=== PATIENT | male | born 1960 | race African-American/Black ===

== ENCOUNTER 2016-05-02 09:21 | Inpatient (IN) | payer MEDICARE, OTHER ==
[~2016-05-02] VITALS: Ht 185.4 cm; Wt 106.6 kg
[~2016-05-02 09:21] MED LIST: ASPI81TA2 PO; ATOR20TA PO; CHLO25TA PO; CHOL2000 PO; DILT120C97 PO; DILT60TA3 PO; FURO40TA4 PO; GLIP10TA20 PO; GLIP5TAB10 PO; GLIP5TAB22 PO; HYDR-971 PO; LATA2.5D3 EACHEYE; LISI40TA PO; LOSA100T6 PO; METF10002 PO; SILD20TA2 PO; SPIR25TA3 PO
[2016-05-02 11:17] LABS: BASO % 1 % (0-3); EOS % 2 % (0-3); HEMATOCRIT 32.8 % (39.0-53.0); HEMOGLOBIN 9.9 g/dL (13.0-17.5); LYMPH # 1.3 x10^3/uL (1.0-4.8); LYMPH % 16 % (24-48); MEAN CORPUSCULAR HEMOGLOBIN 24 pg (25-35); MEAN CORPUSCULAR HGB CONC 30 g/dL (31-37); MEAN CORPUSCULAR VOLUME 81 fL (79-100); MONO % 9 % (0-9); NEUT % 72 % (31-73); PLATELET COUNT 168 x10^3/uL (140-400); RED BLOOD COUNT 4.07 x10^6/uL (4.30-5.70); RED CELL DISTRIBUTION WIDTH 17.5 % (11.5-14.5)
[2016-05-02 11:22] LABS: CALCIUM 8.5 mg/dL (8.5-10.1); GFR 7.4; POTASSIUM 4.1 mmol/L (3.5-5.1)
--- NOTE | 2016-05-02 11:59 | RAD ---
CT scan of the abdomen and pelvis without contrast 05/02/2016 Clinical history: Constipation and abdominal pain. Technique: Unenhanced, contiguous, 5 mm axial sections were obtained through the abdomen and pelvis. One or more of the following individualized dose reduction techniques were utilized for this study: 1. Automated exposure control. 2. Adjustment of the mA and/or kV according to patient size. 3. Use of iterative reconstruction technique. Findings: Comparison study is dated 01/16/2015. Images through the lung bases demonstrate minimal dependent subsegmental atelectasis bilaterally. The unenhanced CT appearance of the liver, spleen, pancreas and adrenal glands are within normal limits. Coils are seen within the mid/lower pole right kidney, unchanged. No acute focal abnormality of either kidney is noted. Atherosclerotic calcification of the abdominal aorta is seen. The abdominal aorta tapers normally. The gallbladder is contracted. A peritoneal dialysis catheter is seen within the left lower quadrant of the abdomen. A small amount of free fluid is seen within the abdomen which is presumably related to peritoneal dialysis. No free air is noted. There is no evidence of bowel obstruction. Surgical changes are seen consistent with an appendectomy. Scattered diverticula are seen involving the colon. No inflammatory changes are seen in the adjacent fat. Images through the pelvis demonstrate the urinary bladder distended with urine. The prostate gland is enlarged likely related to BPH. Calcifications are seen within the pelvis consistent with phleboliths. Multiple diverticula are seen along the sigmoid colon. No inflammatory changes are seen in the adjacent fat. Impression: No acute abnormality is seen.
[2016-05-02] MEDS ORDERED: INSULIN REGULAR 100 UNIT/ML 10ML VIAL. IV ONE (12:15)
--- NOTE | 2016-05-02 12:53 | PHYS DOC ---
Past Medical History Past Medical History: Diabetes-Type II, High Cholesterol, Hypertension Additional Past Medical Histor: ESRD, peritoneal dialysis Past Surgical History: Cholecystectomy, Tonsillectomy Additional Past Surgical Histo: peritoneal dialysis Additional Information: denies Alcohol Use: Occasionally Drug Use: None Adult General Chief Complaint Chief Complaint: LOWER EXTREMITY SWELLING HPI HPI Patient is a 55 year old male who presents with and daughter for abdominal pain, constipation, and abdominal swelling. States he also has some bilateral lower extremity edema and 5 pound weight gain over the past week. He performs nightly peritoneal dialysis and feels he has appropriate fluid output. He denies fever or chills, nausea or vomiting, dyspnea, cough, chest pain, bloody stools, hematuria, back pain. Review of Systems Review of Systems Constitutional: Denies fever or chills [] Eyes: Denies change in visual acuity, redness, or eye pain [] HENT: Denies nasal congestion or sore throat [] Respiratory: Denies cough or shortness of breath [] Cardiovascular: No additional information not addressed in HPI [] GI: Denies nausea, vomiting, bloody stools or diarrhea [] : Denies dysuria or hematuria [] Musculoskeletal: Denies back pain or joint pain [] Integument: Denies rash or skin lesions [] Neurologic: Denies headache, focal weakness or sensory changes [] Endocrine: Denies polyuria or polydipsia [] Current Medications Current Medications Current Medications Medications (Trade) Dose Ordered Sig/[facility] Start Time Stop Time Status Last Admin Dose Admin Insulin Human Regular (Novolin R Vial) 10 unit 1X ONCE 05/02/16 12:15 05/02/16 12:16 DC 05/02/16 12:43 10 UNIT Allergies Allergies Allergies Coded Allergies Type Severity Reaction Last Updated Verified ibuprofen Allergy Severe swelling 01/30/15 Yes Physical Exam Physical Exam Constitutional: Well developed, well nourished, no acute distress, non-toxic appearance. [] HENT: Normocephalic, atraumatic, bilateral external ears normal, oropharynx moist, nose normal. [] Eyes: PERRLA, EOMI. [] Neck: Normal range of motion, supple. [] Cardiovascular:Heart rate regular rhythm [] Lungs & Thorax: Bilateral breath sounds clear to auscultation [] Abdomen: Bowel sounds normal, soft, no tenderness, large palpable urinary bladder. [] Skin: Warm, dry, no erythema, no rash. [] Back: No tenderness, no CVA tenderness. [] Extremities: No tenderness, ROM intact, 1+ bilateral lower extremity edema. [] Neurologic: Alert and oriented X 3, normal motor function, normal sensory function, no focal deficits noted. [] Psychologic: Affect normal, judgement normal, mood normal. [] Current Patient Data Vital Signs Vital Signs Date Time Temp Pulse Resp B/P Pulse Ox O2 Delivery O2 Flow Rate FiO2 05/02/16 10:54 83 16 172/79 96 Room Air 05/02/16 09:35 99.1 99.1 Lab Values Laboratory Tests Test 05/02/16 11:00 White Blood Count 8.0x10^3/uL (4.0-11.0) Red Blood Count 4.07x10^6/uL (4.30-5.70) L Hemoglobin 9.9g/dL (13.0-17.5) L Hematocrit 32.8% (39.0-53.0) L Mean Corpuscular Volume 81fL (79-100) Mean Corpuscular Hemoglobin 24pg (25-35) L Mean Corpuscular Hemoglobin Concent 30g/dL (31-37) L Red Cell Distribution Width 17.5% (11.5-14.5) H Platelet Count 168x10^3/uL (140-400) Neutrophils (%) (Auto) 72% (31-73) Lymphocytes (%) (Auto) 16% (24-48) L Monocytes (%) (Auto) 9% (0-9) Eosinophils (%) (Auto) 2% (0-3) Basophils (%) (Auto) 1% (0-3) Neutrophils # (Auto) 5.7x10^3uL (1.8-7.7) Lymphocytes # (Auto) 1.3x10^3/uL (1.0-4.8) Monocytes # (Auto) 0.7x10^3/uL (0.0-1.1) Eosinophils # (Auto) 0.2x10^3/uL (0.0-0.7) Basophils # (Auto) 0.0x10^3/uL (0.0-0.2) Sodium Level 122mmol/L (136-145) L Potassium Level 4.1mmol/L (3.5-5.1) Chloride Level 87mmol/L (98-107) L Carbon Dioxide Level 27mmol/L (21-32) Anion Gap 8 (6-14) Blood Urea Nitrogen 58mg/dL (8-26) H Creatinine 9.0mg/dL (0.7-1.3) H Estimated GFR (Cockcroft-Gault) 7.4 Glucose Level 1153mg/dL (70-99) *H Calcium Level 8.5mg/dL (8.5-10.1) Laboratory Tests 05/02/16 11:00 Laboratory Tests 05/02/16 11:00 EKG EKG EKG as interpreted by me as normal sinus rhythm, rate 75, no ST-T changes, normal intervals, no ectopy Radiology/Procedures Radiology/Procedures CT abdomen and pelvis without contrast Impression: No acute abnormality is seen. DICTATED and SIGNED BY: BIBIANA MARTINEZ MD DATE: 05/02/16 1150 Course & Med Decision Making Course & Med Decision Making Pertinent Labs and Imaging studies reviewed. (See chart for details) He has severe asymptomatic hyperglycemia. He also has bladder distention concerning for urinary retention. He was given IV insulin, and Mary catheter was placed . He had large urine output with resolution of abdominal pain and swelling. His laboratory evaluation is otherwise unremarkable. He will be admitted for blood glucose control to start insulin therapy. Discussed case with Dr. Mccullough, who will admit and recommends starting insulin drip. Dragon Disclaimer Dragon Disclaimer This electronic medical record was generated, in whole or in part, using a voice recognition dictation system. Departure Departure Impression: Primary Impression: Hyperglycemia Additional Impressions: Urinary retention ESRD (end stage renal disease) Disposition: ADMITTED INPATIENT Condition: STABLE Referrals: CIELO COYNE DO (PCP) Problem Qualifiers [place] NICHOLAS MD May 02, 2016 12:53
[2016-05-02] MEDS ORDERED: ACETAMINOPHEN 325 MG TABLET. PO PRN ×2 (13:00→16:15)
[2016-05-02] MEDS ORDERED: ONDANSETRON PF 4 MG/2 ML VIAL. IV PRN ×2 (13:00→16:15)
[2016-05-02] MEDS ORDERED: INSULIN,REGULAR 150 UNIT DRIP 150 ML IV ONE (13:00)
[2016-05-02] MEDS: FENTANYL PF 100 MCG/2 ML VIAL. IV PRN ×2 (13:28→22:25)
[2016-05-02] MEDS ORDERED: TAMSULOSIN 0.4 MG CAP.ER.24H. PO SCH (13:30)
--- NOTE | 2016-05-02 14:21 | ACF ---
Admission Forms Criteria GENERAL ADMISSION CRITERIA (Place 'X' for any and all applicable criteria): Admission is indicated for ANY ONE of the following: [ ]I. Hemodynamic instability as indicated by ANY ONE of the following(1)(2) (3)(4)(5): [ ]a) Vital sign abnormality not readily corrected by appropriate treatment within 12 to 24 hours indicated by ANY ONE of the following: [ ]i) Hypotension [ ]ii) Symptomatic Tachycardia unresponsive to treatment (eg , analgesia, fluids, sedation as indicated) [ ]iii) Orthostatic vital sign changes unresponsive to treatment (eg, fluids) [ ]b) Vital sign abnormality that is severe indicated by ANY ONE of the following: [ ]i) Inadequate perfusion indicated by ANY ONE of the following: [ ]1) Lactic acidosis (greater than 2 mmol/L) [ ]2) New abnormal capillary refill (greater than 3 seconds) [ ]3) Other metabolic acidosis (arterial pH less than 7.35) not otherwise explained [ ]4) Reduced urine output [ ]5) Altered mental status [ ]6) Myocardial Ischemia [ ]v) Mean arterial pressure[A] less than 60 mm Hg [ ]vi) Mean arterial pressure[A] less than 70 mm Hg after 30 minutes of appropriate treatment (eg, fluid resuscitation) [ ]vii) IV inotropic or vasopressor medication required to maintain adequate blood pressure or perfusion [ ]viii) Sustained heart rate greater than 120 beats per minute in adult or child 6 years or older[B]] [ ]II. Hypertension requiring inpatient treatment as indicated by ANY ONE of the following(6)(7)(8): [ ]a) SBP greater than 220 mm Hg or DBP greater than 120 mm Hg despite treatment [ ]b) SBP greater than 140 mm Hg or DBP greater than 100 mm Hg with evidence of acute end organ damage as indicated by ANY ONE of the following: [ ]i) Encephalopathy [ ]ii) Acute renal failure as indicated by new onset of ANY ONE of the following(9)(10)(11)(12)(13): [ ]1) A 3-fold rise in serum creatinine from baseline [ ]2) Serum creatinine greater than 4 mg/dL ( 354 micromoles/L) with acute rise greater than 0.5 mg/dL (44.2 micromoles/L) [ ]3) Reduction of more than 75% in estimated glomerular filtration rate from baseline [ ]4) Estimated glomerular filtration rate less than 35 mL/min/1.73m2 (0.59 mL/sec/1.73m2) in child up to 18 years of age [ ]5) Cessation of urine output indicated by ALL of the following: [ ]A. Adequate volume status [ ]B. Inadequate urine output as indicated by ANY ONE of the following: [ ]a. Urine output less than 0.3 mL/kg/hr for 24 hours [ ]b. Anuria (urine output less than 0.1 mL/kg/hr) for 12 hours [ ]iii) Aortic dissection [ ]iv) Myocardial ischemia [ ]v) Left ventricular heart failure [ ]vi) Retinal hemorrhage [ ]vii) Other significant finding [ ]c) Hypertension in child requiring inpatient treatment as indicated by ALL of the following(14)(15)(16): [ ]i) Outpatient treatment not effective, not available, or not appropriate [ ]ii) SBP or DBP greater than 95th percentile for age [ ]iii) Evidence of acute end organ damage as indicated by ANY ONE of the following: [ ]1) Altered mental status [ ]2) Acute renal failure as indicated by new onset of ANY ONE of the following(9)(10)(11)(12)(13): [ ]A. A 3-fold rise in serum creatinine from baseline [ ]B. Serum creatinine greater than 4 mg/dL (354 micromoles/L) with acute rise greater than 0.5 mg/dL (44.2 micromoles/L) [ ]C. Reduction of more than 75% in estimated glomerular filtration rate from baseline [ ]D. Estimated glomerular filtration rate less than 35 mL/min/1.73m2 (0.59 mL/sec/1.73m2)in child up to 18 years of age [ ]E. Cessation of urine output indicated by ALL of the following: [ ]a. Adequate volume status [ ]b. Inadequate urine output as indicated by ANY ONE of the following: [ ]1) Urine output less than 0.3 mL/kg/hr for 24 hours [ ]2) Anuria (urine output less than 0.1 mL/kg/hr) for 12 hours [ ]3) Severe headache [ ]4) Visual disturbance [ ]5) Retinal hemorrhage [ ]6) Other significant finding [ ]III. Acute cardiac or peripheral ischemia as indicated by ANY ONE of the following: [ ]a) Acute coronary syndrome(17)(18) [ ]b) Acute peripheral ischemia (eg, pulseless, cool, mottled, or cyanotic extremity)(19) [ ]IV. Cardiac arrhythmias or findings of immediate concern indicated by ANY ONE of the following(20)(21): [ ]a) Heart rhythms that are inherently dangerous or unstable indicated by ANY ONE of the following(22)(23)(24): [ ]i) Resuscitated ventricular fibrillation or cardiac arrest [ ]ii) Ventricular escape rhythm [ ]iii) Sustained ventricular tachycardia (30 seconds or more of ventricular rhythm at greater than 100 beats per minute) [ ]iv) Nonsustained ventricular tachycardia and ANY ONE of the following: [ ]1) Suspected cardiac ischemia as cause or consequence of ventricular tachycardia [ ]2) In setting of acute myocarditis [ ]b) Unstable cardiac conduction defects indicated by ANY ONE of the following(24)(25)(26): [ ]i) Type II second-degree atrioventricular block [ ]ii) Third-degree atrioventricular block [ ]iii) New-onset left bundle branch block with suspected myocardial ischemia [ ]c) Any heart rhythm and ANY ONE of the following(22)(23)(27)(28)( 29): [ ] i) Continuous long-term ECG monitoring needed (eg, initiation of drug requiring monitoring for more than 24 hours) [ ] ii) Patient has automatic implanted cardioverter defibrillator that is repeatedly firing, malfunctioning, or in need of immediate adjustment of settings beyond the scope of ambulatory or observation care. [ ]d) Heart rhythms of concern due to ANY ONE of the following: [ ]i) Hypotension [ ]ii) Respiratory distress [ ]iii) Association with other significant symptoms (eg, bradycardia with syncope or ongoing dizziness, supraventricular tachycardia with chest pain) (27)(28) (30) [ ] V. Severe heart failure as indicated by ANY ONE of the following ( 31)(32): [ ]a) Respiratory distress [ ]b) Hypotension [ ]c) Anasarca (refractory to outpatient therapy) [ ]d) Cardiac arrhythmias of immediate concern [ ]e) Myocardial ischemia [ ]. Respiratory abnormalities, including ANY ONE of the following(33)(34) (35)(36): [ ]a) Respiratory rate greater than 30 breaths per minute unresponsive to treatment [A] [ ]b) New saturation of arterial oxygen less than 90% [ ]c) New partial pressure of carbon dioxide greater than 44 mm Hg ( 5.9 kPa) [ ]d) Supplemental oxygen or respiratory treatments needed that are new or not performable at other levels of care [ ]e) New-onset cyanosis [ ]f) Inability to protect airway [ ]g) Chronic lung disease with severe deterioration (not responsive to emergency and observation care treatment as appropriate) as indicated by ANY ONE of the following(34)(36 ): [ ]i) SaO2 5% below baseline in patient with chronic hypoxemia [ ]ii) New requirement for supplemental oxygen to keep SaO2 at baseline or acceptable level [ ]iii) Required supplemental oxygen performable only in acute inpatient setting [ ]iv) Severe airflow or ventilation abnormalities [ ]v) Previously mobile patient unable to walk between rooms [ ]vi Inability to eat or sleep due to dyspnea [ ]vii) Rapid rate of exacerbation onset [ ]viii) Altered mental status ]VII. Severe airflow or ventilation abnormalities (not responsive to emergency and observation care treatment as appropriate) as indicated by ANY ONE of the following(33)(34)(35)(37): [ ]a) PCO2 greater than 42 mm Hg (5.6 kPa) and pH less than 7.35 (new ) [ ]b) Documented PCO2 increased more than 5 mm Hg (0.7 kPa) from disease baseline [ ]c) Airflow measurements [B] less than 60% of previous best or predicted (eg, peak expiratory flow rate less than 300 L/minute) despite intensive emergent treatment [C] [ ]d) Required respiratory treatments that are performable only in acute inpatient setting [ ]VIII. Impending or actual respiratory arrest ( Also use Respiratory Failure GRG for severe respiratory disease and long-term mechanical ventilation patients) [ ]IX. Neurologic abnormalities, including ANY ONE of the following: [ ]a) New findings that suggest ANY ONE of the following: [ ]i) RATOPRINTER infection(38) [ ]ii) Cerebral bleeding, ischemia, or vasospasm(39)(40) [ ]iii) Increased intracranial pressure, hydrocephalus, or cerebral edema(41)(42)(43) [ ]iv) Spinal cord injury(44) [ ]b) Uncontrolled seizures(45) [ ]c) New-onset coma (eg, Hallie coma scale score less than 9) or unexplained abnormal mental status (eg, Hallie coma scale score less than 14) [D](41)(46)(47) [ ]X. New-onset severe neurologic findings requiring inpatient care; examples include(42)(48)(49): [ ]a) Papilledema [ ]b) Cerebral edema [ ]c) Mass effect on CT scan [ ]XI. Suspected acute intra-abdominal process with peritoneal signs, abdominal mass, or similar findings (50)(51)(52) [X]XII. Severe physiologic disorder remaining after emergency or observation level care (as appropriate) as indicated by ANY ONE of the following (53): [ ]a) Significant dehydration [ ]b) Diabetic ketoacidosis [X]c) Hyperglycemic hyperosmolar state (eg, osmolality greater than 320 mOsm/kg (mmol/kg) [ ]d) Hypoglycemia [ ]e) Other (new) acid-base disorder with pH less than 7.35 or greater than 7.5(54) [ ]f) Thyroid storm (55) [ ]g) Myxedema coma (55) [ ]XIII. Abdominal abnormalities with ANY ONE of the following(56)(57): [ ]a) Absent bowel sounds with complete ileus [ ]b) Signs of intestinal obstruction or peritonitis [E] [ ]c) Nausea and vomiting that cannot be controlled with outpatient or observation care [ ]XIV. Acute renal failure as indicated by new onset of ANY ONE of the following(9)(10)(11)(12)(13): [ ]a) A 3-fold rise in serum creatinine from baseline [ ]b) Serum creatinine greater than 4 mg/dL (354 micromoles/L) with acute rise greater than 0.5 mg/dL (44.2 micromoles/L) [ ]c) Reduction of more than 75% in estimated glomerular filtration rate from baseline [ ]d) Estimated glomerular filtration rate less than 35 mL/min/ 1.73m2 (0.59 mL/sec/1.73m2) in child up to 18 years of age [ ]e) Cessation of urine output indicated by ALL of the following: [ ]i) Adequate volume status [ ]ii) Inadequate urine output as indicated by ANY ONE of the following: [ ]1) Urine output less than 0.3 mL/kg/hr for 24 hours [ ]2) Anuria (urine output less than 0.1 mL/kg/hr) for 12 hours [ ]XV. Significant uremic complications as indicated by ANY ONE of the following(58)(59)(60): [ ]a) Outpatient therapy is ineffective or not feasible for ANY ONE of the following: [ ]i) Severe heart failure [ ]ii) Severehypertension [ ]iii) Pleural effusion [ ]iv) Pericarditis or pericardial effusion [ ]b) Cardiac arrhythmias of immediate concern [ ]c) Intractable nausea or vomiting [ ]d) Recurrent seizures [ ]e) Encephalopathy [ ]f) Bleeding abnormalities (eg, platelet dysfunction) with active (eg, gastrointestinal) bleeding [ ]g) Dialysis indicated before long-term access or ambulatory arrangements can be made [ ]h) Significant metabolic or electrolyte abnormalities (eg, severe acidosis or hyperkalemia) [ ]XVI. High fever or other high-risk infection situation as indicated by ANY ONE of the following(61)(62)(63)(64): [ ]a) Outpatient and observation care antimicrobial treatment unavailable, not effective, or not appropriate [ ]b) Documented bacteremia [ ]c) Temperature greater than 40.5 degrees C (104.9 degrees F) ( oral) [ ]d) Temperature greater than 39.5 degrees C (103.1 degrees F) ( oral) or less than 36 degrees C (96.8 degrees F) (rectal) that does not respond to e treatment and observation care [ ] XVII. Temperature less than 95 degrees F (35 degrees C)(rectal)(65) [ ] XVIII. Severe nutritional abnormalities as indicated by ALL of the following (66)(67): [ ]a) Inability to tolerate or establish sufficient oral or other enteral nutrition in outpatient setting [ ]b) Parenteral nutrition regimen need that must be implemented on inpatient basis [ ] XIX. Severe electrolyte abnormalities indicated by ALL of the following(68) (69)(70): [ ]a) Electrolytes and associated findings are not as expected for patient baseline or acceptable treatment effects. [ ]b) Severe abnormalities indicated by ANY ONE of the following: [ ]i) Sodium less than 130 mEq/L (mmol/L) (new) [ ]ii)Sodium less than 135 mEq/L (mmol/L) with ANY ONE of the following: [ ]1) Uncorrectable (to near normal or chronic baseline) after trial of outpatient and emergency treatment [ ]2) Altered mental status [ ]3) Seizures [ ]4) Severe medical etiology requiring inpatient management (eg, heart failure, hypovolemia) [ ]iii) Sodium greater than 155 mEq/L (mmol/L) [ ]iv) Sodium greater than 150 mEq/L (mmol/L) with ANY ONE of the following: [ ]1) Uncorrectable (to near normal or chronic baseline) with outpatient and emergency treatment [ ]2) Altered mental status [ ]3) Seizures [ ]4) Severe medical etiology (eg, hypovolemia, diabetes insipidus) [ ]v) Potassium less than 2.5 mEq/L (mmol/L) despite outpatient and emergency treatment [ ]vi) Potassium less than 3 mEq/L (mmol/L) with ANY ONE of the following: [ ]1) Weakness [ ]2) Cardiac abnormality (eg, arrhythmia, conduction disturbance) [ ]3) Cardiac ischemia [ ]4) Ileus [ ]5) Ongoing medical cause requiring inpatient management (eg, acute renal wasting or SIADH) [ ]6) Other severe symptoms [ ]vii) Potassium greater than 6.5 mEq/L (mmol/L) [ ]viii) Potassium greater than 5 mEq/L (mmol/L) with ANY ONE of the following: [ ]1) Uncorrectable (to near normal or chronic baseline) with outpatient and emergency treatment [ ]2) Severe ECG findings [F] [ ]3) Acute worsening of renal failure (creatinine greater than 2.5 mg/dL (221 micromoles/L) or significant elevation for age and size) [ ]4) Severe weakness [ ]5) Severe medical etiology (eg, hemolysis, infection, drug overdose) [ ]ix) Calcium less than 7 mg/dL (1.75 mmol/L) despite outpatient and emergency treatment (72) [ ]x) Calcium less than 8 mg/dL (2 mmol/L) with significant symptoms or findings; examples include(72): [ ]1) Altered mental status [ ]2) Muscle spasms [ ]3) Seizures [ ]4) Breathing difficulty [ ]5) Cardiac abnormality (eg, arrhythmia or conduction disturbance) [ ]xi) Calcium greater than 14 mg/dL (3.5 mmol/L)(72) [ ]xii) Calcium greater than 12 mg/dL (3 mmol/L) with ANY ONE of the following(72): [ ]1) Uncorrectable (to near normal or chronic baseline) with outpatient and emergency treatment [ ]2) Significant dehydration or hypovolemia as indicated by ALL of the following(70)(73)(74): [ ]A. Not resolved with initial treatments [ ]B. Clinically significant dehydration as indicated by ANY ONE of the following: [ ]a. Vomiting refractory to outpatient treatment (ie, precluding oral rehydration) [ ]b. Inability to drink [ ]c. Hypernatremia or other electrolyte abnormality unable to be corrected with outpatient and emergency treatment [ ]d. Failure to remain hydrated with outpatient therapy [ ]e. Reduced urine output [ ]f. Hypotension [ ]g. Serious cause for dehydration requiring acute hospitalization (eg, bowel obstruction, increased intracranial pressure, infectious cause) [ ]h. Child with ANY ONE of the following(75): [ ]1) Severe abdominal tenderness [ ]2) Adequate care not available at home [ ]3) Severe dehydration ( greater than 9% loss of body weight) [ ]4) Significant symptoms or findings; examples include: [ ]A. Altered mental status [ ]B. Cardiac abnormality (eg, arrhythmia, conduction disturbance) [ ]C. Malignant etiology requiring inpatient treatment [ ]xiii) Phosphorus less than 1 mg/dL (0.32 mmol/L) [ ]xiv) Phosphorus less than 1.5 mg/dL (0.48 mmol/L) with ANY ONE of the following: [ ]1) Patient unresponsive to outpatient and emergency treatment [ ]2) Significant symptoms or findings; examples include: [ ]A. Weakness [ ]B. Altered mental status [ ]C. Breathing difficulty [ ]D. Seizures [ ]E. Rhabdomyolysis [ ]xv) Phosphorus greater than 10 mg/dL (3.2 mmol/L) [ ]xvi) Phosphorus greater than 4.5 mg/dL (1.45 mmol/L) (new) with ANY ONE of the following: [ ]1) Severe medical etiology (eg, crush injury, acute renal failure) [ ]2) Associated hypocalcemia with significant findings; examples include: [ ]A. Neurologic symptoms [ ]B. Altered mental status [ ]C. Muscle spasms [ ]D. Seizures [ ]E. Breathing difficulty [ ]F. Cardiac abnormality (eg, arrhythmia, conduction disturbance) [ ]xvii) Magnesium less than 1 mg/dL (0.41 mmol/L) [ ]xviii) Magnesium less than 1.5 mg/dL (0.62 mmol/L) with ANY ONE of the following: [ ]1) Patient unresponsive to outpatient and emergency treatment [ ]2) Associated hypocalcemia with significant findings; examples include: [ ]A. Altered mental status [ ]B. Muscle spasms [ ]C. Seizures [ ]D. Breathing difficulty [ ]E. Cardiac abnormality (eg, arrhythmia , conduction disturbance) [ ]3) Associated hypokalemia (potassium less than 3 mEq/L (mmol/L)) with risk of arrhythmia [ ]xix) Magnesium greater than 4 mEq/L (2 mmol/L) [ ]xx) Magnesium greater than 2.5 mEq/L (1.25 mmol/L) with significant symptoms or findings; examples include: [ ]1) Weakness [ ]2) Altered mental status [ ]3) Cardiac abnormality (eg, arrhythmia, conduction disturbance) [ ]4) Breathing difficulty [ ]5) Severe medical etiology (eg, renal failure, hypovolemia) [ ]xxi) Uric acid greater than 20 mg/dL (1190 micromoles/L)(76) [ ]xxii) Uric acid greater than 8 mg/dL (476 micromoles/L) with significant symptoms or findings of tumor lysis syndrome; examples include(76): [ ]1) Creatinine greater than 1.5 times upper limit of normal [ ]2) Cardiac abnormality (eg, arrhythmia, conduction disturbance) [ ]3) Seizure [ ]XX. Acute blood loss causing significant abnormality as indicated by ANY ONE of the following(77)(78): [ ]a) Hemoglobin less than 10 g/dL (100 g/L) (not baseline) [ ]b) Hematocrit less than 30% (0.30) (not baseline) [ ]c) Repeat hematocrit decreased more than 2% (0.02) [ ]d) Uncontrolled bleeding [ ]XXI. Severe anemia indicated by ANY ONE of the following(78)(79): [ ]a) Altered mental status [ ]b) Chest pain [ ]c) Exertional dyspnea [ ]d) Syncope [ ]e) Other findings suggesting inadequate perfusion [ ]f) Treatment with transfusion or volume replacement is ineffective at resolving ANY ONE of the following [G]: [ ]i) Tachycardia for age [ ]ii) Orthostatic vital sign changes as indicated by ANY ONE of the following(80): [ ]1) Fall in SBP of 20 mm Hg or more 1 to 3 minutes after patient sits or stands from recumbent position [ ]2) Fall in DBP of 10 mm Hg or more 1 to 3 minutes after patient sits or stands from recumbent position [ ]XXII. High-risk low platelet count as indicated by ANY ONE of the following( 81)(82): [ ]a) Severe or life-threatening bleeding (eg, intracranial, major gastrointestinal, or extensive mucosal bleeding), with any reduced platelet count [ ]b) Platelet count less than 20,000/mm3 (20 x109/L) with any active bleeding [ ]c) Platelet count less than 10,000/mm3 (10 x109/L) with minor purpura or petechiae [ ]d) Platelet count less than 5000/mm3 (5 x109/L) [ ]e) Low platelet count with hemolytic anemia [ ]XXIII. Disseminated intravascular coagulation(77)(83) [ ]XXIV. Severe adverse drug or systemic toxin reaction requiring inpatient treatment; examples include(84)(85): [ ]a) Serotonin syndrome(86) [ ]b) Neuroleptic malignant syndrome(86) [ ]c) Cholinergic syndrome with severe symptoms (eg, bronchorrhea, weakness, mental status changes, seizures) [ ]d) Sympathetic syndrome with severe symptoms (eg, seizures, mental status changes, cardiac dysrhythmias) [ ]e) Anticholinergic syndrome [ ]XXV. Severe pain requiring acute inpatient management as indicated by ALL of the following (87)(88)(89): [ ]a) Continuous or frequent (eg, every 2 to 4 hours) parenteral analgesics required [H] [ ]b) Rapid improvement expected from treatment or acute intervention (eg, surgery, anesthesia procedure) [ ]XXVI.Severe behavioral health issues judged unmanageable at a lower level of care (eg, residential) in a patient who is ANY ONE of the following(91) [ ]a) Acutely suicidal [ ]b) A danger to self (eg, self-mutilating or suicidal behavior) [ ]c) A danger to others (eg, assaultive or homicidal behavior) [ ]d) Incapacitated because of grave disability (eg, inability to provide for self at lower level of care) (92) [ ]XXVII. Inpatient monitoring needed; examples include(1)(3)(87)(93)(94)(95)(96 ): [ ]a) Vital signs, neurologic signs, or vascular checks more frequently than every 4 hours [ ]b) Cardiac or respiratory monitoring beyond the scope (eg, over 24 hours) of observation care [ ]c) Pulmonary artery catheter monitoring [ ]d) Suspected compartment syndrome(97) (98) [ ]e) Cerebral bleeding, hydrocephalus, or vasospasm monitoring [ ]f) Increased intracranial pressure or cerebral edema monitoring [ ]g) monitoring [ ]XXVIII. Treatment requiring inpatient care; examples include: [ ]a) IV fluid to replace significant ongoing losses (greater than 3 L/m2 per day)(53) [ ]b) High concentration oxygen (greater than 40%)(33)(99)(100) [ ]c) Frequent respiratory therapy (more frequently than every 4 hours) to maintain airflow rates greater than 60% of baseline(33)(99)(100) [ ]d) Epidural analgesia(87) [ ]e) IV anticoagulation, vasoactive, or antiarrhythmic medication(19 )(23) [ ]f) Acute thrombolytics (generally require 24 hours of observation )(101)(102) [ ]XXIX. Emergency procedures needed; examples include: [ ]a) Emergency inpatient surgery [ ]b) Temporary pacemaker placement(103) [ ]c) Chest tube placement with active evacuation (eg, suction, drainage)(104) [ ]d) Emergent cardioversion(105) [ ]e) Emergent cardiac or vascular procedures (eg, cardiac catheterization, angioplasty) (17)(18) [ ]f) Emergent dialysis access placement and institution(10)(106) [ ]g) Emergent pericardiocentesis(107) [ ]h) Emergent plasmapheresis or leukapheresis(83) [ ]i) Emergent tracheostomy The original [employer] content created by [employer] has been revised. The portions of the content which have been revised are identified through the use of italic text or in bold, and [employer] [facility] [employer] has neither reviewed nor approved the modified material. All other unmodified content is copyright [employer]. Please see references footnoted in the original [employer] edition 2016 Admission Criteria Met?: Yes TAMMIE STYLES May 02, 2016 14:21
[2016-05-02 15:21] LABS: CALCIUM 8.8 mg/dL (8.5-10.1); CREATININE 9.3 mg/dL (0.7-1.3); GFR 7.1; POTASSIUM 3.6 mmol/L (3.5-5.1)
--- NOTE | 2016-05-02 16:06 | EKG ---
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
--- NOTE | 2016-05-02 16:13 | PDOC1 ---
History and Physical Date of Admission Date of Admission 05/02/16 Identification/Chief Complaint Chief Complaint abd pain Problems: Source Source: Caregiver, Chart review, Patient History of Present Illness History of Present Illness HPI Patient is a 55 year old male who presents with and daughter for abdominal pain, constipation, and abdominal swelling for 2 days. He has been doing PD for 18months, saying it works well. He noticed bl feet swelling for 2 days, with low urine output, also gained 5 pounds over the past week. HE Said low fluid output from PD for today. He has mild cough for a while, denies fever, chills, sob, chest pain. in ER, was found urinary retention, huddleston in, about 3L out as per ER nurse. abd pain better now, but uncomfortable with huddleston. was found glucose >1100 in ER, on pills for DM2, glucose in the morning usually >200, failed fu with PCP for last visit. Past Medical History Cardiovascular: HTN Renal/: Chronic renal insuff Endocrine: Diabetes Past Surgical History Past Surgical History: Appendectomy, Tonsillectomy Family History Family History: Diabetes, Other Social History Smoke: Quit (for 3 months) ALCOHOL: none Drugs: None Current Problem List Problem List Problems Medical Problems: (1) ESRD (end stage renal disease) Status: Acute (2) Hyperglycemia Status: Acute (3) Urinary retention Status: Acute Current Medications Current Medications Current Medications Medications (Trade) Dose Ordered Sig/Lee Start Time Stop Time Status Last Admin Dose Admin Acetaminophen (Tylenol) 650 mg PRN Q4HRS PRN 05/02/16 13:00 05/03/16 12:59 Fentanyl Citrate (Fentanyl 2ml Vial) 50 mcg PRN Q2HR PRN 05/02/16 13:00 05/03/16 12:59 05/02/16 13:28 50 MCG Insulin Human Regular (Novolin R Iv Drip) 150 ml @ 0 mls/hr 1X ONCE 05/02/16 13:00 05/02/16 13:01 DC 05/02/16 15:34 17.12 MLS/HR Insulin Human Regular 10 unit 10 unit 1X ONCE 05/02/16 12:15 05/02/16 12:16 DC 05/02/16 12:43 10 UNIT Ondansetron HCl (Zofran) 4 mg PRN Q8HRS PRN 05/02/16 13:00 05/03/16 12:59 Tamsulosin HCl (Flomax) 0.4 mg DAILY 05/02/16 13:30 Allergies Allergies Allergies Coded Allergies Type Severity Reaction Last Updated Verified ibuprofen Allergy Severe swelling 01/30/15 Yes ROS Review of System CONSTITUTIONAL: No fever or chills EYES: No recent changes SKIN: No rash or itching CARDIOVASCULAR: No chest pain, syncope, palpitations, or edema RESPIRATORY: No SOB or cough GASTROINTESTINAL: No nausea, vomiting or abdominal pain NEUROLOGICAL: No headaches or weakness ENDOCRINE: No cold or heat intolerance GENITOURINARY: No urgency or frequency of urination MUSCULOSKELETAL: No back pain or joint pain LYMPHATICS: No enlarged lymph nodes PSYCHIATRIC: No anxiety or depression Physical Exam Physical Exam GEN.: No apparent distress. Alert and oriented. has huddleston HEENT: Head is normocephalic, atraumatic NECK: Supple. LUNGS: Clear to auscultation. HEART: RRR, S1, S2 present. Peripheral pulses intact ABDOMEN: Soft, nontender. Positive bowel sounds. mild distended abd, PD cath in place. EXTREMITIES: Without any cyanosis. NEUROLOGIC: Normal speech, normal tone PSYCHIATRIC: Normal affect, normal mood. SKIN: No ulcerations Vitals Vitals Vital Signs Date Time Temp Pulse Resp B/P Pulse Ox O2 Delivery O2 Flow Rate FiO2 05/02/16 14:12 112 20 171/78 92 Room Air 05/02/16 09:35 99.1 99.1 Labs Labs Laboratory Tests Test 05/02/16 11:00 05/02/16 13:50 White Blood Count 8.0x10^3/uL (4.0-11.0) Red Blood Count 4.07x10^6/uL (4.30-5.70) Hemoglobin 9.9g/dL (13.0-17.5) Hematocrit 32.8% (39.0-53.0) Mean Corpuscular Volume 81fL (79-100) Mean Corpuscular Hemoglobin 24pg (25-35) Mean Corpuscular Hemoglobin Concent 30g/dL (31-37) Red Cell Distribution Width 17.5% (11.5-14.5) Platelet Count 168x10^3/uL (140-400) Neutrophils (%) (Auto) 72% (31-73) Lymphocytes (%) (Auto) 16% (24-48) Monocytes (%) (Auto) 9% (0-9) Eosinophils (%) (Auto) 2% (0-3) Basophils (%) (Auto) 1% (0-3) Neutrophils # (Auto) 5.7x10^3uL (1.8-7.7) Lymphocytes # (Auto) 1.3x10^3/uL (1.0-4.8) Monocytes # (Auto) 0.7x10^3/uL (0.0-1.1) Eosinophils # (Auto) 0.2x10^3/uL (0.0-0.7) Basophils # (Auto) 0.0x10^3/uL (0.0-0.2) Sodium Level 122mmol/L (136-145) 129mmol/L (136-145) Potassium Level 4.1mmol/L (3.5-5.1) 3.6mmol/L (3.5-5.1) Chloride Level 87mmol/L (98-107) 91mmol/L (98-107) Carbon Dioxide Level 27mmol/L (21-32) 26mmol/L (21-32) Anion Gap 8 (6-14) 12 (6-14) Blood Urea Nitrogen 58mg/dL (8-26) 57mg/dL (8-26) Creatinine 9.0mg/dL (0.7-1.3) 9.3mg/dL (0.7-1.3) Estimated GFR (Cockcroft-Gault) 7.4 7.1 Glucose Level 1153mg/dL (70-99) 923mg/dL (70-99) Calcium Level 8.5mg/dL (8.5-10.1) 8.8mg/dL (8.5-10.1) Laboratory Tests Test 05/02/16 11:00 05/02/16 13:50 White Blood Count 8.0x10^3/uL (4.0-11.0) Red Blood Count 4.07x10^6/uL (4.30-5.70) Hemoglobin 9.9g/dL (13.0-17.5) Hematocrit 32.8% (39.0-53.0) Mean Corpuscular Volume 81fL (79-100) Mean Corpuscular Hemoglobin 24pg (25-35) Mean Corpuscular Hemoglobin Concent 30g/dL (31-37) Red Cell Distribution Width 17.5% (11.5-14.5) Platelet Count 168x10^3/uL (140-400) Neutrophils (%) (Auto) 72% (31-73) Lymphocytes (%) (Auto) 16% (24-48) Monocytes (%) (Auto) 9% (0-9) Eosinophils (%) (Auto) 2% (0-3) Basophils (%) (Auto) 1% (0-3) Neutrophils # (Auto) 5.7x10^3uL (1.8-7.7) Lymphocytes # (Auto) 1.3x10^3/uL (1.0-4.8) Monocytes # (Auto) 0.7x10^3/uL (0.0-1.1) Eosinophils # (Auto) 0.2x10^3/uL (0.0-0.7) Basophils # (Auto) 0.0x10^3/uL (0.0-0.2) Sodium Level 122mmol/L (136-145) 129mmol/L (136-145) Potassium Level 4.1mmol/L (3.5-5.1) 3.6mmol/L (3.5-5.1) Chloride Level 87mmol/L (98-107) 91mmol/L (98-107) Carbon Dioxide Level 27mmol/L (21-32) 26mmol/L (21-32) Anion Gap 8 (6-14) 12 (6-14) Blood Urea Nitrogen 58mg/dL (8-26) 57mg/dL (8-26) Creatinine 9.0mg/dL (0.7-1.3) 9.3mg/dL (0.7-1.3) Estimated GFR (Cockcroft-Gault) 7.4 7.1 Glucose Level 1153mg/dL (70-99) 923mg/dL (70-99) Calcium Level 8.5mg/dL (8.5-10.1) 8.8mg/dL (8.5-10.1) VTE Prophylaxis Ordered VTE Prophylaxis Devices: Yes VTE Pharmacological Prophylaxi: Yes Assessment/Plan Assessment/Plan 1. abd pain with urinary retention 2. ESRD on PD daily 3. HHS 4. HTN URGEncy 5. obesity 6. hld 7. quit smoking for 3 months 8. constipation 9. anemia, with ESRD 10. hyponatremia with 3 plan: 1. renal, uro consult 2. keep huddleston for now, cont flomax, check UA 3. need to resume PD 4. add insulin drip now, BMP repeat at 2 and 8 and 11pm labs tmr IVF check hba1c. osmal, hold glimepizide 5. dvt ppx RICHY DIMAS MD May 02, 2016 16:13
[2016-05-02] MEDS ORDERED: hydrALAZINE 20 MG/ML VIAL. IVP PRN (16:15)
[2016-05-02] MEDS ORDERED: MAGNESIUM HYDROXIDE 2,400 MG/30 ML ORAL.SUSP. PO PRN (16:15)
[2016-05-02] MEDS ORDERED: HYDROCODONE/APAP 5/325MG TABLET. PO PRN (16:15)
[2016-05-02 16:30] VITALS: BP 166/78
--- NOTE | 2016-05-02 16:40 | PDOC2 ---
CONSULT Date of Consult Date of Consult DATE: 05/02/16 TIME: 16:22 Reason for Consult Reason for Consult: ESRD on PD Referring Physician Referring Physician: Dr Rivera Identification/Chief Complaint Chief Complaint ^ FSBS Problems: Source Source: Chart review, Patient History of Present Illness Reason for Visit: as dictated Past Medical History Cardiovascular: HTN Renal/: Chronic renal insuff (on PD) Endocrine: Diabetes Past Surgical History Past Surgical History: Appendectomy, Tonsillectomy Family History Family History: Diabetes, Other Social History Quit (for 3 months) ALCOHOL: none Drugs: None Lives: with Family Domestic Violence: Neg Current Problem List Problem List Problems Medical Problems: (1) ESRD (end stage renal disease) Status: Acute (2) Hyperglycemia Status: Acute (3) Urinary retention Status: Acute Current Medications Current Medications Current Medications Insulin Human Regular 10 unit 10 unit 1X ONCE IV Last administered on 12:43; Start 05/02/16 at 12:15; Stop 05/02/16 at 12:16; Status DC Insulin Human Regular (Novolin R Iv Drip) 150 ml @ 0 mls/hr 1X ONCE IV Last administered on 05/02/16 15:34; Start 05/02/16 at 13:00; Stop 05/02/16 at 13:01; Status DC Ondansetron HCl (Zofran) 4 mg PRN Q8HRS PRN IV NAUSEA/VOMITING; Start 05/02/16 at 13:00; Stop 05/03/16 at 12:59 Fentanyl Citrate (Fentanyl 2ml Vial) 50 mcg PRN Q2HR PRN IV PAIN Last administered on 05/02/16 13:28; Start 05/02/16 at 13:00; Stop 05/03/16 at 12:59 Acetaminophen (Tylenol) 650 mg PRN Q4HRS PRN PO FEVER; Start 05/02/16 at 13:00; Stop 05/03/16 at 12:59 Tamsulosin HCl (Flomax) 0.4 mg DAILY PO ; Start 05/02/16 at 13:30 Aspirin (Children'S Aspirin) 81 mg DAILY08 PO ; Start 05/02/16 at 17:00 Atorvastatin Calcium (Lipitor) 20 mg QHS PO ; Start 05/02/16 at 21:00 Chlorthalidone (Thalitone) 25 mg DAILY PO ; Start 05/02/16 at 17:00 Latanoprost (Xalatan) 1 drop QHS OU ; Start 05/02/16 at 21:00 Lisinopril (Prinivil) 40 mg DAILY PO ; Start 05/02/16 at 17:00 Spironolactone (Aldactone) 25 mg DAILY PO ; Start 05/02/16 at 17:00 Vitamin D (Vitamin D3) 1,000 unit DAILY PO ; Start 05/02/16 at 17:00 Acetaminophen (Tylenol) 650 mg PRN Q6HRS PRN PO MILD PAIN / TEMP; Start at 16:15 Ondansetron HCl (Zofran) 4 mg PRN Q6HRS PRN IV NAUSEA/VOMITING; Start 05/02/16 at 16:15 Acetaminophen/ Hydrocodone Bitart (Lortab 5/325) 1 tab PRN Q4HRS PRN PO PAIN; Start 05/02/16 at 16:15 Hydralazine HCl (Apresoline) 10 mg PRN Q4HRS PRN IVP ELEVATED BP, SEE COMMENTS ; Start 05/02/16 at 16:15 Heparin Sodium (Porcine) 5,000 unit Q8HRS SQ ; Start 05/02/16 at 16:15 Senna/Docusate Sodium (Senna Plus) 1 tab BID PO ; Start 05/02/16 at 21:00 Docusate Sodium (Colace) 100 mg BID PO ; Start 05/02/16 at 21:00 Magnesium Hydroxide (Milk Of Magnesia) 2,400 mg PRN Q12HR PRN PO CONSTIPATION; Start 05/02/16 at 16:15 Active Scripts Active [place] 5-325 Tablet (Acetaminophen/Hydrocodone Bitart) 1 Each Tablet 1-2 Tab PO Q4-6HRS Reported Vitamin D (Cholecalciferol (Vitamin D3)) 2,000 Unit Capsule 1 Cap PO DAILY Glipizide Er (Glipizide) 5 Mg Tab.er.24 1 Tab PO BID Lipitor (Atorvastatin Calcium) 20 Mg Tablet 20 Mg PO DAILY Chlorthalidone 25 Mg Tablet 1 Tab PO DAILY Aspirin 81 Mg Tab.chew 1 Tab PO DAILY Spironolactone 25 Mg Tablet 1 Tab PO DAILY Lisinopril 40 Mg Tablet 1 Tab PO DAILY Latanoprost 2.5 Ml Drops 1 Drop EACHEYE QHS Allergies Allergies: Coded Allergies: ibuprofen (Verified Allergy, Severe, swelling, 01/30/15) ROS Review of System GEN: no Fevers no Chills EYES: Occ Visual blurring ENT: no EN Drainage no Hearing deficiets CVS: no Orthopnea no CP RESP: no SOB no DEL ROSARIO GI: no Nausea no Vomiting : no Dysuria occ Urgency HEME: no easy bruising no Palp Ly Nodes NEURO no Focal Weakness no Sz PSYCH: no Suicidal Ideation no Depression SKIN: no Rashes ENDO: + Polyuria or Polydipsia no Hot/Cold Intolerance MU SK: occ Arthralgia no Myalgia Physical Exam Physical Exam General Appearance: Awake Alert Oriented x 3 In no Distress Eyes: VIsion Unchanged Conjunctiva Normal EN: No EN Drainage Mucous Memb. moist Neck: no JVD no JVP Supple no Thyromegaly CVS: S1 S2 no Murmur No Gallop No Rub +2 Edema Resp: no Rales no Rhonchi no Acc. Muscle use GI: BAS +ve NO Bruit Non Tender Non Distended : no CVA tenderness; no Suprapubic Tenderness SKIN: no Rashes Breast Exam deferred Mu.Sk: Adequate ROM no Muscle Atrophy Heme: Unable to palpate Obvious LAD no palp Splenomegaly NEURO: Good Strength and Tone Cranial Nerves II - XII grossly intact Psych: not Depressed no Active hallucination Vital Signs Vital Signs Date Time Temp Pulse Resp B/P Pulse Ox O2 Delivery O2 Flow Rate FiO2 05/02/16 14:12 112 20 171/78 92 Room Air 05/02/16 09:35 99.1 99.1 Assessment & Plan ESRD: Current FLuid and E-lyte status does not necessitate emergent need for Dialysis. Will re-evaluate for Peritoneal Dialysis in am HypoNatremia - Suspect this will correct once FSBS Corrects Edema - restart Lasix once FSBS corrects BP settle Anemia: May need Epogen restarted once sev HTN: Current BP meds reviewed. See orders for changes. watch once home BP meds are resumed ? [place] - ^ Flomax - ? URO eval Discussed Plan of Care and prognosis etc. at length with family. Labs Labs Laboratory Tests Test 05/02/16 11:00 05/02/16 13:50 White Blood Count 8.0x10^3/uL (4.0-11.0) Red Blood Count 4.07x10^6/uL (4.30-5.70) Hemoglobin 9.9g/dL (13.0-17.5) Hematocrit 32.8% (39.0-53.0) Mean Corpuscular Volume 81fL (79-100) Mean Corpuscular Hemoglobin 24pg (25-35) Mean Corpuscular Hemoglobin Concent 30g/dL (31-37) Red Cell Distribution Width 17.5% (11.5-14.5) Platelet Count 168x10^3/uL (140-400) Neutrophils (%) (Auto) 72% (31-73) Lymphocytes (%) (Auto) 16% (24-48) Monocytes (%) (Auto) 9% (0-9) Eosinophils (%) (Auto) 2% (0-3) Basophils (%) (Auto) 1% (0-3) Neutrophils # (Auto) 5.7x10^3uL (1.8-7.7) Lymphocytes # (Auto) 1.3x10^3/uL (1.0-4.8) Monocytes # (Auto) 0.7x10^3/uL (0.0-1.1) Eosinophils # (Auto) 0.2x10^3/uL (0.0-0.7) Basophils # (Auto) 0.0x10^3/uL (0.0-0.2) Sodium Level 122mmol/L (136-145) 129mmol/L (136-145) Potassium Level 4.1mmol/L (3.5-5.1) 3.6mmol/L (3.5-5.1) Chloride Level 87mmol/L (98-107) 91mmol/L (98-107) Carbon Dioxide Level 27mmol/L (21-32) 26mmol/L (21-32) Anion Gap 8 (6-14) 12 (6-14) Blood Urea Nitrogen 58mg/dL (8-26) 57mg/dL (8-26) Creatinine 9.0mg/dL (0.7-1.3) 9.3mg/dL (0.7-1.3) Estimated GFR (Cockcroft-Gault) 7.4 7.1 Glucose Level 1153mg/dL (70-99) 923mg/dL (70-99) Calcium Level 8.5mg/dL (8.5-10.1) 8.8mg/dL (8.5-10.1) Laboratory Tests Test 05/02/16 11:00 05/02/16 13:50 White Blood Count 8.0x10^3/uL (4.0-11.0) Red Blood Count 4.07x10^6/uL (4.30-5.70) Hemoglobin 9.9g/dL (13.0-17.5) Hematocrit 32.8% (39.0-53.0) Mean Corpuscular Volume 81fL (79-100) Mean Corpuscular Hemoglobin 24pg (25-35) Mean Corpuscular Hemoglobin Concent 30g/dL (31-37) Red Cell Distribution Width 17.5% (11.5-14.5) Platelet Count 168x10^3/uL (140-400) Neutrophils (%) (Auto) 72% (31-73) Lymphocytes (%) (Auto) 16% (24-48) Monocytes (%) (Auto) 9% (0-9) Eosinophils (%) (Auto) 2% (0-3) Basophils (%) (Auto) 1% (0-3) Neutrophils # (Auto) 5.7x10^3uL (1.8-7.7) Lymphocytes # (Auto) 1.3x10^3/uL (1.0-4.8) Monocytes # (Auto) 0.7x10^3/uL (0.0-1.1) Eosinophils # (Auto) 0.2x10^3/uL (0.0-0.7) Basophils # (Auto) 0.0x10^3/uL (0.0-0.2) Sodium Level 122mmol/L (136-145) 129mmol/L (136-145) Potassium Level 4.1mmol/L (3.5-5.1) 3.6mmol/L (3.5-5.1) Chloride Level 87mmol/L (98-107) 91mmol/L (98-107) Carbon Dioxide Level 27mmol/L (21-32) 26mmol/L (21-32) Anion Gap 8 (6-14) 12 (6-14) Blood Urea Nitrogen 58mg/dL (8-26) 57mg/dL (8-26) Creatinine 9.0mg/dL (0.7-1.3) 9.3mg/dL (0.7-1.3) Estimated GFR (Cockcroft-Gault) 7.4 7.1 Glucose Level 1153mg/dL (70-99) 923mg/dL (70-99) Calcium Level 8.5mg/dL (8.5-10.1) 8.8mg/dL (8.5-10.1) Images Images The unenhanced CT appearance of the liver, spleen, pancreas and adrenal glands are within normal limits. Coils are seen within the mid/lower pole right kidney, unchanged. No acute focal abnormality of either kidney is noted. Atherosclerotic calcification of the abdominal aorta is seen. The abdominal aorta tapers normally. The gallbladder is contracted. A peritoneal dialysis catheter is seen within the left lower quadrant of the abdomen. A small amount of free fluid is seen within the abdomen which is presumably related to peritoneal dialysis. No free air is noted. There is no evidence of bowel obstruction. Surgical changes are seen consistent with an appendectomy. Scattered diverticula are seen involving the colon. No inflammatory changes are seen in the adjacent fat. Images through the pelvis demonstrate the urinary bladder distended with urine. The prostate gland is enlarged likely related to BPH. Calcifications are seen within the pelvis consistent with phleboliths. Multiple diverticula are seen along the sigmoid colon. No inflammatory changes are seen in the adjacent fat. Impression: No acute abnormality is seen. STEVEN CRUMP MD May 02, 2016 16:40
[2016-05-02] MEDS ORDERED: MAGNESIUM SULFATE 2GM 50 ML IV PRN (16:45)
[2016-05-02] MEDS ORDERED: LISINOPRIL 40 MG TABLET. PO SCH ×2 (17:00→18:30)
[2016-05-02 17:15] VITALS: BP 166/78
[2016-05-02] MEDS ORDERED: IV NORMAL SALINE 1000ML BAG 1,000 ML IV ONE (17:45)
[2016-05-02 19:00] VITALS: BP 142/57
[2016-05-02] MEDS: SPIRONOLACTONE 25 MG TABLET PO SCH (19:27)
[2016-05-02] MEDS: PANTOPRAZOLE 40 MG TABLET. PO SCH (19:27)
[2016-05-02] MEDS: ASPIRIN 81 MG TAB.CHEW PO SCH (19:28)
[2016-05-02] MEDS: CHLORTHALIDONE 25 MG TABLET PO SCH (19:28)
[2016-05-02] MEDS: CHOLECALCIFEROL (VITAMIN D3) 1,000 UNIT TABLET PO SCH (19:28)
[2016-05-02] MEDS: HEPARIN PF for SUB-Q USE 5,000 UNIT/0.5 ML VIAL. SQ SCH ×2 (19:34→22:38)
[2016-05-02 20:20] LABS: CALCIUM 9.1 mg/dL (8.5-10.1); CREATININE 8.6 mg/dL (0.7-1.3); GFR 7.8
[2016-05-02] MEDS ORDERED: LISI40TA PO (20:26)
[2016-05-02] MEDS ORDERED: POTASSIUM CHLORIDE 20MEQ 50 ML IV SCH (20:45)
[2016-05-02] MEDS: LATANOPROST 0.005% OPHTH SOLUTION 2.5ML BOTTLE. OU SCH (21:00)
[2016-05-02] MEDS: HYDRALAZINE 50 MG TABLET PO SCH (22:20)
[2016-05-02] MEDS: SENNOSIDES/DOCUSATE 8.6/50MG TABLET. PO SCH (22:21)
[2016-05-02] MEDS: LOSARTAN POTASSIUM 50 MG TABLET. PO SCH (22:21)
[2016-05-02] MEDS: DOCUSATE SODIUM 100 MG CAPSULE PO SCH (22:21)
[2016-05-02] MEDS: ATORVASTATIN CALCIUM 20 MG TABLET PO SCH (22:22)
[2016-05-02] MEDS: METOPROLOL TART IMMED RELEASE 25 MG TABLET PO SCH (22:22)
[2016-05-02] MEDS: AMLODIPINE BESYLATE 10 MG TABLET PO SCH (22:23)
[2016-05-02] MEDS: POTASSIUM CHLORIDE 10MEQ 100 ML IV SCH (22:26)
[2016-05-02] MEDS: CLONIDINE HCL 0.3 MG TABLET PO SCH (22:26)
[2016-05-02 23:00] VITALS: BP 153/62
[2016-05-02] MEDS ORDERED: DEXTROSE 50% 25 GM / 50ML DISP.SYRIN. IV PRN (23:30)
[2016-05-03 00:10] LABS: CALCIUM 9.3 mg/dL (8.5-10.1); CREATININE 8.5 mg/dL (0.7-1.3); GFR 7.9
[2016-05-03] MEDS: INSULIN DETEMIR 300 UNITS/3 ML INSULN.PEN. SQ SCH ×2 (00:10→22:28)
[2016-05-03] MEDS: POTASSIUM CHLORIDE 10MEQ 100 ML IV SCH ×3 (00:11→05:29)
[2016-05-03 03:00] VITALS: BP 125/59
[2016-05-03 04:47] LABS: BASO # 0.1 x10^3/uL (0.0-0.2); BASO % 1 % (0-3); EOS % 3 % (0-3); HEMATOCRIT 31.3 % (39.0-53.0); HEMOGLOBIN 10.2 g/dL (13.0-17.5); LYMPH # 2.3 x10^3/uL (1.0-4.8); LYMPH % 25 % (24-48); MEAN CORPUSCULAR HEMOGLOBIN 24 pg (25-35); MEAN CORPUSCULAR HGB CONC 33 g/dL (31-37); MEAN CORPUSCULAR VOLUME 75 fL (79-100); MONO % 7 % (0-9); NEUT % 65 % (31-73); PLATELET COUNT 180 x10^3/uL (140-400); RED BLOOD COUNT 4.18 x10^6/uL (4.30-5.70); RED CELL DISTRIBUTION WIDTH 17.2 % (11.5-14.5); WHITE BLOOD COUNT 9.3 x10^3/uL (4.0-11.0)
[2016-05-03 05:11] LABS: % SAT IRON 68 % (15-34); IRON,SERUM 77 ug/dL (65-175)
[2016-05-03 05:12] LABS: CALCIUM 9.4 mg/dL (8.5-10.1); CREATININE 8.1 mg/dL (0.7-1.3); GFR 8.4; POTASSIUM 3.2 mmol/L (3.5-5.1)
[2016-05-03] MEDS: CLONIDINE HCL 0.3 MG TABLET PO SCH ×3 (06:03→20:52)
[2016-05-03] MEDS: FENTANYL PF 100 MCG/2 ML VIAL. IV PRN (06:07)
[2016-05-03] MEDS: HEPARIN PF for SUB-Q USE 5,000 UNIT/0.5 ML VIAL. SQ SCH ×3 (06:12→21:01)
[2016-05-03 07:00] VITALS: BP 126/57
[2016-05-03] MEDS: PANTOPRAZOLE 40 MG TABLET. PO SCH (08:06)
[2016-05-03] MEDS: CALCITRIOL 0.25 MCG CAPSULE PO SCH (08:06)
[2016-05-03] MEDS: CHOLECALCIFEROL (VITAMIN D3) 1,000 UNIT TABLET PO SCH (08:07)
[2016-05-03] MEDS: TAMSULOSIN 0.4 MG CAP.ER.24H. PO SCH (08:07)
[2016-05-03] MEDS: CHLORTHALIDONE 25 MG TABLET PO SCH (08:07)
[2016-05-03] MEDS: SENNOSIDES/DOCUSATE 8.6/50MG TABLET. PO SCH ×2 (08:08→20:49)
[2016-05-03] MEDS: FUROSEMIDE 40 MG TABLET PO SCH ×2 (08:08→14:32)
[2016-05-03] MEDS: DOCUSATE SODIUM 100 MG CAPSULE PO SCH ×2 (08:08→20:48)
[2016-05-03] MEDS: FOLIC/VIT B COMP W-C (RENAL) TABLET. PO SCH (08:08)
[2016-05-03] MEDS: SPIRONOLACTONE 25 MG TABLET PO SCH (08:08)
[2016-05-03] MEDS: ASPIRIN 81 MG TAB.CHEW PO SCH (08:08)
[2016-05-03] MEDS: HYDRALAZINE 50 MG TABLET PO SCH ×3 (08:09→20:49)
[2016-05-03] MEDS: METOPROLOL TART IMMED RELEASE 25 MG TABLET PO SCH ×2 (08:09→20:52)
[2016-05-03] MEDS: LISINOPRIL 40 MG TABLET. PO SCH (08:10)
[2016-05-03] MEDS: INSULIN ASPART 300 UNITS/3 ML INSULN.PEN SQ SCH ×6 (08:23→16:31)
--- NOTE | 2016-05-03 08:44 | PDOC ---
SUBJECTIVE Subjective Pt. with urinary retention OBJECTIVE Objective Pt. with ESRD-on peritoneal dialysis Vital Signs Vital Signs Date Time Temp Pulse Resp B/P Pulse Ox O2 Delivery O2 Flow Rate FiO2 05/03/16 08:10 60 126/57 05/03/16 08:09 60 126/57 05/03/16 08:09 60 126/57 05/03/16 07:00 97.9 60 18 126/57 98 Room Air 97.9 05/03/16 06:38 18 Room Air 05/03/16 06:07 18 Room Air 05/03/16 06:03 63 125/59 05/03/16 03:00 97.9 63 18 125/59 97 Room Air 97.9 05/02/16 23:00 99.3 72 18 153/62 94 Room Air 99.3 05/02/16 22:26 84 166/78 05/02/16 22:25 23 Room Air 05/02/16 22:23 84 166/78 05/02/16 22:22 84 166/78 05/02/16 22:21 84 166/78 05/02/16 22:20 84 166/78 05/02/16 20:00 Room Air 05/02/16 19:28 84 166/78 05/02/16 19:00 99.5 92 18 142/57 95 Room Air 99.5 05/02/16 17:15 97.6 84 18 166/78 95 Room Air 97.6 05/02/16 16:30 97.6 84 18 166/78 96 Room Air 97.6 05/02/16 15:15 112 16 130/65 93 Room Air 05/02/16 14:45 114 140/56 Room Air 05/02/16 14:12 112 20 171/78 92 Room Air 05/02/16 13:28 13 05/02/16 13:15 82 16 178/77 Room Air 05/02/16 12:45 80 18 198/84 98 Room Air 05/02/16 12:20 72 19 207/98 Room Air 05/02/16 11:00 74 16 196/68 94 Room Air 05/02/16 10:54 83 16 172/79 96 Room Air 05/02/16 09:35 99.1 89 20 205/92 95 Room Air 99.1 I & O Intake and Output 05/03/16 07:00 Intake Total 1440 ml Output Total 5950 ml Balance -4510 ml Intake Oral 290 ml Other 1150 ml Output Urine Total 5950 ml PHYSICAL EXAM Physical Exam huddleston to gravity 2,700 cc in bladder at time of huddleston placement ASSESSMENT/PLAN Assessment/Plan keep huddleston flomax f/u in 1-2 weeks with urology [employer] Amna Qureshi for voiding trial and possible I[employer] teaching Problems: COMMENT Lab Laboratory Tests Test 05/02/16 11:00 05/02/16 13:50 05/02/16 17:25 05/02/16 18:10 White Blood Count 8.0x10^3/uL (4.0-11.0) Red Blood Count 4.07x10^6/uL (4.30-5.70) Hemoglobin 9.9g/dL (13.0-17.5) Hematocrit 32.8% (39.0-53.0) Mean Corpuscular Volume 81fL (79-100) Mean Corpuscular Hemoglobin 24pg (25-35) Mean Corpuscular Hemoglobin Concent 30g/dL (31-37) Red Cell Distribution Width 17.5% (11.5-14.5) Platelet Count 168x10^3/uL (140-400) Neutrophils (%) (Auto) 72% (31-73) Lymphocytes (%) (Auto) 16% (24-48) Monocytes (%) (Auto) 9% (0-9) Eosinophils (%) (Auto) 2% (0-3) Basophils (%) (Auto) 1% (0-3) Neutrophils # (Auto) 5.7x10^3uL (1.8-7.7) Lymphocytes # (Auto) 1.3x10^3/uL (1.0-4.8) Monocytes # (Auto) 0.7x10^3/uL (0.0-1.1) Eosinophils # (Auto) 0.2x10^3/uL (0.0-0.7) Basophils # (Auto) 0.0x10^3/uL (0.0-0.2) Sodium Level 122mmol/L (136-145) 129mmol/L (136-145) Potassium Level 4.1mmol/L (3.5-5.1) 3.6mmol/L (3.5-5.1) Chloride Level 87mmol/L (98-107) 91mmol/L (98-107) Carbon Dioxide Level 27mmol/L (21-32) 26mmol/L (21-32) Anion Gap 8 (6-14) 12 (6-14) Blood Urea Nitrogen 58mg/dL (8-26) 57mg/dL (8-26) Creatinine 9.0mg/dL (0.7-1.3) 9.3mg/dL (0.7-1.3) Estimated GFR (Cockcroft-Gault) 7.4 7.1 Glucose Level 1153mg/dL (70-99) 923mg/dL (70-99) 547mg/dL (70-99) 499mg/dL (70-99) Serum Osmolality 335mOsm/Kg (279-304) Calcium Level 8.5mg/dL (8.5-10.1) 8.8mg/dL (8.5-10.1) Test 05/02/16 19:00 05/02/16 19:58 05/02/16 20:00 05/02/16 21:06 Glucose Level 470mg/dL (70-99) 446mg/dL (70-99) Glucose (Fingerstick) 424mg/dL (70-99) 347mg/dL (70-99) Sodium Level 136mmol/L (136-145) Potassium Level 3.0mmol/L (3.5-5.1) Chloride Level 99mmol/L (98-107) Carbon Dioxide Level 27mmol/L (21-32) Anion Gap 10 (6-14) Blood Urea Nitrogen 61mg/dL (8-26) Creatinine 8.6mg/dL (0.7-1.3) Estimated GFR (Cockcroft-Gault) 7.8 Calcium Level 9.1mg/dL (8.5-10.1) Test 05/02/16 21:56 05/02/16 22:55 05/02/16 23:40 05/03/16 00:04 Glucose (Fingerstick) 352mg/dL (70-99) 266mg/dL (70-99) 212mg/dL (70-99) Sodium Level 140mmol/L (136-145) Potassium Level 3.0mmol/L (3.5-5.1) Chloride Level 103mmol/L (98-107) Carbon Dioxide Level 29mmol/L (21-32) Anion Gap 8 (6-14) Blood Urea Nitrogen 59mg/dL (8-26) Creatinine 8.5mg/dL (0.7-1.3) Estimated GFR (Cockcroft-Gault) 7.9 Glucose Level 253mg/dL (70-99) Calcium Level 9.3mg/dL (8.5-10.1) Test 05/03/16 01:20 05/03/16 01:58 05/03/16 04:09 05/03/16 04:16 Glucose (Fingerstick) 150mg/dL (70-99) 147mg/dL (70-99) 200mg/dL (70-99) White Blood Count 9.3x10^3/uL (4.0-11.0) Red Blood Count 4.18x10^6/uL (4.30-5.70) Hemoglobin 10.2g/dL (13.0-17.5) Hematocrit 31.3% (39.0-53.0) Mean Corpuscular Volume 75fL (79-100) Mean Corpuscular Hemoglobin 24pg (25-35) Mean Corpuscular Hemoglobin Concent 33g/dL (31-37) Red Cell Distribution Width 17.2% (11.5-14.5) Platelet Count 180x10^3/uL (140-400) Neutrophils (%) (Auto) 65% (31-73) Lymphocytes (%) (Auto) 25% (24-48) Monocytes (%) (Auto) 7% (0-9) Eosinophils (%) (Auto) 3% (0-3) Basophils (%) (Auto) 1% (0-3) Neutrophils # (Auto) 6.0x10^3uL (1.8-7.7) Lymphocytes # (Auto) 2.3x10^3/uL (1.0-4.8) Monocytes # (Auto) 0.6x10^3/uL (0.0-1.1) Eosinophils # (Auto) 0.2x10^3/uL (0.0-0.7) Basophils # (Auto) 0.1x10^3/uL (0.0-0.2) Sodium Level 139mmol/L (136-145) Potassium Level 3.2mmol/L (3.5-5.1) Chloride Level 102mmol/L (98-107) Carbon Dioxide Level 28mmol/L (21-32) Anion Gap 9 (6-14) Blood Urea Nitrogen 61mg/dL (8-26) Creatinine 8.1mg/dL (0.7-1.3) Estimated GFR (Cockcroft-Gault) 8.4 Glucose Level 226mg/dL (70-99) Calcium Level 9.4mg/dL (8.5-10.1) Phosphorus Level 4.0mg/dL (2.6-4.7) Magnesium Level 2.4mg/dL (1.8-2.4) Iron Level 77ug/dL (65-175) Total Iron Binding Capacity 114ug/dL (250-450) Iron Saturation 68% (15-34) Ferritin 1252ng/mL (26-388) Albumin 2.0g/dL (3.4-5.0) Test 05/03/16 07:14 Glucose (Fingerstick) 207mg/dL (70-99) SOULEYMANE BRISCOE MD May 03, 2016 08:44
[2016-05-03] MEDS ORDERED: LISINOPRIL 40 MG TABLET. PO SCH (09:00)
[2016-05-03] MEDS: GLIPIZIDE ER 5 MG TAB.ER.24 PO SCH ×2 (09:14→20:49)
--- NOTE | 2016-05-03 11:07 | PDOC ---
PROGRESS NOTES History of Present Illness History of Present Illness BS better but still on high side INSulin naive BOBBIN DISKER Now needing 30 units qhs on PD CT scan abd is neg PLAN: Check hgba1c - ordered but not resulted Start glyburide 5 BID PD per renal IF BS better ember, home ember Keep [place] upon dc, 2 week ff up urology Will need Flomax Rx upon dc Vitals Vitals Vital Signs Date Time Temp Pulse Resp B/P Pulse Ox O2 Delivery O2 Flow Rate FiO2 05/03/16 08:10 60 126/57 05/03/16 08:00 Room Air 05/03/16 07:00 97.9 18 98 97.9 Physical Exam General: Alert, Cooperative Heart: Regular rate, Normal S1, Normal S2 Lungs: Clear Abdomen: Normal bowel sounds, Soft Extremities: No clubbing, No cyanosis Skin: No rashes, No breakdown Labs LABS Laboratory Tests Test 05/02/16 13:50 05/02/16 17:25 05/02/16 18:10 05/02/16 19:00 Sodium Level 129mmol/L (136-145) Potassium Level 3.6mmol/L (3.5-5.1) Chloride Level 91mmol/L (98-107) Carbon Dioxide Level 26mmol/L (21-32) Anion Gap 12 (6-14) Blood Urea Nitrogen 57mg/dL (8-26) Creatinine 9.3mg/dL (0.7-1.3) Estimated GFR (Cockcroft-Gault) 7.1 Glucose Level 923mg/dL (70-99) 547mg/dL (70-99) 499mg/dL (70-99) 470mg/dL (70-99) Calcium Level 8.8mg/dL (8.5-10.1) Test 05/02/16 19:58 05/02/16 20:00 05/02/16 21:06 05/02/16 21:56 Glucose (Fingerstick) 424mg/dL (70-99) 347mg/dL (70-99) 352mg/dL (70-99) Sodium Level 136mmol/L (136-145) Potassium Level 3.0mmol/L (3.5-5.1) Chloride Level 99mmol/L (98-107) Carbon Dioxide Level 27mmol/L (21-32) Anion Gap 10 (6-14) Blood Urea Nitrogen 61mg/dL (8-26) Creatinine 8.6mg/dL (0.7-1.3) Estimated GFR (Cockcroft-Gault) 7.8 Glucose Level 446mg/dL (70-99) Calcium Level 9.1mg/dL (8.5-10.1) Test 05/02/16 22:55 05/02/16 23:40 05/03/16 00:04 05/03/16 01:20 Glucose (Fingerstick) 266mg/dL (70-99) 212mg/dL (70-99) 150mg/dL (70-99) Sodium Level 140mmol/L (136-145) Potassium Level 3.0mmol/L (3.5-5.1) Chloride Level 103mmol/L (98-107) Carbon Dioxide Level 29mmol/L (21-32) Anion Gap 8 (6-14) Blood Urea Nitrogen 59mg/dL (8-26) Creatinine 8.5mg/dL (0.7-1.3) Estimated GFR (Cockcroft-Gault) 7.9 Glucose Level 253mg/dL (70-99) Calcium Level 9.3mg/dL (8.5-10.1) Test 05/03/16 01:58 05/03/16 04:09 05/03/16 04:16 05/03/16 07:14 Glucose (Fingerstick) 147mg/dL (70-99) 200mg/dL (70-99) 207mg/dL (70-99) White Blood Count 9.3x10^3/uL (4.0-11.0) Red Blood Count 4.18x10^6/uL (4.30-5.70) Hemoglobin 10.2g/dL (13.0-17.5) Hematocrit 31.3% (39.0-53.0) Mean Corpuscular Volume 75fL (79-100) Mean Corpuscular Hemoglobin 24pg (25-35) Mean Corpuscular Hemoglobin Concent 33g/dL (31-37) Red Cell Distribution Width 17.2% (11.5-14.5) Platelet Count 180x10^3/uL (140-400) Neutrophils (%) (Auto) 65% (31-73) Lymphocytes (%) (Auto) 25% (24-48) Monocytes (%) (Auto) 7% (0-9) Eosinophils (%) (Auto) 3% (0-3) Basophils (%) (Auto) 1% (0-3) Neutrophils # (Auto) 6.0x10^3uL (1.8-7.7) Lymphocytes # (Auto) 2.3x10^3/uL (1.0-4.8) Monocytes # (Auto) 0.6x10^3/uL (0.0-1.1) Eosinophils # (Auto) 0.2x10^3/uL (0.0-0.7) Basophils # (Auto) 0.1x10^3/uL (0.0-0.2) Sodium Level 139mmol/L (136-145) Potassium Level 3.2mmol/L (3.5-5.1) Chloride Level 102mmol/L (98-107) Carbon Dioxide Level 28mmol/L (21-32) Anion Gap 9 (6-14) Blood Urea Nitrogen 61mg/dL (8-26) Creatinine 8.1mg/dL (0.7-1.3) Estimated GFR (Cockcroft-Gault) 8.4 Glucose Level 226mg/dL (70-99) Calcium Level 9.4mg/dL (8.5-10.1) Phosphorus Level 4.0mg/dL (2.6-4.7) Magnesium Level 2.4mg/dL (1.8-2.4) Iron Level 77ug/dL (65-175) Total Iron Binding Capacity 114ug/dL (250-450) Iron Saturation 68% (15-34) Ferritin 1252ng/mL (26-388) Albumin 2.0g/dL (3.4-5.0) Test 05/03/16 10:26 Glucose (Fingerstick) 255mg/dL (70-99) Review of Systems Review of Systems sleepy, no abd pain, urinary retention Assessment and Plan Assessmemt and Plan Problems Medical Problems: (1) ESRD (end stage renal disease) Status: Acute (2) Hyperglycemia Status: Acute (3) Urinary retention Status: Acute Problems: Comment Review of Relevant I have reviewed the following items doreen (where applicable) has been applied. Labs Laboratory Tests Test 05/02/16 11:00 05/02/16 13:50 05/02/16 17:25 05/02/16 18:10 White Blood Count 8.0x10^3/uL (4.0-11.0) Red Blood Count 4.07x10^6/uL (4.30-5.70) Hemoglobin 9.9g/dL (13.0-17.5) Hematocrit 32.8% (39.0-53.0) Mean Corpuscular Volume 81fL (79-100) Mean Corpuscular Hemoglobin 24pg (25-35) Mean Corpuscular Hemoglobin Concent 30g/dL (31-37) Red Cell Distribution Width 17.5% (11.5-14.5) Platelet Count 168x10^3/uL (140-400) Neutrophils (%) (Auto) 72% (31-73) Lymphocytes (%) (Auto) 16% (24-48) Monocytes (%) (Auto) 9% (0-9) Eosinophils (%) (Auto) 2% (0-3) Basophils (%) (Auto) 1% (0-3) Neutrophils # (Auto) 5.7x10^3uL (1.8-7.7) Lymphocytes # (Auto) 1.3x10^3/uL (1.0-4.8) Monocytes # (Auto) 0.7x10^3/uL (0.0-1.1) Eosinophils # (Auto) 0.2x10^3/uL (0.0-0.7) Basophils # (Auto) 0.0x10^3/uL (0.0-0.2) Sodium Level 122mmol/L (136-145) 129mmol/L (136-145) Potassium Level 4.1mmol/L (3.5-5.1) 3.6mmol/L (3.5-5.1) Chloride Level 87mmol/L (98-107) 91mmol/L (98-107) Carbon Dioxide Level 27mmol/L (21-32) 26mmol/L (21-32) Anion Gap 8 (6-14) 12 (6-14) Blood Urea Nitrogen 58mg/dL (8-26) 57mg/dL (8-26) Creatinine 9.0mg/dL (0.7-1.3) 9.3mg/dL (0.7-1.3) Estimated GFR (Cockcroft-Gault) 7.4 7.1 Glucose Level 1153mg/dL (70-99) 923mg/dL (70-99) 547mg/dL (70-99) 499mg/dL (70-99) Serum Osmolality 335mOsm/Kg (279-304) Calcium Level 8.5mg/dL (8.5-10.1) 8.8mg/dL (8.5-10.1) Test 05/02/16 19:00 05/02/16 19:58 05/02/16 20:00 05/02/16 21:06 Glucose Level 470mg/dL (70-99) 446mg/dL (70-99) Glucose (Fingerstick) 424mg/dL (70-99) 347mg/dL (70-99) Sodium Level 136mmol/L (136-145) Potassium Level 3.0mmol/L (3.5-5.1) Chloride Level 99mmol/L (98-107) Carbon Dioxide Level 27mmol/L (21-32) Anion Gap 10 (6-14) Blood Urea Nitrogen 61mg/dL (8-26) Creatinine 8.6mg/dL (0.7-1.3) Estimated GFR (Cockcroft-Gault) 7.8 Calcium Level 9.1mg/dL (8.5-10.1) Test 05/02/16 21:56 05/02/16 22:55 05/02/16 23:40 05/03/16 00:04 Glucose (Fingerstick) 352mg/dL (70-99) 266mg/dL (70-99) 212mg/dL (70-99) Sodium Level 140mmol/L (136-145) Potassium Level 3.0mmol/L (3.5-5.1) Chloride Level 103mmol/L (98-107) Carbon Dioxide Level 29mmol/L (21-32) Anion Gap 8 (6-14) Blood Urea Nitrogen 59mg/dL (8-26) Creatinine 8.5mg/dL (0.7-1.3) Estimated GFR (Cockcroft-Gault) 7.9 Glucose Level 253mg/dL (70-99) Calcium Level 9.3mg/dL (8.5-10.1) Test 05/03/16 01:20 05/03/16 01:58 05/03/16 04:09 05/03/16 04:16 Glucose (Fingerstick) 150mg/dL (70-99) 147mg/dL (70-99) 200mg/dL (70-99) White Blood Count 9.3x10^3/uL (4.0-11.0) Red Blood Count 4.18x10^6/uL (4.30-5.70) Hemoglobin 10.2g/dL (13.0-17.5) Hematocrit 31.3% (39.0-53.0) Mean Corpuscular Volume 75fL (79-100) Mean Corpuscular Hemoglobin 24pg (25-35) Mean Corpuscular Hemoglobin Concent 33g/dL (31-37) Red Cell Distribution Width 17.2% (11.5-14.5) Platelet Count 180x10^3/uL (140-400) Neutrophils (%) (Auto) 65% (31-73) Lymphocytes (%) (Auto) 25% (24-48) Monocytes (%) (Auto) 7% (0-9) Eosinophils (%) (Auto) 3% (0-3) Basophils (%) (Auto) 1% (0-3) Neutrophils # (Auto) 6.0x10^3uL (1.8-7.7) Lymphocytes # (Auto) 2.3x10^3/uL (1.0-4.8) Monocytes # (Auto) 0.6x10^3/uL (0.0-1.1) Eosinophils # (Auto) 0.2x10^3/uL (0.0-0.7) Basophils # (Auto) 0.1x10^3/uL (0.0-0.2) Sodium Level 139mmol/L (136-145) Potassium Level 3.2mmol/L (3.5-5.1) Chloride Level 102mmol/L (98-107) Carbon Dioxide Level 28mmol/L (21-32) Anion Gap 9 (6-14) Blood Urea Nitrogen 61mg/dL (8-26) Creatinine 8.1mg/dL (0.7-1.3) Estimated GFR (Cockcroft-Gault) 8.4 Glucose Level 226mg/dL (70-99) Calcium Level 9.4mg/dL (8.5-10.1) Phosphorus Level 4.0mg/dL (2.6-4.7) Magnesium Level 2.4mg/dL (1.8-2.4) Iron Level 77ug/dL (65-175) Total Iron Binding Capacity 114ug/dL (250-450) Iron Saturation 68% (15-34) Ferritin 1252ng/mL (26-388) Albumin 2.0g/dL (3.4-5.0) Test 05/03/16 07:14 05/03/16 10:26 Glucose (Fingerstick) 207mg/dL (70-99) 255mg/dL (70-99) Laboratory Tests Test 05/02/16 13:50 05/02/16 17:25 05/02/16 18:10 05/02/16 19:00 Sodium Level 129mmol/L (136-145) Potassium Level 3.6mmol/L (3.5-5.1) Chloride Level 91mmol/L (98-107) Carbon Dioxide Level 26mmol/L (21-32) Anion Gap 12 (6-14) Blood Urea Nitrogen 57mg/dL (8-26) Creatinine 9.3mg/dL (0.7-1.3) Estimated GFR (Cockcroft-Gault) 7.1 Glucose Level 923mg/dL (70-99) 547mg/dL (70-99) 499mg/dL (70-99) 470mg/dL (70-99) Calcium Level 8.8mg/dL (8.5-10.1) Test 05/02/16 19:58 05/02/16 20:00 05/02/16 21:06 05/02/16 21:56 Glucose (Fingerstick) 424mg/dL (70-99) 347mg/dL (70-99) 352mg/dL (70-99) Sodium Level 136mmol/L (136-145) Potassium Level 3.0mmol/L (3.5-5.1) Chloride Level 99mmol/L (98-107) Carbon Dioxide Level 27mmol/L (21-32) Anion Gap 10 (6-14) Blood Urea Nitrogen 61mg/dL (8-26) Creatinine 8.6mg/dL (0.7-1.3) Estimated GFR (Cockcroft-Gault) 7.8 Glucose Level 446mg/dL (70-99) Calcium Level 9.1mg/dL (8.5-10.1) Test 05/02/16 22:55 05/02/16 23:40 05/03/16 00:04 05/03/16 01:20 Glucose (Fingerstick) 266mg/dL (70-99) 212mg/dL (70-99) 150mg/dL (70-99) Sodium Level 140mmol/L (136-145) Potassium Level 3.0mmol/L (3.5-5.1) Chloride Level 103mmol/L (98-107) Carbon Dioxide Level 29mmol/L (21-32) Anion Gap 8 (6-14) Blood Urea Nitrogen 59mg/dL (8-26) Creatinine 8.5mg/dL (0.7-1.3) Estimated GFR (Cockcroft-Gault) 7.9 Glucose Level 253mg/dL (70-99) Calcium Level 9.3mg/dL (8.5-10.1) Test 05/03/16 01:58 05/03/16 04:09 05/03/16 04:16 05/03/16 07:14 Glucose (Fingerstick) 147mg/dL (70-99) 200mg/dL (70-99) 207mg/dL (70-99) White Blood Count 9.3x10^3/uL (4.0-11.0) Red Blood Count 4.18x10^6/uL (4.30-5.70) Hemoglobin 10.2g/dL (13.0-17.5) Hematocrit 31.3% (39.0-53.0) Mean Corpuscular Volume 75fL (79-100) Mean Corpuscular Hemoglobin 24pg (25-35) Mean Corpuscular Hemoglobin Concent 33g/dL (31-37) Red Cell Distribution Width 17.2% (11.5-14.5) Platelet Count 180x10^3/uL (140-400) Neutrophils (%) (Auto) 65% (31-73) Lymphocytes (%) (Auto) 25% (24-48) Monocytes (%) (Auto) 7% (0-9) Eosinophils (%) (Auto) 3% (0-3) Basophils (%) (Auto) 1% (0-3) Neutrophils # (Auto) 6.0x10^3uL (1.8-7.7) Lymphocytes # (Auto) 2.3x10^3/uL (1.0-4.8) Monocytes # (Auto) 0.6x10^3/uL (0.0-1.1) Eosinophils # (Auto) 0.2x10^3/uL (0.0-0.7) Basophils # (Auto) 0.1x10^3/uL (0.0-0.2) Sodium Level 139mmol/L (136-145) Potassium Level 3.2mmol/L (3.5-5.1) Chloride Level 102mmol/L (98-107) Carbon Dioxide Level 28mmol/L (21-32) Anion Gap 9 (6-14) Blood Urea Nitrogen 61mg/dL (8-26) Creatinine 8.1mg/dL (0.7-1.3) Estimated GFR (Cockcroft-Gault) 8.4 Glucose Level 226mg/dL (70-99) Calcium Level 9.4mg/dL (8.5-10.1) Phosphorus Level 4.0mg/dL (2.6-4.7) Magnesium Level 2.4mg/dL (1.8-2.4) Iron Level 77ug/dL (65-175) Total Iron Binding Capacity 114ug/dL (250-450) Iron Saturation 68% (15-34) Ferritin 1252ng/mL (26-388) Albumin 2.0g/dL (3.4-5.0) Test 05/03/16 10:26 Glucose (Fingerstick) 255mg/dL (70-99) Medications Current Medications Insulin Human Regular 10 unit 10 unit 1X ONCE IV Last administered on 12:43; Start 05/02/16 at 12:15; Stop 05/02/16 at 12:16; Status DC Insulin Human Regular (Novolin R Iv Drip) 150 ml @ 0 mls/hr 1X ONCE IV Last administered on 05/02/16 15:34; Start 05/02/16 at 13:00; Stop 05/02/16 at 13:01; Status DC Ondansetron HCl (Zofran) 4 mg PRN Q8HRS PRN IV NAUSEA/VOMITING; Start 05/02/16 at 13:00; Stop 05/02/16 at 18:12; Status DC Fentanyl Citrate (Fentanyl 2ml Vial) 50 mcg PRN Q2HR PRN IV PAIN Last administered on 05/03/16 06:07; Start 05/02/16 at 13:00; Stop 05/03/16 at 12:59 Acetaminophen (Tylenol) 650 mg PRN Q4HRS PRN PO FEVER Last administered on 17:08; Start 05/02/16 at 13:00; Stop 05/02/16 at 18:12; Status DC Tamsulosin HCl (Flomax) 0.4 mg DAILY PO ; Start 05/02/16 at 13:30; Stop 05/02/16 at 16:40; Status DC Aspirin (Children'S Aspirin) 81 mg DAILY08 PO Last administered on 05/03/16 08: 08; Start 05/02/16 at 17:00 Atorvastatin Calcium (Lipitor) 20 mg QHS PO Last administered on 05/02/16 22:22 ; Start 05/02/16 at 21:00 Chlorthalidone (Thalitone) 25 mg DAILY PO Last administered on 05/03/16 08:07; Start 05/02/16 at 17:00 Latanoprost (Xalatan) 1 drop QHS OU Last administered on 05/02/16 21:00; Start 05/02/16 at 21:00 Lisinopril (Prinivil) 40 mg DAILY PO Last administered on 05/02/16 19:28; Start 05/02/16 at 17:00; Stop 05/02/16 at 20:32; Status DC Spironolactone (Aldactone) 25 mg DAILY PO Last administered on 05/03/16 08:08; Start 05/02/16 at 17:00 Vitamin D (Vitamin D3) 1,000 unit DAILY PO Last administered on 05/03/16 08:07 ; Start 05/02/16 at 17:00 Acetaminophen (Tylenol) 650 mg PRN Q6HRS PRN PO MILD PAIN / TEMP; Start at 16:15 Ondansetron HCl (Zofran) 4 mg PRN Q6HRS PRN IV NAUSEA/VOMITING; Start 05/02/16 at 16:15 Acetaminophen/ Hydrocodone Bitart (Lortab 5/325) 1 tab PRN Q4HRS PRN PO PAIN; Start 05/02/16 at 16:15 Hydralazine HCl (Apresoline) 10 mg PRN Q4HRS PRN IVP ELEVATED BP, SEE COMMENTS ; Start 05/02/16 at 16:15 Heparin Sodium (Porcine) 5,000 unit Q8HRS SQ Last administered on 05/03/16 06: 12; Start 05/02/16 at 16:15 Senna/Docusate Sodium (Senna Plus) 1 tab BID PO Last administered on 05/03/16 08:08; Start 05/02/16 at 21:00 Docusate Sodium (Colace) 100 mg BID PO Last administered on 05/03/16 08:08; Start 05/02/16 at 21:00 Magnesium Hydroxide (Milk Of Magnesia) 2,400 mg PRN Q12HR PRN PO CONSTIPATION; Start 05/02/16 at 16:15 Tamsulosin HCl 0.8 mg 0.8 mg DAILY PO Last administered on 05/03/16 08:07; Start 05/03/16 at 09:00 Magnesium Sulfate/ Dextrose 50 ml @ 25 mls/hr PRN DAILY PRN IV for Mag < 1.7 on am labs; Start 05/02/16 at 16:45 Sodium Chloride (Iv Sodium Chloride 0.9% 1000ml Bag) 1,000 ml @ 100 mls/hr 1X ONCE IV Last administered on 05/02/16 22:25; Start 05/02/16 at 17:45; Stop at 23:52; Status DC Losartan Potassium (Cozaar) 100 mg HS PO Last administered on 05/02/16 22:21; Start 05/02/16 at 21:00 Vitamin B Complex/ Vitamin C (Nephro-Sonja) 1 tab DAILY PO Last administered on 05/03/16 08:08; Start 05/03/16 at 09:00 Sevelamer Carbonate (Renvela) 800 mg TIDWMEALS PO ; Start 05/03/16 at 18:30 Lisinopril (Prinivil) 40 mg DAILY PO ; Start 05/02/16 at 18:30; Stop 05/02/16 at 19:29; Status DC Furosemide (Lasix) 40 mg [id number] PO Last administered on 05/03/16 08:08; Start at 09:00 Metoprolol Tartrate (Lopressor) 25 mg BID PO Last administered on 05/03/16 08: 09; Start 05/02/16 at 21:00 Pantoprazole Sodium (Protonix) 40 mg DAILYAC PO Last administered on 05/03/16 08:06; Start 05/02/16 at 18:30 Amlodipine Besylate (Norvasc) 10 mg HS PO Last administered on 05/02/16 22:23; Start 05/02/16 at 21:00 Hydralazine HCl (Apresoline) 100 mg TID PO Last administered on 05/03/16 08:09 ; Start 05/02/16 at 21:00 Calcitriol (Rocaltrol) 0.25 mcg SuTuWeFrSa@09 PO Last administered on 05/03/16 08:06; Start 05/03/16 at 09:00 Clonidine HCl (Catapres) 0.3 mg Q8HRS PO Last administered on 05/03/16 06:03; Start 05/02/16 at 18:30 Calcitriol (Rocaltrol) 0.5 mcg MoTh@09 PO ; Start 05/05/16 at 09:00 Lisinopril 80 mg 80 mg DAILY PO Last administered on 05/03/16 08:10; Start 05/03 at 09:00 Potassium Chloride 50 ml @ 50 mls/hr Q1H IV ; Start 05/02/16 at 20:45; Stop at 22:44; Status UNV Potassium Chloride (KCl Premix 10meq) 100 ml @ 100 mls/hr Q1H IV Last administered on 05/03/16 05:29; Start 05/02/16 at 21:00; Stop 05/03/16 at 00:59; Status DC Insulin Detemir (Levemir) 30 units QHS SQ Last administered on 05/03/16 00:10; Start 05/02/16 at 23:45 Insulin Aspart (Novolog) 10 units TIDAC SQ Last administered on 05/03/16 08:23 ; Start 05/03/16 at 07:30 Insulin Aspart (Novolog) 0-9 UNITS TIDWMEALS SQ Last administered on 05/03/16 08:24; Start 05/03/16 at 08:00 Dextrose 12.5 gm 12.5 gm PRN Q15MIN PRN IV SEE COMMENTS; Start 05/02/16 at 23:30 Potassium Chloride/Sodium Chloride (KCl 20 Meq-NS 1,000 ml Iv Soln) 1,000 ml @ 100 mls/hr Q10H IV Last administered on 05/03/16 04:13; Start 05/03/16 at 00:00 Glipizide (Glucotrol Er) 5 mg BID PO Last administered on 05/03/16 09:14; Start 05/03/16 at 09:30 Acetaminophen/ Hydrocodone Bitart (Lortab 5/325) 1 tab PRN QID PRN PO pain; Start 05/03/16 at 09:00 Lisinopril (Prinivil) 80 mg DAILY PO ; Start 05/03/16 at 09:00; Status UNV Active Scripts Active [place] 5-325 Tablet (Acetaminophen/Hydrocodone Bitart) 1 Each Tablet 1-2 Tab PO Q4-6HRS Reported Lisinopril 40 Mg Tablet 80 Mg PO DAILY Vitamin D (Cholecalciferol (Vitamin D3)) 2,000 Unit Capsule 1 Cap PO DAILY Glipizide Er (Glipizide) 5 Mg Tab.er.24 1 Tab PO BID Lipitor (Atorvastatin Calcium) 20 Mg Tablet 20 Mg PO DAILY Chlorthalidone 25 Mg Tablet 1 Tab PO DAILY Aspirin 81 Mg Tab.chew 1 Tab PO DAILY Spironolactone 25 Mg Tablet 1 Tab PO DAILY Latanoprost 2.5 Ml Drops 1 Drop EACHEYE QHS Vitals/I & O Vital Sign - Last 24 Hours 05/02/16 05/02/16 05/02/16 05/02/16 12:20 12:45 13:15 13:28 Pulse 72 80 82 Resp 19 18 16 13 B/P 207/98 198/84 178/77 Pulse Ox 98 O2 Delivery Room Air Room Air Room Air 05/02/16 05/02/16 05/02/16 05/02/16 14:12 14:45 15:15 16:30 Temp 97.6 97.6 Pulse 112 114 112 84 Resp 20 16 18 B/P 171/78 140/56 130/65 166/78 Pulse Ox 92 93 96 O2 Delivery Room Air Room Air Room Air Room Air 05/02/16 05/02/16 05/02/16 05/02/16 17:15 19:00 19:28 20:00 Temp 97.6 99.5 97.6 99.5 Pulse 84 92 84 Resp 18 18 B/P 166/78 142/57 166/78 Pulse Ox 95 95 O2 Delivery Room Air Room Air Room Air 05/02/16 05/02/16 05/02/16 05/02/16 22:20 22:21 22:22 22:23 Pulse 84 84 84 84 B/P 166/78 166/78 166/78 166/78 05/02/16 05/02/16 05/02/16 05/03/16 22:25 22:26 23:00 03:00 Temp 99.3 97.9 99.3 97.9 Pulse 84 72 63 Resp 23 18 18 B/P 166/78 153/62 125/59 Pulse Ox 94 97 O2 Delivery Room Air Room Air Room Air 05/03/16 05/03/16 05/03/16 05/03/16 06:03 06:07 06:38 07:00 Temp 97.9 97.9 Pulse 63 60 Resp 18 18 B/P 125/59 126/57 Pulse Ox 98 O2 Delivery Room Air Room Air Room Air 05/03/16 05/03/16 05/03/16 05/03/16 08:00 08:09 08:09 08:10 Pulse 60 60 60 B/P 126/57 126/57 126/57 O2 Delivery Room Air Intake and Output 05/02/16 05/02/16 05/03/16 15:00 23:00 07:00 Intake Total 290 ml 1150 ml Output Total 2700 ml 1500 ml 1750 ml Balance -2700 ml -1210 ml -600 ml KAYCEE AVILES MD May 03, 2016 11:07
[2016-05-03 11:11] VITALS: BP 121/48
[2016-05-03] MEDS: DEX IP SCH ×2 (12:15→20:28)
[2016-05-03] MEDS: PERITONEAL LOW CA IP SCH ×2 (12:15→20:28)
[2016-05-03 12:47] LABS: VITAMIN-B12 735 pg/mL (247-911)
[2016-05-03 13:28] LABS: FOLATE > 24.00 ng/ml (3.2-20.0)
[2016-05-03] MEDS: HYDROCODONE/APAP 5/325MG TABLET. PO PRN ×2 (14:31→21:04)
[2016-05-03 14:44] VITALS: BP 125/49
[2016-05-03] MEDS ORDERED: GLYBURIDE 5 MG TABLET PO SCH (17:00)
--- NOTE | 2016-05-03 17:48 | PDOC ---
Dialysis Progress Note Dialysis Note Dialysis Note Seen on Peritoneal Dialysis, tolerating treatment Well General Appearance: Awake: Alert Oriented x 3 Neck: No JVD or JVP Chest: CTA Sina Heart: S1 S2 Abdomen - Soft NTND Extremities - +2 Edema ESRD:CAPD with 2L bags and 2L fills, Q6hrs Vitals Vital Signs Vital Signs Date Time Temp Pulse Resp B/P Pulse Ox O2 Delivery O2 Flow Rate FiO2 05/03/16 15:31 96 Room Air 05/03/16 14:44 97.9 71 18 125/49 97.9 Labs Last Labs Laboratory Tests Test 05/02/16 11:00 05/02/16 13:50 05/02/16 17:25 05/02/16 18:10 White Blood Count 8.0x10^3/uL (4.0-11.0) Red Blood Count 4.07x10^6/uL (4.30-5.70) Hemoglobin 9.9g/dL (13.0-17.5) Hematocrit 32.8% (39.0-53.0) Mean Corpuscular Volume 81fL (79-100) Mean Corpuscular Hemoglobin 24pg (25-35) Mean Corpuscular Hemoglobin Concent 30g/dL (31-37) Red Cell Distribution Width 17.5% (11.5-14.5) Platelet Count 168x10^3/uL (140-400) Neutrophils (%) (Auto) 72% (31-73) Lymphocytes (%) (Auto) 16% (24-48) Monocytes (%) (Auto) 9% (0-9) Eosinophils (%) (Auto) 2% (0-3) Basophils (%) (Auto) 1% (0-3) Neutrophils # (Auto) 5.7x10^3uL (1.8-7.7) Lymphocytes # (Auto) 1.3x10^3/uL (1.0-4.8) Monocytes # (Auto) 0.7x10^3/uL (0.0-1.1) Eosinophils # (Auto) 0.2x10^3/uL (0.0-0.7) Basophils # (Auto) 0.0x10^3/uL (0.0-0.2) Sodium Level 122mmol/L (136-145) 129mmol/L (136-145) Potassium Level 4.1mmol/L (3.5-5.1) 3.6mmol/L (3.5-5.1) Chloride Level 87mmol/L (98-107) 91mmol/L (98-107) Carbon Dioxide Level 27mmol/L (21-32) 26mmol/L (21-32) Anion Gap 8 (6-14) 12 (6-14) Blood Urea Nitrogen 58mg/dL (8-26) 57mg/dL (8-26) Creatinine 9.0mg/dL (0.7-1.3) 9.3mg/dL (0.7-1.3) Estimated GFR (Cockcroft-Gault) 7.4 7.1 Glucose Level 1153mg/dL (70-99) 923mg/dL (70-99) 547mg/dL (70-99) 499mg/dL (70-99) Serum Osmolality 335mOsm/Kg (279-304) Calcium Level 8.5mg/dL (8.5-10.1) 8.8mg/dL (8.5-10.1) Test 05/02/16 19:00 05/02/16 19:58 05/02/16 20:00 05/02/16 21:06 Glucose Level 470mg/dL (70-99) 446mg/dL (70-99) Glucose (Fingerstick) 424mg/dL (70-99) 347mg/dL (70-99) Sodium Level 136mmol/L (136-145) Potassium Level 3.0mmol/L (3.5-5.1) Chloride Level 99mmol/L (98-107) Carbon Dioxide Level 27mmol/L (21-32) Anion Gap 10 (6-14) Blood Urea Nitrogen 61mg/dL (8-26) Creatinine 8.6mg/dL (0.7-1.3) Estimated GFR (Cockcroft-Gault) 7.8 Calcium Level 9.1mg/dL (8.5-10.1) Test 05/02/16 21:56 05/02/16 22:55 05/02/16 23:40 05/03/16 00:04 Glucose (Fingerstick) 352mg/dL (70-99) 266mg/dL (70-99) 212mg/dL (70-99) Sodium Level 140mmol/L (136-145) Potassium Level 3.0mmol/L (3.5-5.1) Chloride Level 103mmol/L (98-107) Carbon Dioxide Level 29mmol/L (21-32) Anion Gap 8 (6-14) Blood Urea Nitrogen 59mg/dL (8-26) Creatinine 8.5mg/dL (0.7-1.3) Estimated GFR (Cockcroft-Gault) 7.9 Glucose Level 253mg/dL (70-99) Calcium Level 9.3mg/dL (8.5-10.1) Test 05/03/16 01:20 05/03/16 01:58 05/03/16 04:09 05/03/16 04:16 Glucose (Fingerstick) 150mg/dL (70-99) 147mg/dL (70-99) 200mg/dL (70-99) White Blood Count 9.3x10^3/uL (4.0-11.0) Red Blood Count 4.18x10^6/uL (4.30-5.70) Hemoglobin 10.2g/dL (13.0-17.5) Hematocrit 31.3% (39.0-53.0) Mean Corpuscular Volume 75fL (79-100) Mean Corpuscular Hemoglobin 24pg (25-35) Mean Corpuscular Hemoglobin Concent 33g/dL (31-37) Red Cell Distribution Width 17.2% (11.5-14.5) Platelet Count 180x10^3/uL (140-400) Neutrophils (%) (Auto) 65% (31-73) Lymphocytes (%) (Auto) 25% (24-48) Monocytes (%) (Auto) 7% (0-9) Eosinophils (%) (Auto) 3% (0-3) Basophils (%) (Auto) 1% (0-3) Neutrophils # (Auto) 6.0x10^3uL (1.8-7.7) Lymphocytes # (Auto) 2.3x10^3/uL (1.0-4.8) Monocytes # (Auto) 0.6x10^3/uL (0.0-1.1) Eosinophils # (Auto) 0.2x10^3/uL (0.0-0.7) Basophils # (Auto) 0.1x10^3/uL (0.0-0.2) Sodium Level 139mmol/L (136-145) Potassium Level 3.2mmol/L (3.5-5.1) Chloride Level 102mmol/L (98-107) Carbon Dioxide Level 28mmol/L (21-32) Anion Gap 9 (6-14) Blood Urea Nitrogen 61mg/dL (8-26) Creatinine 8.1mg/dL (0.7-1.3) Estimated GFR (Cockcroft-Gault) 8.4 Glucose Level 226mg/dL (70-99) Calcium Level 9.4mg/dL (8.5-10.1) Phosphorus Level 4.0mg/dL (2.6-4.7) Magnesium Level 2.4mg/dL (1.8-2.4) Iron Level 77ug/dL (65-175) Total Iron Binding Capacity 114ug/dL (250-450) Iron Saturation 68% (15-34) Ferritin 1252ng/mL (26-388) Albumin 2.0g/dL (3.4-5.0) Vitamin B12 Level 735pg/mL (247-911) Serum Folate > 24.00ng/ml (3.2-20.0) Test 05/03/16 07:14 05/03/16 10:26 Glucose (Fingerstick) 207mg/dL (70-99) 255mg/dL (70-99) Laboratory Tests Test 05/02/16 18:10 05/02/16 19:00 05/02/16 19:58 05/02/16 20:00 Glucose Level 499mg/dL (70-99) 470mg/dL (70-99) 446mg/dL (70-99) Glucose (Fingerstick) 424mg/dL (70-99) Sodium Level 136mmol/L (136-145) Potassium Level 3.0mmol/L (3.5-5.1) Chloride Level 99mmol/L (98-107) Carbon Dioxide Level 27mmol/L (21-32) Anion Gap 10 (6-14) Blood Urea Nitrogen 61mg/dL (8-26) Creatinine 8.6mg/dL (0.7-1.3) Estimated GFR (Cockcroft-Gault) 7.8 Calcium Level 9.1mg/dL (8.5-10.1) Test 05/02/16 21:06 05/02/16 21:56 05/02/16 22:55 05/02/16 23:40 Glucose (Fingerstick) 347mg/dL (70-99) 352mg/dL (70-99) 266mg/dL (70-99) Sodium Level 140mmol/L (136-145) Potassium Level 3.0mmol/L (3.5-5.1) Chloride Level 103mmol/L (98-107) Carbon Dioxide Level 29mmol/L (21-32) Anion Gap 8 (6-14) Blood Urea Nitrogen 59mg/dL (8-26) Creatinine 8.5mg/dL (0.7-1.3) Estimated GFR (Cockcroft-Gault) 7.9 Glucose Level 253mg/dL (70-99) Calcium Level 9.3mg/dL (8.5-10.1) Test 05/03/16 00:04 05/03/16 01:20 05/03/16 01:58 05/03/16 04:09 Glucose (Fingerstick) 212mg/dL (70-99) 150mg/dL (70-99) 147mg/dL (70-99) 200mg/dL (70-99) Test 05/03/16 04:16 05/03/16 07:14 05/03/16 10:26 White Blood Count 9.3x10^3/uL (4.0-11.0) Red Blood Count 4.18x10^6/uL (4.30-5.70) Hemoglobin 10.2g/dL (13.0-17.5) Hematocrit 31.3% (39.0-53.0) Mean Corpuscular Volume 75fL (79-100) Mean Corpuscular Hemoglobin 24pg (25-35) Mean Corpuscular Hemoglobin Concent 33g/dL (31-37) Red Cell Distribution Width 17.2% (11.5-14.5) Platelet Count 180x10^3/uL (140-400) Neutrophils (%) (Auto) 65% (31-73) Lymphocytes (%) (Auto) 25% (24-48) Monocytes (%) (Auto) 7% (0-9) Eosinophils (%) (Auto) 3% (0-3) Basophils (%) (Auto) 1% (0-3) Neutrophils # (Auto) 6.0x10^3uL (1.8-7.7) Lymphocytes # (Auto) 2.3x10^3/uL (1.0-4.8) Monocytes # (Auto) 0.6x10^3/uL (0.0-1.1) Eosinophils # (Auto) 0.2x10^3/uL (0.0-0.7) Basophils # (Auto) 0.1x10^3/uL (0.0-0.2) Sodium Level 139mmol/L (136-145) Potassium Level 3.2mmol/L (3.5-5.1) Chloride Level 102mmol/L (98-107) Carbon Dioxide Level 28mmol/L (21-32) Anion Gap 9 (6-14) Blood Urea Nitrogen 61mg/dL (8-26) Creatinine 8.1mg/dL (0.7-1.3) Estimated GFR (Cockcroft-Gault) 8.4 Glucose Level 226mg/dL (70-99) Calcium Level 9.4mg/dL (8.5-10.1) Phosphorus Level 4.0mg/dL (2.6-4.7) Magnesium Level 2.4mg/dL (1.8-2.4) Iron Level 77ug/dL (65-175) Total Iron Binding Capacity 114ug/dL (250-450) Iron Saturation 68% (15-34) Ferritin 1252ng/mL (26-388) Albumin 2.0g/dL (3.4-5.0) Vitamin B12 Level 735pg/mL (247-911) Serum Folate > 24.00ng/ml (3.2-20.0) Glucose (Fingerstick) 207mg/dL (70-99) 255mg/dL (70-99) Assessment Assessment Problems Medical Problems: (1) ESRD (end stage renal disease) Status: Acute (2) Hyperglycemia Status: Acute (3) Urinary retention Status: Acute Problems: Plan Plan of Care Problems Medical Problems: (1) ESRD (end stage renal disease) Status: Acute (2) Hyperglycemia Status: Acute (3) Urinary retention Status: Acute STEVEN CRUMP MD May 03, 2016 17:48
[2016-05-03 19:00] VITALS: BP 123/57
[2016-05-03] MEDS: SEVELAMER CARBONATE 800 MG TABLET. PO SCH (19:34)
[2016-05-03] MEDS: LATANOPROST 0.005% OPHTH SOLUTION 2.5ML BOTTLE. OU SCH (20:41)
[2016-05-03] MEDS: LOSARTAN POTASSIUM 50 MG TABLET. PO SCH (20:50)
[2016-05-03] MEDS: ATORVASTATIN CALCIUM 20 MG TABLET PO SCH (20:51)
[2016-05-03] MEDS: AMLODIPINE BESYLATE 10 MG TABLET PO SCH (20:51)
[2016-05-03 23:00] VITALS: BP 130/65
--- NOTE | 2016-05-04 01:14 | CONS ---
DATE OF CONSULTATION: 05/03/2016 PATIENT'S ROOM: 569. HISTORY OF PRESENT ILLNESS: The patient is a very pleasant 55-year-old male with history of renal failure who is on peritoneal dialysis for the past 18 months. The patient came in the hospital with abdominal distention and found to be in urinary retention. Mary catheter was placed. The patient had 2700 mL in his bladder at the time of Mary catheter placement. In looking back on patient's prior scans, the patient looks to have had chronic urinary retention with enlarged prostate. He has been on Flomax in the past. He has never had any urologic operations. He is on peritoneal dialysis. The patient states his problems with the lower urinary tract symptoms worsened over the last several days, which brought him in the hospital. PHYSICAL EXAMINATION: Testes are descended bilaterally. Phallus is within normal. The patient has a Mary catheter to gravity drainage, urine is grossly clear, yellow, secured to the right thigh with a StatLock. On rectal examination, he has good sphincter tone. Prostate smooth, nontender, without nodules, overall size 30 grams. IMPRESSION AND PLAN: There is no family history of any prostate cancer. The patient is already on Flomax at 0.8 mg a day. Would recommend keeping the Mary catheter in place to allow bladder regain some tone. UA and culture if indicated has already been ordered. Would keep the patient on the Flomax and then will have patient follow up with Urology nurse practitioner Amna Qureshi in 1-2 weeks for voiding trial and possibly to teach the patient intermittent self-catheterization if necessary and then proceed accordingly. I certainly appreciate being allowed to participate in this patient's care. SOULEYMANE BRISCOE MD DR: JALEN/santino JOB#: [id number] / [id number]
[2016-05-04] MEDS: PERITONEAL LOW CA IP SCH ×2 (02:50→09:00)
[2016-05-04] MEDS: DEX IP SCH ×2 (02:50→09:00)
[2016-05-04 03:00] VITALS: BP 115/57
[2016-05-04] MEDS: HYDROCODONE/APAP 5/325MG TABLET. PO PRN ×2 (03:06→11:38)
--- NOTE | 2016-05-04 04:20 | CONS ---
DATE OF CONSULTATION: PRIMARY PHYSICIAN: Dr. Mccullough. REASON FOR CONSULTATION: ESRD, on peritoneal dialysis. HISTORY OF PRESENT ILLNESS: The patient is a pleasant 55-year-old -[place] gentleman who I care for at [facility]. He has ESRD and is on peritoneal dialysis at home on a cycler. He is known to have diabetes, longstanding. He has been having some increased frequency and urgency of urination as well as some polyuria and polydipsia. In the setting, he was not feeling well. He had abdominal distention and some difficulty urinating, presented to the ER for further evaluation. Mary catheter was placed and he was found to have significant postvoid residual. He is also noted to have sugars of 153. At presentation, he is now on an insulin drip and his sugars are trending downwards. His sodium was 122, which is also generally trending upward. He does have some edema in his lower extremities. We were asked to see him for all the above-mentioned problems. STEVEN CRUMP MD DR: MICHAEL/santino JOB#: [id number] / [id number]
[2016-05-04] MEDS: HEPARIN PF for SUB-Q USE 5,000 UNIT/0.5 ML VIAL. SQ SCH (06:13)
[2016-05-04] MEDS: CLONIDINE HCL 0.3 MG TABLET PO SCH (06:16)
[2016-05-04 06:33] LABS: CREATININE 7.4 mg/dL (0.7-1.3); GFR 9.3; POTASSIUM 3.2 mmol/L (3.5-5.1)
[2016-05-04 07:15] VITALS: BP 131/68
[2016-05-04] MEDS ORDERED: INSU100I17 SQ (08:59)
[2016-05-04] MEDS ORDERED: INSU100V13 SQ (08:59)
[2016-05-04] MEDS: CALCITRIOL 0.25 MCG CAPSULE PO SCH (09:17)
[2016-05-04] MEDS: TAMSULOSIN 0.4 MG CAP.ER.24H. PO SCH (09:18)
[2016-05-04] MEDS: SPIRONOLACTONE 25 MG TABLET PO SCH (09:18)
[2016-05-04] MEDS: FUROSEMIDE 40 MG TABLET PO SCH (09:18)
[2016-05-04] MEDS: ASPIRIN 81 MG TAB.CHEW PO SCH (09:19)
[2016-05-04] MEDS: FOLIC/VIT B COMP W-C (RENAL) TABLET. PO SCH (09:19)
[2016-05-04] MEDS: CHLORTHALIDONE 25 MG TABLET PO SCH (09:19)
[2016-05-04] MEDS: SENNOSIDES/DOCUSATE 8.6/50MG TABLET. PO SCH (09:19)
[2016-05-04] MEDS: CHOLECALCIFEROL (VITAMIN D3) 1,000 UNIT TABLET PO SCH (09:19)
[2016-05-04] MEDS: GLIPIZIDE ER 5 MG TAB.ER.24 PO SCH (09:19)
[2016-05-04] MEDS: PANTOPRAZOLE 40 MG TABLET. PO SCH (09:19)
[2016-05-04] MEDS: SEVELAMER CARBONATE 800 MG TABLET. PO SCH ×2 (09:19→11:38)
[2016-05-04] MEDS: DOCUSATE SODIUM 100 MG CAPSULE PO SCH (09:19)
[2016-05-04] MEDS: HYDRALAZINE 50 MG TABLET PO SCH (09:20)
[2016-05-04] MEDS: LISINOPRIL 40 MG TABLET. PO SCH (09:21)
[2016-05-04] MEDS: METOPROLOL TART IMMED RELEASE 25 MG TABLET PO SCH (09:21)
[2016-05-04] MEDS: INSULIN ASPART 300 UNITS/3 ML INSULN.PEN SQ SCH ×4 (09:38→11:44)
[2016-05-04] MEDS ORDERED: GABA-585 PO (10:17)
--- NOTE | 2016-05-04 10:20 | PDOC3 ---
Discharge Summary Visit Information Date of Admission: May 02, 2016 Date of Discharge: May 04, 2016 Admitting Diagnosis Comment: 1. abd pain with urinary retention 2. ESRD on PD daily 3. HHS 4. HTN URGEncy 5. obesity 6. hld 7. quit smoking for 3 months 8. constipation 9. anemia, with ESRD 10. hyponatremia with 3 Final Diagnosis Problems Medical Problems: (1) ESRD (end stage renal disease) Status: Acute (2) Hyperglycemia Status: Acute (3) Urinary retention Status: Acute Brief Hospital Course Allergies Allergies Coded Allergies Type Severity Reaction Last Updated Verified ibuprofen Allergy Severe swelling 01/30/15 Yes Vital Signs Vital Signs Date Time Temp Pulse Resp B/P Pulse Ox O2 Delivery O2 Flow Rate FiO2 05/04/16 09:21 58 131/68 05/04/16 07:15 97.6 20 96 Room Air 97.6 Lab Results Laboratory Tests Test 05/02/16 11:00 05/02/16 13:50 05/02/16 17:25 05/02/16 18:10 White Blood Count 8.0x10^3/uL (4.0-11.0) Red Blood Count 4.07x10^6/uL (4.30-5.70) Hemoglobin 9.9g/dL (13.0-17.5) Hematocrit 32.8% (39.0-53.0) Mean Corpuscular Volume 81fL (79-100) Mean Corpuscular Hemoglobin 24pg (25-35) Mean Corpuscular Hemoglobin Concent 30g/dL (31-37) Red Cell Distribution Width 17.5% (11.5-14.5) Platelet Count 168x10^3/uL (140-400) Neutrophils (%) (Auto) 72% (31-73) Lymphocytes (%) (Auto) 16% (24-48) Monocytes (%) (Auto) 9% (0-9) Eosinophils (%) (Auto) 2% (0-3) Basophils (%) (Auto) 1% (0-3) Neutrophils # (Auto) 5.7x10^3uL (1.8-7.7) Lymphocytes # (Auto) 1.3x10^3/uL (1.0-4.8) Monocytes # (Auto) 0.7x10^3/uL (0.0-1.1) Eosinophils # (Auto) 0.2x10^3/uL (0.0-0.7) Basophils # (Auto) 0.0x10^3/uL (0.0-0.2) Sodium Level 122mmol/L (136-145) 129mmol/L (136-145) Potassium Level 4.1mmol/L (3.5-5.1) 3.6mmol/L (3.5-5.1) Chloride Level 87mmol/L (98-107) 91mmol/L (98-107) Carbon Dioxide Level 27mmol/L (21-32) 26mmol/L (21-32) Anion Gap 8 (6-14) 12 (6-14) Blood Urea Nitrogen 58mg/dL (8-26) 57mg/dL (8-26) Creatinine 9.0mg/dL (0.7-1.3) 9.3mg/dL (0.7-1.3) Estimated GFR (Cockcroft-Gault) 7.4 7.1 Glucose Level 1153mg/dL (70-99) 923mg/dL (70-99) 547mg/dL (70-99) 499mg/dL (70-99) Serum Osmolality 335mOsm/Kg (279-304) Calcium Level 8.5mg/dL (8.5-10.1) 8.8mg/dL (8.5-10.1) Test 05/02/16 19:00 05/02/16 19:58 05/02/16 20:00 05/02/16 21:06 Glucose Level 470mg/dL (70-99) 446mg/dL (70-99) Glucose (Fingerstick) 424mg/dL (70-99) 347mg/dL (70-99) Sodium Level 136mmol/L (136-145) Potassium Level 3.0mmol/L (3.5-5.1) Chloride Level 99mmol/L (98-107) Carbon Dioxide Level 27mmol/L (21-32) Anion Gap 10 (6-14) Blood Urea Nitrogen 61mg/dL (8-26) Creatinine 8.6mg/dL (0.7-1.3) Estimated GFR (Cockcroft-Gault) 7.8 Calcium Level 9.1mg/dL (8.5-10.1) Test 05/02/16 21:56 05/02/16 22:55 05/02/16 23:40 05/03/16 00:04 Glucose (Fingerstick) 352mg/dL (70-99) 266mg/dL (70-99) 212mg/dL (70-99) Sodium Level 140mmol/L (136-145) Potassium Level 3.0mmol/L (3.5-5.1) Chloride Level 103mmol/L (98-107) Carbon Dioxide Level 29mmol/L (21-32) Anion Gap 8 (6-14) Blood Urea Nitrogen 59mg/dL (8-26) Creatinine 8.5mg/dL (0.7-1.3) Estimated GFR (Cockcroft-Gault) 7.9 Glucose Level 253mg/dL (70-99) Calcium Level 9.3mg/dL (8.5-10.1) Test 05/03/16 01:20 05/03/16 01:58 05/03/16 04:09 05/03/16 04:16 Glucose (Fingerstick) 150mg/dL (70-99) 147mg/dL (70-99) 200mg/dL (70-99) White Blood Count 9.3x10^3/uL (4.0-11.0) Red Blood Count 4.18x10^6/uL (4.30-5.70) Hemoglobin 10.2g/dL (13.0-17.5) Hematocrit 31.3% (39.0-53.0) Mean Corpuscular Volume 75fL (79-100) Mean Corpuscular Hemoglobin 24pg (25-35) Mean Corpuscular Hemoglobin Concent 33g/dL (31-37) Red Cell Distribution Width 17.2% (11.5-14.5) Platelet Count 180x10^3/uL (140-400) Neutrophils (%) (Auto) 65% (31-73) Lymphocytes (%) (Auto) 25% (24-48) Monocytes (%) (Auto) 7% (0-9) Eosinophils (%) (Auto) 3% (0-3) Basophils (%) (Auto) 1% (0-3) Neutrophils # (Auto) 6.0x10^3uL (1.8-7.7) Lymphocytes # (Auto) 2.3x10^3/uL (1.0-4.8) Monocytes # (Auto) 0.6x10^3/uL (0.0-1.1) Eosinophils # (Auto) 0.2x10^3/uL (0.0-0.7) Basophils # (Auto) 0.1x10^3/uL (0.0-0.2) Sodium Level 139mmol/L (136-145) Potassium Level 3.2mmol/L (3.5-5.1) Chloride Level 102mmol/L (98-107) Carbon Dioxide Level 28mmol/L (21-32) Anion Gap 9 (6-14) Blood Urea Nitrogen 61mg/dL (8-26) Creatinine 8.1mg/dL (0.7-1.3) Estimated GFR (Cockcroft-Gault) 8.4 Glucose Level 226mg/dL (70-99) Calcium Level 9.4mg/dL (8.5-10.1) Phosphorus Level 4.0mg/dL (2.6-4.7) Magnesium Level 2.4mg/dL (1.8-2.4) Iron Level 77ug/dL (65-175) Total Iron Binding Capacity 114ug/dL (250-450) Iron Saturation 68% (15-34) Ferritin 1252ng/mL (26-388) Albumin 2.0g/dL (3.4-5.0) Vitamin B12 Level 735pg/mL (247-911) Serum Folate > 24.00ng/ml (3.2-20.0) Test 05/03/16 07:14 05/03/16 10:26 05/03/16 16:21 05/03/16 21:32 Glucose (Fingerstick) 207mg/dL (70-99) 255mg/dL (70-99) 246mg/dL (70-99) 345mg/dL (70-99) Test 05/04/16 05:40 05/04/16 07:24 Sodium Level 137mmol/L (136-145) Potassium Level 3.2mmol/L (3.5-5.1) Chloride Level 102mmol/L (98-107) Carbon Dioxide Level 28mmol/L (21-32) Anion Gap 7 (6-14) Blood Urea Nitrogen 63mg/dL (8-26) Creatinine 7.4mg/dL (0.7-1.3) Estimated GFR (Cockcroft-Gault) 9.3 Glucose Level 317mg/dL (70-99) Calcium Level 9.0mg/dL (8.5-10.1) Phosphorus Level 4.0mg/dL (2.6-4.7) Magnesium Level 2.4mg/dL (1.8-2.4) Albumin 2.0g/dL (3.4-5.0) Glucose (Fingerstick) 242mg/dL (70-99) Laboratory Tests Test 05/03/16 10:26 05/03/16 16:21 05/03/16 21:32 05/04/16 05:40 Glucose (Fingerstick) 255mg/dL (70-99) 246mg/dL (70-99) 345mg/dL (70-99) Sodium Level 137mmol/L (136-145) Potassium Level 3.2mmol/L (3.5-5.1) Chloride Level 102mmol/L (98-107) Carbon Dioxide Level 28mmol/L (21-32) Anion Gap 7 (6-14) Blood Urea Nitrogen 63mg/dL (8-26) Creatinine 7.4mg/dL (0.7-1.3) Estimated GFR (Cockcroft-Gault) 9.3 Glucose Level 317mg/dL (70-99) Calcium Level 9.0mg/dL (8.5-10.1) Phosphorus Level 4.0mg/dL (2.6-4.7) Magnesium Level 2.4mg/dL (1.8-2.4) Albumin 2.0g/dL (3.4-5.0) Test 05/04/16 07:24 Glucose (Fingerstick) 242mg/dL (70-99) Brief Hospital Course Mr. Alvares is a 55 old AA male with DM on OHA and ESRD on PD admitted for abd pain, no SBP, fluid physically ok and no white ct, but was found to have urinary retention hence urology cionsulted and huddleston placed and that relieved his abd pain, BS high, needing to start levemir 40 qhs and novolog 15 TID. On GLymepiride at home ER<> Dialysate is dextrose - likely causing my probs. Needs to ff up PCP re DM needing insulin Insulin naive, education provided.Also some neuropathy, tingling both feet and hands, started on gabapentin in house PT seen and examined Education > 50% dc time 34 mins Discharge Information Condition at Discharge: Improved, Stable Follow Up: Weeks (2 weeks urology for voiding trial) Disposition/Orders: D/C to Home Scheduled Aspirin (Aspirin) 1 TAB PO DAILY (Reported) Atorvastatin Calcium (Lipitor) 20 MG PO DAILY (Reported) Chlorthalidone (Chlorthalidone) 1 TAB PO DAILY (Reported) Cholecalciferol (Vitamin D3) (Vitamin D) 1 CAP PO DAILY (Reported) Glipizide (Glipizide Er) 1 TAB PO BID (Reported) Hydrocodone/Apap 5-325 (Amonate 5-325 Tablet) 1-2 TAB PO Q4-6HRS Insulin Detemir (Levemir) 40 UNIT SQ QHS Latanoprost (Latanoprost) 1 DROP EACHEYE QHS (Reported) Lisinopril (Lisinopril) 80 MG PO DAILY (Reported) Spironolactone (Spironolactone) 1 TAB PO DAILY (Reported) KAYCEE AVILES MD May 04, 2016 10:20
--- NOTE | 2016-05-04 10:30 | PDOC ---
SUBJECTIVE Subjective Pt. feeling well OBJECTIVE Objective huddleston in place Vital Signs Vital Signs Date Time Temp Pulse Resp B/P Pulse Ox O2 Delivery O2 Flow Rate FiO2 05/04/16 09:21 58 131/68 05/04/16 09:21 58 131/68 05/04/16 09:20 58 131/68 05/04/16 07:15 97.6 58 20 131/68 96 Room Air 97.6 05/04/16 06:16 54 123/63 05/04/16 03:06 Room Air 05/04/16 03:00 98.2 53 115/57 94 98.2 05/03/16 23:00 98.0 60 18 130/65 95 98.0 05/03/16 21:04 Room Air 05/03/16 20:52 65 134/56 05/03/16 20:52 65 134/56 05/03/16 20:51 65 134/56 05/03/16 20:50 65 134/56 05/03/16 20:49 65 134/56 05/03/16 20:00 Room Air 05/03/16 19:00 98.5 62 16 123/57 95 98.5 05/03/16 15:31 96 Room Air 05/03/16 14:44 97.9 71 18 125/49 96 Room Air 97.9 05/03/16 14:32 55 121/48 05/03/16 14:32 55 121/48 05/03/16 14:31 94 Room Air 05/03/16 11:11 97.9 55 18 121/48 94 Room Air 97.9 I & O Intake and Output 05/04/16 07:00 Intake Total 2380 ml Output Total 1102 ml Balance 1278 ml Intake Oral 2380 ml Output Urine Total 1101 ml Stool Total 1 ml # Voids 2 # Bowel Movements 1 PHYSICAL EXAM Physical Exam urine clear good uo ASSESSMENT/PLAN Assessment/Plan keep huddleston to allow bladder to regain tone home with huddleston flomax f/u with urology [employer] Amna Qureshi in 1-2 weeks for voiding trial Problems: COMMENT Lab Laboratory Tests Test 05/03/16 16:21 05/03/16 21:32 05/04/16 05:40 05/04/16 07:24 Glucose (Fingerstick) 246mg/dL (70-99) 345mg/dL (70-99) 242mg/dL (70-99) Sodium Level 137mmol/L (136-145) Potassium Level 3.2mmol/L (3.5-5.1) Chloride Level 102mmol/L (98-107) Carbon Dioxide Level 28mmol/L (21-32) Anion Gap 7 (6-14) Blood Urea Nitrogen 63mg/dL (8-26) Creatinine 7.4mg/dL (0.7-1.3) Estimated GFR (Cockcroft-Gault) 9.3 Glucose Level 317mg/dL (70-99) Calcium Level 9.0mg/dL (8.5-10.1) Phosphorus Level 4.0mg/dL (2.6-4.7) Magnesium Level 2.4mg/dL (1.8-2.4) Albumin 2.0g/dL (3.4-5.0) SOULEYMANE BRISCOE MD May 04, 2016 10:30
[2016-05-04 11:06] VITALS: BP 119/53
--- NOTE | 2016-05-04 11:25 | PDOC ---
Dialysis Progress Note Dialysis Note Dialysis Note Seen on Peritoneal Dialysis, tolerating treatment Well General Appearance: Awake: Alert Oriented x 3 Neck: No JVD or JVP Chest: CTA Sina Heart: S1 S2 Abdomen - Soft NTND Extremities - +1 Edema ESRD:CAPD with 2L bags and 2L fills, Q6hrs return to home regimen once D/yemi Vitals Vital Signs Vital Signs Date Time Temp Pulse Resp B/P Pulse Ox O2 Delivery O2 Flow Rate FiO2 05/04/16 11:06 97.8 51 18 119/53 97 Room Air 97.8 Labs Last Labs Laboratory Tests Test 05/02/16 13:50 05/02/16 17:25 05/02/16 18:10 05/02/16 19:00 Sodium Level 129mmol/L (136-145) Potassium Level 3.6mmol/L (3.5-5.1) Chloride Level 91mmol/L (98-107) Carbon Dioxide Level 26mmol/L (21-32) Anion Gap 12 (6-14) Blood Urea Nitrogen 57mg/dL (8-26) Creatinine 9.3mg/dL (0.7-1.3) Estimated GFR (Cockcroft-Gault) 7.1 Glucose Level 923mg/dL (70-99) 547mg/dL (70-99) 499mg/dL (70-99) 470mg/dL (70-99) Calcium Level 8.8mg/dL (8.5-10.1) Test 05/02/16 19:58 05/02/16 20:00 05/02/16 21:06 05/02/16 21:56 Glucose (Fingerstick) 424mg/dL (70-99) 347mg/dL (70-99) 352mg/dL (70-99) Sodium Level 136mmol/L (136-145) Potassium Level 3.0mmol/L (3.5-5.1) Chloride Level 99mmol/L (98-107) Carbon Dioxide Level 27mmol/L (21-32) Anion Gap 10 (6-14) Blood Urea Nitrogen 61mg/dL (8-26) Creatinine 8.6mg/dL (0.7-1.3) Estimated GFR (Cockcroft-Gault) 7.8 Glucose Level 446mg/dL (70-99) Calcium Level 9.1mg/dL (8.5-10.1) Test 05/02/16 22:55 05/02/16 23:40 05/03/16 00:04 05/03/16 01:20 Glucose (Fingerstick) 266mg/dL (70-99) 212mg/dL (70-99) 150mg/dL (70-99) Sodium Level 140mmol/L (136-145) Potassium Level 3.0mmol/L (3.5-5.1) Chloride Level 103mmol/L (98-107) Carbon Dioxide Level 29mmol/L (21-32) Anion Gap 8 (6-14) Blood Urea Nitrogen 59mg/dL (8-26) Creatinine 8.5mg/dL (0.7-1.3) Estimated GFR (Cockcroft-Gault) 7.9 Glucose Level 253mg/dL (70-99) Calcium Level 9.3mg/dL (8.5-10.1) Test 05/03/16 01:58 05/03/16 04:09 05/03/16 04:16 05/03/16 07:14 Glucose (Fingerstick) 147mg/dL (70-99) 200mg/dL (70-99) 207mg/dL (70-99) White Blood Count 9.3x10^3/uL (4.0-11.0) Red Blood Count 4.18x10^6/uL (4.30-5.70) Hemoglobin 10.2g/dL (13.0-17.5) Hematocrit 31.3% (39.0-53.0) Mean Corpuscular Volume 75fL (79-100) Mean Corpuscular Hemoglobin 24pg (25-35) Mean Corpuscular Hemoglobin Concent 33g/dL (31-37) Red Cell Distribution Width 17.2% (11.5-14.5) Platelet Count 180x10^3/uL (140-400) Neutrophils (%) (Auto) 65% (31-73) Lymphocytes (%) (Auto) 25% (24-48) Monocytes (%) (Auto) 7% (0-9) Eosinophils (%) (Auto) 3% (0-3) Basophils (%) (Auto) 1% (0-3) Neutrophils # (Auto) 6.0x10^3uL (1.8-7.7) Lymphocytes # (Auto) 2.3x10^3/uL (1.0-4.8) Monocytes # (Auto) 0.6x10^3/uL (0.0-1.1) Eosinophils # (Auto) 0.2x10^3/uL (0.0-0.7) Basophils # (Auto) 0.1x10^3/uL (0.0-0.2) Sodium Level 139mmol/L (136-145) Potassium Level 3.2mmol/L (3.5-5.1) Chloride Level 102mmol/L (98-107) Carbon Dioxide Level 28mmol/L (21-32) Anion Gap 9 (6-14) Blood Urea Nitrogen 61mg/dL (8-26) Creatinine 8.1mg/dL (0.7-1.3) Estimated GFR (Cockcroft-Gault) 8.4 Glucose Level 226mg/dL (70-99) Calcium Level 9.4mg/dL (8.5-10.1) Phosphorus Level 4.0mg/dL (2.6-4.7) Magnesium Level 2.4mg/dL (1.8-2.4) Iron Level 77ug/dL (65-175) Total Iron Binding Capacity 114ug/dL (250-450) Iron Saturation 68% (15-34) Ferritin 1252ng/mL (26-388) Albumin 2.0g/dL (3.4-5.0) Vitamin B12 Level 735pg/mL (247-911) Serum Folate > 24.00ng/ml (3.2-20.0) Test 05/03/16 10:26 05/03/16 16:21 05/03/16 21:32 05/04/16 05:40 Glucose (Fingerstick) 255mg/dL (70-99) 246mg/dL (70-99) 345mg/dL (70-99) Sodium Level 137mmol/L (136-145) Potassium Level 3.2mmol/L (3.5-5.1) Chloride Level 102mmol/L (98-107) Carbon Dioxide Level 28mmol/L (21-32) Anion Gap 7 (6-14) Blood Urea Nitrogen 63mg/dL (8-26) Creatinine 7.4mg/dL (0.7-1.3) Estimated GFR (Cockcroft-Gault) 9.3 Glucose Level 317mg/dL (70-99) Calcium Level 9.0mg/dL (8.5-10.1) Phosphorus Level 4.0mg/dL (2.6-4.7) Magnesium Level 2.4mg/dL (1.8-2.4) Albumin 2.0g/dL (3.4-5.0) Test 05/04/16 07:24 05/04/16 10:49 Glucose (Fingerstick) 242mg/dL (70-99) 249mg/dL (70-99) Laboratory Tests Test 05/03/16 16:21 05/03/16 21:32 05/04/16 05:40 05/04/16 07:24 Glucose (Fingerstick) 246mg/dL (70-99) 345mg/dL (70-99) 242mg/dL (70-99) Sodium Level 137mmol/L (136-145) Potassium Level 3.2mmol/L (3.5-5.1) Chloride Level 102mmol/L (98-107) Carbon Dioxide Level 28mmol/L (21-32) Anion Gap 7 (6-14) Blood Urea Nitrogen 63mg/dL (8-26) Creatinine 7.4mg/dL (0.7-1.3) Estimated GFR (Cockcroft-Gault) 9.3 Glucose Level 317mg/dL (70-99) Calcium Level 9.0mg/dL (8.5-10.1) Phosphorus Level 4.0mg/dL (2.6-4.7) Magnesium Level 2.4mg/dL (1.8-2.4) Albumin 2.0g/dL (3.4-5.0) Test 05/04/16 10:49 Glucose (Fingerstick) 249mg/dL (70-99) Assessment Assessment Problems Medical Problems: (1) ESRD (end stage renal disease) Status: Acute (2) Hyperglycemia Status: Acute (3) Urinary retention Status: Acute Problems: Plan Plan of Care Problems Medical Problems: (1) ESRD (end stage renal disease) Status: Acute (2) Hyperglycemia Status: Acute (3) Urinary retention Status: Acute STEVEN CRUMP MD May 04, 2016 11:25
[2016-05-04] MEDS ORDERED: POTASSIUM CHLORIDE 20 MEQ TABLET.ER. PO SCH (12:00)
[2016-05-04 16:41] VITALS: BP 119/53
[2016-05-05] MEDS ORDERED: CALCITRIOL 0.25 MCG CAPSULE PO SCH (09:00)
[2016-05-05] MEDS ORDERED: FLUT9.9S NS (23:16)
[2016-05-05] MEDS ORDERED: CALC0.25 PO (23:16)
[2016-05-05] MEDS ORDERED: METO25TA4 PO (23:16)
[2016-05-05] MEDS ORDERED: SEVE800T9 PO (23:16)
[2016-05-05] MEDS ORDERED: OMEP20CA9 PO (23:16)
[2016-05-05] MEDS ORDERED: LOSA100T6 PO (23:16)
[2016-05-05] MEDS ORDERED: FERR210T PO (23:16)
[2016-05-05] MEDS ORDERED: CLON0.1T PO (23:16)
[2016-05-05] MEDS ORDERED: FURO40TA4 PO (23:16)
[2016-05-05] MEDS ORDERED: AMLO10TA2 PO (23:16)
[2016-05-05] MEDS ORDERED: SUCR500T PO (23:16)
[2016-05-05] MEDS ORDERED: HYDR100T24 PO (23:16)
[2016-05-05] MEDS ORDERED: FOLI0.8T3 PO (23:16)
[2016-05-05] MEDS ORDERED: POTA20TA4 PO (23:16)
== END 2016-05-04 15:30 | disposition home or self-care (01) | DRG 637 ==
LOC: ER 09:21 → 1 WEST ICU 12:40 → 5 SOUTH 15:45
PROVIDERS: ADMIT Internal Medicine; ATTEND Internal Medicine
PROC: 0T9B70Z Drainage of Bladder with Drainage Device, Via Natural or Artificial Opening (ICD-10-PCS; principal; 2016-05-02)
PROC: 3E1M39Z Irrigation of Peritoneal Cavity using Dialysate, Percutaneous Approach (ICD-10-PCS; 2016-05-04)
DX: E11.00 Type 2 diabetes mellitus with hyperosmolarity without nonketotic hyperglycemic-hyperosmolar coma (NKHHC) (principal); N18.6 End stage renal disease; I12.0 Hypertensive chronic kidney disease with stage 5 chronic kidney disease or end stage renal disease; E87.1 Hypo-osmolality and hyponatremia; R33.9 Retention of urine, unspecified; E11.22 Type 2 diabetes mellitus with diabetic chronic kidney disease; E11.65 Type 2 diabetes mellitus with hyperglycemia; D63.1 Anemia in chronic kidney disease; E66.9 Obesity, unspecified; E78.00 Pure hypercholesterolemia, unspecified; E78.5 Hyperlipidemia, unspecified; G62.9 Polyneuropathy, unspecified; I16.0 Hypertensive urgency; K59.00 Constipation, unspecified; N40.1 Benign prostatic hyperplasia with lower urinary tract symptoms; R63.1 Polydipsia; Z83.3 Family history of diabetes mellitus; Z90.49 Acquired absence of other specified parts of digestive tract; Z99.2 Dependence on renal dialysis; Z88.8 Allergy status to other drugs, medicaments and biological substances; Z79.899 Other long term (current) drug therapy; Z79.82 Long term (current) use of aspirin; Z87.891 Personal history of nicotine dependence; Z88.6 Allergy status to analgesic agent
CPT/HCPCS: 36415; 51702; 74176; 80048; 80069; 82607; 82728; 82746; 82947; 83540; 83550; 83735; 83930; 85027; 93005; 96374; 96376; J1815; J3010; J3480; J7030; J7120; 99285-25

== ENCOUNTER 2016-05-05 21:13 | Emergency (ER) | payer MEDICARE, OTHER ==
[~2016-05-05] VITALS: Ht 185.4 cm; Wt 101.6 kg
[~2016-05-05 21:13] MED LIST changes: +GABA-585 PO; +INSU100I17 SQ; +INSU100V13 SQ
--- NOTE | 2016-05-05 22:12 | PHYS DOC ---
Past Medical History Past Medical History: Diabetes-Type II, High Cholesterol, Hypertension Additional Past Medical Histor: ESRD, peritoneal dialysis Past Surgical History: Cholecystectomy, Tonsillectomy Additional Past Surgical Histo: peritoneal dialysis Alcohol Use: Occasionally Drug Use: None Adult General Chief Complaint Chief Complaint: BLOODY STOOL [facility] Patient is a 55 year old male who presents with for bloody water with BM this evening. He had a normal BM with formed stool but had bright red blood in the toilet also. No pain or straining with BM. No abdominal pain. Also notes some darkening of urine in leg bag. Had huddleston catheter placed recently for urinary retention. He denies penile pain but has slight bloody discharge from penis as well. He denies f/c, n/v, back pain, abdominal pain. Review of Systems Review of Systems Constitutional: Denies fever or chills [] Eyes: Denies change in visual acuity, redness, or eye pain [] HENT: Denies nasal congestion or sore throat [] Respiratory: Denies cough or shortness of breath [] Cardiovascular: No additional information not addressed in HPI [] GI: Denies abdominal pain, nausea, vomiting, or diarrhea [] : Denies dysuria [] Musculoskeletal: Denies back pain or joint pain [] Integument: Denies rash or skin lesions [] Neurologic: Denies headache, focal weakness or sensory changes [] Endocrine: Denies polyuria or polydipsia [] Allergies Allergies Allergies Coded Allergies Type Severity Reaction Last Updated Verified ibuprofen Allergy Severe swelling 01/30/15 Yes Physical Exam Physical Exam Constitutional: Well developed, well nourished, no acute distress, non-toxic appearance. [] HENT: Normocephalic, atraumatic, bilateral external ears normal, oropharynx moist, nose normal. [] Eyes: PERRLA, EOMI. [] Neck: Normal range of motion, supple. [] Cardiovascular:Heart rate regular rhythm [] Lungs & Thorax: Bilateral breath sounds clear to auscultation [] Abdomen: Bowel sounds normal, soft, no tenderness. Rectal exam nontender, no fissure or hemorrhoid, small amount of soft brown stool on glove, no obvious blood [] Genitourinary: Huddleston catheter in place, small amount of bloody discharge from penis around catheter, orange urine in leg bag, adherent dressing to right leg, no penile lesions or ulceration, nontender penis Skin: Warm, dry, no erythema, no rash. [] Back: No tenderness, no CVA tenderness. [] Extremities: ROM intact, no edema. [] Neurologic: Alert and oriented X 3, normal motor function, normal sensory function, no focal deficits noted. [] Psychologic: Affect normal, judgement normal, mood normal. [] Current Patient Data Vital Signs Vital Signs Date Time Temp Pulse Resp B/P Pulse Ox O2 Delivery O2 Flow Rate FiO2 05/05/16 21:25 98.8 72 12 150/66 95 Room Air 98.8 Course & Med Decision Making Course & Med Decision Making Pertinent Labs and Imaging studies reviewed. (See chart for details) Discussed blood is likely from huddleston catheter trauma and huddleston needs to stay in place at this time. Diverticulosis noted on recent CT abd/pelvis but low suspicion of diverticular bleed with normal rectal exam. Encouraged him to follow up closely with Urology and PCP. Return precautions given. He and understand and agree with plan. Dragon Disclaimer Dragon Disclaimer This electronic medical record was generated, in whole or in part, using a voice recognition dictation system. Departure Departure Impression: Primary Impression: Huddleston catheter problem Disposition: HOME, SELF-CARE Condition: STABLE Referrals: CIELO COYNE DO (PCP) Patient Instructions: Huddleston Catheter Care, Adult Additional Instructions: Follow up with urology clinic. Return for concerns. Problem Qualifiers Primary Impression: Huddleston catheter problem Encounter type: initial encounter Qualified Code: T83.9XXA - Unspecified complication of genitourinary prosthetic device, implant and graft, initial encounter Denton NICHOLAS MD May 05, 2016 22:12
[2016-05-05 22:20] VITALS: BP 136/61
[2016-05-05] MEDS ORDERED: HYDR100T24 PO (23:16)
[2016-05-05] MEDS ORDERED: AMLO10TA2 PO (23:16)
[2016-05-05] MEDS ORDERED: CLON0.1T PO (23:16)
[2016-05-05] MEDS ORDERED: CALC0.25 PO (23:16)
[2016-05-05] MEDS ORDERED: POTA20TA4 PO (23:16)
[2016-05-05] MEDS ORDERED: SEVE800T9 PO (23:16)
[2016-05-05] MEDS ORDERED: SUCR500T PO (23:16)
[2016-05-05] MEDS ORDERED: OMEP20CA9 PO (23:16)
[2016-05-05] MEDS ORDERED: FLUT9.9S NS (23:16)
[2016-05-05] MEDS ORDERED: METO25TA4 PO (23:16)
[2016-05-05] MEDS ORDERED: LOSA100T6 PO (23:16)
[2016-05-05] MEDS ORDERED: FOLI0.8T3 PO (23:16)
[2016-05-05] MEDS ORDERED: FERR210T PO (23:16)
[2016-05-05] MEDS ORDERED: FURO40TA4 PO (23:16)
== END 2016-05-05 22:24 | disposition home or self-care (01) ==
LOC: ER 21:13
DX: T83.098A Other mechanical complication of other urinary catheter, initial encounter (principal); E11.22 Type 2 diabetes mellitus with diabetic chronic kidney disease; I12.0 Hypertensive chronic kidney disease with stage 5 chronic kidney disease or end stage renal disease; N18.6 End stage renal disease; E78.00 Pure hypercholesterolemia, unspecified; Z99.2 Dependence on renal dialysis; Z90.49 Acquired absence of other specified parts of digestive tract; Z88.6 Allergy status to analgesic agent; Y84.6 Urinary catheterization as the cause of abnormal reaction of the patient, or of later complication, without mention of misadventure at the time of the procedure; Y92.89 Other specified places as the place of occurrence of the external cause
CPT/HCPCS: 99283

== ENCOUNTER 2016-11-26 17:13 | Inpatient (IN) | payer MEDICARE, OTHER ==
[~2016-11-26] VITALS: Ht 182.9 cm; Wt 113.0 kg
[~2016-11-26 17:13] MED LIST changes: +AMLO10TA2 PO; +AMOX1TAB10 PO; +ASPI-630 PO; -ASPI81TA2 PO; +CALC0.25 PO; +CLON0.1T PO; +DILT120C80 PO; -DILT120C97 PO; +FERR210T PO; +FLUC100T PO; +FLUT9.9S NS; +FOLI0.8T3 PO; +FURO80TA72 PO; +GABA300C8 PO; +GLIP-112 PO; -GLIP10TA20 PO; +HYDR100T24 PO; +LIDO30CR TP; +METF-620 PO; -METF10002 PO; +METO2.5T PO; +METO25TA4 PO; +NYST5000 PO; +OMEP20CA9 PO; +POTA20TA4 PO; +SEVE800T9 PO; +SILD100T PO; +SUCR500T PO; +TAMS0.4C2 PO
[2016-11-26] MEDS ORDERED: methylPREDNISolone SOD SUCC PF 125 MG/2 ML VIAL. IV ONE (18:00)
[2016-11-26] MEDS ORDERED: ACETAMINOPHEN 325 MG TABLET. PO ONE (18:00)
[2016-11-26] MEDS ORDERED: COLCHICINE 0.6 MG TABLET PO ONE (18:00)
[2016-11-26] MEDS ORDERED: HYDROmorphone 2 MG/ML VIAL IV ONE ×3 (18:00→21:15)
[2016-11-26] MEDS ORDERED: ONDANSETRON PF 4 MG/2 ML VIAL. IV ONE (18:00)
[2016-11-26] MEDS ORDERED: IV NORMAL SALINE 1000ML BAG 1,000 ML IV ONE (18:00)
[2016-11-26 18:05] LABS: BASO # 0.1 x10^3/uL (0.0-0.2); BASO % 1 % (0-3); EOS % 3 % (0-3); HEMATOCRIT 32.6 % (39.0-53.0); HEMOGLOBIN 10.2 g/dL (13.0-17.5); LYMPH # 1.2 x10^3/uL (1.0-4.8); LYMPH % 17 % (24-48); MEAN CORPUSCULAR HEMOGLOBIN 26 pg (25-35); MEAN CORPUSCULAR HGB CONC 31 g/dL (31-37); MEAN CORPUSCULAR VOLUME 81 fL (79-100); MONO % 10 % (0-9); NEUT % 68 % (31-73); PLATELET COUNT 323 x10^3/uL (140-400); RED BLOOD COUNT 4.02 x10^6/uL (4.30-5.70); RED CELL DISTRIBUTION WIDTH 18.5 % (11.5-14.5); WHITE BLOOD COUNT 6.7 x10^3/uL (4.0-11.0)
[2016-11-26 18:11] LABS: CALCIUM 9.2 mg/dL (8.5-10.1); CREATININE 6.8 mg/dL (0.7-1.3); GFR 10.2; POTASSIUM 4.1 mmol/L (3.5-5.1)
[2016-11-26 18:17] LABS: ALBUMIN 3.4 g/dL (3.4-5.0); ALBUMIN/GLOBULIN RATIO 0.8 (1.0-1.7); TOTAL BILIRUBIN 0.2 mg/dL (0.2-1.0); TOTAL PROTEIN 7.5 g/dL (6.4-8.2); URIC ACID 1.9 mg/dL (3.5-7.2)
[2016-11-26] MEDS ORDERED: METOPROLOL SUCC 24HR ER 25 MG TAB.ER.24H. PO ONE (21:15)
[2016-11-26] MEDS ORDERED: ACETAMINOPHEN 325 MG TABLET. PO PRN (21:45)
[2016-11-26] MEDS ORDERED: ONDANSETRON PF 4 MG/2 ML VIAL. IV PRN (21:45)
[2016-11-26] MEDS: fentaNYL PF VIAL 100 MCG/2 ML VIAL IV PRN (22:18)
--- NOTE | 2016-11-26 22:18 | PHYS DOC ---
Past Medical History Past Medical History: Diabetes-Type II, High Cholesterol, Hypertension Additional Past Medical Histor: ESRD, peritoneal dialysis, HEMODIALYSIS Past Surgical History: Cholecystectomy, Tonsillectomy Additional Past Surgical Histo: peritoneal dialysis, kidney/bladder stent w "clip", DIALYSIS PORT TO [facility] Alcohol Use: Occasionally Drug Use: None Adult General Chief Complaint Chief Complaint: Palpitations HPI HPI Patient is a 56 year old gentleman with a history significant for end-stage renal disease, hypertension, diabetes who presents here today from the dialysis facility secondary to a rapid heart rate. Patient reports that he's had severe pain to his left big toe and left foot for approximately 3 weeks now. Patient reports the pain has been severe and is been having a hard time sleeping. Patient reports that he was recently discharged from the hospital here secondary to infection. Patient reports she's had a hard time managing the pain at home and is been taking Lortab with minimal discomfort relief. Patient denies any liver or lung problems. Patient has any coronary disease. Patient has a DVT or PE. Patient has any history of atrial flutter atrial fibrillation. Patient reports that he's never been told he had a rapid heart rate in the past. Patient does not smoke or drink and denies any drugs. Patient reports he is supposed to be taking metoprolol but did not take his dose as of yet tonight. Patient reports he is no longer on clonidine. Patient reports she has not been on clonidine for quite a while now. Patient denies knowledge of any thyroid problems. Patient denies any chest pain or shortness of breath. Review of systems Constitutional: Denies fever or chills Eyes: Denies change in visual acuity, redness, or eye pain All other review systems are negative except as documented in the history of present illness portion. Physical exam Constitutional: Well developed, well nourished, no acute distress, non-toxic appearance. HENT: Normocephalic, atraumatic, bilateral external ears normal, oropharynx moist, no oral exudates, nose normal. Eyes: conjunctiva normal, no discharge. Neck: Normal range of motion, no tenderness, supple, no stridor. Cardiovascular:Heart rate regular rhythm, tachycardic. Lungs & Thorax: Bilateral breath sounds clear to auscultation Abdomen: Bowel sounds normal, soft, no tenderness, no masses, no pulsatile masses. Skin: Warm, dry, Back: No tenderness, Extremities: No tenderness, no cyanosis, Neurologic: Alert and oriented X 3, normal motor function, normal sensory function, no focal deficits noted. Psychologic: Affect normal, judgement normal, mood normal. Patient was significant tenderness to palpation to his left big toe. left big Toe slightly erythematous and edematous. Assessment and plan This is a 56-year-old gentleman who presents to the ER today for further evaluation of his resting tachycardia of 120-140 [facility] dialysis. Patient reports he has complete dialysis today and then came to the hospital for further evaluation of his severe pain to his left toe. Patient reports that he has never had an elevated heart rate in the past however in reviewing the patient's records he was admitted here last month and his heart rate was elevated in the 110 to 1:30 range. However, when reviewing his records prior to that admission his heart rate is always been normal. Patient is on metoprolol and he did not take his dyspnea tonight however he reports he usually only takes at nighttime and he has not missed it as of yet. Patient denies any fevers shakes chills or infectious source for his tachycardia. Patient reports he believes he is tachycardic secondary to his severe pain in his left toe however patient has been given adequate analgesia and will fall asleep at times and even while he is sleeping his heart rate is still significantly elevated to 120 to 1:30 range. Given the patient's intractable pain to his toe which is most likely secondary to gout, his persistent tachycardia decision was made to admit the patient for further evaluation. Patient was given his nighttime dose of metoprolol here in the ED. Patient will be admitted to the cardiology unit and will have consultation with the cardiology department. While in the ER the patient was given Dilaudid 1 mg IV 2. Patient has an allergy to ibuprofen and NSAIDs reports he gets swelling. Patient was given Solu -Medrol to assist him for possible gout since he is not able take nonsteroidals. Patient was also given colchicine 1.2 mg by mouth. Patient's labs were all unremarkable. Patient's WBC count, lactic acid was within normal limits. Patient's pain does not appear to be secondary to cellulitis/abscess. Current Medications Current Medications Current Medications Medications (Trade) Dose Ordered Sig/Lee Start Time Stop Time Status Last Admin Dose Admin Acetaminophen (Tylenol) 650 mg 1X ONCE 11/26/16 18:00 11/26/16 18:01 DC 11/26/16 18:19 650 MG Colchicine (Colcrys) 1.2 mg 1X ONCE 11/26/16 18:00 11/26/16 18:01 DC 11/26/16 18:20 1.2 MG Hydromorphone HCl (Dilaudid) 1 mg 1X ONCE 11/26/16 21:15 11/26/16 21:16 DC 11/26/16 21:14 1 MG Methylprednisolone Sodium Succinate (SOLU-Medrol 125MG VIAL) 125 mg 1X ONCE 11/26/16 18:00 11/26/16 18:01 DC 11/26/16 18:15 125 MG Metoprolol Succinate (Toprol Xl) 50 mg 1X ONCE 11/26/16 21:15 11/26/16 21:16 DC Ondansetron HCl (Zofran) 4 mg 1X ONCE 11/26/16 18:00 11/26/16 18:01 DC 11/26/16 18:15 4 MG Sodium Chloride 1,000 ml @ 1,000 mls/hr 1X ONCE 11/26/16 18:00 11/26/16 18:59 DC 11/26/16 18:10 1,000 MLS/HR Allergies Allergies Allergies Coded Allergies Type Severity Reaction Last Updated Verified ibuprofen Allergy Severe swelling 01/30/15 Yes Current Patient Data Vital Signs Vital Signs Date Time Temp Pulse Resp B/P (MAP) Pulse Ox O2 Delivery O2 Flow Rate FiO2 11/26/16 21:14 16 95 11/26/16 20:00 116 147/68 (94) Nasal Cannula 2.0 11/26/16 17:40 98.9 98.9 Lab Values Laboratory Tests Test 11/26/16 17:57 11/26/16 18:20 White Blood Count 6.7 x10^3/uL (4.0-11.0) Red Blood Count 4.02 x10^6/uL (4.30-5.70) L Hemoglobin 10.2 g/dL (13.0-17.5) L Hematocrit 32.6 % (39.0-53.0) L Mean Corpuscular Volume 81 fL (79-100) Mean Corpuscular Hemoglobin 26 pg (25-35) Mean Corpuscular Hemoglobin Concent 31 g/dL (31-37) Red Cell Distribution Width 18.5 % (11.5-14.5) H Platelet Count 323 x10^3/uL (140-400) Neutrophils (%) (Auto) 68 % (31-73) Lymphocytes (%) (Auto) 17 % (24-48) L Monocytes (%) (Auto) 10 % (0-9) H Eosinophils (%) (Auto) 3 % (0-3) Basophils (%) (Auto) 1 % (0-3) Neutrophils # (Auto) 4.6 x10^3uL (1.8-7.7) Lymphocytes # (Auto) 1.2 x10^3/uL (1.0-4.8) Monocytes # (Auto) 0.7 x10^3/uL (0.0-1.1) Eosinophils # (Auto) 0.2 x10^3/uL (0.0-0.7) Basophils # (Auto) 0.1 x10^3/uL (0.0-0.2) Erythrocyte Sedimentation Rate 28 (0-15) H Sodium Level 137 mmol/L (136-145) Potassium Level 4.1 mmol/L (3.5-5.1) Chloride Level 99 mmol/L (98-107) Carbon Dioxide Level 31 mmol/L (21-32) Anion Gap 7 (6-14) Blood Urea Nitrogen 30 mg/dL (8-26) H Creatinine 6.8 mg/dL (0.7-1.3) H Estimated GFR (Cockcroft-Gault) 10.2 BUN/Creatinine Ratio 4 (6-20) L Glucose Level 177 mg/dL (70-99) H Uric Acid 1.9 mg/dL (3.5-7.2) L Calcium Level 9.2 mg/dL (8.5-10.1) Total Bilirubin 0.2 mg/dL (0.2-1.0) Aspartate Amino Transferase (AST) 20 U/L (15-37) Alanine Aminotransferase (ALT) 32 U/L (16-63) Alkaline Phosphatase 88 U/L (46-116) Total Protein 7.5 g/dL (6.4-8.2) Albumin 3.4 g/dL (3.4-5.0) Albumin/Globulin Ratio 0.8 (1.0-1.7) L Lactic Acid Level 1.4 mmol/L (0.4-2.0) Laboratory Tests 11/26/16 17:57 Laboratory Tests 11/26/16 17:57 EKG EKG [] Radiology/Procedures Radiology/Procedures [] Course & Med Decision Making Course & Med Decision Making Pertinent Labs and Imaging studies reviewed. (See chart for details) [] Dragon Disclaimer Dragon Disclaimer This electronic medical record was generated, in whole or in part, using a voice recognition dictation system. Departure Departure Impression: Primary Impression: Gouty arthritis Additional Impressions: Intractable pain Tachycardia Disposition: 09 ADMITTED INPATIENT Admitting Physician: Torsten Chowdhury Condition: GUARDED Referrals: CIELO COYNE DO (PCP) Problem Qualifiers DOMINIC WILKINSON MD Nov 26, 2016 22:18
[2016-11-26 23:00] VITALS: BP 141/67
[2016-11-26] MEDS ORDERED: GABA-585 PO (23:15)
[2016-11-27] MEDS ORDERED: INSULIN DETEMIR 300 UNITS/3 ML INSULN.PEN. SQ SCH
[2016-11-27] MEDS: fentaNYL PF VIAL 100 MCG/2 ML VIAL IV PRN ×5 (00:08→10:15)
[2016-11-27] MEDS: HYDROcodone/APAP 7.5/325MG 1 TAB TABLET PO PRN ×4 (00:09→12:42)
[2016-11-27] MEDS: GABAPENTIN 100 MG CAPSULE. PO SCH ×2 (00:09→08:50)
[2016-11-27 03:58] VITALS: BP 157/72
[2016-11-27 07:00] VITALS: BP 159/90
--- NOTE | 2016-11-27 08:29 | RAD ---
Left foot 2 views. History: Pain 2 views were taken of the left foot. There is not evidence of an acute fracture or osseous abnormality. There is mild soft tissue swelling. Impression: 1. No acute osseous abnormality noted in the left foot.
--- NOTE | 2016-11-27 08:57 | CONS ---
DATE OF CONSULTATION: 11/27/2016 REASON FOR CONSULTATION: Tachycardia. HISTORY OF PRESENT ILLNESS: The patient is a pleasant 56-year-old gentleman who comes into the hospital in the setting of worsening left toe pain. He reports that over the course of the last 4 weeks or so, he has had intermittent episodes of toe pain and this was excruciating in nature after his dialysis session yesterday and this prompted arrival to the ER. In the ER, he was noted to be tachycardiac and therefore Cardiology was asked to provide insight into his issues. The patient reports that he has had some tachycardia issues over the last several months at various hospitalizations, mostly related to secondary issues such as sepsis and/or pain. He denies any current chest pain, orthopnea, PND or lower extremity edema. He does not have any significant dyspnea. He reports compliance with his medications. In the ER, initial evaluation revealed sinus tachycardia and there was suspicion for gout and therefore he was given multiple medications for treatment of this presumed gout. PAST MEDICAL HISTORY: 1. End-stage renal disease. 2. Hypertension. 3. Dyslipidemia. 4. Diastolic heart disease. 5. Prior peritoneal infection secondary to dialysis catheter, status post removal recently. SOCIAL HISTORY: The patient is . He denies any alcohol, tobacco or illicit drug use. ALLERGIES: NOTABLE FOR IBUPROFEN. MEDICATIONS: Home cardiovascular medications are as follows: 1. Amlodipine 10 mg daily. 2. Aspirin 81 mg daily. 3. Atorvastatin 20 mg daily. 4. Lasix 80 mg b.i.d. 5. Hydralazine 100 mg t.i.d. 6. Lisinopril 40 mg daily. 7. Losartan 100 mg daily. 8. Metolazone 2.5 mg b.i.d. 9. Metoprolol 25 mg b.i.d. FAMILY HISTORY: Notable for diabetes. REVIEW OF SYSTEMS: Negative for 10 out of 14 systems reviewed, unless otherwise mentioned above in HPI. PHYSICAL EXAMINATION: GENERAL: He is alert and oriented, in no acute distress. HEAD AND NECK: Unremarkable. LUNGS: Clear to auscultation bilaterally. HEART: Regular rate and rhythm without any significant murmurs, rubs or gallops. ABDOMEN: Soft, nontender, nondistended. EXTREMITIES: No edema. Normal pulses in the left and right pedal and radial areas. His left great toe, where the site of pain is, does not appear to show any purulent discharge nor is there any decreased range of function. He has decreased sensation to that area. SKIN: No breakdown. NEUROLOGIC: No focal deficits. PSYCHIATRIC: The patient appears mildly frustrated due to pain, but denies any suicidal or depression thoughts. MUSCULOSKELETAL: No trauma. DIAGNOSTIC STUDIES: Hemoglobin 10.2, stable; platelets 323; white blood cell count 6.7. Troponin 0.326, minimally elevated and in similar range compared to prior admission. Foot x-ray is currently pending. EKG by telemetry reveals tachycardia at a heart rate of 120 beats per minute. ER EKG reveals sinus tachycardia. IMPRESSION: 1. Sinus tachycardia. 2. Chronic troponin elevation secondary to end-stage renal disease. 3. Hypertensive heart disease. 4. Dyslipidemia. 5. End-stage renal disease. RECOMMENDATIONS: 1. At this present time, the patient's left toe pain does not appear to be vascular in nature. He has good distal pulses. Suspect this is neuropathic and/or arthritic pain. Treatment for primary care team. 2. With regards to the patient's tachycardia, this again appears to be secondary to the patient's pain. He may be slightly volume depleted as well. Would encourage fluid intake and restart home medications with limitations of diuretics and monitor blood pressure. 3. His recent echocardiogram demonstrates normal LV function. We will repeat an EKG as necessary if there is suspicion for any arrhythmias. At this present time, no further cardiovascular testing is necessary and would encourage treatment of his primary pain issues and then reassess his tachycardia. Thank you for this consultation. SHALA ORR MD DR: EZRA/santino JOB#: [id number] / [id number]
[2016-11-27] MEDS ORDERED: DEXTROSE 50% 25 GM / 50ML DISP.SYRIN. IV PRN (10:15)
[2016-11-27] MEDS ORDERED: ONDANSETRON PF 4 MG/2 ML VIAL. IV PRN (10:15)
--- NOTE | 2016-11-27 10:15 | EKG ---
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 RI6.01 Unconfirmed report Compared to ECG 11/10/2016 20:59:46 T-wave abnormality now present Electronically Signed On 12-14-2016 13:22:54 CDT by Charlie العراقي
[2016-11-27] MEDS ORDERED: METOPROLOL TART IMMED RELEASE 25 MG TABLET. PO ONE (10:30)
[2016-11-27] MEDS ORDERED: LISINOPRIL 10 MG TABLET PO ONE (10:30)
[2016-11-27] MEDS ORDERED: LISINOPRIL 40 MG TABLET. PO SCH (10:30)
[2016-11-27] MEDS ORDERED: LOSARTAN POTASSIUM 50 MG TABLET. PO SCH (10:30)
[2016-11-27] MEDS ORDERED: METOPROLOL TART IMMED RELEASE 25 MG TABLET. PO SCH (10:30)
[2016-11-27] MEDS ORDERED: INSULIN ASPART 300 UNITS/3 ML INSULN.PEN SQ ONE (10:45)
[2016-11-27 11:00] VITALS: BP 139/60
[2016-11-27] MEDS ORDERED: FUROSEMIDE 80 MG TABLET. PO SCH (11:00)
[2016-11-27] MEDS ORDERED: ASPIRIN CHEWABLE 81 MG TABLET. PO SCH (11:00)
[2016-11-27] MEDS ORDERED: TAMSULOSIN 0.4 MG CAP.ER.24H. PO SCH (11:00)
[2016-11-27] MEDS ORDERED: FOLIC/VIT B COMP W-C (RENAL) TABLET. PO SCH (11:00)
[2016-11-27] MEDS ORDERED: amLODIPine BESYLATE 10 MG TABLET PO SCH (11:00)
[2016-11-27] MEDS ORDERED: metOLazone 2.5 MG TABLET PO SCH (11:00)
[2016-11-27] MEDS ORDERED: GABA600T2 PO (11:51)
[2016-11-27] MEDS ORDERED: COLC0.6T34 PO (11:51)
[2016-11-27] MEDS ORDERED: NON FORMULARY ITEM (Ferric Citrate 210 MG) PO SCH (12:00)
[2016-11-27] MEDS ORDERED: INSULIN ASPART 300 UNITS/3 ML INSULN.PEN SQ SCH ×2 (12:00)
--- NOTE | 2016-11-27 12:06 | PDOC1 ---
History and Physical Date of Admission Date of Admission DATE: 11/27/16 TIME: 11:58 Identification/Chief Complaint Chief Complaint toe pain, CP Problems: Source Source: Caregiver, Chart review, Patient History of Present Illness History of Present Illness 56 y.o Caucaisan male with the ff past medical: PAST MEDICAL HISTORY: 1. End-stage renal disease. 2. Hypertension. 3. Dyslipidemia. 4. Diastolic heart disease. 5. Prior peritoneal infection secondary to dialysis catheter, status post removal recently. Admitted for some CP and toe pain. The CP labs show non active ACS, Toe pain likely neuropathy from Dm > 10 yrs. HE did get colcrys with resolution of sxs. ESR normal, Uric acid ordered but pt will be leaving before results. CLeared from cards to go home After > 45 mins in room discussing his condition, we agreed to inc his gabapentin dose form his 300 TID started (increased a month ago by PCP ) to 600 TID, COunselling on drowsiness etc Ambulates with a cane NO addlt PT needs Stayed OBS only overnight Past Medical History Cardiovascular: AFIB, CHF, HTN, Hyperlipidemia Pulmonary: Other CENTRAL NERVOUS SYSTEM: Periperal neuropathy GI: No pertinent hx Heme/Onc: No pertinent hx, Other Hepatobiliary: No pertinent hx Psych: Anxiety Rheumatologic: No pertinent hx Infectious disease: No pertinent hx Renal/: Chronic renal failure Endocrine: Diabetes Past Surgical History Past Surgical History: Appendectomy, Cholecystectomy, Tonsillectomy Family History Family History: Diabetes Social History Smoke: No ALCOHOL: none Drugs: None Current Problem List Problem List Problems Medical Problems: (1) Gouty arthritis Status: Acute (2) Intractable pain Status: Acute Problems: Current Medications Current Medications Current Medications Hydromorphone HCl (Dilaudid) 1 mg 1X ONCE IV Last administered on 11/26/16 18 :12; Start 11/26/16 at 18:00; Stop 11/26/16 at 18:01; Status DC Ondansetron HCl (Zofran) 4 mg 1X ONCE IV Last administered on 11/26/16 18:15 ; Start 11/26/16 at 18:00; Stop 11/26/16 at 18:01; Status DC Sodium Chloride 1,000 ml @ 1,000 mls/hr 1X ONCE IV Last administered on 18:10; Start 11/26/16 at 18:00; Stop 11/26/16 at 18:59; Status DC Methylprednisolone Sodium Succinate (SOLU-Medrol 125MG VIAL) 125 mg 1X ONCE IV Last administered on 11/26/16 18:15; Start 11/26/16 at 18:00; Stop 11/26/16 at 18:01; Status DC Colchicine (Colcrys) 1.2 mg 1X ONCE PO Last administered on 11/26/16 18:20; Start 11/26/16 at 18:00; Stop 11/26/16 at 18:01; Status DC Acetaminophen (Tylenol) 650 mg 1X ONCE PO Last administered on 11/26/16 18:19 ; Start 11/26/16 at 18:00; Stop 11/26/16 at 18:01; Status DC Hydromorphone HCl (Dilaudid) 1 mg 1X ONCE IV Last administered on 11/26/16 18 :36; Start 11/26/16 at 18:45; Stop 11/26/16 at 18:46; Status DC Metoprolol Succinate (Toprol Xl) 50 mg 1X ONCE PO Last administered on 21:24; Start 11/26/16 at 21:15; Stop 11/26/16 at 21:16; Status DC Hydromorphone HCl (Dilaudid) 1 mg 1X ONCE IV Last administered on 11/26/16 21 :14; Start 11/26/16 at 21:15; Stop 11/26/16 at 21:16; Status DC Ondansetron HCl (Zofran) 4 mg PRN Q8HRS PRN IV NAUSEA/VOMITING; Start 11/26/16 at 21:45; Stop 11/27/16 at 10:05; Status DC Fentanyl Citrate (Fentanyl 2ml Vial) 50 mcg PRN Q2HR PRN IV SEVERE PAIN Last administered on 11/27/16 10:15; Start 11/26/16 at 21:45; Stop 11/27/16 at 21:44 Acetaminophen (Tylenol) 650 mg PRN Q4HRS PRN PO FEVER; Start 11/26/16 at 21:45 ; Stop 11/27/16 at 21:44 Acetaminophen/ Hydrocodone Bitart (Lortab 7.5/325) 1 tab PRN Q4HRS PRN PO SEVERE PAIN Last administered on 11/27/16 08:50; Start 11/26/16 at 23:45 Gabapentin (Neurontin) 100 mg TID PO Last administered on 11/27/16 08:50; Start 11/27/16 at 00:00 Insulin Detemir (Levemir) 60 units QHS SQ Last administered on 11/27/16 00:30 ; Start 11/27/16 at 00:00 Atorvastatin Calcium (Lipitor) 20 mg QHS PO ; Start 11/27/16 at 21:00 Lisinopril (Prinivil) 40 mg DAILY PO Last administered on 11/27/16 10:14; Start 11/27/16 at 10:30 Metoprolol Tartrate (Lopressor) 25 mg BID PO Last administered on 11/27/16 10: 14; Start 11/27/16 at 10:30 Losartan Potassium (Cozaar) 100 mg DAILY PO ; Start 11/27/16 at 10:30 Metoprolol Tartrate (Lopressor) 25 mg 1X ONCE PO ; Start 11/27/16 at 10:30; Stop 11/27/16 at 10:31; Status Cancel Lisinopril (Prinivil) 40 mg 1X ONCE PO ; Start 11/27/16 at 10:30; Stop at 10:31; Status Cancel Ondansetron HCl (Zofran) 4 mg PRN Q6HRS PRN IV NAUSEA/VOMITING; Start 11/27/16 at 10:15; Stop 11/28/16 at 10:14 Insulin Aspart (NovoLOG) 0-9 UNITS TIDWMEALS SQ ; Start 11/27/16 at 12:00 Dextrose (Dextrose 50%-Water Syringe) 12.5 gm PRN Q15MIN PRN IV SEE COMMENTS; Start 11/27/16 at 10:15 Amlodipine Besylate (Norvasc) 10 mg DAILY PO ; Start 11/27/16 at 11:00 Aspirin (Children'S Aspirin) 81 mg DAILY PO ; Start 11/27/16 at 11:00 Fluconazole (Diflucan) 200 mg DAILY PO ; Start 11/28/16 at 09:00; Status UNV Vitamin B Complex/ Vitamin C (April-Sonja) 1 tab DAILY PO ; Start 11/27/16 at 11: 00 Furosemide (Lasix) 80 mg BID94 PO ; Start 11/27/16 at 11:00 Insulin Aspart (NovoLOG) 15 units TIDWMEALS SQ ; Start 11/27/16 at 12:00 Metolazone (Zaroxolyn) 2.5 mg BID PO ; Start 11/27/16 at 11:00 Tamsulosin HCl (Flomax) 0.4 mg DAILY PO ; Start 11/27/16 at 11:00 Non-Formulary Medication 210 mg TIDWMEALS PO ; Start 11/27/16 at 12:00; Status UNV Hydralazine HCl (Apresoline) 100 mg TID PO ; Start 11/27/16 at 14:00 Non-Formulary Medication 1 tab TID PO ; Start 11/27/16 at 14:00; Status UNV Insulin Aspart (NovoLOG) 15 units 1X ONCE SQ ; Start 11/27/16 at 10:45; Stop 11/27/16 at 10:46; Status DC Active Scripts Active Diflucan (Fluconazole) 100 Mg Tablet 200 Mg PO DAILY 10 Days Amox Tr-K Clv 500-125 Mg Tab (Amoxicillin/Potassium Clav) 1 Each Tablet 1 Tab PO BID Novolog Flexpen (Insulin Aspart) 100 Unit/1 Ml Insuln.pen 15 Unit SQ TIDWMEALS Reported Gabapentin 100 Mg Capsule 100 Mg PO TID Levemir (Insulin Detemir) 100 Unit/1 Ml Vial 60 Unit SQ QHS Lasix (Furosemide) 80 Mg Tablet 1 Tab PO BID Ferric Citrate 210 Mg Tablet 210 Mg PO TIDWMEALS Viagra (Sildenafil Citrate) 100 Mg Tablet 1 Tab PO PRN Tamsulosin Hcl 0.4 Mg Cap.er.24h 1 Cap PO DAILY Lisinopril 40 Mg Tablet 1 Tab PO DAILY Metolazone 2.5 Mg Tablet 2.5 Mg PO BID Nystatin 500,000 Unit Tablet 1 Tab PO TID Amlodipine Besylate 10 Mg Tablet 10 Mg PO DAILY Losartan Potassium 100 Mg Tablet 100 Mg PO DAILY Metoprolol Tartrate 25 Mg Tablet 25 Mg PO BID Hydralazine Hcl 100 Mg Tablet 1 Tab PO TID Nephro-Sonja Tablet (Folic Acid/Vitamin B Comp W-C) 0.8 Mg Tablet 1 Tab PO DAILY Lipitor (Atorvastatin Calcium) 20 Mg Tablet 20 Mg PO DAILY Aspirin 81 Mg Tab.chew 1 Tab PO DAILY Allergies Allergies: Coded Allergies: ibuprofen (Verified Allergy, Severe, swelling, 01/30/15) ROS Review of System toe pain, left big toe Physical Exam General: Alert, Oriented X3, Cooperative, No acute distress HEENT: Atraumatic, PERRLA, EOMI Lungs: Clear to auscultation, Normal air movement Heart: S1S2, RRR, no thrills, no rubs, no gallops, no murmurs Cardiovascular: S1, S2 Abdomen: Normal bowel sounds, Soft, No tenderness, No hepatosplenomegaly, No masses Male Genitals Exam: normal genitalia, normal prostate Extremities: Other (left big toe, swollen but no redness, good flexion, allowing me to touch it) Skin: No rashes, No breakdown, No significant lesion Neuro: Normal gait, Normal speech, Strength at 5/5 X4 ext, Normal tone, Sensation intact, Cranial nerves 3-12 NL, Reflexes 2+ Psych/Mental Status: Mental status NL, Mood NL Vitals Vitals Vital Signs Date Time Temp Pulse Resp B/P (MAP) Pulse Ox O2 Delivery O2 Flow Rate FiO2 11/27/16 11:00 98.5 114 22 139/60 (86) 97 Room Air 98.5 11/27/16 10:15 2.0 Labs Labs Laboratory Tests Test 11/26/16 17:57 11/26/16 18:20 11/27/16 00:11 11/27/16 03:50 White Blood Count 6.7 x10^3/uL (4.0-11.0) Red Blood Count 4.02 x10^6/uL (4.30-5.70) Hemoglobin 10.2 g/dL (13.0-17.5) Hematocrit 32.6 % (39.0-53.0) Mean Corpuscular Volume 81 fL (79-100) Mean Corpuscular Hemoglobin 26 pg (25-35) Mean Corpuscular Hemoglobin Concent 31 g/dL (31-37) Red Cell Distribution Width 18.5 % (11.5-14.5) Platelet Count 323 x10^3/uL (140-400) Neutrophils (%) (Auto) 68 % (31-73) Lymphocytes (%) (Auto) 17 % (24-48) Monocytes (%) (Auto) 10 % (0-9) Eosinophils (%) (Auto) 3 % (0-3) Basophils (%) (Auto) 1 % (0-3) Neutrophils # (Auto) 4.6 x10^3uL (1.8-7.7) Lymphocytes # (Auto) 1.2 x10^3/uL (1.0-4.8) Monocytes # (Auto) 0.7 x10^3/uL (0.0-1.1) Eosinophils # (Auto) 0.2 x10^3/uL (0.0-0.7) Basophils # (Auto) 0.1 x10^3/uL (0.0-0.2) Erythrocyte Sedimentation Rate 28 (0-15) Sodium Level 137 mmol/L (136-145) Potassium Level 4.1 mmol/L (3.5-5.1) Chloride Level 99 mmol/L (98-107) Carbon Dioxide Level 31 mmol/L (21-32) Anion Gap 7 (6-14) Blood Urea Nitrogen 30 mg/dL (8-26) Creatinine 6.8 mg/dL (0.7-1.3) Estimated GFR (Cockcroft-Gault) 10.2 BUN/Creatinine Ratio 4 (6-20) Glucose Level 177 mg/dL (70-99) Uric Acid 1.9 mg/dL (3.5-7.2) Calcium Level 9.2 mg/dL (8.5-10.1) Total Bilirubin 0.2 mg/dL (0.2-1.0) Aspartate Amino Transf (AST/SGOT) 20 U/L (15-37) Alanine Aminotransferase (ALT/SGPT) 32 U/L (16-63) Alkaline Phosphatase 88 U/L (46-116) Total Protein 7.5 g/dL (6.4-8.2) Albumin 3.4 g/dL (3.4-5.0) Albumin/Globulin Ratio 0.8 (1.0-1.7) Thyroid Stimulating Hormone (TSH) 1.237 uIU/mL (0.358-3.74) Lactic Acid Level 1.4 mmol/L (0.4-2.0) Glucose (Fingerstick) 327 mg/dL (70-99) Troponin I Quantitative 0.326 ng/mL (0.000-0.055) Test 11/27/16 07:51 11/27/16 09:40 11/27/16 10:40 Glucose (Fingerstick) 158 mg/dL (70-99) 213 mg/dL (70-99) Uric Acid 2.8 mg/dL (3.5-7.2) Troponin I Quantitative 0.295 ng/mL (0.000-0.055) Laboratory Tests Test 11/26/16 17:57 11/26/16 18:20 11/27/16 00:11 11/27/16 03:50 White Blood Count 6.7 x10^3/uL (4.0-11.0) Red Blood Count 4.02 x10^6/uL (4.30-5.70) Hemoglobin 10.2 g/dL (13.0-17.5) Hematocrit 32.6 % (39.0-53.0) Mean Corpuscular Volume 81 fL (79-100) Mean Corpuscular Hemoglobin 26 pg (25-35) Mean Corpuscular Hemoglobin Concent 31 g/dL (31-37) Red Cell Distribution Width 18.5 % (11.5-14.5) Platelet Count 323 x10^3/uL (140-400) Neutrophils (%) (Auto) 68 % (31-73) Lymphocytes (%) (Auto) 17 % (24-48) Monocytes (%) (Auto) 10 % (0-9) Eosinophils (%) (Auto) 3 % (0-3) Basophils (%) (Auto) 1 % (0-3) Neutrophils # (Auto) 4.6 x10^3uL (1.8-7.7) Lymphocytes # (Auto) 1.2 x10^3/uL (1.0-4.8) Monocytes # (Auto) 0.7 x10^3/uL (0.0-1.1) Eosinophils # (Auto) 0.2 x10^3/uL (0.0-0.7) Basophils # (Auto) 0.1 x10^3/uL (0.0-0.2) Erythrocyte Sedimentation Rate 28 (0-15) Sodium Level 137 mmol/L (136-145) Potassium Level 4.1 mmol/L (3.5-5.1) Chloride Level 99 mmol/L (98-107) Carbon Dioxide Level 31 mmol/L (21-32) Anion Gap 7 (6-14) Blood Urea Nitrogen 30 mg/dL (8-26) Creatinine 6.8 mg/dL (0.7-1.3) Estimated GFR (Cockcroft-Gault) 10.2 BUN/Creatinine Ratio 4 (6-20) Glucose Level 177 mg/dL (70-99) Uric Acid 1.9 mg/dL (3.5-7.2) Calcium Level 9.2 mg/dL (8.5-10.1) Total Bilirubin 0.2 mg/dL (0.2-1.0) Aspartate Amino Transf (AST/SGOT) 20 U/L (15-37) Alanine Aminotransferase (ALT/SGPT) 32 U/L (16-63) Alkaline Phosphatase 88 U/L (46-116) Total Protein 7.5 g/dL (6.4-8.2) Albumin 3.4 g/dL (3.4-5.0) Albumin/Globulin Ratio 0.8 (1.0-1.7) Thyroid Stimulating Hormone (TSH) 1.237 uIU/mL (0.358-3.74) Lactic Acid Level 1.4 mmol/L (0.4-2.0) Glucose (Fingerstick) 327 mg/dL (70-99) Troponin I Quantitative 0.326 ng/mL (0.000-0.055) Test 11/27/16 07:51 11/27/16 09:40 11/27/16 10:40 Glucose (Fingerstick) 158 mg/dL (70-99) 213 mg/dL (70-99) Uric Acid 2.8 mg/dL (3.5-7.2) Troponin I Quantitative 0.295 ng/mL (0.000-0.055) VTE Prophylaxis Ordered VTE Prophylaxis Devices: Yes VTE Pharmacological Prophylaxi: Yes Assessment/Plan Assessment/Plan 1. Peripheral neuropathy 2. DM 2 > 10 yrs 3. ESRD on HD 4 , CAD, HTN, cardiac hx 5, Possible gout PLAn: Admitted oBS cleared to go hoem Rx for colcrys and inc gabapentin dose given Time signif > 60% cousnelling KAYCEE AVILES MD Nov 27, 2016 12:06
--- NOTE | 2016-11-27 12:06 | PDOC3 ---
Discharge Summary Visit Information Date of Admission: Nov 26, 2016 Date of Discharge: Nov 27, 2016 Admitting Diagnosis Comment: 1. Peripheral neuropathy 2. DM 2 > 10 yrs 3. ESRD on HD 4 , CAD, HTN, cardiac hx 5, Possible gout PLAn: Admitted oBS cleared to go hoem Rx for colcrys and inc gabapentin dose given Time signif > 60% cousnelling Final Diagnosis Problems Medical Problems: (1) Gouty arthritis Status: Acute (2) Intractable pain Status: Acute Brief Hospital Course Allergies Allergies Coded Allergies Type Severity Reaction Last Updated Verified ibuprofen Allergy Severe swelling 01/30/15 Yes Vital Signs Vital Signs Date Time Temp Pulse Resp B/P (MAP) Pulse Ox O2 Delivery O2 Flow Rate FiO2 11/27/16 11:00 98.5 114 22 139/60 (86) 97 Room Air 98.5 11/27/16 10:15 2.0 Lab Results Laboratory Tests Test 11/26/16 17:57 11/26/16 18:20 11/27/16 00:11 11/27/16 03:50 White Blood Count 6.7 x10^3/uL (4.0-11.0) Red Blood Count 4.02 x10^6/uL (4.30-5.70) Hemoglobin 10.2 g/dL (13.0-17.5) Hematocrit 32.6 % (39.0-53.0) Mean Corpuscular Volume 81 fL (79-100) Mean Corpuscular Hemoglobin 26 pg (25-35) Mean Corpuscular Hemoglobin Concent 31 g/dL (31-37) Red Cell Distribution Width 18.5 % (11.5-14.5) Platelet Count 323 x10^3/uL (140-400) Neutrophils (%) (Auto) 68 % (31-73) Lymphocytes (%) (Auto) 17 % (24-48) Monocytes (%) (Auto) 10 % (0-9) Eosinophils (%) (Auto) 3 % (0-3) Basophils (%) (Auto) 1 % (0-3) Neutrophils # (Auto) 4.6 x10^3uL (1.8-7.7) Lymphocytes # (Auto) 1.2 x10^3/uL (1.0-4.8) Monocytes # (Auto) 0.7 x10^3/uL (0.0-1.1) Eosinophils # (Auto) 0.2 x10^3/uL (0.0-0.7) Basophils # (Auto) 0.1 x10^3/uL (0.0-0.2) Erythrocyte Sedimentation Rate 28 (0-15) Sodium Level 137 mmol/L (136-145) Potassium Level 4.1 mmol/L (3.5-5.1) Chloride Level 99 mmol/L (98-107) Carbon Dioxide Level 31 mmol/L (21-32) Anion Gap 7 (6-14) Blood Urea Nitrogen 30 mg/dL (8-26) Creatinine 6.8 mg/dL (0.7-1.3) Estimated GFR (Cockcroft-Gault) 10.2 BUN/Creatinine Ratio 4 (6-20) Glucose Level 177 mg/dL (70-99) Uric Acid 1.9 mg/dL (3.5-7.2) Calcium Level 9.2 mg/dL (8.5-10.1) Total Bilirubin 0.2 mg/dL (0.2-1.0) Aspartate Amino Transf (AST/SGOT) 20 U/L (15-37) Alanine Aminotransferase (ALT/SGPT) 32 U/L (16-63) Alkaline Phosphatase 88 U/L (46-116) Total Protein 7.5 g/dL (6.4-8.2) Albumin 3.4 g/dL (3.4-5.0) Albumin/Globulin Ratio 0.8 (1.0-1.7) Thyroid Stimulating Hormone (TSH) 1.237 uIU/mL (0.358-3.74) Lactic Acid Level 1.4 mmol/L (0.4-2.0) Glucose (Fingerstick) 327 mg/dL (70-99) Troponin I Quantitative 0.326 ng/mL (0.000-0.055) Test 11/27/16 07:51 11/27/16 09:40 11/27/16 10:40 Glucose (Fingerstick) 158 mg/dL (70-99) 213 mg/dL (70-99) Uric Acid 2.8 mg/dL (3.5-7.2) Troponin I Quantitative 0.295 ng/mL (0.000-0.055) Laboratory Tests Test 11/26/16 17:57 11/26/16 18:20 11/27/16 00:11 11/27/16 03:50 White Blood Count 6.7 x10^3/uL (4.0-11.0) Red Blood Count 4.02 x10^6/uL (4.30-5.70) Hemoglobin 10.2 g/dL (13.0-17.5) Hematocrit 32.6 % (39.0-53.0) Mean Corpuscular Volume 81 fL (79-100) Mean Corpuscular Hemoglobin 26 pg (25-35) Mean Corpuscular Hemoglobin Concent 31 g/dL (31-37) Red Cell Distribution Width 18.5 % (11.5-14.5) Platelet Count 323 x10^3/uL (140-400) Neutrophils (%) (Auto) 68 % (31-73) Lymphocytes (%) (Auto) 17 % (24-48) Monocytes (%) (Auto) 10 % (0-9) Eosinophils (%) (Auto) 3 % (0-3) Basophils (%) (Auto) 1 % (0-3) Neutrophils # (Auto) 4.6 x10^3uL (1.8-7.7) Lymphocytes # (Auto) 1.2 x10^3/uL (1.0-4.8) Monocytes # (Auto) 0.7 x10^3/uL (0.0-1.1) Eosinophils # (Auto) 0.2 x10^3/uL (0.0-0.7) Basophils # (Auto) 0.1 x10^3/uL (0.0-0.2) Erythrocyte Sedimentation Rate 28 (0-15) Sodium Level 137 mmol/L (136-145) Potassium Level 4.1 mmol/L (3.5-5.1) Chloride Level 99 mmol/L (98-107) Carbon Dioxide Level 31 mmol/L (21-32) Anion Gap 7 (6-14) Blood Urea Nitrogen 30 mg/dL (8-26) Creatinine 6.8 mg/dL (0.7-1.3) Estimated GFR (Cockcroft-Gault) 10.2 BUN/Creatinine Ratio 4 (6-20) Glucose Level 177 mg/dL (70-99) Uric Acid 1.9 mg/dL (3.5-7.2) Calcium Level 9.2 mg/dL (8.5-10.1) Total Bilirubin 0.2 mg/dL (0.2-1.0) Aspartate Amino Transf (AST/SGOT) 20 U/L (15-37) Alanine Aminotransferase (ALT/SGPT) 32 U/L (16-63) Alkaline Phosphatase 88 U/L (46-116) Total Protein 7.5 g/dL (6.4-8.2) Albumin 3.4 g/dL (3.4-5.0) Albumin/Globulin Ratio 0.8 (1.0-1.7) Thyroid Stimulating Hormone (TSH) 1.237 uIU/mL (0.358-3.74) Lactic Acid Level 1.4 mmol/L (0.4-2.0) Glucose (Fingerstick) 327 mg/dL (70-99) Troponin I Quantitative 0.326 ng/mL (0.000-0.055) Test 11/27/16 07:51 11/27/16 09:40 11/27/16 10:40 Glucose (Fingerstick) 158 mg/dL (70-99) 213 mg/dL (70-99) Uric Acid 2.8 mg/dL (3.5-7.2) Troponin I Quantitative 0.295 ng/mL (0.000-0.055) Brief Hospital Course Mr. Alvares is a 56 old [sex] who [facility] with [ ] 56 [facility] past medical: PAST MEDICAL HISTORY: 1. End-stage renal disease. 2. Hypertension. 3. Dyslipidemia. 4. Diastolic heart disease. 5. Prior peritoneal infection secondary to dialysis catheter, status post removal recently. Admitted for some CP and toe pain. The CP labs show non active ACS, Toe pain likely neuropathy from Dm > 10 yrs. HE did get colcrys with resolution of sxs. ESR normal, Uric acid ordered but pt will be leaving before results. CLeared from cards to go home After > 45 mins in room discussing his condition, we agreed to inc his gabapentin dose form his 300 TID started (increased a month ago by PCP ) to 600 TID, COunselling on drowsiness etc Ambulates with a cane NO addlt PT needs Stayed OBS only overnight Discharge Information Condition at Discharge: Improved, Stable Disposition/Orders: D/C to Home Scheduled Amlodipine Besylate (Amlodipine Besylate), 10 MG PO DAILY, (Reported) Amoxicillin/Potassium Clav (Amox Tr-K Clv 500-125 Mg Tab), 1 TAB PO BID Aspirin (Aspirin), 1 TAB PO DAILY, (Reported) Atorvastatin Calcium (Lipitor), 20 MG PO DAILY, (Reported) Ferric Citrate (Ferric Citrate), 210 MG PO TIDWMEALS, (Reported) Fluconazole (Diflucan), 200 MG PO DAILY Folic Acid/Vitamin B Comp W-C (Nephro-Sonja Tablet), 1 TAB PO DAILY, (Reported) Furosemide (Lasix), 1 TAB PO BID, (Reported) Gabapentin (Gabapentin), 100 MG PO TID, (Reported) Hydralazine Hcl (Hydralazine Hcl), 1 TAB PO TID, (Reported) Insulin Aspart (Novolog Flexpen), 15 UNIT SQ TIDWMEALS Insulin Detemir (Levemir), 60 UNIT SQ QHS, (Reported) Lisinopril (Lisinopril), 1 TAB PO DAILY, (Reported) Losartan Potassium (Losartan Potassium), 100 MG PO DAILY, (Reported) Metolazone (Metolazone), 2.5 MG PO BID, (Reported) Metoprolol Tartrate (Metoprolol Tartrate), 25 MG PO BID, (Reported) Nystatin (Nystatin), 1 TAB PO TID, (Reported) Sildenafil Citrate (Viagra), 1 TAB PO PRN, (Reported) Tamsulosin Hcl (Tamsulosin Hcl), 1 CAP PO DAILY, (Reported) Discontinued Medications Clonidine Hcl (Clonidine Hcl), 0.1 MG PO TID, (Reported) Lidocaine/Prilocaine (Lidocaine-Prilocaine Cream), 1 ANTONIO TP UD PRN for PAIN, ( Reported) KAYCEE AVILES MD Nov 27, 2016 12:06
[2016-11-27] MEDS ORDERED: NYSTATIN PO SCH (14:00)
[2016-11-27] MEDS ORDERED: ATORVASTATIN CALCIUM 20 MG TABLET PO SCH (21:00)
[2016-11-28] MEDS ORDERED: FLUCONAZOLE 100 MG TABLET. PO SCH (09:00)
[2016-12-20] MEDS ORDERED: METO2.5T PO (10:06)
[2016-12-20] MEDS ORDERED: INSU100I17 SQ (10:06)
[2016-12-20] MEDS ORDERED: OXYC1TAB7 PO (10:06)
[2016-12-20] MEDS ORDERED: INSU100I27 SQ (10:06)
== END 2016-11-27 13:00 | disposition home or self-care (01) | DRG 73 ==
LOC: ER 17:13 → 2 NORTH 21:31
PROVIDERS: ADMIT Internal Medicine; ATTEND Internal Medicine
DX: E11.42 Type 2 diabetes mellitus with diabetic polyneuropathy (principal); N18.6 End stage renal disease; I13.2 Hypertensive heart and chronic kidney disease with heart failure and with stage 5 chronic kidney disease, or end stage renal disease; E11.22 Type 2 diabetes mellitus with diabetic chronic kidney disease; I82.409 Acute embolism and thrombosis of unspecified deep veins of unspecified lower extremity; I48.91 Unspecified atrial fibrillation; I50.30 Unspecified diastolic (congestive) heart failure; M10.9 Gout, unspecified; R00.0 Tachycardia, unspecified; F41.9 Anxiety disorder, unspecified; E78.5 Hyperlipidemia, unspecified; E78.00 Pure hypercholesterolemia, unspecified; I25.10 Atherosclerotic heart disease of native coronary artery without angina pectoris; Z79.4 Long term (current) use of insulin; Z79.82 Long term (current) use of aspirin; Z83.3 Family history of diabetes mellitus; Z90.49 Acquired absence of other specified parts of digestive tract; Z99.2 Dependence on renal dialysis; Z88.1 Allergy status to other antibiotic agents; Z90.89 Acquired absence of other organs
CPT/HCPCS: 36415; 73620; 80053; 82962; 83605; 84443; 84484; 84550; 85025; 85651; 93005; 96361; 96374; 96375; 96376; J1170; J1815; J2405; J2930; J3010; J7030; 99285-25

== ENCOUNTER 2016-12-15 18:29 | Inpatient (IN) | payer MEDICARE, OTHER ==
[~2016-12-15] VITALS: Ht 182.9 cm; Wt 107.6 kg
[~2016-12-15 18:29] MED LIST changes: +COLC0.6T34 PO; +GABA600T2 PO
[2016-12-15] MEDS ORDERED: DEXTROSE 50% 25 GM / 50ML DISP.SYRIN. IV PRN (21:45)
[2016-12-15] MEDS ORDERED: MORPHINE SULFATE 2 MG/ML DISP.SYRIN. IV PRN (21:45)
[2016-12-15] MEDS ORDERED: hydrALAZINE 10 MG TABLET PO PRN (21:45)
[2016-12-15] MEDS ORDERED: IV NORMAL SALINE 1000ML BAG 1,000 ML IV ONE (22:00)
[2016-12-15] MEDS ORDERED: INSULIN DETEMIR 300 UNITS/3 ML INSULN.PEN. SQ SCH (22:00)
[2016-12-15] MEDS: MORPHINE SULFATE 4 MG/ML DISP.SYRIN. IV PRN (22:34)
[2016-12-15] MEDS: diphenhydrAMINE HCL 25 MG CAPSULE PO PRN (22:34)
[2016-12-15 23:10] VITALS: BP 130/55
[2016-12-15] MEDS: GABAPENTIN 300 MG CAPSULE. PO SCH (23:25)
[2016-12-16] VITALS (7 sets, daily range): BP systolic 88–120; BP diastolic 25–66
[2016-12-16] MEDS: oxyCODONE/APAP 5/325 1 TAB TABLET PO PRN ×2 (00:12→08:21)
[2016-12-16] MEDS ORDERED: HYDROmorphone 2 MG/ML VIAL IV PRN ×2 (00:15→06:15)
[2016-12-16 04:45] LABS: ALBUMIN 3.6 g/dL (3.4-5.0); ALBUMIN/GLOBULIN RATIO 0.9 (1.0-1.7); CREATININE 8.7 mg/dL (0.7-1.3); GFR 7.7; POTASSIUM 4.7 mmol/L (3.5-5.1); TOTAL BILIRUBIN 0.3 mg/dL (0.2-1.0); TOTAL PROTEIN 7.4 g/dL (6.4-8.2)
[2016-12-16] MEDS: MORPHINE SULFATE 4 MG/ML DISP.SYRIN. IV PRN ×2 (05:14→13:52)
[2016-12-16] MEDS: INSULIN ASPART 300 UNITS/3 ML INSULN.PEN SQ SCH ×5 (08:00→17:53)
[2016-12-16] MEDS: GABAPENTIN 300 MG CAPSULE. PO SCH ×3 (08:21→21:33)
[2016-12-16] MEDS: METOPROLOL TART IMMED RELEASE 25 MG TABLET. PO SCH ×2 (10:00→21:00)
[2016-12-16] MEDS: LISINOPRIL 40 MG TABLET. PO SCH (10:00)
[2016-12-16] MEDS: metOLazone 2.5 MG TABLET PO SCH ×2 (10:00→21:33)
[2016-12-16] MEDS: FUROSEMIDE 80 MG TABLET. PO SCH ×2 (10:00→13:55)
[2016-12-16] MEDS: TAMSULOSIN 0.4 MG CAP.ER.24H. PO SCH ×2 (10:00→10:17)
[2016-12-16] MEDS ORDERED: amLODIPine BESYLATE 10 MG TABLET PO SCH (10:00)
[2016-12-16] MEDS: COLCHICINE 0.6 MG TABLET PO SCH (10:17)
--- NOTE | 2016-12-16 11:23 | PDOC1 ---
History and Physical Date of Admission Date of Admission 12/15/16 Identification/Chief Complaint Chief Complaint fall with ankle fx Problems: Source Source: Chart review, Patient History of Present Illness History of Present Illness 56yo M, with HTN, DM2 ON insulin, ESRD on HD TTSat, was sent from [facility] for ankle fx. Pt is a poor historian, not sure about his baseline tho. It took him a long time but still hard to describe what really happened. He said he finished his HD yesterday, ( had PD before, catheter removed 2/2 infection and on HD with right upper chest HD cath [id number], no AVF). He was at home,walking out of bathroom, then fell on both knees than backwards, denies hurt ankle but said "too much pressure on knees to breake the ankle". didnot lose consicousness or hit head. still could walk, went to [facility], who did XR showed bl fibular fx and talked to dr. Pollard's PA and transferred here. severe pain overnight, agitated with dilaudid iv. on levemir 60u qhs, but got glucose was 57 with 25u last night Past Medical History Cardiovascular: HTN, Hyperlipidemia Pulmonary: Other CENTRAL NERVOUS SYSTEM: Periperal neuropathy GI: No pertinent hx Heme/Onc: No pertinent hx, Other Hepatobiliary: No pertinent hx Psych: Anxiety Rheumatologic: No pertinent hx Infectious disease: No pertinent hx Renal/: Chronic renal failure Endocrine: Diabetes Past Surgical History Past Surgical History: Appendectomy, Cholecystectomy, Tonsillectomy Family History Family History: Diabetes Social History Smoke: No ALCOHOL: none Drugs: None Current Medications Current Medications Current Medications Medications (Trade) Dose Ordered Sig/Lee Start Time Stop Time Status Last Admin Dose Admin Acetaminophen (Tylenol) 650 mg PRN Q6HRS PRN 12/15/16 21:45 Amlodipine Besylate (Norvasc) 10 mg DAILY 12/16/16 10:00 12/16/16 10:48 DC Atorvastatin Calcium (Lipitor) 20 mg QHS 12/16/16 21:00 Colchicine (Colcrys) 0.6 mg DAILY 12/16/16 10:00 12/16/16 10:17 0.6 MG Dextrose (Dextrose 50%-Water Syringe) 12.5 gm PRN Q15MIN PRN 12/15/16 21:45 12/16/16 06:12 12.5 GM Diphenhydramine HCl (Benadryl) 25 mg PRN Q6HRS PRN 12/15/16 21:45 12/15/16 22:34 25 MG Furosemide (Lasix) 80 mg BID92 12/16/16 10:00 Gabapentin (Neurontin) 600 mg TID 12/15/16 22:45 12/16/16 08:21 600 MG Heparin Sodium (Porcine) (Heparin Sq) 5,000 unit Q8HRS 12/16/16 14:00 Hydralazine HCl (Apresoline) 100 mg TID 12/16/16 10:00 Hydromorphone HCl (Dilaudid) 1 mg 1X PRN PRN 12/16/16 06:15 12/16/16 07:00 DC Insulin Aspart (NovoLOG) 7 units TIDWMEALS 12/16/16 12:00 Insulin Detemir (Levemir) 20 units QHS 12/16/16 21:00 Lisinopril (Prinivil) 40 mg DAILY 12/16/16 10:00 Metolazone (Zaroxolyn) 2.5 mg BID 12/16/16 10:00 12/16/16 10:00 2.5 MG Metoprolol Tartrate (Lopressor) 25 mg BID 12/16/16 10:00 Morphine Sulfate 4 mg PRN Q4HRS PRN 12/15/16 21:45 12/16/16 05:14 4 MG Non-Formulary Medication 1 tab TID 12/16/16 14:00 UNV Ondansetron HCl (Zofran) 4 mg PRN Q6HRS PRN 12/15/16 21:45 Oxycodone/ Acetaminophen (Percocet 10/325) 1 tab PRN Q4HRS PRN 12/16/16 09:45 Oxycodone/ Acetaminophen (Percocet 5/325) 1 tab PRN Q6HRS PRN 12/15/16 21:45 12/16/16 08:21 1 TAB Sodium Chloride 1,000 ml @ 1,000 mls/hr 1X ONCE 12/15/16 22:00 12/15/16 22:59 DC 12/15/16 22:00 1,000 MLS/HR Tamsulosin HCl (Flomax) 0.4 mg DAILY 12/16/16 10:00 Allergies Allergies Allergies Coded Allergies Type Severity Reaction Last Updated Verified ibuprofen Allergy Severe swelling 01/30/15 Yes ROS Review of System CONSTITUTIONAL: No fever or chills EYES: No recent changes SKIN: No rash or itching CARDIOVASCULAR: No chest pain, syncope, palpitations, or edema RESPIRATORY: No SOB or cough GASTROINTESTINAL: No nausea, vomiting or abdominal pain NEUROLOGICAL: No headaches or weakness ENDOCRINE: No cold or heat intolerance GENITOURINARY: No urgency or frequency of urination MUSCULOSKELETAL: No back pain or joint pain LYMPHATICS: No enlarged lymph nodes PSYCHIATRIC: No anxiety or depression Physical Exam Physical Exam GEN.: No apparent distress. Alert and oriented. HEENT: Head is normocephalic, atraumatic NECK: Supple. LUNGS: Clear to auscultation. HEART: RRR, S1, S2 present. Peripheral pulses intact ABDOMEN: Soft, nontender. Positive bowel sounds. EXTREMITIES: Without any cyanosis. bl legs are stablized with splint. NEUROLOGIC: Normal speech, normal tone PSYCHIATRIC: Normal affect, normal mood. SKIN: No ulcerations Vitals Vitals Vital Signs Date Time Temp Pulse Resp B/P (MAP) Pulse Ox O2 Delivery O2 Flow Rate FiO2 12/16/16 10:35 98.1 135 16 88/25 (46) 95 Room Air 98.1 12/16/16 07:55 2.5 Labs Labs Laboratory Tests Test 12/15/16 23:24 12/16/16 03:49 12/16/16 06:10 12/16/16 06:37 Glucose (Fingerstick) 134 mg/dL (70-99) 57 mg/dL (70-99) 84 mg/dL (70-99) Sodium Level 142 mmol/L (136-145) Potassium Level 4.7 mmol/L (3.5-5.1) Chloride Level 102 mmol/L (98-107) Carbon Dioxide Level 32 mmol/L (21-32) Anion Gap 8 (6-14) Blood Urea Nitrogen 34 mg/dL (8-26) Creatinine 8.7 mg/dL (0.7-1.3) Estimated GFR (Cockcroft-Gault) 7.7 BUN/Creatinine Ratio 4 (6-20) Glucose Level 73 mg/dL (70-99) Calcium Level 9.0 mg/dL (8.5-10.1) Total Bilirubin 0.3 mg/dL (0.2-1.0) Aspartate Amino Transf (AST/SGOT) 16 U/L (15-37) Alanine Aminotransferase (ALT/SGPT) 28 U/L (16-63) Alkaline Phosphatase 81 U/L (46-116) Total Protein 7.4 g/dL (6.4-8.2) Albumin 3.6 g/dL (3.4-5.0) Albumin/Globulin Ratio 0.9 (1.0-1.7) Laboratory Tests Test 12/15/16 23:24 12/16/16 03:49 12/16/16 06:10 12/16/16 06:37 Glucose (Fingerstick) 134 mg/dL (70-99) 57 mg/dL (70-99) 84 mg/dL (70-99) Sodium Level 142 mmol/L (136-145) Potassium Level 4.7 mmol/L (3.5-5.1) Chloride Level 102 mmol/L (98-107) Carbon Dioxide Level 32 mmol/L (21-32) Anion Gap 8 (6-14) Blood Urea Nitrogen 34 mg/dL (8-26) Creatinine 8.7 mg/dL (0.7-1.3) Estimated GFR (Cockcroft-Gault) 7.7 BUN/Creatinine Ratio 4 (6-20) Glucose Level 73 mg/dL (70-99) Calcium Level 9.0 mg/dL (8.5-10.1) Total Bilirubin 0.3 mg/dL (0.2-1.0) Aspartate Amino Transf (AST/SGOT) 16 U/L (15-37) Alanine Aminotransferase (ALT/SGPT) 28 U/L (16-63) Alkaline Phosphatase 81 U/L (46-116) Total Protein 7.4 g/dL (6.4-8.2) Albumin 3.6 g/dL (3.4-5.0) Albumin/Globulin Ratio 0.9 (1.0-1.7) VTE Prophylaxis Ordered VTE Prophylaxis Devices: No VTE Pharmacological Prophylaxi: Yes Assessment/Plan Assessment/Plan traumatic bl fibular fx post fall ESRD on HD TTSat dm2 on insulin htn hld SIRS wo infection plan: cont home meds, need to verify, on multiple HTN meds, but low BP TODAY, hold if BP<90 dc amlodipine, losartan, still on hydralazine and metoprolol and michael on lasix, metolazone decrease insulin to levemir 20u qhs, aspart 7u tid, SSI dr. Pollard consult pending renal consult for HD PTOT post if sx, has moderate risk for sx complication given multiple commobidities dvt ppx pain control RICHY DIMAS MD Dec 16, 2016 11:22
[2016-12-16] MEDS: NON FORMULARY ITEM (Ferric Citrate 210 MG) PO SCH ×2 (12:00→16:37)
[2016-12-16] MEDS: ASPIRIN CHEWABLE 81 MG TABLET. PO SCH (12:29)
[2016-12-16] MEDS: oxyCODONE/APAP 10/325 1 TAB TABLET PO PRN ×2 (12:31→17:51)
[2016-12-16] MEDS ORDERED: DIALYSIS PATIENT. MC PRN (13:00)
--- NOTE | 2016-12-16 13:06 | PDOC2 ---
CONSULT Date of Consult Date of Consult DATE: 12/16/16 TIME: 13:03 Reason for Consult Reason for Consult: ESRD Referring Physician Referring Physician: Dr Mccullough Identification/Chief Complaint Chief Complaint Feet pain with Fibular #s Problems: Source Source: Chart review, Patient History of Present Illness Reason for Visit: as dictated Past Medical History Cardiovascular: HTN, Hyperlipidemia Pulmonary: Other CENTRAL NERVOUS SYSTEM: Periperal neuropathy GI: No pertinent hx Heme/Onc: No pertinent hx, Other Hepatobiliary: No pertinent hx Psych: Anxiety Rheumatologic: No pertinent hx Infectious disease: No pertinent hx Renal/: Chronic renal failure Endocrine: Diabetes Past Surgical History Past Surgical History: Appendectomy, Cholecystectomy, Tonsillectomy Family History Family History: Diabetes Social History No ALCOHOL: none Drugs: None Lives: with Family Domestic Violence: Neg Current Medications Current Medications Current Medications Ondansetron HCl (Zofran) 4 mg PRN Q6HRS PRN IV NAUSEA/VOMITING; Start at 21:45 Hydralazine HCl (Apresoline) 10 mg PRN Q4HRS PRN PO ELEVATED BP, SEE COMMENTS; Start 12/15/16 at 21:45 Diphenhydramine HCl (Benadryl) 25 mg PRN Q6HRS PRN PO ITCHING Last administered on 12/15/16 22:34; Start 12/15/16 at 21:45 Insulin Detemir (Levemir) 25 units QHS SQ Last administered on 12/15/16 23:28 ; Start 12/15/16 at 22:00; Stop 12/16/16 at 09:30; Status DC Insulin Aspart (NovoLOG) 0-9 UNITS TIDWMEALS SQ ; Start 12/16/16 at 08:00 Dextrose (Dextrose 50%-Water Syringe) 12.5 gm PRN Q15MIN PRN IV SEE COMMENTS Last administered on 12/16/16 06:12; Start 12/15/16 at 21:45 Acetaminophen (Tylenol) 650 mg PRN Q6HRS PRN PO FEVER; Start 12/15/16 at 21:45 Morphine Sulfate 2 mg PRN Q4HRS PRN IV PAIN; Start 12/15/16 at 21:45 Morphine Sulfate 4 mg PRN Q4HRS PRN IV PAIN Last administered on 12/16/16 05: 14; Start 12/15/16 at 21:45 Oxycodone/ Acetaminophen (Percocet 5/325) 1 tab PRN Q6HRS PRN PO PAIN Last administered on 12/16/16 08:21; Start 12/15/16 at 21:45 Sodium Chloride 1,000 ml @ 1,000 mls/hr 1X ONCE IV Last administered on 12/15 22:00; Start 12/15/16 at 22:00; Stop 12/15/16 at 22:59; Status DC Gabapentin (Neurontin) 600 mg TID PO Last administered on 12/16/16 08:21; Start 12/15/16 at 22:45 Hydromorphone HCl (Dilaudid) 1 mg 1X PRN PRN IV PAIN Last administered on 12/16 00:59; Start 12/16/16 at 00:15; Stop 12/16/16 at 01:00; Status DC Hydromorphone HCl (Dilaudid) 1 mg 1X PRN PRN IV PAIN; Start 12/16/16 at 06:15 ; Stop 12/16/16 at 07:00; Status DC Insulin Detemir (Levemir) 20 units QHS SQ ; Start 12/16/16 at 21:00 Amlodipine Besylate (Norvasc) 10 mg DAILY PO ; Start 12/16/16 at 10:00; Stop 12/16/16 at 10:48; Status DC Atorvastatin Calcium (Lipitor) 20 mg QHS PO ; Start 12/16/16 at 21:00 Colchicine (Colcrys) 0.6 mg DAILY PO Last administered on 12/16/16 10:17; Start 12/16/16 at 10:00 Furosemide (Lasix) 80 mg BID92 PO ; Start 12/16/16 at 10:00 Insulin Aspart (NovoLOG) 7 units TIDWMEALS SQ Last administered on 12/16/16 12:35; Start 12/16/16 at 12:00 Lisinopril (Prinivil) 40 mg DAILY PO ; Start 12/16/16 at 10:00 Metolazone (Zaroxolyn) 2.5 mg BID PO Last administered on 12/16/16 10:00; Start 12/16/16 at 10:00 Metoprolol Tartrate (Lopressor) 25 mg BID PO ; Start 12/16/16 at 10:00 Tamsulosin HCl (Flomax) 0.4 mg DAILY PO ; Start 12/16/16 at 10:00 Non-Formulary Medication 210 mg TIDWMEALS PO ; Start 12/16/16 at 12:00; Status UNV Non-Formulary Medication 600 mg TID PO ; Start 12/16/16 at 14:00; Stop at 14:00; Status DC Hydralazine HCl (Apresoline) 100 mg TID PO ; Start 12/16/16 at 10:00 Non-Formulary Medication 60 unit QHS SQ ; Start 12/16/16 at 21:00; Stop at 21:00; Status DC Non-Formulary Medication 100 mg DAILY PO ; Start 12/17/16 at 09:00; Stop 12/17 at 09:00; Status DC Non-Formulary Medication 1 tab TID PO ; Start 12/16/16 at 14:00; Status UNV Heparin Sodium (Porcine) (Heparin Sq) 5,000 unit Q8HRS SQ ; Start 12/16/16 at 14:00 Oxycodone/ Acetaminophen (Percocet 10/325) 1 tab PRN Q4HRS PRN PO PAIN SEVERE Last administered on 12/16/16 12:31; Start 12/16/16 at 09:45 Aspirin (Children'S Aspirin) 81 mg DAILY PO Last administered on 12/16/16 12: 29; Start 12/16/16 at 11:30 Info (PHARMACY MONITORING -- do not chart) 1 each PRN DAILY PRN MC SEE COMMENTS ; Start 12/16/16 at 13:00 Active Scripts Active Gabapentin 600 Mg Tablet 600 Mg PO TID 30 Days Colcrys (Colchicine) 0.6 Mg Tablet 0.6 Tab PO DAILY Diflucan (Fluconazole) 100 Mg Tablet 200 Mg PO DAILY 10 Days Amox Tr-K Clv 500-125 Mg Tab (Amoxicillin/Potassium Clav) 1 Each Tablet 1 Tab PO BID Novolog Flexpen (Insulin Aspart) 100 Unit/1 Ml Insuln.pen 15 Unit SQ TIDWMEALS Reported Levemir (Insulin Detemir) 100 Unit/1 Ml Vial 60 Unit SQ QHS Lasix (Furosemide) 80 Mg Tablet 1 Tab PO BID Ferric Citrate 210 Mg Tablet 210 Mg PO TIDWMEALS Viagra (Sildenafil Citrate) 100 Mg Tablet 1 Tab PO PRN Tamsulosin Hcl 0.4 Mg Cap.er.24h 1 Cap PO DAILY Lisinopril 40 Mg Tablet 1 Tab PO DAILY Metolazone 2.5 Mg Tablet 2.5 Mg PO BID Nystatin 500,000 Unit Tablet 1 Tab PO TID Amlodipine Besylate 10 Mg Tablet 10 Mg PO DAILY Losartan Potassium 100 Mg Tablet 100 Mg PO DAILY Metoprolol Tartrate 25 Mg Tablet 25 Mg PO BID Hydralazine Hcl 100 Mg Tablet 1 Tab PO TID Nephro-Sonja Tablet (Folic Acid/Vitamin B Comp W-C) 0.8 Mg Tablet 1 Tab PO DAILY Lipitor (Atorvastatin Calcium) 20 Mg Tablet 20 Mg PO DAILY Aspirin 81 Mg Tab.chew 1 Tab PO DAILY Allergies Allergies: Coded Allergies: ibuprofen (Verified Allergy, Severe, swelling, 01/30/15) ROS Review of System GEN: no Fevers no Chills EYES: no Visual Complaints ENT: no EN Drainage no Hearing deficiets CVS: no Orthopnea no CP RESP: no SOB no DEL ROSARIO GI: no Nausea no Vomiting : no Dysuria no Urgency HEME: no easy bruising no Palp Ly Nodes NEURO no Focal Weakness no Sz ? Fall at home - no syncope PSYCH: no Suicidal Ideation no Depression SKIN: no Rashes ENDO: no Polyuria or Polydipsia no Hot/Cold Intolerance MU SK: + Arthraigia no Myalgia Physical Exam Physical Exam General Appearance: Awake Alert Oriented x 3 In no Distress Eyes: VIsion Unchanged Conjunctiva Normal EN: No EN Drainage Mucous Memb. moist Neck: no JVD no JVP Supple no Thyromegaly CVS: S1 S2 no Murmur No Gallop No Rub +1 to tr Edema Resp: no Rales no Rhonchi no Acc. Muscle use GI: BS +ve NO Bruit Non Tender Non Distended : no CVA tenderness; no Suprapubic Tenderness SKIN: no Rashes Breast Exam deferred Mu.Sk: Adequate ROM x sean ankles no Muscle Atrophy Heme: Unable to palpate Obvious LAD no palp Splenomegaly NEURO: Good Strength and Tone Cranial Nerves II - XII grossly intact Psych: not Depressed no Active hallucination Vital Signs Vital Signs Date Time Temp Pulse Resp B/P (MAP) Pulse Ox O2 Delivery O2 Flow Rate FiO2 12/16/16 12:31 Nasal Cannula 2.0 12/16/16 11:46 83 12 88/34 (52) 91 12/16/16 10:35 98.1 98.1 Assessment & Plan ESRD: Current FLuid and E-lyte status does not necessitate emergent need for Dialysis. Will re-evaluate for Dialysis in am and continue on TTSat schedule. Anemia: Epogen Transfuse with next HD as needed. HTN: Current BP meds reviewed. See orders for changes. Bone & Mineral: follow phos and alter binder regimen as needed Fall with occ Tachycardia - ? due to pAfib - consider cardiology consult Discussed Plan of Care and prognosis etc. at length with family. Labs Labs Laboratory Tests Test 12/15/16 23:24 12/16/16 03:49 12/16/16 06:10 12/16/16 06:37 Glucose (Fingerstick) 134 mg/dL (70-99) 57 mg/dL (70-99) 84 mg/dL (70-99) Sodium Level 142 mmol/L (136-145) Potassium Level 4.7 mmol/L (3.5-5.1) Chloride Level 102 mmol/L (98-107) Carbon Dioxide Level 32 mmol/L (21-32) Anion Gap 8 (6-14) Blood Urea Nitrogen 34 mg/dL (8-26) Creatinine 8.7 mg/dL (0.7-1.3) Estimated GFR (Cockcroft-Gault) 7.7 BUN/Creatinine Ratio 4 (6-20) Glucose Level 73 mg/dL (70-99) Calcium Level 9.0 mg/dL (8.5-10.1) Total Bilirubin 0.3 mg/dL (0.2-1.0) Aspartate Amino Transf (AST/SGOT) 16 U/L (15-37) Alanine Aminotransferase (ALT/SGPT) 28 U/L (16-63) Alkaline Phosphatase 81 U/L (46-116) Total Protein 7.4 g/dL (6.4-8.2) Albumin 3.6 g/dL (3.4-5.0) Albumin/Globulin Ratio 0.9 (1.0-1.7) Test 12/16/16 11:53 Glucose (Fingerstick) 106 mg/dL (70-99) Laboratory Tests Test 12/15/16 23:24 12/16/16 03:49 12/16/16 06:10 12/16/16 06:37 Glucose (Fingerstick) 134 mg/dL (70-99) 57 mg/dL (70-99) 84 mg/dL (70-99) Sodium Level 142 mmol/L (136-145) Potassium Level 4.7 mmol/L (3.5-5.1) Chloride Level 102 mmol/L (98-107) Carbon Dioxide Level 32 mmol/L (21-32) Anion Gap 8 (6-14) Blood Urea Nitrogen 34 mg/dL (8-26) Creatinine 8.7 mg/dL (0.7-1.3) Estimated GFR (Cockcroft-Gault) 7.7 BUN/Creatinine Ratio 4 (6-20) Glucose Level 73 mg/dL (70-99) Calcium Level 9.0 mg/dL (8.5-10.1) Total Bilirubin 0.3 mg/dL (0.2-1.0) Aspartate Amino Transf (AST/SGOT) 16 U/L (15-37) Alanine Aminotransferase (ALT/SGPT) 28 U/L (16-63) Alkaline Phosphatase 81 U/L (46-116) Total Protein 7.4 g/dL (6.4-8.2) Albumin 3.6 g/dL (3.4-5.0) Albumin/Globulin Ratio 0.9 (1.0-1.7) Test 12/16/16 11:53 Glucose (Fingerstick) 106 mg/dL (70-99) STEVEN CRUMP MD Dec 16, 2016 13:06
[2016-12-16] MEDS: NYSTATIN PO SCH ×2 (13:54→21:00)
[2016-12-16] MEDS ORDERED: NON FORMULARY ITEM (Gabapentin 600 MG) PO SCH (14:00)
[2016-12-16] MEDS: HEPARIN PF for SUB-Q USE 5,000 UNIT/0.5 ML VIAL. SQ SCH ×2 (14:04→21:54)
[2016-12-16] MEDS: fentaNYL PF VIAL 100 MCG/2 ML VIAL IV PRN (15:32)
--- NOTE | 2016-12-16 16:12 | CONS ---
DATE OF CONSULTATION: PRIMARY PHYSICIAN: Dr. Maradiaga. REASON FOR CONSULTATION: ESRD dialysis. HISTORY OF PRESENT ILLNESS: The patient is a 56-year-old gentleman who I follow for his ESRD needs. He dialyzes Monday, , Monday in [facility]. He was at dialysis yesterday and everything went well. He was at home and went to use the restroom. He claims when he got out, he fell to his knees. He does not know what his sugars were, but he is known to have hypoglycemia last night based on HPI. It is unclear to us if he had hypoglycemia or hypotension at home. Blood pressures have being well controlled until recently. He did have some tachycardia with heart rates up to 135, he denies any orthostasis per se. He was transferred here for orthopedic care. He was noted to have bilateral fractures of his fibula. For rest of details, see electronic records. STEVEN CRUMP MD DR: MICHAEL/santino JOB#: [id number] / [id number]
--- NOTE | 2016-12-16 16:49 | PDOC2 ---
CONSULT Date of Consult Date of Consult DATE: 12/16/16 TIME: 16:44 Reason for Consult Reason for Consult: bilateral ankle fractures Identification/Chief Complaint Chief Complaint bilateral ankle pain Problems: History of Present Illness Reason for Visit: This 56 year old man fell forward onto both knees then backward twisting both ankles. He was able to walk a flight of stairs after the injury, and came to the ER by POV. X-rays showed bilateral nondisplaced ankle fractures and he was admitted for pain control. Past Medical History Past Medical History denies prior DVT. Takes ASA daily Cardiovascular: HTN, Hyperlipidemia Pulmonary: Other CENTRAL NERVOUS SYSTEM: Periperal neuropathy GI: No pertinent hx Heme/Onc: No pertinent hx, Other Hepatobiliary: No pertinent hx Psych: Anxiety Rheumatologic: No pertinent hx Infectious disease: No pertinent hx Renal/: Chronic renal failure Endocrine: Diabetes Past Surgical History Past Surgical History: Appendectomy, Cholecystectomy, Tonsillectomy Family History Family History: Diabetes Social History No ALCOHOL: none Drugs: None Lives: with Family Domestic Violence: Neg Current Medications Current Medications Current Medications Ondansetron HCl (Zofran) 4 mg PRN Q6HRS PRN IV NAUSEA/VOMITING; Start at 21:45 Hydralazine HCl (Apresoline) 10 mg PRN Q4HRS PRN PO ELEVATED BP, SEE COMMENTS; Start 12/15/16 at 21:45 Diphenhydramine HCl (Benadryl) 25 mg PRN Q6HRS PRN PO ITCHING Last administered on 12/15/16 22:34; Start 12/15/16 at 21:45 Insulin Detemir (Levemir) 25 units QHS SQ Last administered on 12/15/16 23:28 ; Start 12/15/16 at 22:00; Stop 12/16/16 at 09:30; Status DC Insulin Aspart (NovoLOG) 0-9 UNITS TIDWMEALS SQ ; Start 12/16/16 at 08:00 Dextrose (Dextrose 50%-Water Syringe) 12.5 gm PRN Q15MIN PRN IV SEE COMMENTS Last administered on 12/16/16 06:12; Start 12/15/16 at 21:45 Acetaminophen (Tylenol) 650 mg PRN Q6HRS PRN PO FEVER; Start 12/15/16 at 21:45 Morphine Sulfate 2 mg PRN Q4HRS PRN IV PAIN; Start 12/15/16 at 21:45 Morphine Sulfate 4 mg PRN Q4HRS PRN IV PAIN Last administered on 12/16/16 13: 52; Start 12/15/16 at 21:45 Oxycodone/ Acetaminophen (Percocet 5/325) 1 tab PRN Q6HRS PRN PO PAIN Last administered on 12/16/16 08:21; Start 12/15/16 at 21:45 Sodium Chloride 1,000 ml @ 1,000 mls/hr 1X ONCE IV Last administered on 12/15 22:00; Start 12/15/16 at 22:00; Stop 12/15/16 at 22:59; Status DC Gabapentin (Neurontin) 600 mg TID PO Last administered on 12/16/16 14:01; Start 12/15/16 at 22:45 Hydromorphone HCl (Dilaudid) 1 mg 1X PRN PRN IV PAIN Last administered on 12/16 00:59; Start 12/16/16 at 00:15; Stop 12/16/16 at 01:00; Status DC Hydromorphone HCl (Dilaudid) 1 mg 1X PRN PRN IV PAIN; Start 12/16/16 at 06:15 ; Stop 12/16/16 at 07:00; Status DC Insulin Detemir (Levemir) 20 units QHS SQ ; Start 12/16/16 at 21:00 Amlodipine Besylate (Norvasc) 10 mg DAILY PO ; Start 12/16/16 at 10:00; Stop 12/16/16 at 10:48; Status DC Atorvastatin Calcium (Lipitor) 20 mg QHS PO ; Start 12/16/16 at 21:00 Colchicine (Colcrys) 0.6 mg DAILY PO Last administered on 12/16/16 10:17; Start 12/16/16 at 10:00 Furosemide (Lasix) 80 mg BID92 PO ; Start 12/16/16 at 10:00 Insulin Aspart (NovoLOG) 7 units TIDWMEALS SQ Last administered on 12/16/16 12:35; Start 12/16/16 at 12:00 Lisinopril (Prinivil) 40 mg DAILY PO ; Start 12/16/16 at 10:00 Metolazone (Zaroxolyn) 2.5 mg BID PO Last administered on 12/16/16 10:00; Start 12/16/16 at 10:00 Metoprolol Tartrate (Lopressor) 25 mg BID PO ; Start 12/16/16 at 10:00 Tamsulosin HCl (Flomax) 0.4 mg DAILY PO ; Start 12/16/16 at 10:00 Non-Formulary Medication 210 mg TIDWMEALS PO ; Start 12/16/16 at 12:00; Status UNV Non-Formulary Medication 600 mg TID PO ; Start 12/16/16 at 14:00; Stop at 14:00; Status DC Hydralazine HCl (Apresoline) 100 mg TID PO ; Start 12/16/16 at 10:00 Non-Formulary Medication 60 unit QHS SQ ; Start 12/16/16 at 21:00; Stop at 21:00; Status DC Non-Formulary Medication 100 mg DAILY PO ; Start 12/17/16 at 09:00; Stop 12/17 at 09:00; Status DC Non-Formulary Medication 1 tab TID PO ; Start 12/16/16 at 14:00; Status UNV Heparin Sodium (Porcine) (Heparin Sq) 5,000 unit Q8HRS SQ Last administered on 12/16/16 14:04; Start 12/16/16 at 14:00 Oxycodone/ Acetaminophen (Percocet 10/325) 1 tab PRN Q4HRS PRN PO PAIN SEVERE Last administered on 12/16/16 12:31; Start 12/16/16 at 09:45 Aspirin (Children'S Aspirin) 81 mg DAILY PO Last administered on 12/16/16 12: 29; Start 12/16/16 at 11:30 Info (PHARMACY MONITORING -- do not chart) 1 each PRN DAILY PRN MC SEE COMMENTS ; Start 12/16/16 at 13:00 Fentanyl Citrate (Fentanyl 2ml Vial) 50 mcg PRN Q2HR PRN IV PAIN Last administered on 12/16/16 15:32; Start 12/16/16 at 15:15 Active Scripts Active Gabapentin 600 Mg Tablet 600 Mg PO TID 30 Days Colcrys (Colchicine) 0.6 Mg Tablet 0.6 Tab PO DAILY Diflucan (Fluconazole) 100 Mg Tablet 200 Mg PO DAILY 10 Days Amox Tr-K Clv 500-125 Mg Tab (Amoxicillin/Potassium Clav) 1 Each Tablet 1 Tab PO BID Novolog Flexpen (Insulin Aspart) 100 Unit/1 Ml Insuln.pen 15 Unit SQ TIDWMEALS Reported Levemir (Insulin Detemir) 100 Unit/1 Ml Vial 60 Unit SQ QHS Lasix (Furosemide) 80 Mg Tablet 1 Tab PO BID Ferric Citrate 210 Mg Tablet 210 Mg PO TIDWMEALS Viagra (Sildenafil Citrate) 100 Mg Tablet 1 Tab PO PRN Tamsulosin Hcl 0.4 Mg Cap.er.24h 1 Cap PO DAILY Lisinopril 40 Mg Tablet 1 Tab PO DAILY Metolazone 2.5 Mg Tablet 2.5 Mg PO BID Nystatin 500,000 Unit Tablet 1 Tab PO TID Amlodipine Besylate 10 Mg Tablet 10 Mg PO DAILY Losartan Potassium 100 Mg Tablet 100 Mg PO DAILY Metoprolol Tartrate 25 Mg Tablet 25 Mg PO BID Hydralazine Hcl 100 Mg Tablet 1 Tab PO TID Nephro-Sonja Tablet (Folic Acid/Vitamin B Comp W-C) 0.8 Mg Tablet 1 Tab PO DAILY Lipitor (Atorvastatin Calcium) 20 Mg Tablet 20 Mg PO DAILY Aspirin 81 Mg Tab.chew 1 Tab PO DAILY Allergies Allergies: Coded Allergies: ibuprofen (Verified Allergy, Severe, swelling, 01/30/15) Physical Exam General: Alert, Oriented X3 HEENT: Atraumatic Lungs: Normal air movement Heart: Regular rate Abdomen: Soft Extremities: Other (tenderness to bilateral ankle lateral malleoli. Nontender bilateral medial malleoli. Toes NVI. Bilat post splints. ) Vitals VITALS Vital Signs Date Time Temp Pulse Resp B/P (MAP) Pulse Ox O2 Delivery O2 Flow Rate FiO2 12/16/16 16:10 Room Air 12/16/16 14:45 2.0 12/16/16 13:55 89 97/44 12/16/16 11:46 12 91 12/16/16 10:35 98.1 98.1 Labs Labs Laboratory Tests Test 12/15/16 23:24 12/16/16 03:49 12/16/16 04:00 12/16/16 06:10 Glucose (Fingerstick) 134 mg/dL (70-99) 57 mg/dL (70-99) Sodium Level 142 mmol/L (136-145) Potassium Level 4.7 mmol/L (3.5-5.1) Chloride Level 102 mmol/L (98-107) Carbon Dioxide Level 32 mmol/L (21-32) Anion Gap 8 (6-14) Blood Urea Nitrogen 34 mg/dL (8-26) Creatinine 8.7 mg/dL (0.7-1.3) Estimated GFR (Cockcroft-Gault) 7.7 BUN/Creatinine Ratio 4 (6-20) Glucose Level 73 mg/dL (70-99) Calcium Level 9.0 mg/dL (8.5-10.1) Total Bilirubin 0.3 mg/dL (0.2-1.0) Aspartate Amino Transf (AST/SGOT) 16 U/L (15-37) Alanine Aminotransferase (ALT/SGPT) 28 U/L (16-63) Alkaline Phosphatase 81 U/L (46-116) Total Protein 7.4 g/dL (6.4-8.2) Albumin 3.6 g/dL (3.4-5.0) Albumin/Globulin Ratio 0.9 (1.0-1.7) Nasal Screen MRSA (PCR) Negative (Negative) Test 12/16/16 06:37 12/16/16 11:53 12/16/16 16:39 Glucose (Fingerstick) 84 mg/dL (70-99) 106 mg/dL (70-99) 85 mg/dL (70-99) Laboratory Tests Test 12/15/16 23:24 12/16/16 03:49 12/16/16 04:00 12/16/16 06:10 Glucose (Fingerstick) 134 mg/dL (70-99) 57 mg/dL (70-99) Sodium Level 142 mmol/L (136-145) Potassium Level 4.7 mmol/L (3.5-5.1) Chloride Level 102 mmol/L (98-107) Carbon Dioxide Level 32 mmol/L (21-32) Anion Gap 8 (6-14) Blood Urea Nitrogen 34 mg/dL (8-26) Creatinine 8.7 mg/dL (0.7-1.3) Estimated GFR (Cockcroft-Gault) 7.7 BUN/Creatinine Ratio 4 (6-20) Glucose Level 73 mg/dL (70-99) Calcium Level 9.0 mg/dL (8.5-10.1) Total Bilirubin 0.3 mg/dL (0.2-1.0) Aspartate Amino Transf (AST/SGOT) 16 U/L (15-37) Alanine Aminotransferase (ALT/SGPT) 28 U/L (16-63) Alkaline Phosphatase 81 U/L (46-116) Total Protein 7.4 g/dL (6.4-8.2) Albumin 3.6 g/dL (3.4-5.0) Albumin/Globulin Ratio 0.9 (1.0-1.7) Nasal Screen MRSA (PCR) Negative (Negative) Test 12/16/16 06:37 12/16/16 11:53 12/16/16 16:39 Glucose (Fingerstick) 84 mg/dL (70-99) 106 mg/dL (70-99) 85 mg/dL (70-99) Images Images nondisplaced bilateral lateral malleoli fractures. Images and reports reviewed. No displacement or medial clear space widening Assessment/Plan Assessment/Plan bilat nondisplaced lateral malleolus fractures, closed. I recommend bilateral CAM walkers and WBAT in CAM walkers with a walker. Continue ASA daily for DVT prophylaxis. He walked on these prior to admission, and they should be stable. Office follow up in 10-14 days for further x-rays and eval for any displacement. ZAHRAA HERNANDEZ MD Dec 16, 2016 16:49
[2016-12-16] MEDS: ACETAMINOPHEN 325 MG TABLET. PO PRN (19:35)
[2016-12-16 20:48] LABS: BASO % 0 % (0-3); EOS % 6 % (0-3); HEMATOCRIT 31.1 % (39.0-53.0); HEMOGLOBIN 9.6 g/dL (13.0-17.5); LYMPH # 1.2 x10^3/uL (1.0-4.8); LYMPH % 17 % (24-48); MEAN CORPUSCULAR HEMOGLOBIN 26 pg (25-35); MEAN CORPUSCULAR HGB CONC 31 g/dL (31-37); MEAN CORPUSCULAR VOLUME 85 fL (79-100); MONO % 13 % (0-9); NEUT % 65 % (31-73); PLATELET COUNT 243 x10^3/uL (140-400); RED BLOOD COUNT 3.68 x10^6/uL (4.30-5.70); RED CELL DISTRIBUTION WIDTH 20.3 % (11.5-14.5); WHITE BLOOD COUNT 6.9 x10^3/uL (4.0-11.0)
[2016-12-16] MEDS ORDERED: INSULIN DETEMIR 60 UNIT SQ SCH (21:00)
[2016-12-16] MEDS: INSULIN DETEMIR 300 UNITS/3 ML INSULN.PEN. SQ SCH (21:00)
[2016-12-16] MEDS: ATORVASTATIN CALCIUM 20 MG TABLET PO SCH (21:33)
[2016-12-16 21:43] LABS: ANISOCYTOSIS MOD; PLT ESTIMATE ADEQUATE (ADEQUATE); POLYCHROMASIA SLIGHT
[2016-12-17 03:15] VITALS: BP 156/68
[2016-12-17] MEDS: fentaNYL PF VIAL 100 MCG/2 ML VIAL IV PRN (03:46)
[2016-12-17] MEDS ORDERED: HALOPERIDOL LACTATE 5 MG/ML VIAL. IVP ONE (05:45)
[2016-12-17 07:00] VITALS: BP 120/80
[2016-12-17] MEDS: HEPARIN PF for SUB-Q USE 5,000 UNIT/0.5 ML VIAL. SQ SCH ×3 (07:38→21:20)
[2016-12-17] MEDS: INSULIN ASPART 300 UNITS/3 ML INSULN.PEN SQ SCH ×6 (08:00→18:06)
[2016-12-17] MEDS: NON FORMULARY ITEM (Ferric Citrate 210 MG) PO SCH ×2 (08:00→12:00)
[2016-12-17] MEDS ORDERED: IV NORMAL SALINE 1000ML BAG 1,000 ML IV PRN (08:25)
[2016-12-17] MEDS ORDERED: 0.9 % SODIUM CHLORIDE 10 ML DISP.SYRIN. IV PRN (08:30)
[2016-12-17] MEDS ORDERED: ACETAMINOPHEN 500 MG TABLET PO PRN (08:30)
[2016-12-17] MEDS ORDERED: LABETALOL 20 MG/4 ML DISP.SYRIN. IVP PRN (08:30)
[2016-12-17] MEDS ORDERED: ALBUMIN HUMAN 25% 200 ML IV PRN (08:30)
[2016-12-17] MEDS ORDERED: diphenhydrAMINE 50 MG/ML VIAL IV PRN ×2 (08:30)
[2016-12-17] MEDS ORDERED: DIALYSIS PATIENT. MC PRN ×2 (08:30)
[2016-12-17] MEDS ORDERED: cloNIDine HCL 0.1 MG TABLET PO PRN (08:30)
[2016-12-17] MEDS ORDERED: MIDODRINE 5 MG TABLET PO ONE (08:30)
[2016-12-17] MEDS ORDERED: NON FORMULARY ITEM (Losartan Potassium 100 MG) PO SCH (09:00)
[2016-12-17] MEDS: GABAPENTIN 300 MG CAPSULE. PO SCH ×3 (09:00→21:00)
[2016-12-17] MEDS: NYSTATIN PO SCH ×2 (09:00→14:00)
[2016-12-17] MEDS: FUROSEMIDE 80 MG TABLET. PO SCH ×2 (09:00→14:54)
--- NOTE | 2016-12-17 09:58 | PDOC ---
Provider Note Provider Note Patient at dialysis. Ordered bilateral CAM walkers. D/w RN, Ketty, who will order from [facility]. May WBAT in CAM walkers with walker. LEEROY MARSH Dec 17, 2016 9:58 am
[2016-12-17 10:18] LABS: HEMATOCRIT 31.9 % (39.0-53.0); HEMOGLOBIN 9.8 g/dL (13.0-17.5); RED BLOOD COUNT 3.77 x10^6/uL (4.30-5.70); RED CELL DISTRIBUTION WIDTH 19.9 % (11.5-14.5); WHITE BLOOD COUNT 7.9 x10^3/uL (4.0-11.0)
[2016-12-17 10:37] LABS: ALBUMIN 3.6 g/dL (3.4-5.0); CALCIUM 9.5 mg/dL (8.5-10.1); CREATININE 11.3 mg/dL (0.7-1.3); GFR 5.7; POTASSIUM 5.3 mmol/L (3.5-5.1)
[2016-12-17 10:39] LABS: PHOSPHORUS 10.2 mg/dL (2.6-4.7)
--- NOTE | 2016-12-17 10:58 | RAD ---
AP portable chest radiograph 12/16/2016 Clinical History: Fever. Diabetes. An AP portable erect digital radiograph of the chest was obtained. Comparison study is dated 11/10/2016. A large-bore right internal jugular central venous catheter has been placed. The tip of this catheter extends to overlie the superior vena cava. The cardiac silhouette is mildly enlarged. Atherosclerotic calcification of the thoracic aorta is seen. The thoracic aorta is mildly tortuous. No acute pulmonary infiltrate is noted. No pneumothorax or pleural effusion is seen. Degenerative changes are seen involving the thoracic spine and both shoulders. Impression: No acute pulmonary infiltrate is seen.
--- NOTE | 2016-12-17 12:27 | PDOC ---
Renal-Progress Notes Subjective Notes Notes SLEEPY History of Present Illness Hx of present illness STABLE Vitals Vitals Vital Signs Date Time Temp Pulse Resp B/P (MAP) Pulse Ox O2 Delivery O2 Flow Rate FiO2 12/17/16 07:00 97.0 80 120/80 (93) 97 Nasal Cannula 97.0 12/17/16 04:16 16 2.0 Weight Weight [ ] I.O. Intake and Output Intake and Output 12/18/16 07:00 Intake Total 240 ml Balance 240 ml Intake Oral 240 ml Labs Labs Laboratory Tests Test 12/16/16 16:39 12/16/16 20:30 12/16/16 20:44 12/17/16 06:30 Glucose (Fingerstick) 85 mg/dL (70-99) 86 mg/dL (70-99) White Blood Count 6.9 x10^3/uL (4.0-11.0) 7.9 x10^3/uL (4.0-11.0) Red Blood Count 3.68 x10^6/uL (4.30-5.70) 3.77 x10^6/uL (4.30-5.70) Hemoglobin 9.6 g/dL (13.0-17.5) 9.8 g/dL (13.0-17.5) Hematocrit 31.1 % (39.0-53.0) 31.9 % (39.0-53.0) Mean Corpuscular Volume 85 fL (79-100) 85 fL (79-100) Mean Corpuscular Hemoglobin 26 pg (25-35) 26 pg (25-35) Mean Corpuscular Hemoglobin Concent 31 g/dL (31-37) 31 g/dL (31-37) Red Cell Distribution Width 20.3 % (11.5-14.5) 19.9 % (11.5-14.5) Platelet Count 243 x10^3/uL (140-400) 250 x10^3/uL (140-400) Neutrophils (%) (Auto) 65 % (31-73) Lymphocytes (%) (Auto) 17 % (24-48) Monocytes (%) (Auto) 13 % (0-9) Eosinophils (%) (Auto) 6 % (0-3) Basophils (%) (Auto) 0 % (0-3) Neutrophils # (Auto) 4.5 x10^3uL (1.8-7.7) Lymphocytes # (Auto) 1.2 x10^3/uL (1.0-4.8) Monocytes # (Auto) 0.9 x10^3/uL (0.0-1.1) Eosinophils # (Auto) 0.4 x10^3/uL (0.0-0.7) Basophils # (Auto) 0.0 x10^3/uL (0.0-0.2) Platelet Estimate Adequate (ADEQUATE) Giant Platelets Occ Polychromasia Slight Anisocytosis Mod Sodium Level 139 mmol/L (136-145) Potassium Level 5.3 mmol/L (3.5-5.1) Chloride Level 98 mmol/L (98-107) Carbon Dioxide Level 28 mmol/L (21-32) Anion Gap 13 (6-14) Blood Urea Nitrogen 53 mg/dL (8-26) Creatinine 11.3 mg/dL (0.7-1.3) Estimated GFR (Cockcroft-Gault) 5.7 Glucose Level 85 mg/dL (70-99) Lactic Acid Level 0.8 mmol/L (0.4-2.0) Calcium Level 9.5 mg/dL (8.5-10.1) Phosphorus Level 10.2 mg/dL (2.6-4.7) Albumin 3.6 g/dL (3.4-5.0) Review of Systems Constitutional: yes: weakness, alert, oriented Ears/Nose/Throat: Yes: no symptom reported Eyes: Yes: no symptom reported Pulmonary: Yes no symptom reported Cardiovascular: Yes no symptom reported Gastrointestional: Yes: no symptom reported Genitourinary: Yes: no symptom reported Musculoskeletal: Yes: joint pain Skin: Yes no symptom reported Psychiatric/Neurological: Yes: no symptom reported Endocrine: Yes: no symptom reported Physical Exam General Appearance: no apparent distress Skin: warm Respiratory: bilateral CTA Heart: S1S2, RRR Abdomen: soft, bowel sounds present Genitourinary: bladder flat Extremities: pulses present Neurology: alert, oriented, follow commands Assessment Assessment IMP ESRD ANEMIA DM II HTN BILATERAL ANKLE FX PLAN HD TODAY UF TO DW ARANESP STARTED AVOID RESUMING PD TILL HIS AMBULATION IMPROVES NAEEM JAQUEZ MD Dec 17, 2016 12:27
[2016-12-17] MEDS ORDERED: HALOPERIDOL 5 MG TABLET. PO PRN (13:15)
[2016-12-17] MEDS: ASPIRIN CHEWABLE 81 MG TABLET. PO SCH (14:52)
[2016-12-17] MEDS: LISINOPRIL 40 MG TABLET. PO SCH (14:54)
[2016-12-17] MEDS: TAMSULOSIN 0.4 MG CAP.ER.24H. PO SCH (14:55)
[2016-12-17] MEDS: COLCHICINE 0.6 MG TABLET PO SCH (14:55)
[2016-12-17] MEDS: METOPROLOL TART IMMED RELEASE 25 MG TABLET. PO SCH ×2 (14:55→21:11)
[2016-12-17] MEDS: metOLazone 2.5 MG TABLET PO SCH ×2 (14:56→21:11)
[2016-12-17 15:00] VITALS: BP 110/60
--- NOTE | 2016-12-17 17:13 | PDOC ---
PROGRESS NOTES Chief Complaint Chief Complaint B ankle fx ASSESSMENT AND PLAN: 1. Traumatic bilat nondisplaced lateral malleolus fractures, closed: seen by Dr Pollard. CAM boots ordered, june WBAT in CAM walkers with walker. 2. SIRS wo infection: resolved 3. Pain control: adequate 4. ESRD on HD TTSat 5. DM2: well controlled on sl decreased dose of insulin, ISS 6. HTN/HLD: cont home meds 7. Prophylaxis: heparin SQ 8. Dispo: prob will need rehab History of Present Illness History of Present Illness stes pain is 8/10 (appears comfortable) but does not want pain meds Vitals Vitals Vital Signs Date Time Temp Pulse Resp B/P (MAP) Pulse Ox O2 Delivery O2 Flow Rate FiO2 12/17/16 14:55 151 169/87 12/17/16 08:00 Nasal Cannula 2.0 12/17/16 07:00 97.0 97 97.0 12/17/16 04:16 16 Physical Exam General: Alert, Oriented X3 Heart: Regular rate Lungs: Clear Abdomen: Soft Extremities: Other ( Bilat post splints. ) Labs LABS Laboratory Tests Test 12/16/16 20:30 12/16/16 20:44 12/17/16 06:30 12/17/16 14:03 White Blood Count 6.9 x10^3/uL (4.0-11.0) 7.9 x10^3/uL (4.0-11.0) Red Blood Count 3.68 x10^6/uL (4.30-5.70) 3.77 x10^6/uL (4.30-5.70) Hemoglobin 9.6 g/dL (13.0-17.5) 9.8 g/dL (13.0-17.5) Hematocrit 31.1 % (39.0-53.0) 31.9 % (39.0-53.0) Mean Corpuscular Volume 85 fL (79-100) 85 fL (79-100) Mean Corpuscular Hemoglobin 26 pg (25-35) 26 pg (25-35) Mean Corpuscular Hemoglobin Concent 31 g/dL (31-37) 31 g/dL (31-37) Red Cell Distribution Width 20.3 % (11.5-14.5) 19.9 % (11.5-14.5) Platelet Count 243 x10^3/uL (140-400) 250 x10^3/uL (140-400) Neutrophils (%) (Auto) 65 % (31-73) Lymphocytes (%) (Auto) 17 % (24-48) Monocytes (%) (Auto) 13 % (0-9) Eosinophils (%) (Auto) 6 % (0-3) Basophils (%) (Auto) 0 % (0-3) Neutrophils # (Auto) 4.5 x10^3uL (1.8-7.7) Lymphocytes # (Auto) 1.2 x10^3/uL (1.0-4.8) Monocytes # (Auto) 0.9 x10^3/uL (0.0-1.1) Eosinophils # (Auto) 0.4 x10^3/uL (0.0-0.7) Basophils # (Auto) 0.0 x10^3/uL (0.0-0.2) Platelet Estimate Adequate (ADEQUATE) Giant Platelets Occ Polychromasia Slight Anisocytosis Mod Glucose (Fingerstick) 86 mg/dL (70-99) 80 mg/dL (70-99) Sodium Level 139 mmol/L (136-145) Potassium Level 5.3 mmol/L (3.5-5.1) Chloride Level 98 mmol/L (98-107) Carbon Dioxide Level 28 mmol/L (21-32) Anion Gap 13 (6-14) Blood Urea Nitrogen 53 mg/dL (8-26) Creatinine 11.3 mg/dL (0.7-1.3) Estimated GFR (Cockcroft-Gault) 5.7 Glucose Level 85 mg/dL (70-99) Lactic Acid Level 0.8 mmol/L (0.4-2.0) Calcium Level 9.5 mg/dL (8.5-10.1) Phosphorus Level 10.2 mg/dL (2.6-4.7) Albumin 3.6 g/dL (3.4-5.0) Test 12/17/16 16:57 Glucose (Fingerstick) 158 mg/dL (70-99) SARA HAWKINS MD Dec 17, 2016 17:13
[2016-12-17] MEDS: SEVELAMER CARBONATE 800 MG TABLET. PO SCH (17:59)
[2016-12-17 19:00] VITALS: BP 126/78
[2016-12-17] MEDS ORDERED: FINA5TAB4 PO (20:17)
[2016-12-17] MEDS ORDERED: DOCU100C28 PO (20:17)
[2016-12-17] MEDS ORDERED: GABA-586 PO (20:17)
[2016-12-17] MEDS ORDERED: FLUT16SP NS (20:17)
[2016-12-17] MEDS ORDERED: HYOS0.1265 SL (20:17)
[2016-12-17] MEDS ORDERED: HYDR-2758 PO (20:17)
[2016-12-17] MEDS ORDERED: OMEP20CA9 PO (20:17)
[2016-12-17] MEDS ORDERED: SPIR50TA2 PO (20:17)
[2016-12-17] MEDS ORDERED: POLY255P PO (20:17)
[2016-12-17] MEDS ORDERED: LIDO700A39 TP (20:17)
[2016-12-17] MEDS ORDERED: CALC0.25 PO (20:17)
[2016-12-17] MEDS ORDERED: CLON0.3T PO (20:17)
[2016-12-17] MEDS ORDERED: DARBEPOETIN ALFA 60 MCG/0.3 ML DISP.SYRIN. SQ SCH (21:00)
[2016-12-17] MEDS: ATORVASTATIN CALCIUM 20 MG TABLET PO SCH (21:11)
[2016-12-17] MEDS: NYSTATIN 100,000 UNITS/ML 5 ML ORAL.SUSP. SWSW SCH (21:12)
[2016-12-17] MEDS: oxyCODONE/APAP 10/325 1 TAB TABLET PO PRN (21:12)
[2016-12-17] MEDS: INSULIN DETEMIR 300 UNITS/3 ML INSULN.PEN. SQ SCH (21:21)
[2016-12-17 23:00] VITALS: BP 148/51
[2016-12-18] MEDS: MORPHINE SULFATE 4 MG/ML DISP.SYRIN. IV PRN ×4 (01:17→17:06)
[2016-12-18 03:04] VITALS: BP 156/67
[2016-12-18] MEDS: oxyCODONE/APAP 10/325 1 TAB TABLET PO PRN ×4 (05:40→21:41)
[2016-12-18] MEDS: SEVELAMER CARBONATE 800 MG TABLET. PO SCH ×3 (05:40→17:06)
[2016-12-18] MEDS: ONDANSETRON PF 4 MG/2 ML VIAL. IV PRN (05:41)
[2016-12-18] MEDS: HEPARIN PF for SUB-Q USE 5,000 UNIT/0.5 ML VIAL. SQ SCH ×3 (05:48→21:49)
[2016-12-18 07:00] VITALS: BP 92/45
[2016-12-18] MEDS: INSULIN ASPART 300 UNITS/3 ML INSULN.PEN SQ SCH ×6 (08:00→17:15)
[2016-12-18] MEDS: LISINOPRIL 40 MG TABLET. PO SCH ×2 (09:00→21:43)
[2016-12-18] MEDS: FUROSEMIDE 80 MG TABLET. PO SCH ×2 (09:00→13:39)
[2016-12-18] MEDS: metOLazone 2.5 MG TABLET PO SCH ×2 (09:00→21:41)
[2016-12-18] MEDS: METOPROLOL TART IMMED RELEASE 25 MG TABLET. PO SCH ×2 (09:00→21:42)
[2016-12-18] MEDS: TAMSULOSIN 0.4 MG CAP.ER.24H. PO SCH (09:14)
[2016-12-18] MEDS: NYSTATIN 100,000 UNITS/ML 5 ML ORAL.SUSP. SWSW SCH ×3 (09:14→21:41)
[2016-12-18] MEDS: COLCHICINE 0.6 MG TABLET PO SCH (09:14)
[2016-12-18] MEDS: ASPIRIN CHEWABLE 81 MG TABLET. PO SCH (09:14)
[2016-12-18] MEDS: GABAPENTIN 300 MG CAPSULE. PO SCH ×3 (09:14→21:41)
[2016-12-18] MEDS: fentaNYL PF VIAL 100 MCG/2 ML VIAL IV PRN (09:18)
[2016-12-18 11:00] VITALS: BP 82/46
--- NOTE | 2016-12-18 11:51 | PDOC ---
Renal-Progress Notes Subjective Notes Notes NONE History of Present Illness Hx of present illness STABLE Vitals Vitals Vital Signs Date Time Temp Pulse Resp B/P (MAP) Pulse Ox O2 Delivery O2 Flow Rate FiO2 12/18/16 11:21 Room Air 12/18/16 09:00 92/45 12/18/16 06:40 20 93 12/18/16 03:04 98.1 92 98.1 12/18/16 01:17 2.0 Weight Weight [ ] I.O. Intake and Output Intake and Output 12/19/16 06:59 Intake Total 120 ml Balance 120 ml Intake Oral 120 ml Labs Labs Laboratory Tests Test 12/17/16 14:03 12/17/16 16:57 12/17/16 20:37 12/17/16 21:14 Glucose (Fingerstick) 80 mg/dL (70-99) 158 mg/dL (70-99) 83 mg/dL (70-99) 107 mg/dL (70-99) Test 12/18/16 05:38 12/18/16 06:05 12/18/16 08:20 12/18/16 11:18 Glucose (Fingerstick) 79 mg/dL (70-99) 94 mg/dL (70-99) 150 mg/dL (70-99) 141 mg/dL (70-99) Micro Micro Microbiology 12/16/16 Blood Culture - Preliminary, Resulted NO GROWTH AFTER 1 DAY Review of Systems Constitutional: yes: weakness, alert, oriented Ears/Nose/Throat: Yes: no symptom reported Eyes: Yes: no symptom reported Pulmonary: Yes no symptom reported Cardiovascular: Yes no symptom reported Gastrointestional: Yes: no symptom reported Genitourinary: Yes: no symptom reported Musculoskeletal: Yes: joint pain Skin: Yes no symptom reported Psychiatric/Neurological: Yes: no symptom reported Endocrine: Yes: no symptom reported Physical Exam General Appearance: no apparent distress Skin: warm Respiratory: bilateral CTA Heart: S1S2, RRR Abdomen: soft, bowel sounds present Genitourinary: bladder flat Extremities: pulses present Neurology: alert, oriented, follow commands Assessment Assessment IMP FALL ESRD ANEMIA DM II HTN-LOW NOW BILATERAL ANKLE FX PLAN HD MONDAY CONT ARANESP AVOID RESUMING PD TILL HIS AMBULATION IMPROVES MAY BE HAVING SOME ORTHOSTASIS DUE TO HIGH DOSE OF APRESOLINE WILL ADD NORVASC AND STOP APRESOLINE WILL INCREASE VIVI-I AND BETABLOCKER THEREAFTER IF NEEDED FOR HTN CONTROL NAEEM JAQUEZ MD Dec 18, 2016 11:50
[2016-12-18] MEDS: amLODIPine BESYLATE 5 MG TABLET PO SCH (12:00)
--- NOTE | 2016-12-18 12:53 | PDOC ---
PROGRESS NOTES Chief Complaint Chief Complaint B ankle fx ASSESSMENT AND PLAN: 1. Traumatic bilat nondisplaced lateral malleolus fractures, closed: seen by Dr Pollard. CAM boots ordered, june WBAT in CAM walkers with walker. 2. SIRS wo infection: resolved 3. Pain control: adequate 4. ESRD on HD TTSat 5. DM2: well controlled on sl decreased dose of insulin, ISS 6. HTN/HLD: cont home meds 7. Prophylaxis: heparin SQ 8. Dispo: prob will need rehab; OT/PT eval when boots available History of Present Illness History of Present Illness pain controlled on current regimen. no new c/o Vitals Vitals Vital Signs Date Time Temp Pulse Resp B/P (MAP) Pulse Ox O2 Delivery O2 Flow Rate FiO2 12/18/16 12:05 Room Air 12/18/16 12:00 90 82/46 12/18/16 11:00 98.3 18 93 3.0 98.3 Physical Exam General: Alert, Oriented X3 Heart: Regular rate Lungs: Clear Abdomen: Soft Extremities: Other ( Bilat post splints. ) Labs LABS Laboratory Tests Test 12/17/16 14:03 12/17/16 16:57 12/17/16 20:37 12/17/16 21:14 Glucose (Fingerstick) 80 mg/dL (70-99) 158 mg/dL (70-99) 83 mg/dL (70-99) 107 mg/dL (70-99) Test 12/18/16 05:38 12/18/16 06:05 12/18/16 08:20 12/18/16 11:18 Glucose (Fingerstick) 79 mg/dL (70-99) 94 mg/dL (70-99) 150 mg/dL (70-99) 141 mg/dL (70-99) SARA HAWKINS MD Dec 18, 2016 12:53
--- NOTE | 2016-12-18 13:52 | PDOC ---
PROGRESS NOTES Subjective Subjective Lying in bed with BLE elevated on pillows. Objective Vital Signs Vital Signs Date Time Temp Pulse Resp B/P (MAP) Pulse Ox O2 Delivery O2 Flow Rate FiO2 12/18/16 12:05 Room Air 12/18/16 12:00 90 82/46 12/18/16 11:00 98.3 18 93 3.0 98.3 Physical Exam Sleeping but able to be aroused. Posterior splints to BLE. +df/pf at toes. Light touch sensation diminished due to chronic neuropathy. Labs Laboratory Tests Test 12/16/16 16:39 12/16/16 20:30 12/16/16 20:44 12/17/16 06:30 Glucose (Fingerstick) 85 mg/dL (70-99) 86 mg/dL (70-99) White Blood Count 6.9 x10^3/uL (4.0-11.0) 7.9 x10^3/uL (4.0-11.0) Red Blood Count 3.68 x10^6/uL (4.30-5.70) 3.77 x10^6/uL (4.30-5.70) Hemoglobin 9.6 g/dL (13.0-17.5) 9.8 g/dL (13.0-17.5) Hematocrit 31.1 % (39.0-53.0) 31.9 % (39.0-53.0) Mean Corpuscular Volume 85 fL (79-100) 85 fL (79-100) Mean Corpuscular Hemoglobin 26 pg (25-35) 26 pg (25-35) Mean Corpuscular Hemoglobin Concent 31 g/dL (31-37) 31 g/dL (31-37) Red Cell Distribution Width 20.3 % (11.5-14.5) 19.9 % (11.5-14.5) Platelet Count 243 x10^3/uL (140-400) 250 x10^3/uL (140-400) Neutrophils (%) (Auto) 65 % (31-73) Lymphocytes (%) (Auto) 17 % (24-48) Monocytes (%) (Auto) 13 % (0-9) Eosinophils (%) (Auto) 6 % (0-3) Basophils (%) (Auto) 0 % (0-3) Neutrophils # (Auto) 4.5 x10^3uL (1.8-7.7) Lymphocytes # (Auto) 1.2 x10^3/uL (1.0-4.8) Monocytes # (Auto) 0.9 x10^3/uL (0.0-1.1) Eosinophils # (Auto) 0.4 x10^3/uL (0.0-0.7) Basophils # (Auto) 0.0 x10^3/uL (0.0-0.2) Platelet Estimate Adequate (ADEQUATE) Giant Platelets Occ Polychromasia Slight Anisocytosis Mod Sodium Level 139 mmol/L (136-145) Potassium Level 5.3 mmol/L (3.5-5.1) Chloride Level 98 mmol/L (98-107) Carbon Dioxide Level 28 mmol/L (21-32) Anion Gap 13 (6-14) Blood Urea Nitrogen 53 mg/dL (8-26) Creatinine 11.3 mg/dL (0.7-1.3) Estimated GFR (Cockcroft-Gault) 5.7 Glucose Level 85 mg/dL (70-99) Lactic Acid Level 0.8 mmol/L (0.4-2.0) Calcium Level 9.5 mg/dL (8.5-10.1) Phosphorus Level 10.2 mg/dL (2.6-4.7) Albumin 3.6 g/dL (3.4-5.0) Test 12/17/16 14:03 12/17/16 16:57 12/17/16 20:37 12/17/16 21:14 Glucose (Fingerstick) 80 mg/dL (70-99) 158 mg/dL (70-99) 83 mg/dL (70-99) 107 mg/dL (70-99) Test 12/18/16 05:38 12/18/16 06:05 12/18/16 08:20 12/18/16 11:18 Glucose (Fingerstick) 79 mg/dL (70-99) 94 mg/dL (70-99) 150 mg/dL (70-99) 141 mg/dL (70-99) Laboratory Tests Test 12/17/16 14:03 12/17/16 16:57 12/17/16 20:37 12/17/16 21:14 Glucose (Fingerstick) 80 mg/dL (70-99) 158 mg/dL (70-99) 83 mg/dL (70-99) 107 mg/dL (70-99) Test 12/18/16 05:38 12/18/16 06:05 12/18/16 08:20 12/18/16 11:18 Glucose (Fingerstick) 79 mg/dL (70-99) 94 mg/dL (70-99) 150 mg/dL (70-99) 141 mg/dL (70-99) Assessment Assessment Bilateral lateral malleoli fractures Problems: Plan Plan of Care CAM walkers ordered from Etymology Professor yesterday. When he gets CAM walkers, he may WBAT with walker. Followup with [facility] in 10-14 days. LEEROY MARSH Dec 18, 2016 13:52
[2016-12-18 15:00] VITALS: BP 107/51
[2016-12-18 19:00] VITALS: BP 130/64
[2016-12-18] MEDS: ATORVASTATIN CALCIUM 20 MG TABLET PO SCH (21:41)
[2016-12-18] MEDS: INSULIN DETEMIR 300 UNITS/3 ML INSULN.PEN. SQ SCH (21:49)
[2016-12-18 23:02] VITALS: BP 161/65
[2016-12-19] MEDS: oxyCODONE/APAP 10/325 1 TAB TABLET PO PRN ×2 (01:42→14:42)
[2016-12-19] MEDS: MORPHINE SULFATE 4 MG/ML DISP.SYRIN. IV PRN ×3 (01:45→18:16)
[2016-12-19 03:00] VITALS: BP 109/59
[2016-12-19] MEDS: ONDANSETRON PF 4 MG/2 ML VIAL. IV PRN (03:46)
[2016-12-19 04:55] LABS: BASO % 1 % (0-3); EOS % 5 % (0-3); HEMATOCRIT 30.9 % (39.0-53.0); HEMOGLOBIN 9.6 g/dL (13.0-17.5); LYMPH # 1.6 x10^3/uL (1.0-4.8); LYMPH % 23 % (24-48); MEAN CORPUSCULAR HEMOGLOBIN 26 pg (25-35); MEAN CORPUSCULAR HGB CONC 31 g/dL (31-37); MEAN CORPUSCULAR VOLUME 84 fL (79-100); MONO % 14 % (0-9); NEUT % 57 % (31-73); PLATELET COUNT 269 x10^3/uL (140-400); RED BLOOD COUNT 3.67 x10^6/uL (4.30-5.70); RED CELL DISTRIBUTION WIDTH 19.6 % (11.5-14.5); WHITE BLOOD COUNT 6.7 x10^3/uL (4.0-11.0)
[2016-12-19] MEDS: HEPARIN PF for SUB-Q USE 5,000 UNIT/0.5 ML VIAL. SQ SCH ×3 (05:03→22:06)
[2016-12-19 05:51] LABS: CALCIUM 9.6 mg/dL (8.5-10.1); CREATININE 11.8 mg/dL (0.7-1.3); GFR 5.4; POTASSIUM 5.4 mmol/L (3.5-5.1)
[2016-12-19 07:00] VITALS: BP 109/51
[2016-12-19] MEDS: SEVELAMER CARBONATE 800 MG TABLET. PO SCH ×3 (08:00→17:47)
[2016-12-19] MEDS: INSULIN ASPART 300 UNITS/3 ML INSULN.PEN SQ SCH ×6 (08:00→17:50)
[2016-12-19] MEDS: amLODIPine BESYLATE 5 MG TABLET PO SCH (09:00)
[2016-12-19] MEDS: COLCHICINE 0.6 MG TABLET PO SCH (09:00)
[2016-12-19] MEDS: LISINOPRIL 40 MG TABLET. PO SCH (09:00)
[2016-12-19] MEDS: GABAPENTIN 300 MG CAPSULE. PO SCH ×3 (09:10→22:00)
[2016-12-19] MEDS: ASPIRIN CHEWABLE 81 MG TABLET. PO SCH (09:10)
[2016-12-19] MEDS: NYSTATIN 100,000 UNITS/ML 5 ML ORAL.SUSP. SWSW SCH ×3 (09:11→21:00)
[2016-12-19] MEDS: METOPROLOL TART IMMED RELEASE 25 MG TABLET. PO SCH ×2 (09:11→22:02)
[2016-12-19] MEDS: TAMSULOSIN 0.4 MG CAP.ER.24H. PO SCH (09:11)
[2016-12-19] MEDS: FUROSEMIDE 80 MG TABLET. PO SCH ×2 (09:11→14:36)
[2016-12-19] MEDS: metOLazone 2.5 MG TABLET PO SCH ×2 (09:16→22:00)
[2016-12-19 11:00] VITALS: BP 112/44
--- NOTE | 2016-12-19 11:48 | PDOC ---
Renal-Progress Notes Subjective Notes Notes NONE History of Present Illness Hx of present illness STABLE Vitals Vitals Vital Signs Date Time Temp Pulse Resp B/P (MAP) Pulse Ox O2 Delivery O2 Flow Rate FiO2 12/19/16 11:00 98.9 66 18 112/44 (66) 95 Nasal Cannula 3.0 98.9 Weight Weight [ ] Labs Labs Laboratory Tests Test 12/18/16 16:15 12/18/16 20:56 12/19/16 01:44 12/19/16 03:40 Glucose (Fingerstick) 126 mg/dL (70-99) 106 mg/dL (70-99) 124 mg/dL (70-99) White Blood Count 6.7 x10^3/uL (4.0-11.0) Red Blood Count 3.67 x10^6/uL (4.30-5.70) Hemoglobin 9.6 g/dL (13.0-17.5) Hematocrit 30.9 % (39.0-53.0) Mean Corpuscular Volume 84 fL (79-100) Mean Corpuscular Hemoglobin 26 pg (25-35) Mean Corpuscular Hemoglobin Concent 31 g/dL (31-37) Red Cell Distribution Width 19.6 % (11.5-14.5) Platelet Count 269 x10^3/uL (140-400) Neutrophils (%) (Auto) 57 % (31-73) Lymphocytes (%) (Auto) 23 % (24-48) Monocytes (%) (Auto) 14 % (0-9) Eosinophils (%) (Auto) 5 % (0-3) Basophils (%) (Auto) 1 % (0-3) Neutrophils # (Auto) 3.8 x10^3uL (1.8-7.7) Lymphocytes # (Auto) 1.6 x10^3/uL (1.0-4.8) Monocytes # (Auto) 0.9 x10^3/uL (0.0-1.1) Eosinophils # (Auto) 0.3 x10^3/uL (0.0-0.7) Basophils # (Auto) 0.0 x10^3/uL (0.0-0.2) Sodium Level 138 mmol/L (136-145) Potassium Level 5.4 mmol/L (3.5-5.1) Chloride Level 95 mmol/L (98-107) Carbon Dioxide Level 30 mmol/L (21-32) Anion Gap 13 (6-14) Blood Urea Nitrogen 65 mg/dL (8-26) Creatinine 11.8 mg/dL (0.7-1.3) Estimated GFR (Cockcroft-Gault) 5.4 Glucose Level 113 mg/dL (70-99) Calcium Level 9.6 mg/dL (8.5-10.1) Test 12/19/16 08:06 12/19/16 10:29 Glucose (Fingerstick) 106 mg/dL (70-99) 106 mg/dL (70-99) Micro Micro Microbiology 12/16/16 Blood Culture - Preliminary, Resulted NO GROWTH AFTER 2 DAYS Review of Systems Constitutional: yes: weakness, alert, oriented Ears/Nose/Throat: Yes: no symptom reported Eyes: Yes: no symptom reported Pulmonary: Yes no symptom reported Cardiovascular: Yes no symptom reported Gastrointestional: Yes: no symptom reported Genitourinary: Yes: no symptom reported Musculoskeletal: Yes: joint pain Skin: Yes no symptom reported Psychiatric/Neurological: Yes: no symptom reported Endocrine: Yes: no symptom reported Physical Exam General Appearance: no apparent distress Skin: warm Respiratory: bilateral CTA Heart: S1S2, RRR Abdomen: soft, bowel sounds present Genitourinary: bladder flat Extremities: pulses present Neurology: alert, oriented, follow commands Assessment Assessment IMP FALL ESRD ANEMIA DM II HTN-CONTROLLED BILATERAL ANKLE FX PLAN HD TOMORROW CONT ARANESP AVOID RESUMING PD TILL HIS AMBULATION IMPROVES THERAPY NAEEM JAQUEZ MD Dec 19, 2016 11:48
--- NOTE | 2016-12-19 12:05 | PDOC ---
PROGRESS NOTES Chief Complaint Chief Complaint traumatic bl fibular fx post fall, no sx ESRD on HD TTSat dm2 on insulin htn hld SIRS wo infection plan: dc amlodipine, losartan, hydralazine, decrease lisinopril to 40mg daily, also on metoprolol 25mg bid, metolazone decrease insulin to levemir 15u qhs, aspart 5u tid, SSI dr. Pollard consulted, CAM boot pending, then can do WBAT ptot renal consult for HD TTSat dvt ppx pain control waiting for PTOT, SW involve for possible rehab History of Present Illness History of Present Illness ROS: no fever, chills, sob or chest pain bp ok with HTN meds held on HD no sx waiting for CAM boot Vitals Vitals Vital Signs Date Time Temp Pulse Resp B/P (MAP) Pulse Ox O2 Delivery O2 Flow Rate FiO2 12/19/16 11:00 98.9 66 18 112/44 (66) 95 Nasal Cannula 3.0 98.9 Physical Exam General: Alert, Oriented X3 Heart: Regular rate, Normal S1, Normal S2 Lungs: Clear Abdomen: Soft Extremities: Other ( Bilat post splints. ) Labs LABS Laboratory Tests Test 12/18/16 16:15 12/18/16 20:56 12/19/16 01:44 12/19/16 03:40 Glucose (Fingerstick) 126 mg/dL (70-99) 106 mg/dL (70-99) 124 mg/dL (70-99) White Blood Count 6.7 x10^3/uL (4.0-11.0) Red Blood Count 3.67 x10^6/uL (4.30-5.70) Hemoglobin 9.6 g/dL (13.0-17.5) Hematocrit 30.9 % (39.0-53.0) Mean Corpuscular Volume 84 fL (79-100) Mean Corpuscular Hemoglobin 26 pg (25-35) Mean Corpuscular Hemoglobin Concent 31 g/dL (31-37) Red Cell Distribution Width 19.6 % (11.5-14.5) Platelet Count 269 x10^3/uL (140-400) Neutrophils (%) (Auto) 57 % (31-73) Lymphocytes (%) (Auto) 23 % (24-48) Monocytes (%) (Auto) 14 % (0-9) Eosinophils (%) (Auto) 5 % (0-3) Basophils (%) (Auto) 1 % (0-3) Neutrophils # (Auto) 3.8 x10^3uL (1.8-7.7) Lymphocytes # (Auto) 1.6 x10^3/uL (1.0-4.8) Monocytes # (Auto) 0.9 x10^3/uL (0.0-1.1) Eosinophils # (Auto) 0.3 x10^3/uL (0.0-0.7) Basophils # (Auto) 0.0 x10^3/uL (0.0-0.2) Sodium Level 138 mmol/L (136-145) Potassium Level 5.4 mmol/L (3.5-5.1) Chloride Level 95 mmol/L (98-107) Carbon Dioxide Level 30 mmol/L (21-32) Anion Gap 13 (6-14) Blood Urea Nitrogen 65 mg/dL (8-26) Creatinine 11.8 mg/dL (0.7-1.3) Estimated GFR (Cockcroft-Gault) 5.4 Glucose Level 113 mg/dL (70-99) Calcium Level 9.6 mg/dL (8.5-10.1) Test 12/19/16 08:06 12/19/16 10:29 Glucose (Fingerstick) 106 mg/dL (70-99) 106 mg/dL (70-99) Comment Review of Relevant I have reviewed the following items doreen (where applicable) has been applied. Labs Laboratory Tests Test 12/17/16 14:03 12/17/16 16:57 12/17/16 20:37 12/17/16 21:14 Glucose (Fingerstick) 80 mg/dL (70-99) 158 mg/dL (70-99) 83 mg/dL (70-99) 107 mg/dL (70-99) Test 12/18/16 05:38 12/18/16 06:05 12/18/16 08:20 12/18/16 11:18 Glucose (Fingerstick) 79 mg/dL (70-99) 94 mg/dL (70-99) 150 mg/dL (70-99) 141 mg/dL (70-99) Test 12/18/16 16:15 12/18/16 20:56 12/19/16 01:44 12/19/16 03:40 Glucose (Fingerstick) 126 mg/dL (70-99) 106 mg/dL (70-99) 124 mg/dL (70-99) White Blood Count 6.7 x10^3/uL (4.0-11.0) Red Blood Count 3.67 x10^6/uL (4.30-5.70) Hemoglobin 9.6 g/dL (13.0-17.5) Hematocrit 30.9 % (39.0-53.0) Mean Corpuscular Volume 84 fL (79-100) Mean Corpuscular Hemoglobin 26 pg (25-35) Mean Corpuscular Hemoglobin Concent 31 g/dL (31-37) Red Cell Distribution Width 19.6 % (11.5-14.5) Platelet Count 269 x10^3/uL (140-400) Neutrophils (%) (Auto) 57 % (31-73) Lymphocytes (%) (Auto) 23 % (24-48) Monocytes (%) (Auto) 14 % (0-9) Eosinophils (%) (Auto) 5 % (0-3) Basophils (%) (Auto) 1 % (0-3) Neutrophils # (Auto) 3.8 x10^3uL (1.8-7.7) Lymphocytes # (Auto) 1.6 x10^3/uL (1.0-4.8) Monocytes # (Auto) 0.9 x10^3/uL (0.0-1.1) Eosinophils # (Auto) 0.3 x10^3/uL (0.0-0.7) Basophils # (Auto) 0.0 x10^3/uL (0.0-0.2) Sodium Level 138 mmol/L (136-145) Potassium Level 5.4 mmol/L (3.5-5.1) Chloride Level 95 mmol/L (98-107) Carbon Dioxide Level 30 mmol/L (21-32) Anion Gap 13 (6-14) Blood Urea Nitrogen 65 mg/dL (8-26) Creatinine 11.8 mg/dL (0.7-1.3) Estimated GFR (Cockcroft-Gault) 5.4 Glucose Level 113 mg/dL (70-99) Calcium Level 9.6 mg/dL (8.5-10.1) Test 12/19/16 08:06 12/19/16 10:29 Glucose (Fingerstick) 106 mg/dL (70-99) 106 mg/dL (70-99) Laboratory Tests Test 12/18/16 16:15 12/18/16 20:56 12/19/16 01:44 12/19/16 03:40 Glucose (Fingerstick) 126 mg/dL (70-99) 106 mg/dL (70-99) 124 mg/dL (70-99) White Blood Count 6.7 x10^3/uL (4.0-11.0) Red Blood Count 3.67 x10^6/uL (4.30-5.70) Hemoglobin 9.6 g/dL (13.0-17.5) Hematocrit 30.9 % (39.0-53.0) Mean Corpuscular Volume 84 fL (79-100) Mean Corpuscular Hemoglobin 26 pg (25-35) Mean Corpuscular Hemoglobin Concent 31 g/dL (31-37) Red Cell Distribution Width 19.6 % (11.5-14.5) Platelet Count 269 x10^3/uL (140-400) Neutrophils (%) (Auto) 57 % (31-73) Lymphocytes (%) (Auto) 23 % (24-48) Monocytes (%) (Auto) 14 % (0-9) Eosinophils (%) (Auto) 5 % (0-3) Basophils (%) (Auto) 1 % (0-3) Neutrophils # (Auto) 3.8 x10^3uL (1.8-7.7) Lymphocytes # (Auto) 1.6 x10^3/uL (1.0-4.8) Monocytes # (Auto) 0.9 x10^3/uL (0.0-1.1) Eosinophils # (Auto) 0.3 x10^3/uL (0.0-0.7) Basophils # (Auto) 0.0 x10^3/uL (0.0-0.2) Sodium Level 138 mmol/L (136-145) Potassium Level 5.4 mmol/L (3.5-5.1) Chloride Level 95 mmol/L (98-107) Carbon Dioxide Level 30 mmol/L (21-32) Anion Gap 13 (6-14) Blood Urea Nitrogen 65 mg/dL (8-26) Creatinine 11.8 mg/dL (0.7-1.3) Estimated GFR (Cockcroft-Gault) 5.4 Glucose Level 113 mg/dL (70-99) Calcium Level 9.6 mg/dL (8.5-10.1) Test 12/19/16 08:06 12/19/16 10:29 Glucose (Fingerstick) 106 mg/dL (70-99) 106 mg/dL (70-99) Microbiology 12/16/16 Blood Culture - Preliminary, Resulted NO GROWTH AFTER 2 DAYS Medications Current Medications Ondansetron HCl (Zofran) 4 mg PRN Q6HRS PRN IV NAUSEA/VOMITING Last administered on 12/19/16 03:46; Start 12/15/16 at 21:45 Hydralazine HCl (Apresoline) 10 mg PRN Q4HRS PRN PO ELEVATED BP, SEE COMMENTS Last administered on 12/17/16 14:53; Start 12/15/16 at 21:45 Diphenhydramine HCl (Benadryl) 25 mg PRN Q6HRS PRN PO ITCHING Last administered on 12/15/16 22:34; Start 12/15/16 at 21:45 Insulin Detemir (Levemir) 25 units QHS SQ Last administered on 12/15/16 23:28 ; Start 12/15/16 at 22:00; Stop 12/16/16 at 09:30; Status DC Insulin Aspart (NovoLOG) 0-9 UNITS TIDWMEALS SQ Last administered on 18:06; Start 12/16/16 at 08:00 Dextrose (Dextrose 50%-Water Syringe) 12.5 gm PRN Q15MIN PRN IV SEE COMMENTS Last administered on 12/16/16 06:12; Start 12/15/16 at 21:45 Acetaminophen (Tylenol) 650 mg PRN Q6HRS PRN PO FEVER Last administered on 19:35; Start 12/15/16 at 21:45 Morphine Sulfate 2 mg PRN Q4HRS PRN IV MODERATE PAIN; Start 12/15/16 at 21:45 Morphine Sulfate 4 mg PRN Q4HRS PRN IV SEVERE PAIN Last administered on 03:46; Start 12/15/16 at 21:45 Oxycodone/ Acetaminophen (Percocet 5/325) 1 tab PRN Q6HRS PRN PO MODERATE PAIN Last administered on 12/16/16 08:21; Start 12/15/16 at 21:45 Sodium Chloride 1,000 ml @ 1,000 mls/hr 1X ONCE IV Last administered on 12/15 22:00; Start 12/15/16 at 22:00; Stop 12/15/16 at 22:59; Status DC Gabapentin (Neurontin) 600 mg TID PO Last administered on 12/19/16 09:10; Start 12/15/16 at 22:45 Hydromorphone HCl (Dilaudid) 1 mg 1X PRN PRN IV PAIN Last administered on 12/16 00:59; Start 12/16/16 at 00:15; Stop 12/16/16 at 01:00; Status DC Hydromorphone HCl (Dilaudid) 1 mg 1X PRN PRN IV PAIN; Start 12/16/16 at 06:15 ; Stop 12/16/16 at 07:00; Status DC Insulin Detemir (Levemir) 20 units QHS SQ Last administered on 12/18/16 21:49 ; Start 12/16/16 at 21:00; Stop 12/19/16 at 09:27; Status DC Amlodipine Besylate (Norvasc) 10 mg DAILY PO ; Start 12/16/16 at 10:00; Stop 12/16/16 at 10:48; Status DC Atorvastatin Calcium (Lipitor) 20 mg QHS PO Last administered on 12/18/16 21: 41; Start 12/16/16 at 21:00 Colchicine (Colcrys) 0.6 mg DAILY PO Last administered on 12/18/16 09:14; Start 12/16/16 at 10:00 Furosemide (Lasix) 80 mg BID92 PO Last administered on 12/19/16 09:11; Start 12/16/16 at 10:00 Insulin Aspart (NovoLOG) 7 units TIDWMEALS SQ Last administered on 12/18/16 17:15; Start 12/16/16 at 12:00; Stop 12/19/16 at 09:27; Status DC Lisinopril (Prinivil) 40 mg DAILY PO Last administered on 12/17/16 14:54; Start 12/16/16 at 10:00; Stop 12/18/16 at 11:52; Status DC Metolazone (Zaroxolyn) 2.5 mg BID PO Last administered on 12/19/16 09:16; Start 12/16/16 at 10:00 Metoprolol Tartrate (Lopressor) 25 mg BID PO Last administered on 12/19/16 09 :11; Start 12/16/16 at 10:00 Tamsulosin HCl (Flomax) 0.4 mg DAILY PO Last administered on 12/19/16 09:11; Start 12/16/16 at 10:00 Non-Formulary Medication 210 mg TIDWMEALS PO ; Start 12/16/16 at 12:00; Stop 12/17/16 at 16:14; Status DC Non-Formulary Medication 600 mg TID PO ; Start 12/16/16 at 14:00; Stop at 14:00; Status DC Hydralazine HCl (Apresoline) 100 mg TID PO Last administered on 12/17/16 21: 11; Start 12/16/16 at 10:00; Stop 12/18/16 at 11:52; Status DC Non-Formulary Medication 60 unit QHS SQ ; Start 12/16/16 at 21:00; Stop at 21:00; Status DC Non-Formulary Medication 100 mg DAILY PO ; Start 12/17/16 at 09:00; Stop 12/17 at 09:00; Status DC Non-Formulary Medication 1 tab TID PO ; Start 12/16/16 at 14:00; Stop at 15:46; Status DC Heparin Sodium (Porcine) (Heparin Sq) 5,000 unit Q8HRS SQ Last administered on 12/19/16 05:03; Start 12/16/16 at 14:00 Oxycodone/ Acetaminophen (Percocet 10/325) 1 tab PRN Q4HRS PRN PO PAIN SEVERE Last administered on 12/19/16 01:42; Start 12/16/16 at 09:45 Aspirin (Children'S Aspirin) 81 mg DAILY PO Last administered on 12/19/16 09: 10; Start 12/16/16 at 11:30 Info (PHARMACY MONITORING -- do not chart) 1 each PRN DAILY PRN MC SEE COMMENTS ; Start 12/16/16 at 13:00; Status Cancel Fentanyl Citrate (Fentanyl 2ml Vial) 50 mcg PRN Q2HR PRN IV PAIN Last administered on 12/18/16 09:18; Start 12/16/16 at 15:15 Lorazepam (Ativan) 1 mg PRN Q8HRS PRN IV ANXIETY / AGITATION Last administered on 12/19/16 03:46; Start 12/16/16 at 22:15 Haloperidol Lactate (Haldol) 5 mg 1X ONCE IVP Last administered on 12/17/16 05:54; Start 12/17/16 at 05:45; Stop 12/17/16 at 05:46; Status DC Sodium Chloride 1,000 ml @ 1,000 mls/hr Q1H PRN IV hypotension; Start at 08:25; Stop 12/17/16 at 14:24; Status DC Albumin Human 200 ml @ 200 mls/hr 1X PRN PRN IV Hypotension; Start 12/17/16 at 08:30; Stop 12/17/16 at 14:29; Status DC Midodrine (Proamatine) 5 mg 1X ONCE PO ; Start 12/17/16 at 08:30; Stop at 09:33; Status DC Acetaminophen (Tylenol) 500 mg 1X PRN PRN PO MILD PAIN / TEMP; Start 12/17/16 at 08:30; Stop 12/18/16 at 08:29; Status DC Diphenhydramine HCl (Benadryl) 25 mg 1X PRN PRN IV ITCHING Last administered on 12/18/16 01:17; Start 12/17/16 at 08:30; Stop 12/18/16 at 08:29; Status DC Diphenhydramine HCl (Benadryl) 25 mg 1X PRN PRN IV ITCHING; Start 12/17/16 at 08:30; Stop 12/18/16 at 08:29; Status DC Sodium Chloride (Normal Saline Flush) 10 ml 1X PRN PRN IV 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 [employer]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; Start 12/17/16 at 08:30; Stop 12/18/16 at 08:29; Status DC Labetalol HCl (Normodyne) 10 mg PRN Q1HR PRN IVP SBP > 180; Start 12/17/16 at 08:30; Stop 12/18/16 at 08:29; Status DC Clonidine HCl (Catapres) 0.1 mg 1X PRN PRN PO SBP > 180; Start 12/17/16 at 08: 30; Stop 12/18/16 at 08:29; Status DC Info (PHARMACY MONITORING -- do not chart) 1 each PRN DAILY PRN MC SEE COMMENTS ; Start 12/17/16 at 08:30; Status Cancel Info (PHARMACY MONITORING -- do not chart) 1 each PRN DAILY PRN MC SEE COMMENTS ; Start 12/17/16 at 08:30 Darbepoetin [place] (Aranesp) 60 mcg WEEKLYHS SQ ; Start 12/17/16 at 21:00 Haloperidol (Haldol) 5 mg PRN Q6HRS PRN PO AGITATION; Start 12/17/16 at 13:15 Nystatin 5 ml TID SWSW Last administered on 12/19/16 09:11; Start 12/17/16 at 15:00 Sevelamer Carbonate (Renvela) 1,600 mg TIDWMEALS PO Last administered on 17:06; Start 12/17/16 at 17:00 Lisinopril (Prinivil) 40 mg BID PO Last administered on 12/18/16 21:43; Start 12/18/16 at 21:00; Stop 12/19/16 at 09:27; Status DC Amlodipine Besylate (Norvasc) 5 mg DAILY PO ; Start 12/18/16 at 12:00; Stop at 09:27; Status DC Insulin Aspart (NovoLOG) 5 units TIDWMEALS SQ ; Start 12/19/16 at 12:00 Insulin Detemir (Levemir) 15 units QHS SQ ; Start 12/19/16 at 21:00 Lisinopril (Prinivil) 40 mg DAILY PO ; Start 12/20/16 at 09:00 Active Scripts Active Diflucan (Fluconazole) 100 Mg Tablet 200 Mg PO DAILY 10 Days Amox Tr-K Clv 500-125 Mg Tab (Amoxicillin/Potassium Clav) 1 Each Tablet 1 Tab PO BID Novolog Flexpen (Insulin Aspart) 100 Unit/1 Ml Insuln.pen 15 Unit SQ TIDWMEALS Reported Gabapentin 300 Mg Capsule 300 Mg PO TID Spironolactone 50 Mg Tablet 1 Tab PO DAILY Polyethylene Glycol 3350 255 Gm Powder 17 Gm PO DAILY Omeprazole 20 Mg Capsule.dr 1 Cap PO BID Lidocaine 1 Each Adh..patch 1 Each TP Levsin-Sl (Hyoscyamine Sulfate) 0.125 Mg Tab.subl 1 Tab SL PRN Q4HRS Hydrocodone-Apap 5-325 (Hydrocodone Bit/Acetaminophen) 1 Each Tablet 1 Tab PO PRN Q6HRS PRN Fluticasone Propionate Nasal [place] (Fluticasone Propionate) 16 Gm [place].susp 2 [place] NS DAILY Finasteride 5 Mg Tablet 1 Tab PO DAILY Docusate Sodium 100 Mg Capsule 1 Cap PO BID Clonidine Hcl 0.3 Mg Tablet 1 Tab PO TID Calcitriol 0.25 Mcg Capsule 1 Cap PO DAILY Levemir (Insulin Detemir) 100 Unit/1 Ml Vial 60 Unit SQ QHS Lasix (Furosemide) 80 Mg Tablet 1 Tab PO BID Ferric Citrate 210 Mg Tablet 210 Mg PO TIDWMEALS Viagra (Sildenafil Citrate) 100 Mg Tablet 1 Tab PO PRN Tamsulosin Hcl 0.4 Mg Cap.er.24h 1 Cap PO DAILY Lisinopril 40 Mg Tablet 2 Tab PO HS Metoprolol Tartrate 25 Mg Tablet 25 Mg PO BID Hydralazine Hcl 100 Mg Tablet 1 Tab PO TID Nephro-Sonja Tablet (Folic Acid/Vitamin B Comp W-C) 0.8 Mg Tablet 1 Tab PO DAILY Lipitor (Atorvastatin Calcium) 20 Mg Tablet 20 Mg PO DAILY Aspirin 81 Mg Tab.chew 1 Tab PO DAILY Vitals/I & O Vital Sign - Last 24 Hours 12/18/16 12/18/16 12/18/16 12/18/16 14:18 15:00 17:06 19:00 Temp 98.8 99.2 98.8 99.2 Pulse 86 131 Resp 16 24 B/P (MAP) 107/51 (69) 130/64 (86) Pulse Ox 90 90 O2 Delivery Room Air Nasal Cannula Room Air Nasal Cannula O2 Flow Rate 3.0 3.0 12/18/16 12/18/16 12/18/16 12/18/16 20:00 21:41 21:42 21:43 Pulse 131 131 Resp 20 B/P (MAP) 130/64 130/64 Pulse Ox 90 O2 Delivery Nasal Cannula Nasal Cannula O2 Flow Rate 2.0 2.0 12/18/16 12/18/16 12/19/16 12/19/16 22:39 23:02 01:42 01:45 Temp 97.9 97.9 Pulse 115 Resp 18 20 20 B/P (MAP) 161/65 (97) Pulse Ox 90 18 O2 Delivery Nasal Cannula Nasal Cannula Nasal Cannula O2 Flow Rate 3.0 2.0 3.0 12/19/16 12/19/16 12/19/16 12/19/16 02:42 03:00 03:46 04:16 Temp 98.3 98.3 Pulse 123 Resp 20 18 20 20 B/P (MAP) 109/59 (76) Pulse Ox 90 90 O2 Delivery Nasal Cannula Nasal Cannula Nasal Cannula Nasal Cannula O2 Flow Rate 2.0 3.0 2.0 2.0 12/19/16 12/19/16 12/19/16 12/19/16 07:00 07:30 09:11 11:00 Temp 98.6 98.9 98.6 98.9 Pulse 73 75 66 Resp 18 18 B/P (MAP) 109/51 (70) 121/55 112/44 (66) Pulse Ox 96 95 O2 Delivery Nasal Cannula Nasal Cannula Nasal Cannula O2 Flow Rate 3.0 2.0 3.0 RICHY DIMAS MD Dec 19, 2016 12:05
[2016-12-19 15:00] VITALS: BP 118/57
[2016-12-19] MEDS: ATORVASTATIN CALCIUM 20 MG TABLET PO SCH (22:00)
[2016-12-19 22:04] VITALS: BP 114/76
[2016-12-19] MEDS: INSULIN DETEMIR 300 UNITS/3 ML INSULN.PEN. SQ SCH (22:05)
[2016-12-19 23:00] VITALS: BP 125/65
[2016-12-20] MEDS: oxyCODONE/APAP 5/325 1 TAB TABLET PO PRN (00:33)
[2016-12-20] MEDS: MORPHINE SULFATE 4 MG/ML DISP.SYRIN. IV PRN ×2 (00:33→08:48)
[2016-12-20 03:00] VITALS: BP 136/70
[2016-12-20] MEDS: HEPARIN PF for SUB-Q USE 5,000 UNIT/0.5 ML VIAL. SQ SCH ×3 (05:57→22:00)
[2016-12-20 07:00] VITALS: BP 137/53
[2016-12-20] MEDS ORDERED: IV NORMAL SALINE 1000ML BAG 1,000 ML IV PRN ×2 (07:58)
[2016-12-20] MEDS: SEVELAMER CARBONATE 800 MG TABLET. PO SCH ×3 (08:00→16:39)
[2016-12-20] MEDS ORDERED: DIALYSIS PATIENT. MC PRN ×2 (08:00)
[2016-12-20] MEDS ORDERED: 0.9 % SODIUM CHLORIDE 10 ML DISP.SYRIN. IV PRN ×2 (08:00)
[2016-12-20] MEDS: INSULIN ASPART 300 UNITS/3 ML INSULN.PEN SQ SCH ×6 (08:00→17:25)
[2016-12-20] MEDS: NYSTATIN 100,000 UNITS/ML 5 ML ORAL.SUSP. SWSW SCH ×3 (09:00→19:59)
[2016-12-20] MEDS: FUROSEMIDE 80 MG TABLET. PO SCH ×2 (09:00→14:33)
[2016-12-20] MEDS: GABAPENTIN 300 MG CAPSULE. PO SCH ×3 (09:00→19:58)
[2016-12-20] MEDS ORDERED: INSU100I27 SQ (10:06)
[2016-12-20] MEDS ORDERED: OXYC1TAB7 PO (10:06)
[2016-12-20] MEDS ORDERED: INSU100I17 SQ (10:06)
[2016-12-20] MEDS ORDERED: METO2.5T PO (10:06)
[2016-12-20] MEDS ORDERED: diphenhydrAMINE 50 MG/ML VIAL IVP ONE (10:15)
--- NOTE | 2016-12-20 12:03 | PDOC ---
Renal-Progress Notes Subjective Notes Notes NONE History of Present Illness Hx of present illness STABLE Vitals Vitals Vital Signs Date Time Temp Pulse Resp B/P (MAP) Pulse Ox O2 Delivery O2 Flow Rate FiO2 12/20/16 08:48 18 Nasal Cannula 4.0 12/20/16 07:00 98.7 80 137/53 (81) 87 98.7 Weight Weight [ ] Labs Labs Laboratory Tests Test 12/19/16 16:27 12/19/16 21:27 12/20/16 07:42 12/20/16 11:24 Glucose (Fingerstick) 109 mg/dL (70-99) 116 mg/dL (70-99) 113 mg/dL (70-99) 116 mg/dL (70-99) Micro Micro Microbiology 12/16/16 Blood Culture - Preliminary, Resulted NO GROWTH AFTER 3 DAYS Review of Systems Constitutional: yes: weakness, alert, oriented Ears/Nose/Throat: Yes: no symptom reported Eyes: Yes: no symptom reported Pulmonary: Yes no symptom reported Cardiovascular: Yes no symptom reported Gastrointestional: Yes: no symptom reported Genitourinary: Yes: no symptom reported Musculoskeletal: Yes: joint pain Skin: Yes no symptom reported Psychiatric/Neurological: Yes: no symptom reported Endocrine: Yes: no symptom reported Physical Exam General Appearance: no apparent distress Skin: warm Respiratory: bilateral CTA Heart: S1S2, RRR Abdomen: soft, bowel sounds present Genitourinary: bladder flat Extremities: pulses present Neurology: alert, oriented, follow commands Assessment Assessment IMP FALL ESRD ANEMIA DM II HTN-CONTROLLED BILATERAL ANKLE FX PLAN HD TODAY UF TO DW CONT ARANESP AVOID RESUMING PD TILL HIS AMBULATION IMPROVES THERAPY NAEEM JAQUEZ MD Dec 20, 2016 12:03
--- NOTE | 2016-12-20 12:54 | PDOC3 ---
Discharge Summary [facility] Date of Admission: Dec 15, 2016 Discharge Date: Dec 20, 2016 Admitting Diagnosis traumatic bl fibular fx post fall, no sx ESRD on HD TTSat dm2 on insulin htn hld SIRS wo infection Problems: CONSULTS dr. Pollard Brief Hospital Course 56yo M, with HTN, DM2 ON insulin, ESRD on HD TTSat, was sent from [facility] for ankle fx. Pt is a poor historian, not sure about his baseline tho. It took him a long time but still hard to describe what really happened. He said he finished his HD yesterday, ( had PD before, catheter removed 2/2 infection and on HD with right upper chest HD cath [id number], no AVF). He was at home,walking out of bathroom, then fell on both knees than backwards, denies hurt ankle but said "too much pressure on knees to breake the ankle". didnot lose consicousness or hit head. still could walk, went to [facility], who did XR showed bl fibular fx and talked to dr. Pollard's PA and transferred here. severe pain overnight, agitated with dilaudid iv. XR in [facility] showed bl fibular fx, dr. Pollard consulted, no sx needed. Pt got his CAM walker, then can do PTOT. recommend dc to rehab. cont HD, PD already dced before admission. also decreased insulin and HTN meds. dc time 35min General: Alert, Oriented X3 Heart: Regular rate, Normal S1, Normal S2 Lungs: Clear Abdomen: Soft Extremities: Other ( Bilat post splints. ) Problems: Disposition rehab CONDITION AT DISCHARGE: Improved, Stable Diet renal Scheduled Aspirin (Aspirin), 1 TAB PO DAILY, (Reported) Atorvastatin Calcium (Lipitor), 20 MG PO DAILY, (Reported) Calcitriol (Calcitriol), 1 CAP PO DAILY, (Reported) Docusate Sodium (Docusate Sodium), 1 CAP PO BID, (Reported) Ferric Citrate (Ferric Citrate), 210 MG PO TIDWMEALS, (Reported) Finasteride (Finasteride), 1 TAB PO DAILY, (Reported) Fluticasone Propionate (Fluticasone Propionate Nasal [place]), 2 SPRAY NS DAILY, ( Reported) Folic Acid/Vitamin B Comp W-C (Nephro-Sonja Tablet), 1 TAB PO DAILY, (Reported) Furosemide (Lasix), 1 TAB PO BID, (Reported) Gabapentin (Gabapentin), 300 MG PO TID, (Reported) Hyoscyamine Sulfate (Levsin-Sl), 1 TAB SL PRN Q4HRS, (Reported) Insulin Aspart (Novolog Flexpen), 5 UNITS SQ TIDWMEALS Insulin Detemir (Levemir Flextouch), 15 UNITS SQ QHS Metolazone (Metolazone), 2.5 MG PO BID Metoprolol Tartrate (Metoprolol Tartrate), 25 MG PO BID, (Reported) Omeprazole (Omeprazole), 1 CAP PO BID, (Reported) Polyethylene Glycol 3350 (Polyethylene Glycol 3350), 17 GM PO DAILY, (Reported) Tamsulosin Hcl (Tamsulosin Hcl), 1 CAP PO DAILY, (Reported) Scheduled PRN Hydrocodone Bit/Acetaminophen (Hydrocodone-Apap 5-325 ), 1 TAB PO PRN Q6HRS PRN for PAIN, (Reported) Oxycodone Hcl/Acetaminophen (Oxycodone-Acetaminophen 5-325), 1 TAB PO PRN Q6HRS PRN for MODERATE PAIN Miscellaneous Medications Lidocaine (Lidocaine), 1 EACH TP, (Reported) Discontinued Medications Amlodipine Besylate (Amlodipine Besylate), 10 MG PO DAILY, (Reported) Amoxicillin/Potassium Clav (Amox Tr-K Clv 500-125 Mg Tab), 1 TAB PO BID Clonidine Hcl (Clonidine Hcl), 1 TAB PO TID, (Reported) Fluconazole (Diflucan), 200 MG PO DAILY Hydralazine Hcl (Hydralazine Hcl), 1 TAB PO TID, (Reported) Insulin Aspart (Novolog Flexpen), 15 UNIT SQ TIDWMEALS Insulin Detemir (Levemir), 60 UNIT SQ QHS, (Reported) Lisinopril (Lisinopril), 2 TAB PO HS, (Reported) Losartan Potassium (Losartan Potassium), 100 MG PO DAILY, (Reported) Metolazone (Metolazone), 2.5 MG PO BID, (Reported) Nystatin (Nystatin), 1 TAB PO TID, (Reported) Sildenafil Citrate (Viagra), 1 TAB PO PRN, (Reported) Spironolactone (Spironolactone), 1 TAB PO DAILY, (Reported) Follow Up dr. Pollard in 2 weeks RICHY DIMAS MD Dec 20, 2016 12:54
[2016-12-20 13:50] LABS: CALCIUM 9.2 mg/dL (8.5-10.1); CREATININE 5.8 mg/dL (0.7-1.3); GFR 12.3; POTASSIUM 3.8 mmol/L (3.5-5.1)
[2016-12-20] MEDS: metOLazone 2.5 MG TABLET PO SCH ×2 (14:33→19:59)
[2016-12-20] MEDS: TAMSULOSIN 0.4 MG CAP.ER.24H. PO SCH (14:33)
[2016-12-20] MEDS: LISINOPRIL 40 MG TABLET. PO SCH (14:33)
[2016-12-20] MEDS: COLCHICINE 0.6 MG TABLET PO SCH (14:34)
[2016-12-20] MEDS: ASPIRIN CHEWABLE 81 MG TABLET. PO SCH (14:34)
[2016-12-20] MEDS: METOPROLOL TART IMMED RELEASE 25 MG TABLET. PO SCH ×2 (14:44→19:59)
[2016-12-20 15:00] VITALS: BP 180/88
[2016-12-20] MEDS: oxyCODONE/APAP 10/325 1 TAB TABLET PO PRN ×3 (16:36→23:35)
[2016-12-20 19:00] VITALS: BP 162/84
[2016-12-20] MEDS: ATORVASTATIN CALCIUM 20 MG TABLET PO SCH (19:59)
[2016-12-20] MEDS: INSULIN DETEMIR 300 UNITS/3 ML INSULN.PEN. SQ SCH (22:05)
[2016-12-20 23:00] VITALS: BP 130/57
[2016-12-21] MEDS: MORPHINE SULFATE 4 MG/ML DISP.SYRIN. IV PRN (01:46)
[2016-12-21 03:00] VITALS: BP 130/63
[2016-12-21] MEDS: oxyCODONE/APAP 10/325 1 TAB TABLET PO PRN ×5 (04:48→22:00)
[2016-12-21] MEDS: HEPARIN PF for SUB-Q USE 5,000 UNIT/0.5 ML VIAL. SQ SCH ×3 (04:49→21:58)
[2016-12-21 07:18] VITALS: BP 185/84
[2016-12-21] MEDS: INSULIN ASPART 300 UNITS/3 ML INSULN.PEN SQ SCH ×6 (08:00→17:54)
[2016-12-21] MEDS: SEVELAMER CARBONATE 800 MG TABLET. PO SCH ×3 (08:00→17:50)
[2016-12-21] MEDS: NYSTATIN 100,000 UNITS/ML 5 ML ORAL.SUSP. SWSW SCH ×3 (08:00→21:58)
[2016-12-21] MEDS: METOPROLOL TART IMMED RELEASE 25 MG TABLET. PO SCH ×2 (08:01→21:59)
[2016-12-21] MEDS: GABAPENTIN 300 MG CAPSULE. PO SCH ×3 (08:01→22:00)
[2016-12-21] MEDS: TAMSULOSIN 0.4 MG CAP.ER.24H. PO SCH (08:01)
[2016-12-21] MEDS: FUROSEMIDE 80 MG TABLET. PO SCH ×2 (08:01→14:44)
[2016-12-21] MEDS: LISINOPRIL 40 MG TABLET. PO SCH (08:01)
[2016-12-21] MEDS: metOLazone 2.5 MG TABLET PO SCH ×2 (08:02→21:58)
[2016-12-21] MEDS: COLCHICINE 0.6 MG TABLET PO SCH (08:02)
[2016-12-21] MEDS: ASPIRIN CHEWABLE 81 MG TABLET. PO SCH (08:02)
[2016-12-21 10:45] VITALS: BP 151/56
--- NOTE | 2016-12-21 13:31 | PDOC ---
PROGRESS NOTES Chief Complaint Chief Complaint B ankle fx ASSESSMENT AND PLAN: 1. Traumatic bilat nondisplaced lateral malleolus fractures, closed: seen by Dr Pollard: nonsurgical. may WBAT in CAM walkers with walker. 2. SIRS w/o infection: resolved 3. Pain control: adequate. avoid IV narcotics 4. ESRD on HD TTSat 5. DM2: well controlled on sl decreased dose of insulin, ISS 6. HTN/HLD: meds adjusted 7. Prophylaxis: heparin SQ 8. Confusion: unclear etiology. required sitter 9. Dispo: to rehab; has 2 different sizes of CAM boots, which needs to be clarified. also, increasing psychosis: obtain labs, incl NH3, as well as CT head. neurology consult History of Present Illness History of Present Illness currently appropriate behavior, but per RN, had inappropriate, OCD/psychotic behavior earlier. per , had noted that months ago, although never to this degree Vitals Vitals Vital Signs Date Time Temp Pulse Resp B/P (MAP) Pulse Ox O2 Delivery O2 Flow Rate FiO2 12/21/16 13:12 Room Air 12/21/16 10:45 99.1 68 20 151/56 (87) 94 99.1 12/20/16 08:48 4.0 Physical Exam General: Alert, Oriented X3, Cooperative, No acute distress Heart: Regular rate Lungs: Clear Abdomen: Soft Extremities: No edema Skin: No rashes Labs LABS Laboratory Tests Test 12/20/16 13:36 12/20/16 16:58 12/20/16 21:08 12/21/16 07:40 Glucose (Fingerstick) 94 mg/dL (70-99) 151 mg/dL (70-99) 115 mg/dL (70-99) 84 mg/dL (70-99) Test 12/21/16 11:54 Glucose (Fingerstick) 123 mg/dL (70-99) SARA HAWKINS MD Dec 21, 2016 13:31
[2016-12-21 14:41] VITALS: BP 158/79
--- NOTE | 2016-12-21 14:57 | RAD ---
CT head without contrast History: Confusion. Comparison: None. Procedure: Axial images are obtained of the head from the skull base through the vertex without IV contrast. Findings: The ventricles and sulci are normal for the patient's age. No mass-effect, intracranial mass, midline shift, hemorrhage or obvious acute infarction is identified. Basilar cisterns are patent. Bone windows demonstrate no significant calvarial abnormality. The visualized paranasal sinuses appear clear. Impression: 1. No acute intracranial process. PQRS Compliance Statement: One or more of the following individualized dose reduction techniques were utilized for this examination: 1. Automated exposure control 2. Adjustment of the mA and/or kV according to patient size 3. Use of iterative reconstruction technique
--- NOTE | 2016-12-21 17:15 | PDOC ---
Renal-Progress Notes Subjective Notes Notes NONE History of Present Illness Hx of present illness NO CHANGE Vitals Vitals Vital Signs Date Time Temp Pulse Resp B/P (MAP) Pulse Ox O2 Delivery O2 Flow Rate FiO2 12/21/16 14:41 99.3 69 16 158/79 (105) 95 Room Air 99.3 12/20/16 08:48 4.0 Weight Weight [ ] I.O. Intake and Output Intake and Output 12/22/16 07:00 Intake Total 440 ml Balance 440 ml Intake Oral 440 ml # Voids 2 # Bowel Movements 3 Labs Labs Laboratory Tests Test 12/20/16 21:08 12/21/16 07:40 12/21/16 11:54 12/21/16 13:40 Glucose (Fingerstick) 115 mg/dL (70-99) 84 mg/dL (70-99) 123 mg/dL (70-99) Ammonia < 10 mcmol/L (11-34) Micro Micro Microbiology 12/16/16 Blood Culture - Preliminary, Resulted NO GROWTH AFTER 4 DAYS Review of Systems Constitutional: yes: weakness, alert, oriented Ears/Nose/Throat: Yes: no symptom reported Eyes: Yes: no symptom reported Pulmonary: Yes no symptom reported Cardiovascular: Yes no symptom reported Gastrointestional: Yes: no symptom reported Genitourinary: Yes: no symptom reported Musculoskeletal: Yes: joint pain Skin: Yes no symptom reported Psychiatric/Neurological: Yes: no symptom reported Endocrine: Yes: no symptom reported Physical Exam General Appearance: no apparent distress Skin: warm Respiratory: bilateral CTA Heart: S1S2, RRR Abdomen: soft, bowel sounds present Genitourinary: bladder flat Extremities: pulses present Neurology: alert, oriented, follow commands Assessment Assessment IMP FALL ESRD ANEMIA DM II HTN-CONTROLLED BILATERAL ANKLE FX PLAN HD TOMORROW CONT ARANESP AVOID RESUMING PD TILL HIS AMBULATION IMPROVES THERAPY NAEEM JAQUEZ MD Dec 21, 2016 17:15
--- NOTE | 2016-12-21 18:20 | PDOC2 ---
NEUROLOGY CONSULT Date of Admission Date of Admission DATE: 12/21/16 TIME: 18:08 Reason for Consult Reason for Consult: IMPRESSION: Confusional episodes. Agitation. Psychosis. Ankle fracture, bilateral HTN HLD DM Renal failure on dialysis. Diabetic peripheral neuropathy? RECOMMENDATIONS/PLAN: EEG Lab: see orders. Continue medical and surgical treatment. OT/PT. Discussed with his at bedside on 12/21/16. HCT on 12/21/16: negative. HISTORY OF THE PRESENT ILLNESS: 56-y-old AA male patient with above medical diseases had a fall on or about which resulted in his bilateral ankle fracture. he has been taken Narcotics for pain. he developed symptoms of intermittent confusional episode, agitation, restless, and psychosis per his nurse in the the recent past 2 days. No focalized motor or sensory deficits besides fractures in his ankle. Past Medical History Cardiovascular: HTN, Hyperlipidemia Pulmonary: Other CENTRAL NERVOUS SYSTEM: Periperal neuropathy GI: No pertinent hx Heme/Onc: No pertinent hx, Other Hepatobiliary: No pertinent hx Psych: Anxiety Rheumatologic: No pertinent hx Infectious disease: No pertinent hx Renal/: Chronic renal failure Endocrine: Diabetes Past Surgical History Appendectomy, Cholecystectomy, Tonsillectomy Family History Diabetes Social History ALCOHOL: none Drugs: None Lives: with Family Domestic Violence: Neg ALLERGY: Reviewed. MEDICATIONS: Refer to MAR REVIEW OF SYSTEMS: Constitutional: No malnutrition, weight loss, cachexia. Head: No recent traumatic brain or head injury. Skin: No edema, or rash. Ear: No infection, tinnitus. Eyes: No vision loss or color blindness. Nose: No bleeding or purulent discharges. Hearing: No hearing decrease. Neck: No recent traumatic injury. Cardiac: HTN, HLD. Pulmonary: No COPD. GI: No GI ulcer, GI bleeding. Urinary/genital: No dysuria, incontinence, urinary retention. Endocrinologic: Diabetes Mellitus. Skeletomuscular: No muscular atrophy, deformity. Neurological: see HP. Psychiatric: Denies drug use/abuse. Otherwise, not [id number] review of systems. PHYSICAL EXAMINATION: General appearance is in subacute distress. HEENT: Normocephalic and nontraumatic. Eyes, nose, ears, and throat are unremarkable. Neck is supple. No lymphadenopathy. No bruits are heard over the carotid artery. No crepitus. Cardiovascular: S1, S2, regular rate and rhythm. Pulmonary: Clear to auscultation bilaterally. Abdomen: Bowel sounds are positive. Abdomen is soft, nontender, and nondistended. Extremities: No rash, lesions, or edema. No restriction of range of motion NEUROLOGICAL EXAMINATION: Awake. Oriented to time, place and person, reaction was slow. PERRL. EOMI. CN: no focal findings. Muscle tone: within normal. Muscle strength: 5 UE, 4+ LE DTR: 2- Plantar reflex: Unable to exam. Boots in LE. Gait: not examined in bed. Sensory exam: no abnormal findings. No cerebellar signs elicited. F-T-N test fine. Current Medications Current Medications Current Medications Ondansetron HCl (Zofran) 4 mg PRN Q6HRS PRN IV NAUSEA/VOMITING Last administered on 12/19/16 03:46; Start 12/15/16 at 21:45 Hydralazine HCl (Apresoline) 10 mg PRN Q4HRS PRN PO ELEVATED BP, SEE COMMENTS Last administered on 12/17/16 14:53; Start 12/15/16 at 21:45 Diphenhydramine HCl (Benadryl) 25 mg PRN Q6HRS PRN PO ITCHING Last administered on 12/15/16 22:34; Start 12/15/16 at 21:45 Insulin Detemir (Levemir) 25 units QHS SQ Last administered on 12/15/16 23:28 ; Start 12/15/16 at 22:00; Stop 12/16/16 at 09:30; Status DC Insulin Aspart (NovoLOG) 0-9 UNITS TIDWMEALS SQ Last administered on 18:06; Start 12/16/16 at 08:00 Dextrose (Dextrose 50%-Water Syringe) 12.5 gm PRN Q15MIN PRN IV SEE COMMENTS Last administered on 12/16/16 06:12; Start 12/15/16 at 21:45 Acetaminophen (Tylenol) 650 mg PRN Q6HRS PRN PO FEVER Last administered on 19:35; Start 12/15/16 at 21:45 Morphine Sulfate 2 mg PRN Q4HRS PRN IV MODERATE PAIN; Start 12/15/16 at 21:45 ; Stop 12/21/16 at 13:29; Status DC Morphine Sulfate 4 mg PRN Q4HRS PRN IV SEVERE PAIN Last administered on 01:46; Start 12/15/16 at 21:45; Stop 12/21/16 at 13:29; Status DC Oxycodone/ Acetaminophen (Percocet 5/325) 1 tab PRN Q6HRS PRN PO MODERATE PAIN Last administered on 12/20/16 00:33; Start 12/15/16 at 21:45 Sodium Chloride 1,000 ml @ 1,000 mls/hr 1X ONCE IV Last administered on 12/15 22:00; Start 12/15/16 at 22:00; Stop 12/15/16 at 22:59; Status DC Gabapentin (Neurontin) 600 mg TID PO Last administered on 12/21/16 14:44; Start 12/15/16 at 22:45 Hydromorphone HCl (Dilaudid) 1 mg 1X PRN PRN IV PAIN Last administered on 12/16 00:59; Start 12/16/16 at 00:15; Stop 12/16/16 at 01:00; Status DC Hydromorphone HCl (Dilaudid) 1 mg 1X PRN PRN IV PAIN; Start 12/16/16 at 06:15 ; Stop 12/16/16 at 07:00; Status DC Insulin Detemir (Levemir) 20 units QHS SQ Last administered on 12/18/16 21:49 ; Start 12/16/16 at 21:00; Stop 12/19/16 at 09:27; Status DC Amlodipine Besylate (Norvasc) 10 mg DAILY PO ; Start 12/16/16 at 10:00; Stop 12/16/16 at 10:48; Status DC Atorvastatin Calcium (Lipitor) 20 mg QHS PO Last administered on 12/20/16 19: 59; Start 12/16/16 at 21:00 Colchicine (Colcrys) 0.6 mg DAILY PO Last administered on 12/21/16 08:02; Start 12/16/16 at 10:00 Furosemide (Lasix) 80 mg BID92 PO Last administered on 12/21/16 14:44; Start 12/16/16 at 10:00 Insulin Aspart (NovoLOG) 7 units TIDWMEALS SQ Last administered on 12/18/16 17:15; Start 12/16/16 at 12:00; Stop 12/19/16 at 09:27; Status DC Lisinopril (Prinivil) 40 mg DAILY PO Last administered on 12/17/16 14:54; Start 12/16/16 at 10:00; Stop 12/18/16 at 11:52; Status DC Metolazone (Zaroxolyn) 2.5 mg BID PO Last administered on 12/21/16 08:02; Start 12/16/16 at 10:00 Metoprolol Tartrate (Lopressor) 25 mg BID PO Last administered on 12/21/16 08 :01; Start 12/16/16 at 10:00 Tamsulosin HCl (Flomax) 0.4 mg DAILY PO Last administered on 12/21/16 08:01; Start 12/16/16 at 10:00 Non-Formulary Medication 210 mg TIDWMEALS PO ; Start 12/16/16 at 12:00; Stop 12/17/16 at 16:14; Status DC Non-Formulary Medication 600 mg TID PO ; Start 12/16/16 at 14:00; Stop at 14:00; Status DC Hydralazine HCl (Apresoline) 100 mg TID PO Last administered on 12/17/16 21: 11; Start 12/16/16 at 10:00; Stop 12/18/16 at 11:52; Status DC Non-Formulary Medication 60 unit QHS SQ ; Start 12/16/16 at 21:00; Stop at 21:00; Status DC Non-Formulary Medication 100 mg DAILY PO ; Start 12/17/16 at 09:00; Stop 12/17 at 09:00; Status DC Non-Formulary Medication 1 tab TID PO ; Start 12/16/16 at 14:00; Stop at 15:46; Status DC Heparin Sodium (Porcine) (Heparin Sq) 5,000 unit Q8HRS SQ Last administered on 12/21/16 14:44; Start 12/16/16 at 14:00 Oxycodone/ Acetaminophen (Percocet 10/325) 1 tab PRN Q4HRS PRN PO PAIN SEVERE Last administered on 12/21/16 13:12; Start 12/16/16 at 09:45 Aspirin (Children'S Aspirin) 81 mg DAILY PO Last administered on 12/21/16 08: 02; Start 12/16/16 at 11:30 Info (PHARMACY MONITORING -- do not chart) 1 each PRN DAILY PRN MC SEE COMMENTS ; Start 12/16/16 at 13:00; Status Cancel Fentanyl Citrate (Fentanyl 2ml Vial) 50 mcg PRN Q2HR PRN IV PAIN Last administered on 12/18/16 09:18; Start 12/16/16 at 15:15; Stop 12/21/16 at 13 :29; Status DC Lorazepam (Ativan) 1 mg PRN Q8HRS PRN IV ANXIETY / AGITATION Last administered on 12/19/16 03:46; Start 12/16/16 at 22:15 Haloperidol Lactate (Haldol) 5 mg 1X ONCE IVP Last administered on 12/17/16 05:54; Start 12/17/16 at 05:45; Stop 12/17/16 at 05:46; Status DC Sodium Chloride 1,000 ml @ 1,000 mls/hr Q1H PRN IV hypotension; Start at 08:25; Stop 12/17/16 at 14:24; Status DC Albumin Human 200 ml @ 200 mls/hr 1X PRN PRN IV Hypotension; Start 12/17/16 at 08:30; Stop 12/17/16 at 14:29; Status DC Midodrine (Proamatine) 5 mg 1X ONCE PO ; Start 12/17/16 at 08:30; Stop at 09:33; Status DC Acetaminophen (Tylenol) 500 mg 1X PRN PRN PO MILD PAIN / TEMP; Start 12/17/16 at 08:30; Stop 12/18/16 at 08:29; Status DC Diphenhydramine HCl (Benadryl) 25 mg 1X PRN PRN IV ITCHING Last administered on 12/18/16 01:17; Start 12/17/16 at 08:30; Stop 12/18/16 at 08:29; Status DC Diphenhydramine HCl (Benadryl) 25 mg 1X PRN PRN IV ITCHING; Start 12/17/16 at 08:30; Stop 12/18/16 at 08:29; Status DC Sodium Chloride (Normal Saline Flush) 10 ml 1X PRN PRN IV CASING COOKER catheter pack; Start 12/17/16 at 08:30; Stop 12/18/16 at 08:29; Status DC Labetalol HCl (Normodyne) 10 mg PRN Q1HR PRN IVP SBP > 180; Start 12/17/16 at 08:30; Stop 12/18/16 at 08:29; Status DC Clonidine HCl (Catapres) 0.1 mg 1X PRN PRN PO SBP > 180; Start 12/17/16 at 08: 30; Stop 12/18/16 at 08:29; Status DC Info (PHARMACY MONITORING -- do not chart) 1 each PRN DAILY PRN MC SEE COMMENTS ; Start 12/17/16 at 08:30; Status Cancel Info (PHARMACY MONITORING -- do not chart) 1 each PRN DAILY PRN MC SEE COMMENTS ; Start 12/17/16 at 08:30; Status Cancel Darbepoetin [place] (Aranesp) 60 mcg WEEKLYHS SQ ; Start 12/17/16 at 21:00 Haloperidol (Haldol) 5 mg PRN Q6HRS PRN PO AGITATION Last administered on 12/20 14:34; Start 12/17/16 at 13:15 Nystatin 5 ml TID SWSW Last administered on 12/21/16 14:44; Start 12/17/16 at 15:00 Sevelamer Carbonate (Renvela) 1,600 mg TIDWMEALS PO Last administered on 17:50; Start 12/17/16 at 17:00 Lisinopril (Prinivil) 40 mg BID PO Last administered on 12/18/16 21:43; Start 12/18/16 at 21:00; Stop 12/19/16 at 09:27; Status DC Amlodipine Besylate (Norvasc) 5 mg DAILY PO ; Start 12/18/16 at 12:00; Stop at 09:27; Status DC Insulin Aspart (NovoLOG) 5 units TIDWMEALS SQ Last administered on 12/21/16 17:54; Start 12/19/16 at 12:00 Insulin Detemir (Levemir) 15 units QHS SQ Last administered on 12/20/16 22:05 ; Start 12/19/16 at 21:00 Lisinopril (Prinivil) 40 mg DAILY PO Last administered on 12/21/16 08:01; Start 12/20/16 at 09:00 Sodium Chloride 1,000 ml @ 1,000 mls/hr Q1H PRN IV hypotension; Start at 07:58; Stop 12/20/16 at 13:57; Status DC Sodium Chloride (Normal Saline Flush) 10 ml 1X PRN PRN IV AP catheter pack Last administered on 12/20/16 13:04; Start 12/20/16 at 08:00; Stop 12/21/16 at 07:59; Status DC Sodium Chloride (Normal Saline Flush) 10 ml 1X PRN PRN IV CASING COOKER catheter pack Last administered on 12/20/16 13:04; Start 12/20/16 at 08:00; Stop 12/21/16 at 07:59; Status DC Sodium Chloride 1,000 ml @ 400 mls/hr Q2H30M PRN IV PATENCY; Start 12/20/16 at 07:58; Stop 12/20/16 at 19:57; Status DC Info (PHARMACY MONITORING -- do not chart) 1 each PRN DAILY PRN MC SEE COMMENTS ; Start 12/20/16 at 08:00; Stop 12/20/16 at 08:07; Status DC Info (PHARMACY MONITORING -- do not chart) 1 each PRN DAILY PRN MC SEE COMMENTS ; Start 12/20/16 at 08:00 Diphenhydramine HCl (Benadryl) 25 mg 1X ONCE IVP Last administered on 10:26; Start 12/20/16 at 10:15; Stop 12/20/16 at 10:16; Status DC Active Scripts Active Oxycodone-Acetaminophen 5-325 (Oxycodone Hcl/Acetaminophen) 1 Each Tablet 1 Tab PO PRN Q6HRS PRN Reported Gabapentin 300 Mg Capsule 300 Mg PO TID Polyethylene Glycol 3350 255 Gm Powder 17 Gm PO DAILY Omeprazole 20 Mg Capsule.dr 1 Cap PO BID Lidocaine 1 Each Adh..patch 1 Each TP Levsin-Sl (Hyoscyamine Sulfate) 0.125 Mg Tab.subl 1 Tab SL PRN Q4HRS Hydrocodone-Apap 5-325 (Hydrocodone Bit/Acetaminophen) 1 Each Tablet 1 Tab PO PRN Q6HRS PRN Fluticasone Propionate Nasal [place] (Fluticasone Propionate) 16 Gm [place].susp 2 [place] NS DAILY Finasteride 5 Mg Tablet 1 Tab PO DAILY Docusate Sodium 100 Mg Capsule 1 Cap PO BID Calcitriol 0.25 Mcg Capsule 1 Cap PO DAILY Lasix (Furosemide) 80 Mg Tablet 1 Tab PO BID Ferric Citrate 210 Mg Tablet 210 Mg PO TIDWMEALS Tamsulosin Hcl 0.4 Mg Cap.er.24h 1 Cap PO DAILY Metoprolol Tartrate 25 Mg Tablet 25 Mg PO BID Nephro-Sonja Tablet (Folic Acid/Vitamin B Comp W-C) 0.8 Mg Tablet 1 Tab PO DAILY Lipitor (Atorvastatin Calcium) 20 Mg Tablet 20 Mg PO DAILY Aspirin 81 Mg Tab.chew 1 Tab PO DAILY Allergies Allergies: Coded Allergies: ibuprofen (Verified Allergy, Severe, swelling, 01/30/15) Vitals VITALS Vital Signs Date Time Temp Pulse Resp B/P (MAP) Pulse Ox O2 Delivery O2 Flow Rate FiO2 12/21/16 14:41 99.3 69 16 158/79 (105) 95 Room Air 99.3 12/20/16 08:48 4.0 Labs Labs Laboratory Tests Test 12/19/16 21:27 12/20/16 07:42 12/20/16 11:24 12/20/16 13:00 Glucose (Fingerstick) 116 mg/dL (70-99) 113 mg/dL (70-99) 116 mg/dL (70-99) Sodium Level 137 mmol/L (136-145) Potassium Level 3.8 mmol/L (3.5-5.1) Chloride Level 97 mmol/L (98-107) Carbon Dioxide Level 32 mmol/L (21-32) Anion Gap 8 (6-14) Blood Urea Nitrogen 31 mg/dL (8-26) Creatinine 5.8 mg/dL (0.7-1.3) Estimated GFR (Cockcroft-Gault) 12.3 Glucose Level 100 mg/dL (70-99) Calcium Level 9.2 mg/dL (8.5-10.1) Test 12/20/16 13:36 12/20/16 16:58 12/20/16 21:08 12/21/16 07:40 Glucose (Fingerstick) 94 mg/dL (70-99) 151 mg/dL (70-99) 115 mg/dL (70-99) 84 mg/dL (70-99) Test 12/21/16 11:54 12/21/16 13:40 12/21/16 17:52 Glucose (Fingerstick) 123 mg/dL (70-99) 112 mg/dL (70-99) Ammonia < 10 mcmol/L (11-34) Laboratory Tests Test 12/20/16 21:08 12/21/16 07:40 12/21/16 11:54 12/21/16 13:40 Glucose (Fingerstick) 115 mg/dL (70-99) 84 mg/dL (70-99) 123 mg/dL (70-99) Ammonia < 10 mcmol/L (11-34) Test 12/21/16 17:52 Glucose (Fingerstick) 112 mg/dL (70-99) CIELO GIRON MD Dec 21, 2016 18:20
[2016-12-21 19:00] VITALS: BP 168/82
[2016-12-21] MEDS: INSULIN DETEMIR 300 UNITS/3 ML INSULN.PEN. SQ SCH (21:00)
[2016-12-21] MEDS: ATORVASTATIN CALCIUM 20 MG TABLET PO SCH (21:58)
[2016-12-21 22:36] VITALS: BP 156/72
[2016-12-21 23:50] LABS: BILIRUBIN,URINE NEGATIVE (NEG); GLUCOSE,URINE NEGATIVE (NEG); NITRITE,URINE NEGATIVE (NEG); PROTEIN,URINE 100 mg/dL (NEG-TRACE); UROBILINOGEN,URINE 0.2 mg/dL (0.2 mg/dL)
[2016-12-21 23:56] LABS: BACTERIA,URINE 0 /HPF (0-FEW); RBC,URINE OCC /HPF (0-2); SQUAMOUS EPITHELIAL CELL,UR OCC /LPF
[2016-12-21 23:57] LABS: BARBITURATES NEG (NEG); BENZODIAZEPINES NEG (NEG); CANNABINOIDS NEG (NEG); COCAINE NEG (NEG); METHADONE NEG (NEG); OPIATES POS (NEG); PHENCYCLIDINE NEG (NEG)
[2016-12-22 03:09] VITALS: BP 170/80
[2016-12-22] MEDS: oxyCODONE/APAP 10/325 1 TAB TABLET PO PRN ×5 (05:12→23:45)
[2016-12-22] MEDS: HEPARIN PF for SUB-Q USE 5,000 UNIT/0.5 ML VIAL. SQ SCH ×3 (06:00→23:47)
[2016-12-22 07:17] VITALS: BP 143/63
[2016-12-22] MEDS: INSULIN ASPART 300 UNITS/3 ML INSULN.PEN SQ SCH ×6 (08:26→17:08)
[2016-12-22] MEDS: NYSTATIN 100,000 UNITS/ML 5 ML ORAL.SUSP. SWSW SCH ×3 (08:46→21:00)
[2016-12-22] MEDS: SEVELAMER CARBONATE 800 MG TABLET. PO SCH ×3 (08:47→17:04)
[2016-12-22] MEDS: GABAPENTIN 300 MG CAPSULE. PO SCH ×4 (09:00→19:32)
[2016-12-22] MEDS ORDERED: IV NORMAL SALINE 1000ML BAG 1,000 ML IV PRN ×2 (09:01)
[2016-12-22] MEDS ORDERED: 0.9 % SODIUM CHLORIDE 10 ML DISP.SYRIN. IV PRN ×2 (09:15)
[2016-12-22] MEDS ORDERED: DIALYSIS PATIENT. MC PRN ×2 (09:15)
[2016-12-22 10:30] LABS: CREATININE 11.8 mg/dL (0.7-1.3); GFR 5.4; POTASSIUM 4.2 mmol/L (3.5-5.1)
[2016-12-22 11:00] VITALS: BP 189/98
--- NOTE | 2016-12-22 12:24 | PDOC ---
Renal-Progress Notes Subjective Notes Notes STABLE History of Present Illness Hx of present illness NO CHANGE Vitals Vitals Vital Signs Date Time Temp Pulse Resp B/P (MAP) Pulse Ox O2 Delivery O2 Flow Rate FiO2 12/22/16 11:00 114 18 189/98 (128) 93 Room Air 12/22/16 07:17 98.1 98.1 Weight Weight [ ] Labs Labs Laboratory Tests Test 12/21/16 13:40 12/21/16 13:45 12/21/16 17:52 12/21/16 21:56 Ammonia < 10 mcmol/L (11-34) Vitamin B12 Level 683 pg/mL (247-911) Thyroid Stimulating Hormone (TSH) 1.475 uIU/mL (0.358-3.74) Glucose (Fingerstick) 112 mg/dL (70-99) 82 mg/dL (70-99) Test 12/21/16 23:00 12/22/16 07:11 12/22/16 10:00 Urine Collection Type Unknown Urine Color Yellow Urine Clarity Clear Urine pH 7.0 Urine Specific Natalia 1.010 Urine Protein 100 mg/dL (NEG-TRACE) Urine Glucose (UA) Negative mg/dL (NEG) Urine Ketones (Stick) Negative mg/dL (NEG) Urine Blood Small (NEG) Urine Nitrite Negative (NEG) Urine Bilirubin Negative (NEG) Urine Urobilinogen Dipstick 0.2 mg/dL (0.2 mg/dL) Urine Leukocyte Esterase Trace (NEG) Urine RBC Occ /HPF (0-2) Urine WBC 5-10 /HPF (0-4) Urine Squamous Epithelial Cells Occ /LPF Urine Amorphous Sediment Present /HPF Urine Bacteria 0 /HPF (0-FEW) Urine Mucus Slight /LPF Urine Opiates Screen Pos (NEG) Urine Methadone Screen Neg (NEG) Urine Barbiturates Neg (NEG) Urine Phencyclidine Screen Neg (NEG) Urine Amphetamine/Methamphetamine Neg (NEG) Urine Benzodiazepines Screen Neg (NEG) Urine Cocaine Screen Neg (NEG) Urine Cannabinoids Screen Neg (NEG) Urine Ethyl Alcohol Neg (NEG) Glucose (Fingerstick) 93 mg/dL (70-99) Sodium Level 135 mmol/L (136-145) Potassium Level 4.2 mmol/L (3.5-5.1) Chloride Level 95 mmol/L (98-107) Carbon Dioxide Level 31 mmol/L (21-32) Anion Gap 9 (6-14) Blood Urea Nitrogen 72 mg/dL (8-26) Creatinine 11.8 mg/dL (0.7-1.3) Estimated GFR (Cockcroft-Gault) 5.4 Glucose Level 125 mg/dL (70-99) Calcium Level 10.0 mg/dL (8.5-10.1) Micro Micro Microbiology 12/16/16 Blood Culture - Final, Complete NO GROWTH AFTER 5 DAYS Review of Systems Constitutional: yes: weakness, alert, oriented Ears/Nose/Throat: Yes: no symptom reported Eyes: Yes: no symptom reported Pulmonary: Yes no symptom reported Cardiovascular: Yes no symptom reported Gastrointestional: Yes: no symptom reported Genitourinary: Yes: no symptom reported Musculoskeletal: Yes: joint pain Skin: Yes no symptom reported Psychiatric/Neurological: Yes: no symptom reported Endocrine: Yes: no symptom reported Physical Exam General Appearance: no apparent distress Skin: warm Respiratory: bilateral CTA Heart: S1S2, RRR Abdomen: soft, bowel sounds present Genitourinary: bladder flat Extremities: pulses present Neurology: alert, oriented, follow commands Assessment Assessment IMP FALL ESRD ANEMIA DM II HTN-CONTROLLED BUT LABILE BILATERAL ANKLE FX PLAN HD TODAY UF TO DW CONT ARANESP THERAPY NAEEM JAQUEZ MD Dec 22, 2016 12:24
[2016-12-22] MEDS: FUROSEMIDE 80 MG TABLET. PO SCH ×2 (14:00→14:46)
--- NOTE | 2016-12-22 14:03 | PDOC ---
Provider Note Provider Note [facility] DISCHARGE SUMMARY IPC Patient Name: Juli Alvares Unit Number: [id number] Date of : 1960 Patient Status: Admitted Inpatient Attending Doctor: Richy Dimas MD Discharge Summary IPC Discharge Summary IPC Date of Admission: Dec 15, 2016 Discharge Date: Dec 22, 2016 Admitting Diagnosis traumatic bl fibular fx post fall, no sx ESRD on HD TTSat dm2 on insulin htn hld SIRS wo infection Problems: CONSULTS dr. Pollard Brief Hospital Course 56yo M, with HTN, DM2 ON insulin, ESRD on HD TTSat, was sent from [facility] for ankle fx. Pt is a poor historian, not sure about his baseline tho. It took him a long time but still hard to describe what really happened. He said he finished his HD yesterday, ( had PD before, catheter removed 2/2 infection and on HD with right upper chest HD cath [id number], no AVF). He was at home,walking out of bathroom, then fell on both knees than backwards, denies hurt ankle but said "too much pressure on knees to breake the ankle". didnot lose consicousness or hit head. still could walk, went to [facility], who did XR showed bl fibular fx and talked to dr. Pollard's PA and transferred here. severe pain overnight, agitated with dilaudid iv. XR in [facility] showed bl fibular fx, dr. Pollard consulted, no sx needed. Pt got his CAM walker, then can do PTOT. recommend dc to rehab. cont HD, PD already dced before admission. also decreased insulin and HTN meds. dc time 35min ADDENDUM: DID NOT DC ON 12/20 BEC OF CONFUSION, CONSULTS THOUGHT LIKELY MED RELATED, I SEE HIM IN HD TODAY, WIDE AWAKE, IN HD. MAD BEC DOESNT WANT TO GO TO [facility], CLAIMS NO BETTER THERE, WILL TRY TO ARRANGE HH DW SE AND PT - SIGNIF TIME, EXPLAINED HH VS SNU SEEN AND EXAMINED General: Alert, Oriented X3 Heart: Regular rate, Normal S1, Normal S2 Lungs: Clear Abdomen: Soft Extremities: Other ( Bilat post splints. ) Problems: Disposition rehab CONDITION AT DISCHARGE: Improved, Stable Diet renal Scheduled Aspirin (Aspirin), 1 TAB PO DAILY, (Reported) Atorvastatin Calcium (Lipitor), 20 MG PO DAILY, (Reported) Calcitriol (Calcitriol), 1 CAP PO DAILY, (Reported) Docusate Sodium (Docusate Sodium), 1 CAP PO BID, (Reported) Ferric Citrate (Ferric Citrate), 210 MG PO TIDWMEALS, (Reported) Finasteride (Finasteride), 1 TAB PO DAILY, (Reported) Fluticasone Propionate (Fluticasone Propionate Nasal [place]), 2 SPRAY NS DAILY, ( Reported) Folic Acid/Vitamin B Comp W-C (Nephro-Sonja Tablet), 1 TAB PO DAILY, (Reported) Furosemide (Lasix), 1 TAB PO BID, (Reported) Gabapentin (Gabapentin), 300 MG PO TID, (Reported) Hyoscyamine Sulfate (Levsin-Sl), 1 TAB SL PRN Q4HRS, (Reported) Insulin Aspart (Novolog Flexpen), 5 UNITS SQ TIDWMEALS Insulin Detemir (Levemir Flextouch), 15 UNITS SQ QHS Metolazone (Metolazone), 2.5 MG PO BID Metoprolol Tartrate (Metoprolol Tartrate), 25 MG PO BID, (Reported) Omeprazole (Omeprazole), 1 CAP PO BID, (Reported) Polyethylene Glycol 3350 (Polyethylene Glycol 3350), 17 GM PO DAILY, (Reported) Tamsulosin Hcl (Tamsulosin Hcl), 1 CAP PO DAILY, (Reported) Scheduled PRN Hydrocodone Bit/Acetaminophen (Hydrocodone-Apap 5-325 ), 1 TAB PO PRN Q6HRS PRN for PAIN, (Reported) Oxycodone Hcl/Acetaminophen (Oxycodone-Acetaminophen 5-325), 1 TAB PO PRN Q6HRS PRN for MODERATE PAIN Miscellaneous Medications Lidocaine (Lidocaine), 1 EACH TP, (Reported) Discontinued Medications Amlodipine Besylate (Amlodipine Besylate), 10 MG PO DAILY, (Reported) Amoxicillin/Potassium Clav (Amox Tr-K Clv 500-125 Mg Tab), 1 TAB PO BID Clonidine Hcl (Clonidine Hcl), 1 TAB PO TID, (Reported) Fluconazole (Diflucan), 200 MG PO DAILY Hydralazine Hcl (Hydralazine Hcl), 1 TAB PO TID, (Reported) Insulin Aspart (Novolog Flexpen), 15 UNIT SQ TIDWMEALS Insulin Detemir (Levemir), 60 UNIT SQ QHS, (Reported) Lisinopril (Lisinopril), 2 TAB PO HS, (Reported) Losartan Potassium (Losartan Potassium), 100 MG PO DAILY, (Reported) Metolazone (Metolazone), 2.5 MG PO BID, (Reported) Nystatin (Nystatin), 1 TAB PO TID, (Reported) Sildenafil Citrate (Viagra), 1 TAB PO PRN, (Reported) Spironolactone (Spironolactone), 1 TAB PO DAILY, (Reported) Follow Up dr. Pollard in 2 weeks RICHY DIMAS MD Dec 20, 2016 12:54 KAYCEE AVILES MD Dec 22, 2016 14:02
[2016-12-22] MEDS: ASPIRIN CHEWABLE 81 MG TABLET. PO SCH (14:46)
[2016-12-22] MEDS: COLCHICINE 0.6 MG TABLET PO SCH (14:46)
[2016-12-22] MEDS: LISINOPRIL 40 MG TABLET. PO SCH (14:46)
[2016-12-22] MEDS: metOLazone 2.5 MG TABLET PO SCH ×2 (14:46→20:40)
[2016-12-22] MEDS: TAMSULOSIN 0.4 MG CAP.ER.24H. PO SCH (14:46)
[2016-12-22] MEDS: METOPROLOL TART IMMED RELEASE 25 MG TABLET. PO SCH ×2 (14:47→20:41)
[2016-12-22 15:30] VITALS: BP 193/102
--- NOTE | 2016-12-22 18:01 | PDOC ---
PROGRESS NOTES Assessment Assessment Confusional episodes. Agitation. Psychosis. Ankle fracture, bilateral HTN HLD DM Renal failure on dialysis. Diabetic peripheral neuropathy? RECOMMENDATIONS/PLAN: EEG, still waiting for. Continue medical and surgical treatment. OT/PT. Discussed with his at bedside on 12/22/16. HCT on 12/21/16: negative. HISTORY OF THE PRESENT ILLNESS: 56-y-old AA male patient with above medical diseases had a fall on or about which resulted in his bilateral ankle fracture. he has been taken Narcotics for pain. he developed symptoms of intermittent confusional episode, agitation, restless, and psychosis per his nurse in the the recent past 2 days. No focalized motor or sensory deficits besides fractures in his ankle. MS changes significantly improved on 12/22/16. Past Medical History Cardiovascular: HTN, Hyperlipidemia Pulmonary: Other CENTRAL NERVOUS SYSTEM: Periperal neuropathy GI: No pertinent hx Heme/Onc: No pertinent hx, Other Hepatobiliary: No pertinent hx Psych: Anxiety Rheumatologic: No pertinent hx Infectious disease: No pertinent hx Renal/: Chronic renal failure Endocrine: Diabetes Past Surgical History Appendectomy, Cholecystectomy, Tonsillectomy Family History Diabetes Social History ALCOHOL: none Drugs: None Lives: with Family Domestic Violence: Neg ALLERGY: Reviewed. MEDICATIONS: Refer to [facility] REVIEW OF SYSTEMS: Constitutional: No malnutrition, weight loss, cachexia. Head: No recent traumatic brain or head injury. Skin: No edema, or rash. Ear: No infection, tinnitus. Eyes: No vision loss or color blindness. Nose: No bleeding or purulent discharges. Hearing: No hearing decrease. Neck: No recent traumatic injury. Cardiac: HTN, HLD. Pulmonary: No COPD. GI: No GI ulcer, GI bleeding. Urinary/genital: No dysuria, incontinence, urinary retention. Endocrinologic: Diabetes Mellitus. Skeletomuscular: No muscular atrophy, deformity. Neurological: see HP. Psychiatric: Denies drug use/abuse. Otherwise, not [id number] review of systems. PHYSICAL EXAMINATION: General appearance is in subacute distress. HEENT: Normocephalic and nontraumatic. Eyes, nose, ears, and throat are unremarkable. Neck is supple. No lymphadenopathy. No bruits are heard over the carotid artery. No crepitus. Cardiovascular: S1, S2, regular rate and rhythm. Pulmonary: Clear to auscultation bilaterally. Abdomen: Bowel sounds are positive. Abdomen is soft, nontender, and nondistended. Extremities: No rash, lesions, or edema. No restriction of range of motion NEUROLOGICAL EXAMINATION: Awake. Oriented to time, place and person, reaction was slow. PERRL. EOMI. CN: no focal findings. Muscle tone: within normal. Muscle strength: 5 DTR: 2- Plantar reflex: Unable to exam. Boots in LE. Gait: not examined in bed. Sensory exam: no abnormal findings. No cerebellar signs elicited. F-T-N test fine. Objective Objective Vital Signs Date Time Temp Pulse Resp B/P (MAP) Pulse Ox O2 Delivery O2 Flow Rate FiO2 12/22/16 15:56 93 Room Air 4.0 12/22/16 15:30 98.4 112 20 193/102 (132) 98.4 Intake and Output 12/23/16 07:00 Intake Total 480 ml Balance 480 ml Intake Oral 480 ml # Bowel Movements 1 Vitals Signs Vitals VS - Last 72 Hours, by Label Date Time Temp Pulse Resp B/P (MAP) Pulse Ox O2 Delivery O2 Flow Rate FiO2 12/22/16 15:56 93 Room Air 4.0 12/22/16 15:30 98.4 112 20 193/102 (132) 94 Room Air 98.4 12/22/16 14:47 114 189/98 12/22/16 14:46 114 189/98 12/22/16 14:45 93 Room Air 4.0 12/22/16 11:00 114 18 189/98 (128) 93 Room Air 12/22/16 08:47 Room Air 12/22/16 08:30 Room Air 12/22/16 07:17 98.1 73 18 143/63 (89) 91 Room Air 98.1 12/22/16 06:12 18 12/22/16 05:12 20 90 Room Air 12/22/16 03:09 98.1 109 16 170/80 (110) 90 Room Air 98.1 12/22/16 01:10 Room Air 12/21/16 22:36 99.1 93 16 156/72 (100) 96 Room Air 99.1 12/21/16 22:00 16 98 Room Air 12/21/16 21:59 72 168/72 12/21/16 19:32 Room Air 12/21/16 19:00 98.8 72 12 168/82 (110) 94 Room Air 98.8 12/21/16 18:22 Room Air 12/21/16 14:41 99.3 69 16 158/79 (105) 95 Room Air 99.3 12/21/16 13:12 Room Air 12/21/16 10:45 99.1 68 20 151/56 (87) 94 Room Air 99.1 12/21/16 08:38 Room Air 12/21/16 08:01 113 185/84 12/21/16 08:01 113 185/84 12/21/16 07:18 98.1 113 16 185/84 (117) 92 Room Air 98.1 12/21/16 07:10 Room Air Laboratory Laboratory Laboratory Tests Test 12/21/16 21:56 12/21/16 23:00 12/22/16 07:11 12/22/16 10:00 Glucose (Fingerstick) 82 mg/dL (70-99) 93 mg/dL (70-99) Urine Collection Type Unknown Urine Color Yellow Urine Clarity Clear Urine pH 7.0 Urine Specific [place] 1.010 Urine Protein 100 mg/dL (NEG-TRACE) Urine Glucose (UA) Negative mg/dL (NEG) Urine Ketones (Stick) Negative mg/dL (NEG) Urine Blood Small (NEG) Urine Nitrite Negative (NEG) Urine Bilirubin Negative (NEG) Urine Urobilinogen Dipstick 0.2 mg/dL (0.2 mg/dL) Urine Leukocyte Esterase Trace (NEG) Urine RBC Occ /HPF (0-2) Urine WBC 5-10 /HPF (0-4) Urine Squamous Epithelial Cells Occ /LPF Urine Amorphous Sediment Present /HPF Urine Bacteria 0 /HPF (0-FEW) Urine Mucus Slight /LPF Urine Opiates Screen Pos (NEG) Urine Methadone Screen Neg (NEG) Urine Barbiturates Neg (NEG) Urine Phencyclidine Screen Neg (NEG) Urine Amphetamine/Methamphetamine Neg (NEG) Urine Benzodiazepines Screen Neg (NEG) Urine Cocaine Screen Neg (NEG) Urine Cannabinoids Screen Neg (NEG) Urine Ethyl Alcohol Neg (NEG) Sodium Level 135 mmol/L (136-145) Potassium Level 4.2 mmol/L (3.5-5.1) Chloride Level 95 mmol/L (98-107) Carbon Dioxide Level 31 mmol/L (21-32) Anion Gap 9 (6-14) Blood Urea Nitrogen 72 mg/dL (8-26) Creatinine 11.8 mg/dL (0.7-1.3) Estimated GFR (Cockcroft-Gault) 5.4 Glucose Level 125 mg/dL (70-99) Calcium Level 10.0 mg/dL (8.5-10.1) Test 12/22/16 16:45 Glucose (Fingerstick) 128 mg/dL (70-99) Microbiology 12/16/16 Blood Culture - Final, Complete NO GROWTH AFTER 5 DAYS Medication Medications Current Medications Info (PHARMACY MONITORING -- do not chart) 1 each PRN DAILY PRN MC SEE COMMENTS ; Start 12/22/16 at 09:15; Stop 12/22/16 at 09:15; Status DC Info (PHARMACY MONITORING -- do not chart) 1 each PRN DAILY PRN MC SEE COMMENTS ; Start 12/22/16 at 09:15; Stop 12/22/16 at 09:15; Status DC Sodium Chloride 1,000 ml @ 400 mls/hr Q2H30M PRN IV PATENCY; Start 12/22/16 at 09:01; Stop 12/22/16 at 21:00 Sodium Chloride 1,000 ml @ 1,000 mls/hr Q1H PRN IV hypotension; Start at 09:01; Stop 12/22/16 at 15:00; Status DC Sodium Chloride (Normal Saline Flush) 10 ml 1X PRN PRN IV AP catheter pack; Start 12/22/16 at 09:15; Stop 12/23/16 at 09:14 Sodium Chloride (Normal Saline Flush) 10 ml 1X PRN PRN IV [employer] catheter pack; Start 12/22/16 at 09:15; Stop 12/23/16 at 09:14 Comment Review of Relevant I have reviewed the following items doreen (where applicable) has been applied. CIELO GIRON MD Dec 22, 2016 18:01
[2016-12-22 19:00] VITALS: BP 183/73
[2016-12-22] MEDS: diphenhydrAMINE HCL 25 MG CAPSULE PO PRN (20:40)
[2016-12-22] MEDS: ATORVASTATIN CALCIUM 20 MG TABLET PO SCH (20:40)
[2016-12-22] MEDS: INSULIN DETEMIR 300 UNITS/3 ML INSULN.PEN. SQ SCH (20:52)
[2016-12-22 23:00] VITALS: BP 188/62
[2016-12-23] MEDS: ACETAMINOPHEN 325 MG TABLET. PO PRN (01:56)
[2016-12-23 03:00] VITALS: BP 178/71
[2016-12-23] MEDS: oxyCODONE/APAP 10/325 1 TAB TABLET PO PRN ×4 (04:01→15:34)
[2016-12-23] MEDS: diphenhydrAMINE HCL 25 MG CAPSULE PO PRN (04:03)
[2016-12-23 07:00] VITALS: BP 167/61
[2016-12-23] MEDS: HEPARIN PF for SUB-Q USE 5,000 UNIT/0.5 ML VIAL. SQ SCH ×2 (07:07→14:00)
[2016-12-23] MEDS: SEVELAMER CARBONATE 800 MG TABLET. PO SCH ×2 (07:50→12:14)
[2016-12-23] MEDS: GABAPENTIN 300 MG CAPSULE. PO SCH ×2 (07:51→12:16)
[2016-12-23 07:53] VITALS: BP 167/61
[2016-12-23] MEDS: LISINOPRIL 40 MG TABLET. PO SCH (07:53)
[2016-12-23] MEDS: FUROSEMIDE 80 MG TABLET. PO SCH ×2 (07:53→12:16)
[2016-12-23] MEDS: metOLazone 2.5 MG TABLET PO SCH (07:53)
[2016-12-23] MEDS: COLCHICINE 0.6 MG TABLET PO SCH (07:53)
[2016-12-23] MEDS: METOPROLOL TART IMMED RELEASE 25 MG TABLET. PO SCH (07:53)
[2016-12-23] MEDS: TAMSULOSIN 0.4 MG CAP.ER.24H. PO SCH (07:54)
[2016-12-23] MEDS: ASPIRIN CHEWABLE 81 MG TABLET. PO SCH (07:54)
[2016-12-23] MEDS: NYSTATIN 100,000 UNITS/ML 5 ML ORAL.SUSP. SWSW SCH ×2 (07:55→14:00)
[2016-12-23] MEDS: INSULIN ASPART 300 UNITS/3 ML INSULN.PEN SQ SCH ×4 (08:00→12:23)
--- NOTE | 2016-12-23 12:26 | PDOC ---
Renal-Progress Notes Subjective Notes Notes NONE History of Present Illness Hx of present illness NO CHANGE Vitals Vitals Vital Signs Date Time Temp Pulse Resp B/P (MAP) Pulse Ox O2 Delivery O2 Flow Rate FiO2 12/23/16 12:14 90 Room Air 12/23/16 07:53 63 167/61 12/23/16 07:00 20 12/23/16 03:00 99.0 99.0 12/22/16 15:56 4.0 Weight Weight [ ] Labs Labs Laboratory Tests Test 12/22/16 16:45 12/22/16 20:45 12/23/16 07:48 12/23/16 12:09 Glucose (Fingerstick) 128 mg/dL (70-99) 126 mg/dL (70-99) 94 mg/dL (70-99) 106 mg/dL (70-99) Micro Micro Microbiology 12/16/16 Blood Culture - Final, Complete NO GROWTH AFTER 5 DAYS Review of Systems Constitutional: yes: weakness, alert, oriented Ears/Nose/Throat: Yes: no symptom reported Eyes: Yes: no symptom reported Pulmonary: Yes no symptom reported Cardiovascular: Yes no symptom reported Gastrointestional: Yes: no symptom reported Genitourinary: Yes: no symptom reported Musculoskeletal: Yes: joint pain Skin: Yes no symptom reported Psychiatric/Neurological: Yes: no symptom reported Endocrine: Yes: no symptom reported Physical Exam General Appearance: no apparent distress Skin: warm Respiratory: bilateral CTA Heart: S1S2, RRR Abdomen: soft, bowel sounds present Genitourinary: bladder flat Extremities: pulses present Neurology: alert, oriented, follow commands Assessment Assessment IMP FALL ESRD ANEMIA DM II HTN-CONTROLLED BUT LABILE BILATERAL ANKLE FX OCC CONFUSION PLAN HD TOMORROW NEUR EVAL CONT ARANESP THERAPY NAEEM JAQUEZ MD Dec 23, 2016 12:26
--- NOTE | 2016-12-23 12:38 | PDOC ---
PROGRESS NOTES Assessment Assessment Confusional episodes. Agitation. Psychosis. Ankle fracture, bilateral HTN HLD DM Renal failure on dialysis. Diabetic peripheral neuropathy? RECOMMENDATIONS/PLAN: EEG on 12/23/16. Continue medical and surgical treatment. OT/PT. Discussed with his at bedside on 12/22/16. HCT on 12/21/16: negative. HISTORY OF THE PRESENT ILLNESS: 56-y-old AA male patient with above medical diseases had a fall on or about which resulted in his bilateral ankle fracture. he has been taken Narcotics for pain. he developed symptoms of intermittent confusional episode, agitation, restless, and psychosis per his nurse in the the recent past 2 days. No focalized motor or sensory deficits besides fractures in his ankle. MS changes and other symptoms of cognitive impairment resolved since 12/22/16. Past Medical History Cardiovascular: HTN, Hyperlipidemia Pulmonary: Other CENTRAL NERVOUS SYSTEM: Periperal neuropathy GI: No pertinent hx Heme/Onc: No pertinent hx, Other Hepatobiliary: No pertinent hx Psych: Anxiety Rheumatologic: No pertinent hx Infectious disease: No pertinent hx Renal/: Chronic renal failure Endocrine: Diabetes Past Surgical History Appendectomy, Cholecystectomy, Tonsillectomy Family History Diabetes Social History ALCOHOL: none Drugs: None Lives: with Family Domestic Violence: Neg ALLERGY: Reviewed. MEDICATIONS: Refer to [facility] REVIEW OF SYSTEMS: Constitutional: No malnutrition, weight loss, cachexia. Head: No recent traumatic brain or head injury. Skin: No edema, or rash. Ear: No infection, tinnitus. Eyes: No vision loss or color blindness. Nose: No bleeding or purulent discharges. Hearing: No hearing decrease. Neck: No recent traumatic injury. Cardiac: HTN, HLD. Pulmonary: No COPD. GI: No GI ulcer, GI bleeding. Urinary/genital: No dysuria, incontinence, urinary retention. Endocrinologic: Diabetes Mellitus. Skeletomuscular: No muscular atrophy, deformity. Neurological: see HP. Psychiatric: Denies drug use/abuse. Otherwise, not [id number] review of systems. PHYSICAL EXAMINATION: General appearance is in no acute distress. HEENT: Normocephalic and nontraumatic. Eyes, nose, ears, and throat are unremarkable. Neck is supple. No lymphadenopathy. No bruits are heard over the carotid artery. No crepitus. Cardiovascular: S1, S2, regular rate and rhythm. Pulmonary: Clear to auscultation bilaterally. Abdomen: Bowel sounds are positive. Abdomen is soft, nontender, and nondistended. Extremities: No rash, lesions, or edema. No restriction of range of motion NEUROLOGICAL EXAMINATION: Awake. Oriented to time, place and person, reaction was slow. PERRL. EOMI. CN: no focal findings. Muscle tone: within normal. Muscle strength: 5 DTR: 2- Plantar reflex: Unable to exam. Boots in LE. Gait: not examined in bed. Sensory exam: no abnormal findings. No cerebellar signs elicited. F-T-N test fine. Objective Objective Vital Signs Date Time Temp Pulse Resp B/P (MAP) Pulse Ox O2 Delivery O2 Flow Rate FiO2 12/23/16 12:14 90 Room Air 12/23/16 07:53 63 167/61 12/23/16 07:00 20 12/23/16 03:00 99.0 99.0 12/22/16 15:56 4.0 Vitals Signs Vitals VS - Last 72 Hours, by Label Date Time Temp Pulse Resp B/P (MAP) Pulse Ox O2 Delivery O2 Flow Rate FiO2 12/23/16 12:14 90 Room Air 12/23/16 08:55 90 Room Air 12/23/16 07:54 90 Room Air 12/23/16 07:53 63 167/61 12/23/16 07:53 63 167/61 12/23/16 07:50 Room Air 12/23/16 07:00 63 20 167/61 (96) 90 12/23/16 06:05 20 12/23/16 04:01 20 95 Room Air 12/23/16 03:00 99.0 71 20 178/71 (106) 95 Room Air 99.0 12/22/16 23:45 18 Room Air 12/22/16 23:00 98.6 62 18 188/62 (104) 96 Room Air 98.6 12/22/16 20:41 70 183/73 12/22/16 19:50 Room Air 12/22/16 19:33 18 Room Air 12/22/16 19:00 99.1 70 18 183/73 (109) 93 Room Air 99.1 12/22/16 15:56 4.0 12/22/16 15:30 98.4 112 20 193/102 (132) 94 Room Air 98.4 12/22/16 14:47 114 189/98 12/22/16 14:46 114 189/98 12/22/16 14:45 93 Room Air 4.0 12/22/16 11:00 114 18 189/98 (128) 93 Room Air 12/22/16 08:47 Room Air 12/22/16 08:30 Room Air 12/22/16 07:17 98.1 73 18 143/63 (89) 91 Room Air 98.1 Laboratory Laboratory Laboratory Tests Test 12/22/16 16:45 12/22/16 20:45 12/23/16 07:48 12/23/16 12:09 Glucose (Fingerstick) 128 mg/dL (70-99) 126 mg/dL (70-99) 94 mg/dL (70-99) 106 mg/dL (70-99) Microbiology 12/16/16 Blood Culture - Final, Complete NO GROWTH AFTER 5 DAYS Comment Review of Relevant I have reviewed the following items doreen (where applicable) has been applied. CIELO GIRON MD Dec 23, 2016 12:38
--- NOTE | 2016-12-23 13:18 | PDOC ---
Provider Note Provider Note Pt did not dc yesterday as he was upset bec of dc plans of [place], boot issues etc NOW that has resolved. Request 2 percocet 10 instead of 1 on dc - MEds faxed Updated Seen and examined with at bedside Time 31 mins dc summ done yesterday KAYCEE AVILES MD Dec 23, 2016 13:18
--- NOTE | 2016-12-23 14:56 | EEG ---
DATE OF SERVICE: 12/23/2016 DATE OF SERVICE: 12/23/2016 EEG NUMBER: [id number] OBJECTIVE: This is a 56-year-old -[place] male patient who had mental status changes and agitation. EEG was requested to evaluate cerebral activity. METHODS: Twenty electrodes were applied according to the international 10-20 electrode placement system. EKG monitoring, hyperventilation, intermittent photic stimulation, monopolar and bipolar montages are routinely utilized. The record was obtained on a digital system with video monitoring. FINDINGS: 1. Background: The patient was recorded in the awake, drowsy, and sleep states. The overall background amplitude is 10-20 microvolts. A posterior dominant rhythm of 7-8 Hz is observed. 2. Abnormalities: No specific epileptiform discharge or electrographic seizure is seen. No focal or diffuse slowing. 3. Activation: Hyperventilation was performed with good efforts and normal response. Intermittent photic stimulation was performed with photic driving. No specific epileptiform discharge or electrographic seizure induced by hyperventilation or intermittent photic stimulation. IMPRESSION: This EEG is a borderline study for the awake, drowsy, and sleep states. The posterior dominant rhythm of 7-8 Hz is mildly slow for age. No focal, lateralizing, specific epileptiform discharge or electrographic seizure is seen. CIELO GIRON MD DR: NETTE/santino JOB#: [id number] / [id number] RINA
== END 2016-12-23 15:40 | DRG 562 ==
LOC: 4 NORTH 21:21
PROVIDERS: ADMIT Internal Medicine; ATTEND Internal Medicine
PROC: 5A1D70Z Performance of Urinary Filtration, Intermittent, Less than 6 Hours Per Day (ICD-10-PCS; principal; 2016-12-20)
PROC: 5A1D70Z Performance of Urinary Filtration, Intermittent, Less than 6 Hours Per Day (ICD-10-PCS; 2016-12-22)
DX: S82.65XA Nondisplaced fracture of lateral malleolus of left fibula, initial encounter for closed fracture (principal); N18.6 End stage renal disease; R65.10 Systemic inflammatory response syndrome (SIRS) of non-infectious origin without acute organ dysfunction; E11.22 Type 2 diabetes mellitus with diabetic chronic kidney disease; I12.0 Hypertensive chronic kidney disease with stage 5 chronic kidney disease or end stage renal disease; G62.9 Polyneuropathy, unspecified; S82.64XA Nondisplaced fracture of lateral malleolus of right fibula, initial encounter for closed fracture; D64.9 Anemia, unspecified; E78.5 Hyperlipidemia, unspecified; F29 Unspecified psychosis not due to a substance or known physiological condition; W19.XXXA Unspecified fall, initial encounter; Z79.4 Long term (current) use of insulin; Z79.82 Long term (current) use of aspirin; Z83.3 Family history of diabetes mellitus; Z99.2 Dependence on renal dialysis; Y93.89 Activity, other specified; Y92.89 Other specified places as the place of occurrence of the external cause; Y99.8 Other external cause status; F41.9 Anxiety disorder, unspecified; Z90.49 Acquired absence of other specified parts of digestive tract; Z90.89 Acquired absence of other organs
CPT/HCPCS: 36415; 70450; 71010; 80048; 80053; 80069; 80307; 81001; 82140; 82607; 82962; 83605; 84443; 85025; 85027; 87040; 87641; 95816; J1170; J1200; J1630; J1815; J2060; J2270; J2405; J3010; J7030; J7042; Q0163; 97530; 97535; G0479

== ENCOUNTER 2017-03-22 18:15 | Emergency (ER) | payer MEDICARE, OTHER ==
[2017-03-22] MEDS: oxyCODONE/APAP 10/325 1 TAB TABLET PO (20:29)
[2017-03-22 20:49] LABS: AGAP ISTAT 14 mmol/L (6-14); BUN ISTAT 43 mg/dL (8-26); CHLORIDE ISTAT 103 mmol/L (98-110); CREATININE ISTAT 10.1 mg/dL (0.5-1.4); GLUCOSE ISTAT 103 mg/dL (70-99); HEMATOCRIT ISTAT 35 % (37-52); HEMOGLOBIN ISTAT 11.9 g/dL (14-18); ION CA ISTAT 1.15 mmol/L (1.13-1.32); POTASSIUM ISTAT 4.5 mmol/L (3.5-5.0); SODIUM ISTAT 139 mmol/L (135-145); TOT CO2 ISTAT 28 mmol/L (23-32)
== END 2017-03-22 20:59 | disposition home or self-care (01) ==
LOC: ER 18:15
DX: T82.49XA Other complication of vascular dialysis catheter, initial encounter (principal); E78.00 Pure hypercholesterolemia, unspecified; E11.22 Type 2 diabetes mellitus with diabetic chronic kidney disease; I12.0 Hypertensive chronic kidney disease with stage 5 chronic kidney disease or end stage renal disease; N18.6 End stage renal disease; Z99.2 Dependence on renal dialysis; Z90.49 Acquired absence of other specified parts of digestive tract; Z88.6 Allergy status to analgesic agent; Y84.1 Kidney dialysis as the cause of abnormal reaction of the patient, or of later complication, without mention of misadventure at the time of the procedure; Y92.89 Other specified places as the place of occurrence of the external cause
CPT/HCPCS: 36415; 80047; 85014; 85018; 99282

== ENCOUNTER 2017-04-03 05:52 | Day surgery (SDC) | payer MEDICARE, OTHER ==
[2017-04-03] MEDS: IV NORMAL SALINE 1000ML BAG 1,000 ML IV ×2 (06:48)
[2017-04-03] MEDS ORDERED: hydrALAZINE 20 MG/ML VIAL. ×2 (06:53)
[2017-04-03] MEDS: hydrALAZINE 20 MG/ML VIAL. IVP ×2 (06:57)
[2017-04-03] MEDS: IV RINGERS,LACTATED 1000ML 1,000 ML IV ×2 (07:00)
[2017-04-03] MEDS ORDERED: ceFAZolin 2GM PREMIX 2 GM/50 ML BAG IV (07:00)
[2017-04-03] MEDS ORDERED: fentaNYL PF VIAL 100 MCG/2 ML VIAL IV ×2 (07:00)
[2017-04-03] MEDS ORDERED: HYDROmorphone 2 MG/ML VIAL IV ×2 (07:00)
[2017-04-03] MEDS ORDERED: LIDOCAINE 1% PF 2 ML VIAL. ID ×2 (07:00)
[2017-04-03] MEDS ORDERED: ONDANSETRON PF 4 MG/2 ML VIAL. IV ×2 (07:00)
[2017-04-03 07:10] LABS: ANION GAP 9 (6-14); BLOOD UREA NITROGEN 51 mg/dL (8-26); CALCIUM 9.6 mg/dL (8.5-10.1); CARBON DIOXIDE 32 mmol/L (21-32); CHLORIDE 99 mmol/L (98-107); CREATININE 8.3 mg/dL (0.7-1.3); GFR 8.1; GLUCOSE 153 mg/dL (70-99); POTASSIUM 4.5 mmol/L (3.5-5.1); SODIUM 140 mmol/L (136-145)
[2017-04-03] MEDS ORDERED: MIDAZOLAM HCL/PF 2 MG/2 ML VIAL. ×2 (07:25)
[2017-04-03] MEDS ORDERED: ROCURONIUM 50 MG/5 ML VIAL. ×2 (07:25)
[2017-04-03] MEDS ORDERED: fentaNYL PF VIAL 100 MCG/2 ML VIAL ×2 (07:25)
[2017-04-03] MEDS ORDERED: NEOSTIGMINE METHYLSULFATE 5 MG/5 ML SYRINGE. ×2 (07:25)
[2017-04-03] MEDS ORDERED: GLYCOPYRROLATE 1 MG/5 ML VIAL. ×2 (07:26)
[2017-04-03] MEDS ORDERED: PROPOFOL 20 ML IV ×2 (07:26)
[2017-04-03] MEDS ORDERED: ONDANSETRON PF 4 MG/2 ML VIAL. ×2 (07:26)
[2017-04-03] MEDS ORDERED: LIDOCAINE 2% PF Vial for OR 5 ML VIAL. ×2 (07:26)
[2017-04-03] MEDS ORDERED: PHENYLEPHRINE in 0.9% NACL PF 1 MG/10 ML SYRINGE. IV (07:26)
[2017-04-03] MEDS ORDERED: DEXAMETHASONE SOD PHOS 20 MG/5 ML VIAL. ×2 (08:05)
[2017-04-03] MEDS: BUPIVACAINE-EPI 0.25%-1:200000 50 ML VIAL. ×2 (08:08)
[2017-04-03] MEDS: HEPARIN SODIUM 5,000 UNIT in IV NORMAL SALINE 500ML BAG 500 ML IRR (08:08)
[2017-04-03] MEDS: NEOMY/BACITR/POLYMYXIN OINT PACKET. TP ×2 (08:08)
[2017-04-03] MEDS ORDERED: ESMOLOL 100 MG/10 ML VIAL. IV ×2 (08:15)
[2017-04-03 08:51] LABS: POC GLUCOSE 124 mg/dL (70-99)
[2017-04-03] MEDS: fentaNYL PF VIAL 100 MCG/2 ML VIAL IV ×4 (08:55→09:17)
[2017-04-03] MEDS: PROCHLORPERAZINE 10 MG/2 ML VIAL. IV ×2 (08:55)
[2017-04-03] MEDS: MORPHINE SULFATE 2 MG/ML DISP.SYRIN. IV ×2 (09:07)
[2017-04-03] MEDS: HYDROcodone/APAP 10/325 1 TAB TABLET PO ×2 (10:03)
== END 2017-04-03 11:46 | disposition home or self-care (01) ==
LOC: SURG 05:52
DX: I12.0 Hypertensive chronic kidney disease with stage 5 chronic kidney disease or end stage renal disease (principal); E11.22 Type 2 diabetes mellitus with diabetic chronic kidney disease; N18.6 End stage renal disease; E78.00 Pure hypercholesterolemia, unspecified; E11.42 Type 2 diabetes mellitus with diabetic polyneuropathy; F41.9 Anxiety disorder, unspecified; Z86.39 Personal history of other endocrine, nutritional and metabolic disease; Z99.2 Dependence on renal dialysis; Z86.69 Personal history of other diseases of the nervous system and sense organs; Z90.49 Acquired absence of other specified parts of digestive tract; Z98.890 Other specified postprocedural states; Z72.89 Other problems related to lifestyle; Z87.891 Personal history of nicotine dependence; Z88.1 Allergy status to other antibiotic agents
CPT/HCPCS: 36415; 80048; 82962; 99152; 99153; C1769; J0360; J0690; J0780; J1100; J1644; J2250; J2270; J2370; J2405; J2704; J2710; J3010; J3490; J7030; J7040

== ENCOUNTER 2017-09-25 16:57 | Inpatient (IN) | payer MEDICARE, OTHER ==
[2017-09-25] MEDS ORDERED: DEXTROSE 50% 25 GM / 50ML DISP.SYRIN. IV (18:00)
[2017-09-25 21:28] LABS: POC GLUCOSE 435 mg/dL (70-99)
[2017-09-25 21:28] LABS: POC GLUCOSE 386 mg/dL (70-99)
[2017-09-25] MEDS: IV NORMAL SALINE 1000ML BAG 1,000 ML IV (22:45)
[2017-09-26] MEDS ORDERED: POLYETHYLENE GLYCOL 3350 238 GM POWDER PO
[2017-09-26] MEDS ORDERED: HYDROcodone/APAP 10/325 1 TAB TABLET PO (00:30)
[2017-09-26] MEDS: LISINOPRIL 20 MG TABLET PO (00:44)
[2017-09-26] MEDS: GABAPENTIN 100 MG CAPSULE. PO ×2 (00:45→08:35)
[2017-09-26] MEDS: METOPROLOL TART IMMED RELEASE 50 MG TABLET. PO ×2 (00:45→08:29)
[2017-09-26] MEDS: MINOXIDIL 2.5 MG TABLET PO ×2 (00:46→08:47)
[2017-09-26] MEDS: LATANOPROST 0.005% OPHTH SOLUTION 2.5ML BOTTLE. OU (00:47)
[2017-09-26] MEDS: INSULIN LISPRO 300 UNITS/3 ML INSULN.PEN. SQ ×2 (00:50→08:43)
[2017-09-26] MEDS: INSULIN GLARGINE 300 UNITS/3 ML INSULN.PEN. SQ (00:51)
[2017-09-26] MEDS: IV NORMAL SALINE 1000ML BAG 1,000 ML IV (04:00)
[2017-09-26] MEDS ORDERED: POLYETHYLENE GLYCOL 3350 17 GM PACKET. PO (04:59)
[2017-09-26 07:13] LABS: POC GLUCOSE 337 mg/dL (70-99)
[2017-09-26 08:13] LABS: POC GLUCOSE 251 mg/dL (70-99)
[2017-09-26 08:14] LABS: POC GLUCOSE 275 mg/dL (70-99)
[2017-09-26 08:14] LABS: POC GLUCOSE 269 mg/dL (70-99)
[2017-09-26] MEDS: SEVELAMER CARBONATE 800 MG TABLET. PO (08:25)
[2017-09-26] MEDS: FOLIC/VIT B COMP W-C (RENAL) TABLET. PO (08:26)
[2017-09-26] MEDS: SPIRONOLACTONE 25 MG TABLET PO (08:27)
[2017-09-26] MEDS: ATORVASTATIN CALCIUM 20 MG TABLET PO (08:29)
[2017-09-26] MEDS: DOCUSATE SODIUM 100 MG CAPSULE. PO (08:30)
[2017-09-26] MEDS: CALCITRIOL 0.25 MCG CAPSULE. PO (08:31)
[2017-09-26] MEDS: FUROSEMIDE 80 MG TABLET. PO (08:32)
[2017-09-26] MEDS: ASPIRIN CHEWABLE 81 MG TABLET. PO (08:34)
[2017-09-26] MEDS: metOLazone 2.5 MG TABLET PO (08:36)
[2017-09-26] MEDS: FLUTICASONE 50MCG/NASAL SPRAY 16GM BOTTLE. NS (08:46)
[2017-09-26] MEDS: COLCHICINE 0.6 MG TABLET PO (08:46)
[2017-09-26] MEDS: TAMSULOSIN 0.4 MG CAP.ER.24H. PO (08:47)
[2017-09-26 08:56] LABS: ADD MAN DIFF? NO
[2017-09-26] MEDS ORDERED: amLODIPine BESYLATE 10 MG TABLET PO (09:00)
[2017-09-26 09:06] LABS: BASO % 1 % (0-3); EOS # 0.3 x10^3/uL (0.0-0.7); EOS % 6 % (0-3); HEMATOCRIT 29.6 % (39.0-53.0); HEMOGLOBIN 9.6 g/dL (13.0-17.5); LYMPH # 1.1 x10^3/uL (1.0-4.8); LYMPH % 22 % (24-48); MEAN CORPUSCULAR HEMOGLOBIN 27 pg (25-35); MEAN CORPUSCULAR HGB CONC 32 g/dL (31-37); MEAN CORPUSCULAR VOLUME 83 fL (79-100); MONO # 0.5 x10^3/uL (0.0-1.1); MONO % 9 % (0-9); NEUT # 3.4 x10^3uL (1.8-7.7); NEUT % 64 % (31-73); PLATELET COUNT 242 x10^3/uL (140-400); RED BLOOD COUNT 3.57 x10^6/uL (4.30-5.70); RED CELL DISTRIBUTION WIDTH 20.7 % (11.5-14.5); WHITE BLOOD COUNT 5.3 x10^3/uL (4.0-11.0)
[2017-09-26 09:19] LABS: ANION GAP 13 (6-14); BLOOD UREA NITROGEN 68 mg/dL (8-26); CALCIUM 8.2 mg/dL (8.5-10.1); CARBON DIOXIDE 28 mmol/L (21-32); CHLORIDE 92 mmol/L (98-107); GFR 4.8; GLUCOSE 275 mg/dL (70-99); POTASSIUM 3.1 mmol/L (3.5-5.1); SODIUM 133 mmol/L (136-145)
[2017-09-26 11:03] LABS: PLT ESTIMATE ADEQUATE (ADEQUATE)
[2017-09-26 11:04] LABS: ANISOCYTOSIS MOD
[2017-09-26 11:34] LABS: POC GLUCOSE 353 mg/dL (70-99)
[2017-09-26] MEDS ORDERED: CINACALCET HCL 30 MG TABLET PO (16:00)
[2017-09-26] MEDS ORDERED: NON FORMULARY ITEM (Gabapentin 600 MG) PO (21:00)
== END 2017-09-26 11:51 | disposition home or self-care (01) | DRG 637 ==
LOC: 6 SOUTH 16:57
PROVIDERS: Internal Medicine
DX: E11.00 Type 2 diabetes mellitus with hyperosmolarity without nonketotic hyperglycemic-hyperosmolar coma (NKHHC) (principal); N18.6 End stage renal disease; I13.2 Hypertensive heart and chronic kidney disease with heart failure and with stage 5 chronic kidney disease, or end stage renal disease; E11.22 Type 2 diabetes mellitus with diabetic chronic kidney disease; E11.42 Type 2 diabetes mellitus with diabetic polyneuropathy; E78.5 Hyperlipidemia, unspecified; I48.91 Unspecified atrial fibrillation; I50.9 Heart failure, unspecified; F41.9 Anxiety disorder, unspecified; Z88.5 Allergy status to narcotic agent; Z88.8 Allergy status to other drugs, medicaments and biological substances; Z99.2 Dependence on renal dialysis; I25.2 Old myocardial infarction; Z90.49 Acquired absence of other specified parts of digestive tract; Z79.4 Long term (current) use of insulin; Z82.49 Family history of ischemic heart disease and other diseases of the circulatory system; Z83.3 Family history of diabetes mellitus
CPT/HCPCS: 36415; 80048; 82962; 85025; J1815; J7030

== ENCOUNTER 2018-08-02 00:30 | Emergency (ER) | payer MEDICARE, OTHER ==
[~2018-08-02] VITALS: Ht 177.8 cm; Wt 118.8 kg
[~2018-08-02 00:30] MED LIST changes: -AMLO10TA2 PO; +AMLO10TA8 PO; -CHLO25TA PO; +CHLO25TA10 PO; +CINA30TA2 PO; +CLON0.3T PO; -DILT120C80 PO; +DILT120C85 PO; +DOCU100C28 PO; +FINA5TAB4 PO; +FLUT16SP NS; +GABA300C18 PO; -GABA300C8 PO; -GABA600T2 PO; +GABA600T7 PO; -GLIP-112 PO; +GLIP10TA24 PO; +HYDR-2761 PO; +HYDR-2769 PO; +HYDR-2869 PO; +HYDR-3164 PO; -HYDR-971 PO; +HYOS0.1265 SL; +INSU100I13 SQ; +INSU100I27 SQ; +LIDO700A39 TP; +LISI-130 PO; -LISI40TA PO; +LOSA100T14 PO; -LOSA100T6 PO; -METF-620 PO; +METF10007 PO; +METO50TA6 PO; +METO5TAB4 PO; +MINO2.5T12 PO; +OMEP20CA10 PO; -OMEP20CA9 PO; +OXYC1TAB22 PO; +OXYC1TAB7 PO; +POLY255P11 PO; -SPIR25TA3 PO; +SPIR25TA5 PO; +SPIR50TA4 PO
--- NOTE | 2018-08-02 00:42 | PHYS DOC ---
Past Medical History Past Medical History: Diabetes-Type II, High Cholesterol, Hypertension Additional Past Medical Histor: ESRD, peritoneal dialysis, HEMODIALYSIS Past Surgical History: Cholecystectomy, Tonsillectomy Additional Past Surgical Histo: peritoneal dialysis, kidney/bladder stent w "clip", DIALYSIS PORT TO RUC Alcohol Use: None Drug Use: None Adult General Chief Complaint Chief Complaint: GENERALIZED BODY ACHES HPI HPI 58-year-old male with multiple medical problems including end-stage renal disease who is on peritoneal dialysis presents secondary to weakness. He states over the last couple of weeks sees felt weakness in his lower body. He denies any back pain. He denies any bowel or bladder dysfunction. He has not had any fever chills or sweats. She is just now having trouble getting up from a seated position. He did fall out of his chair tonight. He does state that he has pain all over. He states his peritoneal dialysis is been going well. He denies any abdominal pain.[] Review of Systems Review of Systems Constitutional: Denies fever or chills [] Eyes: Denies change in visual acuity, redness, or eye pain [] HENT: Denies nasal congestion or sore throat [] Respiratory: Denies cough or shortness of breath [] Cardiovascular: No additional information not addressed in HPI [] GI: Denies abdominal pain, nausea, vomiting, bloody stools or diarrhea [] : Denies dysuria or hematuria per history of present illness[] Musculoskeletal: Denies back pain or joint pain [] Integument: Denies rash or skin lesions [] Neurologic: Some lower extremity weakness bilaterally[] Endocrine: Denies polyuria or polydipsia [] All other systems were reviewed and found to be within normal limits, except as documented in this note. Current Medications Current Medications Current Medications Medications (Trade) Dose Ordered Sig/Lee Start Time Stop Time Status Last Admin Dose Admin Acetaminophen/ Hydrocodone Bitart (Lortab 5/325) 2 tab 1X ONCE 08/02/18 02:00 08/02/18 02:01 DC 08/02/18 02:13 2 TAB Allergies Allergies Allergies Coded Allergies Type Severity Reaction Last Updated Verified ibuprofen Allergy Severe swelling 04/03/17 Yes morphine Allergy Mild 08/02/18 Yes Physical Exam Physical Exam Constitutional: Well developed, well nourished, no acute distress, non-toxic appearance. [] HENT: Normocephalic, atraumatic, bilateral external ears normal, oropharynx moist, no oral exudates, nose normal. [] Eyes: PERRLA, EOMI, conjunctiva normal, no discharge. [] Neck: Normal range of motion, no tenderness, supple, no stridor. [] Cardiovascular:Heart rate regular rhythm, no murmur [] Lungs & Thorax: Bilateral breath sounds clear to auscultation [] Abdomen: Obese, soft nontender nondistended peritoneal fistula is in good repair. [] Skin: Warm, dry, no erythema, no rash. [] Back: No tenderness, no CVA tenderness. [] Extremities: No tenderness, no cyanosis, no clubbing, ROM intact, 1+ edema equal bilaterally edema. [] Neurologic: Alert and oriented X 3, normal motor function, normal sensory function, no focal deficits noted, patient has good patellar reflexes bilaterally he complains of pain when checking his reflexes he can move his extremities without difficulty. [] Psychologic: Extremely anxious Current Patient Data Vital Signs Vital Signs Date Time Temp Pulse Resp B/P (MAP) Pulse Ox O2 Delivery O2 Flow Rate FiO2 08/02/18 00:30 99.1 82 26 220/100 (140) 93 Room Air 99.1 Lab Values Laboratory Tests Test 08/02/18 02:00 White Blood Count 10.2 x10^3/uL (4.0-11.0) Red Blood Count 3.79 x10^6/uL (4.30-5.70) L Hemoglobin 9.9 g/dL (13.0-17.5) L Hematocrit 30.1 % (39.0-53.0) L Mean Corpuscular Volume 79 fL (79-100) Mean Corpuscular Hemoglobin 26 pg (25-35) Mean Corpuscular Hemoglobin Concent 33 g/dL (31-37) Red Cell Distribution Width 21.5 % (11.5-14.5) H Platelet Count 421 x10^3/uL (140-400) H Neutrophils (%) (Auto) 58 % (31-73) Lymphocytes (%) (Auto) 26 % (24-48) Monocytes (%) (Auto) 10 % (0-9) H Eosinophils (%) (Auto) 6 % (0-3) H Basophils (%) (Auto) 1 % (0-3) Neutrophils # (Auto) 5.9 x10^3uL (1.8-7.7) Lymphocytes # (Auto) 2.6 x10^3/uL (1.0-4.8) Monocytes # (Auto) 1.0 x10^3/uL (0.0-1.1) Eosinophils # (Auto) 0.6 x10^3/uL (0.0-0.7) Basophils # (Auto) 0.1 x10^3/uL (0.0-0.2) Platelet Estimate Pending Sodium Level 138 mmol/L (136-145) Potassium Level 3.8 mmol/L (3.5-5.1) Chloride Level 96 mmol/L (98-107) L Carbon Dioxide Level 20 mmol/L (21-32) L Anion Gap 22 (6-14) H Blood Urea Nitrogen 92 mg/dL (8-26) H Creatinine 19.9 mg/dL (0.7-1.3) H Estimated GFR (Cockcroft-Gault) 2.9 BUN/Creatinine Ratio 5 (6-20) L Glucose Level 239 mg/dL (70-99) H Calcium Level 9.3 mg/dL (8.5-10.1) Total Bilirubin 0.2 mg/dL (0.2-1.0) Aspartate Amino Transferase (AST) 19 U/L (15-37) Alanine Aminotransferase (ALT) 27 U/L (16-63) Alkaline Phosphatase 77 U/L (46-116) Creatine Kinase 620 U/L (39-308) H Total Protein 7.0 g/dL (6.4-8.2) Albumin 2.2 g/dL (3.4-5.0) L Albumin/Globulin Ratio 0.5 (1.0-1.7) L Laboratory Tests 08/02/18 02:00 Laboratory Tests 08/02/18 02:00 EKG EKG [] Interpretation Time: EKG: Normal sinus rhythm with occasional PVCs no obvious ischemia rate of 80 Radiology/Procedures Radiology/Procedures [] Course & Med Decision Making Course & Med Decision Making Pertinent Labs and Imaging studies reviewed. (See chart for details) [ED course: Evaluation reveals a 58-year-old male who appears chronically ill but does not appear acutely ill. I believe there is a chronic pain syndrome at the root of his problems today. I did not believe that he had any catastrophic lower back issue causing any weakness. I did offer the patient admission however I explained that was not clear what exactly was going on with him. Patient adamantly refused wanted to go home. I believe this is safe at this time.] Dragon Disclaimer Dragon Disclaimer This electronic medical record was generated, in whole or in part, using a voice recognition dictation system. Departure Departure Impression: Primary Impression: ESRD (end stage renal disease) Additional Impression: Lower extremity weakness Disposition: HOME, SELF-CARE Condition: STABLE Referrals: CIELO COYNE DO (PCP) Patient Instructions: Weakness Additional Instructions: Follow with her primary care physician this week for recheck. Return to the emergency department with any new or concerning symptoms Problem Qualifiers Additional Impression: Lower extremity weakness Laterality: bilateral Qualified Codes: R29.898 - Other symptoms and signs involving the musculoskeletal system PETRA OLVERA DO Aug 02, 2018 00:42
[2018-08-02] MEDS ORDERED: HYDROcodone/APAP 5/325MG 1 TAB TABLET PO ONE (02:00)
[2018-08-02 02:30] LABS: BASO # 0.1 x10^3/uL (0.0-0.2); BASO % 1 % (0-3); EOS # 0.6 x10^3/uL (0.0-0.7); EOS % 6 % (0-3); HEMATOCRIT 30.1 % (39.0-53.0); HEMOGLOBIN 9.9 g/dL (13.0-17.5); LYMPH # 2.6 x10^3/uL (1.0-4.8); LYMPH % 26 % (24-48); MEAN CORPUSCULAR HEMOGLOBIN 26 pg (25-35); MEAN CORPUSCULAR HGB CONC 33 g/dL (31-37); MEAN CORPUSCULAR VOLUME 79 fL (79-100); MONO % 10 % (0-9); NEUT # 5.9 x10^3uL (1.8-7.7); NEUT % 58 % (31-73); PLATELET COUNT 421 x10^3/uL (140-400); RED BLOOD COUNT 3.79 x10^6/uL (4.30-5.70); RED CELL DISTRIBUTION WIDTH 21.5 % (11.5-14.5); WHITE BLOOD COUNT 10.2 x10^3/uL (4.0-11.0)
[2018-08-02 03:18] LABS: CALCIUM 9.3 mg/dL (8.5-10.1); CREATININE 19.9 mg/dL (0.7-1.3); GFR 2.9; POTASSIUM 3.8 mmol/L (3.5-5.1)
[2018-08-02 03:25] LABS: ALBUMIN 2.2 g/dL (3.4-5.0); ALBUMIN/GLOBULIN RATIO 0.5 (1.0-1.7); TOTAL BILIRUBIN 0.2 mg/dL (0.2-1.0)
[2018-08-02 04:10] VITALS: BP 118/46
[2018-08-02 04:54] LABS: BURR CELLS FEW; PLT ESTIMATE INCREASED (ADEQUATE); POLYCHROMASIA SLIGHT; SCHISTOCYTES OCC; TARGET CELLS FEW
--- NOTE | 2018-08-02 07:18 | EKG ---
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
== END 2018-08-02 04:16 | disposition home or self-care (01) ==
LOC: ER 00:30
DX: E11.22 Type 2 diabetes mellitus with diabetic chronic kidney disease (principal); I12.0 Hypertensive chronic kidney disease with stage 5 chronic kidney disease or end stage renal disease; N18.6 End stage renal disease; Z99.2 Dependence on renal dialysis; R29.898 Other symptoms and signs involving the musculoskeletal system; E78.00 Pure hypercholesterolemia, unspecified; Z90.49 Acquired absence of other specified parts of digestive tract; Z88.5 Allergy status to narcotic agent; Z88.8 Allergy status to other drugs, medicaments and biological substances
CPT/HCPCS: 36415; 80053; 82550; 85025; 93005; 99285-25

== ENCOUNTER 2018-09-19 10:23 | Outpatient (CLI) | payer MEDICARE, OTHER ==
[~2018-09-19] VITALS: Ht 182.9 cm; Wt 130.3 kg
[2018-09-19] VITALS (10 sets, daily range): BP systolic 124–166; BP diastolic 58–82
[~2018-09-19 10:23] MED LIST changes: +LIDO700A21 TP; -LIDO700A39 TP
[2018-09-19] MEDS ORDERED: LIDOCAINE 1%/EPI 1:100,000 20 ML VIAL. ONE (10:34)
[2018-09-19] MEDS ORDERED: GABA600T7 PO (11:49)
[2018-09-19] MEDS ORDERED: IOHEXOL 240 MG/ML 50ML VIAL. ONE (11:51)
[2018-09-19] MEDS ORDERED: ceFAZolin 1GM IVPB FOR OMNI 100 ML IV ONE (12:01)
[2018-09-19] MEDS ORDERED: MIDAZOLAM HCL/PF 2 MG/2 ML VIAL. IV ONE (12:30)
[2018-09-19] MEDS ORDERED: LIDOCAINE 2%/EPI 1:100,000 20 ML VIAL. IJ ONE (12:30)
[2018-09-19] MEDS ORDERED: IODIXANOL 320 MG/ML 100 ML VIAL. IART ONE (12:30)
[2018-09-19] MEDS ORDERED: fentaNYL PF VIAL 100 MCG/2 ML VIAL IV ONE (12:30)
[2018-09-19] MEDS ORDERED: MIDAZOLAM HCL/PF 2 MG/2 ML VIAL. ONE (13:02)
[2018-09-19] MEDS ORDERED: fentaNYL PF VIAL 100 MCG/2 ML VIAL ONE (13:03)
--- NOTE | 2018-09-19 14:57 | NUR ---
Discharge Note: BRIE AGUILAR Discharge instructions and discharge home medications reviewed with Spouse and a copy given. All questions have been answered and understanding verbalized. The following instructions and handouts were given: Moderate sedation, dialysis central catheter placement and PD catheter care. Discontinued lines and drains: right forearm PIV, dressing clean dry intact. Patient discharged to home with via wheelchair to private vehicle.
--- NOTE | 2018-09-19 15:00 | NUR ---
Vascular lab was notified that patient's newly replaced HD Cath was bleeding and painful. Zenon from vascular lab came over to CV/OBS at 1435 to assess patients newly place HD Cath. Zenon stated patient's site would be tender due to sutures in different location on his chest and bleeding had stopped. Patient rated his pain a 3/10 and was instructed to take over the counter pain medications when he returned home.
--- NOTE | 2018-09-21 08:43 | RAD ---
09/19/2018 12:00 PM 1.Replacement of left internal jugular tunneled hemodialysis dialysis catheter 2.Fluoroscopic evaluation of peritoneal dialysis catheter. Indication: Catheter poorly functioning. Slow draining peritoneal dialysis catheter. Discussion: The risks and benefits of the procedure were discussed the patient. Informed consent was obtained. Timeout procedure was performed. The right neck and chest prepped and draped using sterile barrier technique. All elements of maximal sterile barrier technique including the use of a cap, mask, sterile gown, sterile gloves, large sterile sheet, appropriate hand hygiene, and 2% chlorhexidine for cutaneous antisepsis (or acceptable alternative antiseptic per current guidelines) were followed for this procedure. Fluoroscopic evaluation demonstrates the pre-existing catheter to be somewhat short with tip at the cavoatrial junction. A guidewire was advanced through the pre-existing catheter, into the IVC. A new 28 cm tip to cuff tunneled dialysis catheter was advanced over the wires at the tip is in the mid right atrium with the patient supine. The new catheter was found to flush and aspirate normally. The catheter secured in place. Sterile dressings were applied. The peritoneal dialysis catheter was found to be grossly normal in position. Contrast was administered through the catheter, which appear to be nonloculated freely flowing. Spontaneous drainage is noted. A guidewire was advanced through the catheter without evidence of obstruction. The distal aspect of the catheter coils and uncoils normally. The procedure was performed under conscious sedation including continuous cardiopulmonary monitoring via a dedicated sedation nurse. [id number] sedation time: 35 minutes Total fluoroscopy time: 1.4 minutes Dose area product: 37 Gycm2 Impression: 1. Replacement of left internal jugular tunnel dialysis catheter 2. Unremarkable fluoroscopic evaluation of the peritoneal dialysis catheter.
== END 2018-09-19 14:50 | disposition home or self-care (01) ==
LOC: INTRAD 10:23
PROVIDERS: ATTEND Registered Nurse
DX: T82.590A Other mechanical complication of surgically created arteriovenous fistula, initial encounter (principal); Y83.8 Other surgical procedures as the cause of abnormal reaction of the patient, or of later complication, without mention of misadventure at the time of the procedure; Y92.89 Other specified places as the place of occurrence of the external cause
CPT/HCPCS: 36581; 49400; 74190; 77001; 99152; 99153; C1750; C1769; J0690; J1644; J2250; J3010; J3490; Q9967

== ENCOUNTER 2018-09-27 12:12 | Emergency (ER) | payer MEDICARE, OTHER ==
[~2018-09-27] VITALS: Ht 188 cm; Wt 130.2 kg
--- NOTE | 2018-09-27 12:26 | PHYS DOC ---
Past Medical History Past Medical History: Diabetes-Type II, High Cholesterol, Hypertension, Renal Failure Additional Past Medical Histor: ESRD, peritoneal dialysis, HEMODIALYSIS Past Surgical History: Cholecystectomy, Tonsillectomy Additional Past Surgical Histo: peritoneal dialysis, kidney/bladder stent w "clip", DIALYSIS PORT TO RUC Alcohol Use: None Drug Use: None Adult General HPI HPI Patient's a 58-year-old very pleasant male with end-stage renal disease on dialysis. Patient was at dialysis today and they got multiple low blood pressure readings. Patient did not have any symptoms during dialysis he didn't feel lightheaded dizzy or weak. He has no complaints now. He's not had any chest pain he has baseline shortness of breath which is no better or worse than it normally is. He denies any fever chills or sweats.[] Review of Systems Review of Systems Constitutional: Denies fever or chills [] Eyes: Denies change in visual acuity, redness, or eye pain [] HENT: Denies nasal congestion or sore throat [] Respiratory: Per history of present illness[] Cardiovascular: No additional information not addressed in HPI [] GI: Denies abdominal pain, nausea, vomiting, bloody stools or diarrhea [] : Denies dysuria or hematuria [] Musculoskeletal: Denies back pain or joint pain [] Integument: Denies rash or skin lesions [] Neurologic: Denies headache, focal weakness or sensory changes [] Endocrine: Denies polyuria or polydipsia [] All other systems were reviewed and found to be within normal limits, except as documented in this note. Allergies Allergies Allergies Coded Allergies Type Severity Reaction Last Updated Verified ibuprofen Allergy Severe swelling 04/03/17 Yes morphine Allergy Mild 08/02/18 Yes Physical Exam Physical Exam Constitutional: Well developed, well nourished, no acute distress, non-toxic appearance. [] HENT: Normocephalic, atraumatic, bilateral external ears normal, oropharynx moist, no oral exudates, nose normal. [] Eyes: PERRLA, EOMI, conjunctiva normal, no discharge. [] Neck: Normal range of motion, no tenderness, supple, no stridor. [] Cardiovascular:Heart rate regular rhythm, no murmur [] Lungs & Thorax: Dialysis catheter left upper chest[] Abdomen: Morbidly obese, Bowel sounds normal, soft, no tenderness, no masses, no pulsatile masses. [] Skin: Warm, dry, no erythema, no rash. [] Back: No tenderness, no CVA tenderness. [] Extremities: No tenderness, no cyanosis, no clubbing, ROM intact, no edema. [] Neurologic: Alert and oriented X 3, normal motor function, normal sensory fu nction, no focal deficits noted. [] Psychologic: Affect normal, judgement normal, mood normal. [] EKG EKG [] Radiology/Procedures Radiology/Procedures [] Course & Med Decision Making Course & Med Decision Making Pertinent Labs and Imaging studies reviewed. (See chart for details) [] Dragon Disclaimer Dragon Disclaimer This electronic medical record was generated, in whole or in part, using a voice recognition dictation system. Departure Departure Impression: Primary Impression: Hypotension arterial Disposition: 01 HOME, SELF-CARE Condition: STABLE Referrals: CIELO COYNE DO (PCP) Patient Instructions: Hypotension Additional Instructions: Return emergency department with any new or concerning symptoms Problem Qualifiers Primary Impression: Hypotension arterial Hypotension type: unspecified hypotension type Qualified Codes: I95.9 - Hypotension, unspecified PETRA OLVERA DO Sep 27, 2018 12:25
[2018-09-27 13:05] VITALS: BP 137/61
== END 2018-09-27 13:11 | disposition home or self-care (01) ==
LOC: ER 12:12
DX: I95.3 Hypotension of hemodialysis (principal); E11.22 Type 2 diabetes mellitus with diabetic chronic kidney disease; I12.0 Hypertensive chronic kidney disease with stage 5 chronic kidney disease or end stage renal disease; N18.6 End stage renal disease; E66.01 Morbid (severe) obesity due to excess calories; Z68.36 Body mass index [BMI] 36.0-36.9, adult; Z90.49 Acquired absence of other specified parts of digestive tract; Z90.89 Acquired absence of other organs; Z99.2 Dependence on renal dialysis; Z88.6 Allergy status to analgesic agent; Z88.5 Allergy status to narcotic agent
CPT/HCPCS: 99283

== ENCOUNTER 2018-12-12 08:10 | Day surgery (SDC) | payer MEDICARE, OTHER ==
[~2018-12-12] VITALS: Ht 185.4 cm; Wt 119.5 kg
[~2018-12-12 08:10] MED LIST changes: +BUPIVACAINE-EPI 0.5%-1:200000 MPF 30 ML VIAL. INJ ONE; -DILT120C85 PO; +DILT120C99 PO; +HYDROmorphone 2 MG/ML VIAL IV PRN; +IV RINGERS,LACTATED 1000ML 1,000 ML IV SCH; +LIDOCAINE 1% PF 2 ML VIAL. ID PRN; +MORPHINE SULFATE 2 MG/ML VIAL. IV PRN; +ONDANSETRON PF 4 MG/2 ML VIAL. IV PRN; +PROCHLORPERAZINE 10 MG/2 ML VIAL. IV PRN; +fentaNYL PF VIAL 100 MCG/2 ML VIAL IV PRN
[2018-12-12] MEDS ORDERED: INSULIN LISPRO 100 UNIT/ML 3ML VIAL for OP,RR ONLY. SQ PRN (08:30)
[2018-12-12] MEDS ORDERED: OMEG1CAP6 PO ×2 (08:42→08:44)
[2018-12-12] MEDS ORDERED: IV NORMAL SALINE 1000ML BAG 1,000 ML IV ONE (09:00)
[2018-12-12 09:19] LABS: BASO # 0.1 x10^3/uL (0.0-0.2); BASO % 1 % (0-3); EOS # 0.4 x10^3/uL (0.0-0.7); EOS % 7 % (0-3); LYMPH # 1.2 x10^3/uL (1.0-4.8); LYMPH % 22 % (24-48); MEAN CORPUSCULAR HEMOGLOBIN 26 pg (25-35); MEAN CORPUSCULAR HGB CONC 31 g/dL (31-37); MEAN CORPUSCULAR VOLUME 82 fL (79-100); MONO # 0.5 x10^3/uL (0.0-1.1); MONO % 10 % (0-9); NEUT # 3.2 x10^3/uL (1.8-7.7); NEUT % 61 % (31-73); PLATELET COUNT 250 x10^3/uL (140-400); RED BLOOD COUNT 3.92 x10^6/uL (4.30-5.70); RED CELL DISTRIBUTION WIDTH 18.9 % (11.5-14.5); WHITE BLOOD COUNT 5.3 x10^3/uL (4.0-11.0)
[2018-12-12 09:30] LABS: ALBUMIN 3.8 g/dL (3.4-5.0); CALCIUM 9.3 mg/dL (8.5-10.1); CREATININE 9.6 mg/dL (0.7-1.3); GFR 6.8; POTASSIUM 4.6 mmol/L (3.5-5.1)
[2018-12-12] MEDS ORDERED: fentaNYL PF VIAL 100 MCG/2 ML VIAL ONE (10:04)
[2018-12-12] MEDS ORDERED: PROPOFOL 20 ML IV ONE (10:10)
[2018-12-12] MEDS ORDERED: LIDOCAINE 2% PF 5 ML VIAL. ONE (10:11)
[2018-12-12] MEDS ORDERED: DEXAMETHASONE SOD PHOS 4 MG/ML VIAL ONE (10:11)
[2018-12-12] MEDS ORDERED: ONDANSETRON PF 4 MG/2 ML VIAL. ONE (10:11)
[2018-12-12] MEDS ORDERED: ePHEDrine PF IN SALINE 50 MG/10 ML SYRINGE. IV ONE (10:39)
[2018-12-12] MEDS ORDERED: PHENYLEPHRINE in 0.9% NACL PF 1 MG/10 ML SYRINGE. IV ONE (10:39)
[2018-12-12] MEDS ORDERED: ceFAZolin 2GM PREMIX 2 GM/50 ML BAG IV ONE (11:00)
[2018-12-12] MEDS ORDERED: SEVOFLURANE 31 TO 60 MINUTES. IH ONE (11:03)
--- NOTE | 2018-12-12 11:03 | PDOC ---
BRIEF OPERATIVE NOTE Date: Dec 12, 2018 Pre-Op Diagnosis wants to stop PD Post-Op Diagnosis same Procedure Performed remove PD catheter Surgeon Arthur Anesthesia Type: General Blood Loss 5cc IV Fluid 200cc Specimens Obtained none Findings intact PD catheter with some fibrinous material in pig tail Complications none Operative Note Wk # [id number] BELLA HERNÁNDEZ MD Dec 12, 2018 11:03
--- NOTE | 2018-12-12 11:08 | DISCH ---
DISCHARGE INSTRUCTIONS Condition on Discharge Condition on Discharge: Stable Activity After Discharge Activity Instructions for Disc: Activity as tolerated, Avoid exertion Lifting Instructions after Dis: No heavy lifting Exercise Instruction after Dis: Progress as tolerated Driving Instructions after Dis: Do not drive today Weight Bearing Status after Di: As tolerated Diet after Discharge Diet after Discharge: Renal Dialysis, Diabetic No Calorie Level Diet Texture: Regular Wound Incision Care Other wound/incision instructi: june showmonday Checks after Discharge Checks after discharge: Check blood sugar, ac/hs Follow-Up Follow up with: Arthur two weeks Treatment/Equipment after DC Adaptive Equipment Issued: None BELLA HERNÁNDEZ MD Dec 12, 2018 11:08
[2018-12-12] MEDS ORDERED: oxyCODONE/APAP 5/325 1 TAB TABLET PO ONE (11:15)
--- NOTE | 2018-12-12 11:16 | OP ---
DATE OF SURGERY: 12/12/2018 PREOPERATIVE DIAGNOSIS: Wants to stop peritoneal dialysis. POSTOPERATIVE DIAGNOSIS: Wants to stop peritoneal dialysis. PROCEDURE: Removal of PD catheter. SURGEON: Jose M Hernández MD ANESTHESIA: General. ESTIMATED BLOOD LOSS: 5 mL. INTRAVENOUS FLUIDS: 200 mL. DESCRIPTION OF PROCEDURE: The patient was brought to the operating suite, given a general LMA, and the abdomen was prepped and draped in usual sterile fashion. The insertion site was infiltrated with local anesthetic, incised, and dissection carried down to the Dacron cuff which was freed and the catheter delivered intact. The fascial defect closed with a single stitch of 0 Vicryl. The peripheral cuff was then freed and the rest of the catheter delivered. Hemostasis with cautery. Wound was closed loosely with waleska. Sterile dressing applied. The patient was awakened from his anesthetic and taken to the recovery room in satisfactory condition. JOSE M HERNÁNDEZ MD DR: SHIVA/santino JOB#: [id number] / [id number]
[2018-12-12] MEDS ORDERED: oxyCODONE/APAP 5/325 1 TAB TABLET ONE (11:17)
[2018-12-12 11:38] VITALS: BP 136/90
== END 2018-12-12 12:05 | disposition home or self-care (01) ==
LOC: SURG 08:10
PROVIDERS: ATTEND Surgery
DX: Z45.2 Encounter for adjustment and management of vascular access device (principal); E11.22 Type 2 diabetes mellitus with diabetic chronic kidney disease; I13.11 Hypertensive heart and chronic kidney disease without heart failure, with stage 5 chronic kidney disease, or end stage renal disease; N18.6 End stage renal disease; E11.42 Type 2 diabetes mellitus with diabetic polyneuropathy; E11.39 Type 2 diabetes mellitus with other diabetic ophthalmic complication; F41.9 Anxiety disorder, unspecified; E78.00 Pure hypercholesterolemia, unspecified; E66.9 Obesity, unspecified; Z68.35 Body mass index [BMI] 35.0-35.9, adult; Z87.891 Personal history of nicotine dependence; Z90.49 Acquired absence of other specified parts of digestive tract; Z98.890 Other specified postprocedural states; Z79.899 Other long term (current) drug therapy; Z72.89 Other problems related to lifestyle; Z79.84 Long term (current) use of oral hypoglycemic drugs
CPT/HCPCS: 36415; 49422; 80048; 82040; 82962; 85025; J0171; J0696; J1100; J2001; J2370; J2405; J2704; J3010; J3490

== ENCOUNTER → 2019-04-08 | Outpatient (CLI) | payer MEDICARE, OTHER ==
[2019-04-04 08:38] VITALS: BP 117/41
[~2019-04-08] MED LIST changes: -BUPIVACAINE-EPI 0.5%-1:200000 MPF 30 ML VIAL. INJ ONE; +CLOP75TA PO; -HYDROmorphone 2 MG/ML VIAL IV PRN; -IV RINGERS,LACTATED 1000ML 1,000 ML IV SCH; -LIDOCAINE 1% PF 2 ML VIAL. ID PRN; -MORPHINE SULFATE 2 MG/ML VIAL. IV PRN; +OMEG1CAP6 PO; -OMEP20CA10 PO; +OMEP20CA16 PO; -ONDANSETRON PF 4 MG/2 ML VIAL. IV PRN; -PROCHLORPERAZINE 10 MG/2 ML VIAL. IV PRN; -fentaNYL PF VIAL 100 MCG/2 ML VIAL IV PRN
--- NOTE | 2019-04-08 10:26 | RAD ---
LOWER EXT NON JOINT WO LT dated 04/08/2019 9:00 AM Indication: Left first toe plantar ulcer wound care .. Comparison: No comparison is available. Technique: Routine multiplanar multisequence imaging performed. No contrast administered Findings: There is a focal skin defect of the plantar aspect of the distal phalanx great toe with mild edema within the underlying subcutaneous tissues. There is mild increased T2 signal within the marrow of the distal phalanx. No definite focal T1 signal loss or cortical destruction. Evaluation is somewhat limited due to motion artifact and incomplete fat saturation. No underlying fluid collection in the soft tissues. There is mild increased T2 signal within the subcutaneous tissues throughout. There is also mild increased T2 signal in the plantar foot musculature. Marrow signal is otherwise homogeneous. Mild degenerative change of the interphalangeal joints and first MTP joint. IMPRESSION: 1. Limited exam due to motion artifact and incomplete fat saturation. 2. Focal area of skin ulceration at the distal phalanx great toe. There is some mild increased T2 signal within the marrow of the distal phalanx without significant T1 signal loss or cortical destruction. This is likely reactive, although early osteomyelitis cannot be excluded. If symptoms persist, follow-up imaging may be warranted. 3. Nonspecific edema within the subcutaneous tissues and plantar foot musculature. Electronically signed by: Dejuan Vo MD (04/08/2019 10:22 AM) [id number]
== END | disposition home or self-care (01) ==
LOC: MRI 08:59
PROVIDERS: ATTEND Emergency Medicine Undersea and Hyperbaric Medicine
DX: E11.621 Type 2 diabetes mellitus with foot ulcer (principal); L97.529 Non-pressure chronic ulcer of other part of left foot with unspecified severity
CPT/HCPCS: 73718

== ENCOUNTER → 2019-11-13 | Outpatient (CLI) | payer MEDICARE, OTHER ==
[~2019-11-13] VITALS: Ht 185.4 cm; Wt 100.7 kg
[~2019-11-13] MED LIST changes: +DIPH25TA24 PO; +DOXE50CA PO; +EPOE200014 IJ; +FAMO20TA5 PO; +HALO2TAB PO; +HYDR50TA PO; +INSU100C SQ; +LIDOCAINE 1%/EPI 1:100,000 20 ML VIAL. INJ ONE; +LIDOCAINE 1%/EPI 1:100,000 20 ML VIAL. ONE; +MIDAZOLAM HCL/PF 2 MG/2 ML VIAL. IV ONE; +MIDAZOLAM HCL/PF 2 MG/2 ML VIAL. ONE; +NAFC2FRO IV; +OXYC5CAP PO; +PRED20TA PO; -SILD20TA2 PO; +SILD20TA4 PO; +VANC125C10 PO; +fentaNYL PF VIAL 100 MCG/2 ML VIAL IV ONE; +fentaNYL PF VIAL 100 MCG/2 ML VIAL ONE; +fentanyl IVP
[2019-11-13 10:34] VITALS: BP 114/56
[2019-11-13 11:43] VITALS: BP 118/52
[2019-11-13 12:00] VITALS: BP 133/56
[2019-11-13 12:15] VITALS: BP 127/60
[2019-11-13 12:30] VITALS: BP 118/68
--- NOTE | 2019-11-13 12:30 | NUR ---
Discharge Note: BRIE AGUILAR Discharge instructions and discharge home medications reviewed with Other facility and a copy given. All questions have been answered and understanding verbalized. Order for use sent with paperwork The following instructions and handouts were given: dialysis access, sedation Dialysis catheter intact to L chest [facility] Personnel via Stretcher SHAHEEN MERRITT Addendum: 11/13/19 at 1357 by NAEL VALLE RN Amended: Links added.
--- NOTE | 2019-11-13 14:50 | RAD ---
Conversion of left internal jugular temporary dialysis catheter to a tunneled hemodialysis catheter Indication: Longer term dialysis access needed Procedure: The procedure was explained in its entirety to the patient or the patients designated registered representative by a member of the treatment team, including a discussion of the risks, benefits and commonly accepted alternatives to the procedure, as well as the expected consequences of no therapy whatsoever. Discussion of the risks included, but was not limited to, those that are most frequent and those that are rare but possibly severe or life-threatening, as well as the possibility of unforeseen complications. All elements of maximal sterile barrier technique including the use of a cap, mask, sterile gown, sterile gloves, large sterile sheet, appropriate hand hygiene, and 2% chlorhexidine for cutaneous antisepsis (or acceptable alternative antiseptic per current guidelines) were followed for this procedure. The pre-existing catheter was evaluated under fluoroscopy and found to be normal in position. A guidewire was advanced into the IVC. A 28 cm tip to cuff tunneled hemodialysis catheter was advanced from small dermatotomy, several centimeters inferior to the pre-existing catheter entry site, to the venotomy site. The pre-existing catheter was removed over the guidewire and a peel-away sheath placed. The new tunneled catheter was advanced through the peel-away sheath such that its tip was positioned in the proximal right atrium with the patient supine. The sheath was removed. The new catheter was found to flush and aspirate normally. Catheter was flushed, and secured in place. Sterile dressings were applied. No immediate complications were identified. Total fluoroscopy time: 0.9 MINUTES Dose area product: 3 Gycm2 The procedure was performed under conscious sedation including continuous cardiopulmonary monitoring via dedicated sedation nurse. [id number] sedation time: 34 minutes Impression: Conversion of left internal jugular temporary dialysis catheter to a tunneled dialysis catheter
== END | disposition home or self-care (01) ==
LOC: INTRAD 09:56
PROVIDERS: ATTEND Internal Medicine Nephrology
DX: I13.2 Hypertensive heart and chronic kidney disease with heart failure and with stage 5 chronic kidney disease, or end stage renal disease (principal); N18.6 End stage renal disease; I50.9 Heart failure, unspecified; E11.22 Type 2 diabetes mellitus with diabetic chronic kidney disease; F41.9 Anxiety disorder, unspecified; I48.91 Unspecified atrial fibrillation; F32.9 Major depressive disorder, single episode, unspecified; E78.5 Hyperlipidemia, unspecified; E03.9 Hypothyroidism, unspecified; Z98.890 Other specified postprocedural states; Z79.899 Other long term (current) drug therapy; Z88.8 Allergy status to other drugs, medicaments and biological substances; Z79.84 Long term (current) use of oral hypoglycemic drugs
CPT/HCPCS: 36581; 77001; 99152; 99153; A4215; C1750; J0690; J2250; J3010; J3490